=== PATIENT | male | born 1935 | race Asian ===

== ENCOUNTER 2017-10-11 15:54 | Inpatient (IN) | payer MEDICARE, SELFPAY ==
[2017-10-11] VITALS (13 sets, daily range): BP systolic 94–109; BP diastolic 52–71; PULSE 77–85; RESP 18–24; TEMP 36.6–37; O2SAT 94–96; BMI 22.4; BMI 20.8
--- NOTE | 2017-10-11 16:16 | EKG12_ITS ---
Test Reason : HEART HX Blood Pressure : / mmHG Vent. Rate : 079 BPM Atrial Rate : 079 BPM P-R Int : 226 ms QRS Dur : 092 ms QT Int : 402 ms P-R-T Axes : -20 -01 028 degrees QTc Int : 460 ms Sinus rhythm with 1st degree A-V block Otherwise normal ECG Confirmed by CT MANZANARES, ELOY ([id number]), manager editorial BRENDA SENA ([id number] on 10/17/2017 8:59:27 AM Referred By: TERENCE Confirmed By:ELOY FOFANA MD
--- NOTE | 2017-10-11 16:20 | RAD_ITS ---
STUDY: X-RAY CHEST REASON FOR EXAM: Male, 81 years old. Confusion, cough and shortness of breath. TECHNIQUE: Single AP portable view of the chest. COMPARISON: None. FINDINGS: The lung hogan are expanded. Diffuse interstitial changes bilaterally. Atelectatic changes versus infiltrate or chronic change of the right lung base at the costophrenic angle. Pleural thickening versus pleural effusion on the left. Mild cardiomegaly. Status post prior midline sternotomy. Normal visualized pulmonary arteries. Atherosclerotic changes of the thoracic aorta with probable aneurysmal dilatation of the arch portion. There are diffuse degenerative changes of the visualized thoracic spine. Nodular opacity projecting over the anterior right second rib probably healed rib fracture. There is no demonstrated abnormality of the visualized soft tissue structures of the upper abdomen. RAD/Chest 1 View (Portable) IMPRESSION: Atelectatic versus chronic versus early infiltrate at the right lung base/costophrenic angle. Diffuse interstitial changes. Pleural thickening on the left/effusion not excluded. Mild cardiomegaly status post prior midline sternotomy. Marked atherosclerotic changes of the thoracic aorta with a potential aneurysmal dilatation. Electronically Signed: Tatiana Shay MD at 17:13 EDT , Service support ,
[2017-10-11 16:31] LABS: Absolute Lymphocyte Count 2.21 X10^3/ul (0.83-4.51); Absolute Neutrophil Count 12.5 X10^3/uL (2.0-7.7); Basophil# 0.06 X10^3/uL; Basophil% 0.4 % (0-1); Eosinophil# 0.54 X10^3/uL; Eosinophils% 3.2 % (0-5); Hematocrit 27.7 % (40-54); Lymphocyte # 2.21 X10^3/ul (4.0); Mean Corp Hgb Conc 32.5 g/gl (32-36); Mean Corpuscular Volume 89.4 fL (80-94); Mean Platelet Vol. 11.8 fl (6.2-12.0); Monocyte# 1.49 X10^3/uL; Monocyte% 8.7 % (0-10); Neutrophil # 12.54 X10^3/uL (2.7-7.7); Neutrophil % 73.6 % (47-70); Platelet Count 259 K/mm3 (150-450); RBC Distribution Width CV 16.6 % (11.6-14.6); RBC Distribution Width SD 51.8 fl (35.1-43.9)
[2017-10-11 16:37] LABS: POSITIVE COUNT NO; POSITIVE DIFFERENTIAL NO; POSITIVE MORPHOLOGY NO
[2017-10-11 16:52] LABS: ALB/GLOB Ratio 0.4 RATIO (0.9-2.4); AST(SGOT) 32 U/L (15-37); Alanine Aminotransfer ALT/SGPT 36 U/L (16-61); Albumin, Serum 2.3 g/dL (3.2-5.0); Alkaline Phosphatase 161 U/L (45-117); Anion Gap 10 (5-15); BUN 82 mg/dL (7-18); BUN/Creat Ratio 48.8 RATIO (10-20); Calcium,Total 9.5 mg/dL (8.5-10.1); Chloride 108 mmol/L (98-107); Creatinine, Serum 1.68 mg/dL (0.70-1.30); EST Glomerular Filtration Rate 42 mL/min (>60); Est Glom Filt Rate - Afr Amer 51 mL/min (>60); Estimated Creatinine Clearance 36.16 ml/min; Globulin 5.6 g/dL (2.2-4.2); Glucose 103 mg/dL (74-106); Potassium 4.8 mmol/L (3.5-5.1); Protein, Total 7.9 g/dL (6.4-8.2); Sodium Level 140 mmol/L (136-145)
[2017-10-11 16:58] LABS: Mucous, Urine 0 SEEN /hpf (<or=2+); Red Blood Cells-Urine 0 SEEN /hpf (0-5); Squamous Epithelial Cells - UA 0 SEEN /hpf (0-5)
[2017-10-11 17:08] LABS: Lactic Acid 1.6 mmol/L (0.4-2.0)
[2017-10-11 17:50] LABS: Color, Urine Yellow (Yellow); Glucose, Dipstick Normal (Normal); Ketone-Dipstick Negative (Negative); Leukocyte Esterase-Dipstick 500 /ul (Negative); Nitrite-Dipstick Positive (Negative); Occult Blood-Urine 10 /ul (Negative); Protein-Dipstick 100 mg/dl (Negative); Urine Bilirubin Dipstick Negative (Negative); Urine Clarity Sl. Cloudy (Clear); Urine Urobilinogen Normal (Normal); Urine pH 6.5 (5.0 - 8.0)
[2017-10-11 17:52] LABS: International Normalized Ratio 1.1; Prothrombin Time (Protime)PT. 13.7 SECONDS (11.7-14.9)
[2017-10-11 17:53] LABS: Partial Thromboplast Time 37.1 Seconds (24.1-36.2)
[2017-10-11 18:24] LABS: Bacteria RARE /hpf (None Seen); White Blood Cells 5-10 SEEN /hpf (0-5)
--- NOTE | 2017-10-11 18:33 | ED.VISSUMM ---
- ER Visit Summary Date of Service: 10/11/17 Chief Complaint: Altered mental status and increased weakness History of Present Illness: The patient is a 81 M who presents with altered mental status and increased weakness. In June he had an aortic dissection and was treated at [facility] and did have surgical intervention. He was in the hospital for 7 weeks. He is currently in a rehab facility. Daughter reports that over the past 2-3 days he has had increasing generalized weakness and confusion. He has had a fever of 101 and cough. He was diagnosed with UTI and started on antibiotics. He has had some diarrhea since that time as well. Physical Examination: Afebrile heart rate 79 blood pressure 104/63 respiratory rate 24 Heart regular rate and rhythm Patient is tachypneic with bilateral rales Abdomen soft He was diaphoretic at the time of initial examination Alert and oriented to person and place but not month Test Results: EKG shows sinus rhythm at a rate of 79. Laboratory studies notable for white blood cell count 17,000. He does have renal insufficiency with a BUN of 82 and creatinine 1.68 which is slightly elevated from prior labs. Lactic is normal. UA showed 500 leukocyte esterase as well as positive nitrates. His chest x-ray shows some interstitial changes there is no old to compare to. There is a questionable early infiltrate the right lung base. Emergency Department Course and Treatment: She was covered with IV Zosyn and vancomycin. I certainly think he has a UTI and questionable healthcare associated pneumonia as well. He was treated with IV fluids. He was discussed with the hospitalist. He was admitted. Treatment Plan: [] Disposition: Admit Impression: Healthcare associated pneumonia UTI. This note was generated with [employer] dictation software. It may contain incorrect words, spelling, and punctuation that were not noted in review of the chart prior to signing ED Disposition - Plan for ED Patient: Chief Complaint: Confusion Referrals: Thor Jefferson DO [Primary Care Provider] -
--- NOTE | 2017-10-11 18:55 | ED.RN ---
DR. HERRERA IN WITH PT. REMOVED THE THREE STITCHES TO RIGHT UPPER SHOULDER
--- NOTE | 2017-10-11 18:57 | PCM.HP.STD ---
Problem List (1) Pneumonia Status: Acute Qualifiers: Pneumonia type: aspiration pneumonia Laterality: right Lung location: lower lobe of lung Comment: vs HCAP (2) UTI (urinary tract infection) Status: Acute Qualifiers: Urinary tract infection type: acute cystitis (3) SIRS (systemic inflammatory response syndrome) Status: Acute History of Present Illness Date of Admission: 10/11/17 Chief Complaint: confusion, cough The patient is a 81 year old M past medical history of CAD/CABG, encephalopathy, atrial fibrillation, history of pneumonia, history of oropharyngeal dysphagia with PEG tube, hyperlipidemia, obstructive uropathy, hypertension, chronic hepatitis B without delta agent, protein calorie malnutrition, BPH, and history of thoracic aortic dissection status post repair at [facility] 06/2017, [facility] requiring dialysis for a short time, who was discharged and is currently at rehab facility for the past 2 weeks. He was placed on Levaquin 500 mg on 10/10/2017 for urinary tract symptoms. He is referred to emergency department for evaluation of confusion, diarrhea, and cough. To the , he has been undergoing NETWORK CONTROL OPERATORS SUPERVISOR training and has been able to advance his diet somewhat to Jell-O, small sips, applesauce. ED evaluation: Temp 98.6, heart rate 79, blood pressure 104/63, 97/70, respirations 22-24, 95% room air Choice pertinent for white count 17.0, hemoglobin 9.0, left shift, platelet 259, INR 1.1, and chemistries pertinent for BUN 82, creatinine 1.68, GFR 42 mL's per minute, lactate 1.6, albumin 2.3. Chest x-ray revealed right lower lobe atelectasis versus infiltrate, chronic changes, mild cardiomegaly. EKG reveals sinus rhythm with first-degree AV block, 0.22/0 0.09/0.46, no acute ischemic changes. ED course: Vancomycin 1 gm IV, Zosyn 4.5 gm IV, saline total 1 liter bolus On seeing the patient, he appears sweaty, but alert, oriented to place, not date or time. [] Rehab facility provided sheets are reviewed. Medications listed prior to admission PEG tube Nova source 55 mL continuous, free water flush 240 cc every 4 hours Atorvastatin 20 mg daily Iron 300 mg liquid twice a day Guaifenesin 20 mL's 3 times daily Subcu heparin 5000 units twice daily Metoprolol 25 mg twice daily Amiodarone 200 mg daily Aspirin 81 mg daily Famotidine suspension 40 mg per 5 mL daily DuoNeb Aerosols every 4 hour Peridex mouth wash melatonin 3 mg HS KCL 20 meq BID Tylenol prn Past Medical History Past Medical History (Chronic Problems): Chronic Problems (Last Updated 06/20/17 @ 14:47 by Whit Wilson) Type 2 diabetes mellitus without complications (Chronic) Hyperlipidemia (Chronic) Hypertension (Chronic) Allergies No Known Allergies Allergy (Unverified 06/20/17 14:37) Home Medications: Ambulatory Orders Medication Instructions Recorded aspirin 81 mg tablet,delayed 81 mg PO QDAY 06/20/17 release losartan 50 mg-hydrochlorothiazide 1 tab PO QDAY 06/20/17 12.5 mg tablet metformin 500 mg tablet 500 mg PO QDAY 30 Days #30 tab 06/20/17 pravastatin 40 mg tablet 40 mg PO QHS 90 Days #90 tab 06/20/17 Surgical History: - - see HPI, CABG, s/p thoracic Ao dissection treated [facility] Psychiatric History: No pertinent psych hx Lives: Spouse/ Significant Other Smoking Status: Former smoker - *Family History Maternal History Items: No pertinent history Paternal History Items: No pertinent history Review of Systems Constitutional: Reports: Chills, Weakness, Fatigue Respiratory: Reports: Cough Gastrointestinal: Reports: - - PEG tube Skin: Reports: Wounds - multiple, chest wall incision, R groin, buttock VTE Information - Inpt Only VTE Present on Admission: No VTE Mechan Device Prophylaxis: SCD's VTE Pharm Prophylaxis ordered?: Yes Patient Problems: Active and Suspected Problems (Last Updated 06/20/17 @ 14:47 by Whit Wilson) Pneumonia (Acute) vs HCAP UTI (urinary tract infection) (Acute) SIRS (systemic inflammatory response syndrome) (Acute) Subjective: seaty appearing, alert to place and person Objective: non toxic appearing - Physical Exam General: Alert, Confused HEENT: - - fair dentition Oral: Dry Mucosa Neck: Supple, No JVD, Negative Carotid Bruits, No Nodes, Thyroid Normal Size and Texture Lungs: Rhonchi Cardiovascular: Regular rate, Regular Rhythm, Normal S1, Normal S2 Abdomen: Soft, Non Tender, Non-Distended, - - PEG site clean Skin: Ulcer/ Wound - chest wall, R groin, buttock area Neurological: - - deconditioned -- requires assist of 2 to sit up in bed Psych/Mental Status: Normal Affect, Appropriate Vital Signs Temp Pulse Resp BP Pulse Ox 98 F 80 22 H 97/70 96 10/11/17 16:56 10/11/17 18:00 10/11/17 18:00 10/11/17 18:00 10/11/17 18:00 Oxygen Delivery Method Room Air Weight: 160 lb 11.472 oz Body Mass Index (BMI) 22.4 Laboratory Tests Past 24 Hrs 10/11/17 10/11/17 10/11/17 16:10 16:10 16:10 WBC 17.0 H RBC 3.10 L Hgb 9.0 L Hct 27.7 L MCV 89.4 MCH 29.0 MCHC 32.5 RDW 16.6 H RDW Differential 51.8 H Plt Count 259 MPV 11.8 Immature Gran % (Auto) 1.100 H Neut % (Auto) 73.6 H Lymph % (Auto) 13.0 L [place] % (Auto) 8.7 Eos % (Auto) 3.2 Baso % (Auto) 0.4 Absolute Neuts (auto) 12.5 H Absolute Lymphs (auto) 2.21 Total Counted Not Reportable PT INR APTT Sodium 140 Potassium 4.8 Chloride 108 H Carbon Dioxide 22.0 Anion Gap 10 BUN 82 H Creatinine 1.68 H Estim Creat Clear Calc 36.16 Est GFR (MDRD) Af Amer 51 L Est GFR (MDRD) Non-Af 42 L BUN/Creatinine Ratio 48.8 H Glucose 103 Lactic Acid 1.6 Calcium 9.5 Total Bilirubin 0.30 AST 32 ALT 36 Alkaline Phosphatase 161 H Total Protein 7.9 Albumin 2.3 L Globulin 5.6 H Albumin/Globulin Ratio 0.4 L Urine Color Urine Clarity Urine pH Ur Specific [place] Urine Protein Urine Glucose (UA) Urine Ketones Urine Occult Blood Urine Nitrite Urine Bilirubin Urine Urobilinogen Ur Leukocyte Esterase Urine RBC Urine WBC Ur Squamous Epith Cells Urine Bacteria Urine Mucus 10/11/17 10/11/17 16:35 16:52 WBC RBC Hgb Hct MCV MCH MCHC RDW RDW Differential Plt Count MPV Immature Gran % (Auto) Neut % (Auto) Lymph % (Auto) [place] % (Auto) Eos % (Auto) Baso % (Auto) Absolute Neuts (auto) Absolute Lymphs (auto) Total Counted PT 13.7 INR 1.1 APTT 37.1 H Sodium Potassium Chloride Carbon Dioxide Anion Gap BUN Creatinine Estim Creat Clear Calc Est GFR (MDRD) Af Amer Est GFR (MDRD) Non-Af BUN/Creatinine Ratio Glucose Lactic Acid Calcium Total Bilirubin AST ALT Alkaline Phosphatase Total Protein Albumin Globulin Albumin/Globulin Ratio Urine Color Yellow Urine Clarity Sl. Cloudy Urine pH 6.5 Ur Specific [place] 1.010 Urine Protein 100 H Urine Glucose (UA) Normal Urine Ketones Negative Urine Occult Blood 10 H Urine Nitrite Positive H Urine Bilirubin Negative Urine Urobilinogen Normal Ur Leukocyte Esterase 500 H Urine RBC 0 SEEN Urine WBC 5-10 SEEN Ur Squamous Epith Cells 0 SEEN Urine Bacteria RARE Urine Mucus 0 SEEN Assessment/Plan Active and Suspected Problems (Last Updated 06/20/17 @ 14:47 by Whit Wilson) Pneumonia (Acute) vs HCAP UTI (urinary tract infection) (Acute) SIRS (systemic inflammatory response syndrome) (Acute) 81 year old M past medical history of CAD/CABG, encephalopathy, atrial fibrillation, history of pneumonia, history of oropharyngeal dysphagia with PEG tube, hyperlipidemia, obstructive uropathy, hypertension, chronic hepatitis B without delta agent, protein calorie malnutrition, BPH, and history of thoracic aortic dissection status post repair at [facility] 06/2017, [facility] requiring dialysis for a short time, who was discharged and is currently at rehab facility for the past 2 weeks. He was placed on Levaquin 500 mg on 10/10/2017 for urinary tract symptoms. He is referred to emergency department for evaluation of confusion, diarrhea, and cough. Found to have leukocytosis, lower blood pressures, and possible infiltrate in the right lower lobe, H CAP versus aspiration pneumonia (as they had recently started trials of applesauce, Jell-O etc.). He meets SIRS criteria. Baseline creatinine is unknown. He is very deconditioned on exam. Skin examination is pertinent for multiple areas of superficial wounds and scabbing along the chest wall midline, right neck area, right groin area, buttock area pressure erythema. PEG tube is clean dry intact. Patient should remain n.p.o. with all medications given per PEG, until further evaluation by NETWORK CONTROL OPERATORS SUPERVISOR. 1. SIRS 2. Pneumonia right lower lobe, H CAP versus possible aspiration 3. Possible urinary tract infection 4. Dehydration/acute kidney injury, baseline creatinine 1.2 5. anemia, NOS - hemoglobins run 9 - 10 5. Deconditioning 7. Oral pharyngeal dysphasia; presence of PEG tube 8. Protein calorie malnutrition, moderate 9. Hypertension - continue metoprolol 25 mg BID HOLD HR less than 60 SBP less than 100 10. Hyperlipidemia - 11. Skin wounds, pressure erythema buttock area 12. Deconditioning 13. Status post repair of thoracic aortic aneurysm 14. History of CAD/CABG 15. chronic hep B, without delta agent 16. CAD/hx afib -- on ASA, statin, beta santa, Amiodarone 17. BPH prophylaxis -- H2 santa, subQ heparin, SCDs PLAN: admit PCU tele O2 support fluid hydration saline at 75 mL per hour PEG feeds -- Novasource (or equivalent) 55 mL per hour, free water flush 240 mL Q 4 hrs pulmonary toilette aerosol, chest physiotherapy, cough deep breath, IS NPO NETWORK CONTROL OPERATORS SUPERVISOR evaluation Vancomycin 1 gm every 12 hours, Zosyn 3.375 gm Q8 Streptococcal and Legionella urinary Ag result urine and blood cultures mouth care, Peridex rinses wound care consult /skin assessment / integrity PT/OT NETWORK CONTROL OPERATORS SUPERVISOR eval mobilize Code Visit Inpatient E&M: 52055 Init Hosp L2
--- NOTE | 2017-10-11 19:29 | HP.PCM_ITS ---
Problem List (1) Pneumonia Status: Acute Qualifiers: Pneumonia type: aspiration pneumonia Laterality: right Lung location: lower lobe of lung Comment: vs HCAP (2) UTI (urinary tract infection) Status: Acute Qualifiers: Urinary tract infection type: acute cystitis (3) SIRS (systemic inflammatory response syndrome) Status: Acute History of Present Illness Date of Admission: 10/11/17 Chief Complaint: confusion, cough The patient is a 81 year old M past medical history of CAD/CABG, encephalopathy , atrial fibrillation, history of pneumonia, history of oropharyngeal dysphagia with PEG tube, hyperlipidemia, obstructive uropathy, hypertension, chronic hepatitis B without delta agent, protein calorie malnutrition, BPH, and history of thoracic aortic dissection status post repair at [facility] 06/2017, [facility] requiring dialysis for a short time, who was discharged and is currently at rehab facility for the past 2 weeks. He was placed on Levaquin 500 mg on 10/10/2017 for urinary tract symptoms. He is referred to emergency department for evaluation of confusion, diarrhea, and cough. To the , he has been undergoing FOOD SERVICES MANAGER training and has been able to advance his diet somewhat to Jell-O, small sips, applesauce. ED evaluation: Temp 98.6, heart rate 79, blood pressure 104/63, 97/70, respirations 22-24, 95% room air Choice pertinent for white count 17.0, hemoglobin 9.0, left shift, platelet 259 , INR 1.1, and chemistries pertinent for BUN 82, creatinine 1.68, GFR 42 mL's per minute, lactate 1.6, albumin 2.3. Chest x-ray revealed right lower lobe atelectasis versus infiltrate, chronic changes, mild cardiomegaly. EKG reveals sinus rhythm with first-degree AV block, 0.22/0 0.09/0.46, no acute ischemic changes. ED course: Vancomycin 1 gm IV, Zosyn 4.5 gm IV, saline total 1 liter bolus On seeing the patient, he appears sweaty, but alert, oriented to place, not date or time. [] Rehab facility provided sheets are reviewed. Medications listed prior to admission PEG tube Nova source 55 mL continuous, free water flush 240 cc every 4 hours Atorvastatin 20 mg daily Iron 300 mg liquid twice a day Guaifenesin 20 mL's 3 times daily Subcu heparin 5000 units twice daily Metoprolol 25 mg twice daily Amiodarone 200 mg daily Aspirin 81 mg daily Famotidine suspension 40 mg per 5 mL daily DuoNeb Aerosols every 4 hour Peridex mouth wash melatonin 3 mg HS KCL 20 meq BID Tylenol prn Past Medical History Past Medical History (Chronic Problems): Chronic Problems (Last Updated 06/20/17 @ 14:47 by Whit Wilson) Type 2 diabetes mellitus without complications (Chronic) Hyperlipidemia (Chronic) Hypertension (Chronic) Allergies No Known Allergies Allergy (Unverified 06/20/17 14:37) Home Medications: Ambulatory Orders Medication Instructions Recorded aspirin 81 mg tablet,delayed 81 mg PO QDAY 06/20/17 release losartan 50 mg-hydrochlorothiazide 1 tab PO QDAY 06/20/17 12.5 mg tablet metformin 500 mg tablet 500 mg PO QDAY 30 Days #30 tab 06/20/17 pravastatin 40 mg tablet 40 mg PO QHS 90 Days #90 tab 06/20/17 Surgical History: - - see HPI, CABG, s/p thoracic Ao dissection treated [facility] Psychiatric History: No pertinent psych hx Lives: Spouse/ Significant Other Smoking Status: Former smoker - *Family History Maternal History Items: No pertinent history Paternal History Items: No pertinent history Review of Systems Constitutional: Reports: Chills, Weakness, Fatigue Respiratory: Reports: Cough Gastrointestinal: Reports: - - PEG tube Skin: Reports: Wounds - multiple, chest wall incision, R groin, buttock VTE Information - Inpt Only VTE Present on Admission: No VTE Mechan Device Prophylaxis: SCD's VTE Pharm Prophylaxis ordered?: Yes Patient Problems: Active and Suspected Problems (Last Updated 06/20/17 @ 14:47 by Whit Wilson) Pneumonia (Acute) vs HCAP UTI (urinary tract infection) (Acute) SIRS (systemic inflammatory response syndrome) (Acute) Subjective: seaty appearing, alert to place and person Objective: non toxic appearing - Physical Exam General: Alert, Confused HEENT: - - fair dentition Oral: Dry Mucosa Neck: Supple, No JVD, Negative Carotid Bruits, No Nodes, Thyroid Normal Size and Texture Lungs: Rhonchi Cardiovascular: Regular rate, Regular Rhythm, Normal S1, Normal S2 Abdomen: Soft, Non Tender, Non-Distended, - - PEG site clean Skin: Ulcer/ Wound - chest wall, R groin, buttock area Neurological: - - deconditioned -- requires assist of 2 to sit up in bed Psych/Mental Status: Normal Affect, Appropriate Vital Signs Temp Pulse Resp BP Pulse Ox 98 F 80 22 H 97/70 96 10/11/17 16:56 10/11/17 18:00 10/11/17 18:00 10/11/17 18:00 10/11/17 18:00 Oxygen Delivery Method Room Air Weight: 160 lb 11.472 oz Body Mass Index (BMI) 22.4 Laboratory Tests Past 24 Hrs 10/11/17 10/11/17 10/11/17 16:10 16:10 16:10 WBC 17.0 H RBC 3.10 L Hgb 9.0 L Hct 27.7 L MCV 89.4 MCH 29.0 MCHC 32.5 RDW 16.6 H RDW Differential 51.8 H Plt Count 259 MPV 11.8 Immature Gran % (Auto) 1.100 H Neut % (Auto) 73.6 H Lymph % (Auto) 13.0 L [place] % (Auto) 8.7 Eos % (Auto) 3.2 Baso % (Auto) 0.4 Absolute Neuts (auto) 12.5 H Absolute Lymphs (auto) 2.21 Total Counted Not Reportable PT INR APTT Sodium 140 Potassium 4.8 Chloride 108 H Carbon Dioxide 22.0 Anion Gap 10 BUN 82 H Creatinine 1.68 H Estim Creat Clear Calc 36.16 Est GFR (MDRD) Af Amer 51 L Est GFR (MDRD) Non-Af 42 L BUN/Creatinine Ratio 48.8 H Glucose 103 Lactic Acid 1.6 Calcium 9.5 Total Bilirubin 0.30 AST 32 ALT 36 Alkaline Phosphatase 161 H Total Protein 7.9 Albumin 2.3 L Globulin 5.6 H Albumin/Globulin Ratio 0.4 L Urine Color Urine Clarity Urine pH Ur Specific [place] Urine Protein Urine Glucose (UA) Urine Ketones Urine Occult Blood Urine Nitrite Urine Bilirubin Urine Urobilinogen Ur Leukocyte Esterase Urine RBC Urine WBC Ur Squamous Epith Cells Urine Bacteria Urine Mucus 10/11/17 10/11/17 16:35 16:52 WBC RBC Hgb Hct MCV MCH MCHC RDW RDW Differential Plt Count MPV Immature Gran % (Auto) Neut % (Auto) Lymph % (Auto) [place] % (Auto) Eos % (Auto) Baso % (Auto) Absolute Neuts (auto) Absolute Lymphs (auto) Total Counted PT 13.7 INR 1.1 APTT 37.1 H Sodium Potassium Chloride Carbon Dioxide Anion Gap BUN Creatinine Estim Creat Clear Calc Est GFR (MDRD) Af Amer Est GFR (MDRD) Non-Af BUN/Creatinine Ratio Glucose Lactic Acid Calcium Total Bilirubin AST ALT Alkaline Phosphatase Total Protein Albumin Globulin Albumin/Globulin Ratio Urine Color Yellow Urine Clarity Sl. Cloudy Urine pH 6.5 Ur Specific [place] 1.010 Urine Protein 100 H Urine Glucose (UA) Normal Urine Ketones Negative Urine Occult Blood 10 H Urine Nitrite Positive H Urine Bilirubin Negative Urine Urobilinogen Normal Ur Leukocyte Esterase 500 H Urine RBC 0 SEEN Urine WBC 5-10 SEEN Ur Squamous Epith Cells 0 SEEN Urine Bacteria RARE Urine Mucus 0 SEEN Assessment/Plan Active and Suspected Problems (Last Updated 06/20/17 @ 14:47 by Whit Wilson) Pneumonia (Acute) vs HCAP UTI (urinary tract infection) (Acute) SIRS (systemic inflammatory response syndrome) (Acute) 81 year old M past medical history of CAD/CABG, encephalopathy, atrial fibrillation, history of pneumonia, history of oropharyngeal dysphagia with PEG tube, hyperlipidemia, obstructive uropathy, hypertension, chronic hepatitis B without delta agent, protein calorie malnutrition, BPH, and history of thoracic aortic dissection status post repair at [facility] 06/2017, [facility] requiring dialysis for a short time, who was discharged and is currently at rehab facility for the past 2 weeks. He was placed on Levaquin 500 mg on 10/10/2017 for urinary tract symptoms. He is referred to emergency department for evaluation of confusion, diarrhea, and cough. Found to have leukocytosis, lower blood pressures, and possible infiltrate in the right lower lobe, H CAP versus aspiration pneumonia ( as they had recently started trials of applesauce, Jell-O etc.). He meets SIRS criteria. Baseline creatinine is unknown. He is very deconditioned on exam. Skin examination is pertinent for multiple areas of superficial wounds and scabbing along the chest wall midline, right neck area, right groin area, buttock area pressure erythema. PEG tube is clean dry intact. Patient should remain n.p.o. with all medications given per PEG, until further evaluation by FOOD SERVICES MANAGER. 1. SIRS 2. Pneumonia right lower lobe, H CAP versus possible aspiration 3. Possible urinary tract infection 4. Dehydration/acute kidney injury, baseline creatinine 1.2 5. anemia, NOS - hemoglobins run 9 - 10 5. Deconditioning 7. Oral pharyngeal dysphasia; presence of PEG tube 8. Protein calorie malnutrition, moderate 9. Hypertension - continue metoprolol 25 mg BID HOLD HR less than 60 SBP less than 100 10. Hyperlipidemia - 11. Skin wounds, pressure erythema buttock area 12. Deconditioning 13. Status post repair of thoracic aortic aneurysm 14. History of CAD/CABG 15. chronic hep B, without delta agent 16. CAD/hx afib -- on ASA, statin, beta santa, Amiodarone 17. BPH prophylaxis -- H2 santa, subQ heparin, SCDs PLAN: admit PCU tele O2 support fluid hydration saline at 75 mL per hour PEG feeds -- Novasource (or equivalent) 55 mL per hour, free water flush 240 mL Q 4 hrs pulmonary toilette aerosol, chest physiotherapy, cough deep breath, IS NPO FOOD SERVICES MANAGER evaluation Vancomycin 1 gm every 12 hours, Zosyn 3.375 gm Q8 Streptococcal and Legionella urinary Ag result urine and blood cultures mouth care, Peridex rinses wound care consult /skin assessment / integrity PT/OT FOOD SERVICES MANAGER eval mobilize Code Visit Inpatient E&M: 51224 Init Hosp L2
[2017-10-11] MEDS: 0.9% Normal Saline 1,000 ML 75 ML IV (20:00)
--- NOTE | 2017-10-11 22:20 | PCM.RX.CS ---
Consult Pharmacy has been consulted to manage selected antiobiotic: Vancomycin Type of Consult: New start Suspected Infection: Pneumonia Prior Doses of Antibiotics Received/Current Regimen: Medications Discontinued Medications Vancomycin HCl (Vancomycin) 1,000 mg in 200 mls @ 200 mls/hr IV X1 ONE Stop: 10/11/17 19:29 Last Admin: 10/11/17 19:29 Dose: 200 mls/hr Labs: Sodium 140 mmol/L (136-145) 10/11/17 16:10 Potassium 4.8 mmol/L (3.5-5.1) 10/11/17 16:10 Chloride 108 mmol/L (98-107) H 10/11/17 16:10 Carbon Dioxide 22.0 mmol/L (21.0-32.0) 10/11/17 16:10 Anion Gap 10 (5-15) 10/11/17 16:10 BUN 82 mg/dL (7-18) H 10/11/17 16:10 Creatinine 1.68 mg/dL (0.70-1.30) H 10/11/17 16:10 Est GFR (MDRD) Af Amer 51 mL/min (>60) L 10/11/17 16:10 Est GFR (MDRD) Non-Af 42 mL/min (>60) L 10/11/17 16:10 BUN/Creatinine Ratio 48.8 RATIO (10-20) H 10/11/17 16:10 Glucose 103 mg/dL (74-106) 10/11/17 16:10 Weight used for dosin.6 kg Estimated Creatinine Clearance: 34 Goal Trough: 15-20 mcg/mL Pharmacy Plan for Drug Dosing: Pharmacy Service will continue to monitor and adjust dosing as required. Follow-Up Labs: Trough Vancomycin Labs to be done on [date and time ordered]: 10/14/17 @3103
[2017-10-11] MEDS: Metoprolol Tartrate 25 MG Tablet GT (23:22)
[2017-10-11] MEDS: Chlorhexidine 480 ML 15 ML PO (23:23)
[2017-10-11] MEDS: Atorvastatin Calcium 20 MG Tablet GT (23:23)
[2017-10-12] VITALS (17 sets, daily range): BP systolic 103–118; BP diastolic 57–64; PULSE 63–84; RESP 16–26; TEMP 36.5–37.1; O2SAT 95–97
[2017-10-12] MEDS: Piperacil/Tazobactam 3.375 GM/50 ML ML IV ×3 (05:25→22:35)
[2017-10-12 06:34] LABS: Absolute Lymphocyte Count 1.95 X10^3/ul (0.83-4.51); Absolute Neutrophil Count 9.8 X10^3/uL (2.0-7.7); Basophil# 0.08 X10^3/uL; Basophil% 0.6 % (0-1); Eosinophil# 0.66 X10^3/uL; Eosinophils% 4.7 % (0-5); Hematocrit 25.2 % (40-54); Hemoglobin 8.1 g/dl (13.0-16.5); Lymphocyte # 1.95 X10^3/ul (4.0); Mean Corp Hgb Conc 32.1 g/gl (32-36); Mean Corpuscular Hgb 28.8 pg (27.0-32.0); Mean Corpuscular Volume 89.7 fL (80-94); Mean Platelet Vol. 10.7 fl (6.2-12.0); Monocyte# 1.33 X10^3/uL; Monocyte% 9.5 % (0-10); Neutrophil # 9.76 X10^3/uL (2.7-7.7); POSITIVE COUNT NO; POSITIVE DIFFERENTIAL NO; POSITIVE MORPHOLOGY NO; Platelet Count 244 K/mm3 (150-450); RBC Distribution Width CV 16.2 % (11.6-14.6); RBC Distribution Width SD 51.7 fl (35.1-43.9); Red Blood Count 2.81 M/mm3 (4.6-6.2)
[2017-10-12 06:51] LABS: ALB/GLOB Ratio 0.4 RATIO (0.9-2.4); AST(SGOT) 32 U/L (15-37); Alanine Aminotransfer ALT/SGPT 33 U/L (16-61); Albumin, Serum 2.1 g/dL (3.2-5.0); Alkaline Phosphatase 162 U/L (45-117); Anion Gap 10 (5-15); BUN 74 mg/dL (7-18); BUN/Creat Ratio 46.2 RATIO (10-20); Calcium,Total 9.3 mg/dL (8.5-10.1); Chloride 112 mmol/L (98-107); Cholesterol 137 mg/dL (200); EST Glomerular Filtration Rate 44 mL/min (>60); Est Glom Filt Rate - Afr Amer 54 mL/min (>60); Estimated Creatinine Clearance 35.21 ml/min; Globulin 5.2 g/dL (2.2-4.2); Glucose 101 mg/dL (74-106); High Density Lipoprotein 44 mg/dL; Magnesium 2.4 mg/dL (1.6-2.6); Phosphorus 4.1 mg/dL (2.5-4.9); Potassium 4.8 mmol/L (3.5-5.1); Protein, Total 7.3 g/dL (6.4-8.2); Sodium Level 143 mmol/L (136-145); Triglycerides 404 mg/dL
[2017-10-12] MEDS: Ipratropium/Albuterol Sulfate 3 ML AMPUL.NEB INHALATION ×4 (07:19→19:50)
[2017-10-12] MEDS: Aspirin 81 MG TAB.CHEW GT (10:39)
[2017-10-12] MEDS: Amiodarone 200 MG Tablet GT (10:39)
[2017-10-12] MEDS: Metoprolol Tartrate 25 MG Tablet GT ×2 (10:39→21:38)
[2017-10-12] MEDS: Famotidine 20 MG Tablet 40 MG GT (10:39)
[2017-10-12] MEDS: Menthol/Lanolin/Calamine/Znox 113 GM Tube 1 APPLIC TOPICAL ×2 (10:40→21:37)
--- NOTE | 2017-10-12 13:17 | PCM.PROGNOTE ---
Patient Problems: Active and Suspected Problems (Last Updated 06/20/17 @ 14:47 by Whit Wilson) Pneumonia (Acute) vs HCAP UTI (urinary tract infection) (Acute) SIRS (systemic inflammatory response syndrome) (Acute) Subjective: Pt is lethargic. He is able to open his eyes but is not answering questions at this time. His daughter is present and helping with the hx. He has a PEG tube following a prolonged hospitalization at the clinic (7 weeks) for an aortic aneurysm rupture. He was subsequently discharged to [facility] on dialysis, she is not sure who the process control board operator was, but does state that dialysis was able to be discontinued. He has been on levaquin for UTI with dysuria at [facility] which is where he has been since leaving [facility] He was more lethargic and confused with no improvement after starting levaquin so he was sent to [facility]. She states he has also had a cough. He has recently had his diet attempted to be advanced as well. - Physical Exam General: Alert, Cooperative, Lethargic HEENT: Atraumatic, PERRLA, EOMI, Normocephalic Neck: Supple, No JVD, Negative Carotid Bruits Lungs: Normal air movement, Rales - RLL. Cardiovascular: Regular rate, No murmurs Abdomen: Bowel Sounds Present, Soft, Non Tender Extremities: No edema, Capillary Refill Less than 3 Seconds Skin: No rashes, No breakdown Musculoskeletal: No Tenderness to Palpation of Joints or Extremities Neurological: Cranial nerves II-XII grossly intact Psych/Mental Status: Normal Affect, Appropriate Vital Signs Temp Pulse Resp BP Pulse Ox 98.6 F 76 22 H 103/57 L 97 10/12/17 10:38 10/12/17 11:07 10/12/17 11:07 10/12/17 10:38 10/12/17 10:38 Oxygen Delivery Method Room Air Weight: 67.6 kg Body Mass Index (BMI) 20.8 Intake and Output for Last 24 Hours 10/10/17 10/11/17 10/12/17 23:59 23:59 23:59 Intake Total 240 / 240 2689 / 2689 Balance 240 / 240 2689 / 2689 Laboratory Tests Past 24 Hrs 10/12/17 10/12/17 10/12/17 06:15 06:15 10:50 WBC 14.0 H RBC 2.81 L Hgb 8.1 L Hct 25.2 L MCV 89.7 MCH 28.8 MCHC 32.1 RDW 16.2 H RDW Differential 51.7 H Plt Count 244 MPV 10.7 Immature Gran % (Auto) 1.200 H Neut % (Auto) 70.0 Lymph % (Auto) 14.0 L [place] % (Auto) 9.5 Eos % (Auto) 4.7 Baso % (Auto) 0.6 Absolute Neuts (auto) 9.8 H Absolute Lymphs (auto) 1.95 Total Counted Not Reportable Sodium 143 Potassium 4.8 Chloride 112 H Carbon Dioxide 21.0 Anion Gap 10 BUN 74 H Creatinine 1.60 H Estim Creat Clear Calc 35.21 Est GFR (MDRD) Af Amer 54 L Est GFR (MDRD) Non-Af 44 L BUN/Creatinine Ratio 46.2 H Glucose 101 Calcium 9.3 Phosphorus 4.1 Magnesium 2.4 Total Bilirubin 0.40 AST 32 ALT 33 Alkaline Phosphatase 162 H Total Protein 7.3 Albumin 2.1 L Globulin 5.2 H Albumin/Globulin Ratio 0.4 L Triglycerides 404 H Cholesterol 137 LDL Cholesterol TNP VLDL Cholesterol TNP HDL Cholesterol 44 MRSA (PCR) Pending Medical Necessity - Tobacco Use Smoking Status: Former smoker Assessment/Plan Active and Suspected Problems (Last Updated 06/20/17 @ 14:47 by Whit Wilson) Pneumonia (Acute) vs HCAP UTI (urinary tract infection) (Acute) SIRS (systemic inflammatory response syndrome) (Acute) 1. Acute sepsis 2/2 Acute RLL aspiration/HCAP pna - present on admission as evidenced by evidence of pna and UTI, leukocytosis, tachypnea. Negative Lactate. continue vanc/zosyn. Check Urine ag's. CXR c/w RLL pna. Leukocytosis improved. Afebrile. No increased O2 demand. Aerosols, Mucinex. When he is more alert, PEP/IS therapy. MRSA nasal swab is pending. Follow final cultures. 2. Acute Cystitis, failed outpatient levaquin - this potentially worsened his confusion. He had a yu at the SNF, this was removed in the ER. Will place yu as he is confused and incontinent, and I would like to monitor I/O with his renal dysfunction. 3. Acute metabolic encephalopathy 2/2 above infectious processes. I will DC his ativan while he remains lethargic and with poor renal function he is at risk of increased sedation. Ideally, this should be tapered to complete discontinuation with his age. 4. Elevated creatinine - unclear baseline - recently required dialysis. Unknown who his process control board operator was. Consult to Dr. Crawley. Pepcid dose decreased to renal dose. Cannot to GT protonix per pharmacy. 5. Dysphagia - Peg feedings ordered. ST. 6. Normocytic anemia - trend/ 7. Diarrhea - check stool for C diff. 8. Debility - PTOT. 9. CAD with hx of CABG - continue home meds. 10. Hx AF - BB, amio. DVT ppx: heparin DC planning: will need to go back to SNF This patient was seen by Gelacio Lazo PA-C under the supervision of Doctor Bal.
--- NOTE | 2017-10-12 13:27 | PN_ITS ---
Patient Problems: Active and Suspected Problems (Last Updated 06/20/17 @ 14:47 by Whit Wilson) Pneumonia (Acute) vs HCAP UTI (urinary tract infection) (Acute) SIRS (systemic inflammatory response syndrome) (Acute) Subjective: Pt is lethargic. He is able to open his eyes but is not answering questions at this time. His daughter is present and helping with the hx. He has a PEG tube following a prolonged hospitalization at the clinic (7 weeks) for an aortic aneurysm rupture. He was subsequently discharged to [facility] on dialysis, she is not sure who the seaming machine operator was, but does state that dialysis was able to be discontinued. He has been on levaquin for UTI with dysuria at [facility] which is where he has been since leaving [facility]. He was more lethargic and confused with no improvement after starting levaquin so he was sent to [facility]. She states he has also had a cough. He has recently had his diet attempted to be advanced as well. - Physical Exam General: Alert, Cooperative, Lethargic HEENT: Atraumatic, PERRLA, EOMI, Normocephalic Neck: Supple, No JVD, Negative Carotid Bruits Lungs: Normal air movement, Rales - RLL. Cardiovascular: Regular rate, No murmurs Abdomen: Bowel Sounds Present, Soft, Non Tender Extremities: No edema, Capillary Refill Less than 3 Seconds Skin: No rashes, No breakdown Musculoskeletal: No Tenderness to Palpation of Joints or Extremities Neurological: Cranial nerves II-XII grossly intact Psych/Mental Status: Normal Affect, Appropriate Vital Signs Temp Pulse Resp BP Pulse Ox 98.6 F 76 22 H 103/57 L 97 10/12/17 10:38 10/12/17 11:07 10/12/17 11:07 10/12/17 10:38 10/12/17 10:38 Oxygen Delivery Method Room Air Weight: 67.6 kg Body Mass Index (BMI) 20.8 Intake and Output for Last 24 Hours 10/10/17 10/11/17 10/12/17 23:59 23:59 23:59 Intake Total 240 / 240 2689 / 2689 Balance 240 / 240 2689 / 2689 Laboratory Tests Past 24 Hrs 10/12/17 10/12/17 10/12/17 06:15 06:15 10:50 WBC 14.0 H RBC 2.81 L Hgb 8.1 L Hct 25.2 L MCV 89.7 MCH 28.8 MCHC 32.1 RDW 16.2 H RDW Differential 51.7 H Plt Count 244 MPV 10.7 Immature Gran % (Auto) 1.200 H Neut % (Auto) 70.0 Lymph % (Auto) 14.0 L [place] % (Auto) 9.5 Eos % (Auto) 4.7 Baso % (Auto) 0.6 Absolute Neuts (auto) 9.8 H Absolute Lymphs (auto) 1.95 Total Counted Not Reportable Sodium 143 Potassium 4.8 Chloride 112 H Carbon Dioxide 21.0 Anion Gap 10 BUN 74 H Creatinine 1.60 H Estim Creat Clear Calc 35.21 Est GFR (MDRD) Af Amer 54 L Est GFR (MDRD) Non-Af 44 L BUN/Creatinine Ratio 46.2 H Glucose 101 Calcium 9.3 Phosphorus 4.1 Magnesium 2.4 Total Bilirubin 0.40 AST 32 ALT 33 Alkaline Phosphatase 162 H Total Protein 7.3 Albumin 2.1 L Globulin 5.2 H Albumin/Globulin Ratio 0.4 L Triglycerides 404 H Cholesterol 137 LDL Cholesterol TNP VLDL Cholesterol TNP HDL Cholesterol 44 MRSA (PCR) Pending Medical Necessity - Tobacco Use Smoking Status: Former smoker Assessment/Plan Active and Suspected Problems (Last Updated 06/20/17 @ 14:47 by Whit Wilson) Pneumonia (Acute) vs HCAP UTI (urinary tract infection) (Acute) SIRS (systemic inflammatory response syndrome) (Acute) 1. Acute sepsis 2/2 Acute RLL aspiration/HCAP pna - present on admission as evidenced by evidence of pna and UTI, leukocytosis, tachypnea. Negative Lactate. continue vanc/zosyn. Check Urine ag's. CXR c/w RLL pna. Leukocytosis improved. Afebrile. No increased O2 demand. Aerosols, Mucinex. When he is more alert, PEP/IS therapy. MRSA nasal swab is pending. Follow final cultures. 2. Acute Cystitis, failed outpatient levaquin - this potentially worsened his confusion. He had a yu at the SNF, this was removed in the ER. Will place yu as he is confused and incontinent, and I would like to monitor I/O with his renal dysfunction. 3. Acute metabolic encephalopathy 2/2 above infectious processes. I will DC his ativan while he remains lethargic and with poor renal function he is at risk of increased sedation. Ideally, this should be tapered to complete discontinuation with his age. 4. Elevated creatinine - unclear baseline - recently required dialysis. Unknown who his seaming machine operator was. Consult to Dr. Crawley. Pepcid dose decreased to renal dose. Cannot to GT protonix per pharmacy. 5. Dysphagia - Peg feedings ordered. ST. 6. Normocytic anemia - trend/ 7. Diarrhea - check stool for C diff. 8. Debility - PTOT. 9. CAD with hx of CABG - continue home meds. 10. Hx AF - BB, amio. DVT ppx: heparin DC planning: will need to go back to SNF This patient was seen by Gelacio Lazo PA-C under the supervision of Doctor Bal.
--- NOTE | 2017-10-12 14:09 | PCM.CONS.R ---
Consultation - Renal 10/12/17 PCP/ Referring MD: Requesting physician: RONEN Ortiz, Ro Bal DO Primary care physician: Thor Jefferson DO Reason for Consultation:: CKD stage 3 - History of Present Illness History of Present Illness: The patient is a 81 year old Alexander M admitted for aspiration pneumonia, confusion, UTI. He had a prolonged hospitalized at [facility] main ward in June for thoracic aortic dissection repair subsequently transferred to [facility] in [place] after 7wks in [facility]. He required temporary hemodialysis at [facility] then recovered renal function during stay at LT. Creatinine was 1.4 at LTAC according to his daughter at bedside. He was sent to [facility] on 09/27 for rehab. Creatinine was 1.2 on 09/30 and 10/05/17. He was sent to ER with fever, cough, confusion for two days calling out for his parents. He had progressive weakness, fatigue and increased somnolence. He had dysuria at [facility] and was started on levaquin for UTI prior to admit. He had diarrhea at [facility]. CXR in ER showed RLL atelectasis vs infiltrate. Past medical history is significant for thoracic aortic dissection repair, HTN, DM2, hepatitis B, BPH, atrial fibrillation, dysphagia with PEG tube, hyperlipidemia, obstructive uropathy, hypertension, chronic hepatitis B, protein calorie malnutrition. He has known history of CKD stage 3. - Allergies Allergies: Allergies No Known Allergies Allergy (Unverified 06/20/17 14:37) - Current Medications Current Medications: Current Medications Acetaminophen (Tylenol Liquid) 650 mg GT Q4H PRN PRN PRN Reason: FEVER Albuterol/Ipratropium (Duoneb) 3 ml INHALATION Q4HWA [facility] Last Admin: 10/12/17 11:07 Dose: 3 ml Amiodarone HCl (Cordarone) 200 mg GT DAILY [facility] Last Admin: 10/12/17 10:39 Dose: 200 mg Aspirin (Aspirin, Baby) 81 mg GT DAILY@0800 [facility] Last Admin: 10/12/17 10:39 Dose: 81 mg Atorvastatin Calcium (Lipitor) 20 mg GT QHS [facility] Last Admin: 10/11/17 23:23 Dose: 20 mg Bisacodyl (Dulcolax) 10 mg PO DAILY PRN PRN PRN Reason: Constipation Calamine/Phenol (Calmoseptine Ointment) 1 applic TOPICAL BID [facility] PRN Reason: Protocol Last Admin: 10/12/17 10:40 Dose: 1 applicatio Chlorhexidine Gluconate (Peridex) 15 ml PO BID [facility] Last Admin: 10/12/17 10:42 Dose: Not Given Docusate Sodium (Colace) 200 mg PO BID PRN PRN PRN Reason: Constipation Famotidine (Pepcid) 20 mg GT DAILY [facility] Heparin Sodium (Porcine) () 5,000 units SC BID [facility] Sodium Chloride () 1,000 mls @ 75 mls/hr IV .[id number] [facility] Last Admin: 10/11/17 20:00 Dose: 75 mls/hr Piperacillin Sod/Tazobactam Sod (Zosyn) 3.375 gm in 50 mls @ 12.5 mls/hr IV Q8 [facility] Last Admin: 10/12/17 05:25 Dose: 12.5 mls/hr Vancomycin HCl (Vancomycin) 1,000 mg in 200 mls @ 200 mls/hr IV Q24H [facility] Enteral Nutritional Formula (Glucerna 1.5) 1,000 mls @ 55 mls/hr GT .[id number] [facility] Last Admin: 10/12/17 00:11 Dose: 55 mls/hr Magnesium Hydroxide (Milk Of Magnesia) 30 ml PO DAILY PRN PRN Reason: Constipation Metoprolol Tartrate (Lopressor (Beta Silver)) 25 mg GT BID [facility] Last Admin: 10/12/17 10:39 Dose: 25 mg Ondansetron HCl (Zofran) 4 mg IV Q8H PRN PRN PRN Reason: Nausea Potassium Bicarb/Potassium Chloride (Potassium Chl 25 Meq Eff (For Liquid)) 25 meq NG BIDCM [facility] Last Admin: 10/12/17 10:40 Dose: 25 meq Sodium Chloride () 5 - 30 ml IV UD PRN PRN Reason: SALINE FLUSH - Past Medical History Past Medical History (Chronic Problems): Chronic Problems (Last Updated 06/20/17 @ 14:47 by Whit Wilson) Type 2 diabetes mellitus without complications (Chronic) Hyperlipidemia (Chronic) Hypertension (Chronic) - Past Surgical History Surgical History: TURP, - - CABG, s/p thoracic Ao dissection treated [facility] - Social History Marital Status: Smoking Status: Former smoker - Family History Maternal History Items: No pertinent history Paternal History Items: No pertinent history Sibling History Items: Cancer - liver in brother Review of Systems Constitutional: Reports: Anorexia, Chills, Fever, Malaise, Weakness, Fatigue HEENT: Denies: Head Aches Cardiovascular: Denies: Chest Pain, Syncope Respiratory: Reports: Cough Gastrointestinal: Reports: Diarrhea, - - PEG insertion on thickened liquids. Denies: Abdominal Pain, Nausea, Vomiting Genitourinary: Reports: Retention, - - BPH Musculoskeletal: Reports: - - generalized weakness Neurological: Reports: Balance problems, - - requires help with transfer, - - confusion, increased somnolence Psychiatric: Denies: Anxiety, Depression Hematologic/ Lymphatic: Reports: Anemia. Denies: Hx of blood clot Comment: obtained history from daughter at bedside Patient Problems: Active and Suspected Problems (Last Updated 06/20/17 @ 14:47 by Whit Wilson) Pneumonia (Acute) vs HCAP UTI (urinary tract infection) (Acute) SIRS (systemic inflammatory response syndrome) (Acute) - Physical Exam General: Well developed, Well nourished, - - somnolent but arrousable, language barrier HEENT: Atraumatic Oral: Dry Mucosa Neck: Supple, No JVD Lungs: Rales, Rhonchi, Wheezes Cardiovascular: Regular rate Abdomen: Bowel Sounds Present, Soft, Non Tender, Non-Distended, - - PEG insertion Extremities: No edema, Peripheral Pulses Normal Skin: No rashes Musculoskeletal: Muscle Wasting Lymphatic: No Cervical, Supraclavicular, or Inguinal Adenopathy Neurological: - - unable to assess Psych/Mental Status: - - somnolent, unable to assess Vital Signs Temp Pulse Resp BP Pulse Ox 98.6 F 76 22 H 103/57 L 97 10/12/17 10:38 10/12/17 11:07 10/12/17 11:07 10/12/17 10:38 10/12/17 10:38 Oxygen Delivery Method Room Air Weight: 67.6 kg Body Mass Index (BMI) 20.8 Intake and Output for Last 24 Hours 10/10/17 10/11/17 10/12/17 23:59 23:59 23:59 Intake Total 240 / 240 2689 / 2689 Balance 240 / 240 2689 / 2689 Laboratory Tests Past 24 Hrs 10/12/17 10/12/17 10/12/17 06:15 06:15 10:50 WBC 14.0 H RBC 2.81 L Hgb 8.1 L Hct 25.2 L MCV 89.7 MCH 28.8 MCHC 32.1 RDW 16.2 H RDW Differential 51.7 H Plt Count 244 MPV 10.7 Immature Gran % (Auto) 1.200 H Neut % (Auto) 70.0 Lymph % (Auto) 14.0 L [place] % (Auto) 9.5 Eos % (Auto) 4.7 Baso % (Auto) 0.6 Absolute Neuts (auto) 9.8 H Absolute Lymphs (auto) 1.95 Total Counted Not Reportable Sodium 143 Potassium 4.8 Chloride 112 H Carbon Dioxide 21.0 Anion Gap 10 BUN 74 H Creatinine 1.60 H Estim Creat Clear Calc 35.21 Est GFR (MDRD) Af Amer 54 L Est GFR (MDRD) Non-Af 44 L BUN/Creatinine Ratio 46.2 H Glucose 101 Calcium 9.3 Phosphorus 4.1 Magnesium 2.4 Total Bilirubin 0.40 AST 32 ALT 33 Alkaline Phosphatase 162 H Total Protein 7.3 Albumin 2.1 L Globulin 5.2 H Albumin/Globulin Ratio 0.4 L Triglycerides 404 H Cholesterol 137 LDL Cholesterol TNP VLDL Cholesterol TNP HDL Cholesterol 44 MRSA (PCR) Pending Clinical Impression(s) from Imaging Studies Chest X-Ray 10/11/17 16:20 IMPRESSION: Atelectatic versus chronic versus early infiltrate at the right lung base/costophrenic angle. Diffuse interstitial changes. Pleural thickening on the left/effusion not excluded. Mild cardiomegaly status post prior midline sternotomy. Marked atherosclerotic changes of the thoracic aorta with a potential aneurysmal dilatation. Electronically Signed: Tatiana Shay MD at 17:13 EDT , Service support , Microbiology 10/12/17 15:10 Stool C. difficile DNA Amplification - Final Toxigenic C. difficile DNA 10/11/17 16:52 Urine, Random Legionella Antigen - Final 10/11/17 16:52 Urine, Random Streptococcus pneumoniae Antigen (M - Final Assessment/Plan Active and Suspected Problems (Last Updated 06/20/17 @ 14:47 by Whit Wilson) Pneumonia (Acute) vs HCAP UTI (urinary tract infection) (Acute) SIRS (systemic inflammatory response syndrome) (Acute) 1. CLEM on CKD stage 3 with baseline creatinine 1.1-1.2. Creatinine 1.4 to 1.68 on admit likely from sepsis syndrome, cdiff diarrhea, UTI. Underlying CKD likely from diabetes, hypertensive nephrosclerosis. Hx temporary hemodialysis likely from [facility] following aortic aneurysm repair. Currently no need for dialysis. Incontinent of urine. Unable to obtain strict I/O's. 2. Sepsis syndrome with leukocytosis, hypotension. Continue with iv fluids. Monitor vanco levels on iv vanco. Bld cx pending 3. Aspiration pneumonia, s/p PEG 4. Cdiff diarrhea on oral vanco 5. UTI with dysuria. Await cx 6. Chronic hep B 7. Confusion likely infection related 8. HTN BP low hold BP meds 9. DM2 with diabetic nephropathy 10 stop KCL due to renal failure 11. Protein/calorie malnutrition s/p PEG on protein supplements 12. Anemia check iron studies 13. pafib on amiodarone
--- NOTE | 2017-10-12 14:13 | CON.PCM_ITS ---
Consultation - Renal 10/12/17 PCP/ Referring MD: Requesting physician: RONEN Ortiz, Ro Bal DO Primary care physician: Thor Jefferson DO Reason for Consultation:: CKD stage 3 - History of Present Illness History of Present Illness: The patient is a 81 year old Alexander M admitted for aspiration pneumonia, confusion, UTI. He had a prolonged hospitalized at [facility] [place] in June for thoracic aortic dissection repair subsequently transferred to [facility] in [place] after 7wks in [facility]. He required temporary hemodialysis at [facility] then recovered renal function during stay at LT. Creatinine was 1.4 at LT[facility] according to his daughter at bedside. He was sent to [facility] on 09/27 for rehab. Creatinine was 1.2 on 09/30 and 10/05/17. He was sent to ER with fever, cough, confusion for two days calling out for his parents. He had progressive weakness, fatigue and increased somnolence. He had dysuria at [facility] and was started on levaquin for UTI prior to admit. He had diarrhea at [facility]. CXR in ER showed RLL atelectasis vs infiltrate. Past medical history is significant for thoracic aortic dissection repair, HTN, DM2, hepatitis B, BPH, atrial fibrillation, dysphagia with PEG tube, hyperlipidemia, obstructive uropathy, hypertension, chronic hepatitis B, protein calorie malnutrition. He has known history of CKD stage 3. - Allergies Allergies: Allergies No Known Allergies Allergy (Unverified 06/20/17 14:37) - Current Medications Current Medications: Current Medications Acetaminophen (Tylenol Liquid) 650 mg GT Q4H PRN PRN PRN Reason: FEVER Albuterol/Ipratropium (Duoneb) 3 ml INHALATION Q4HWA [facility] Last Admin: 10/12/17 11:07 Dose: 3 ml Amiodarone HCl (Cordarone) 200 mg GT DAILY [facility] Last Admin: 10/12/17 10:39 Dose: 200 mg Aspirin (Aspirin, Baby) 81 mg GT DAILY@0800 [facility] Last Admin: 10/12/17 10:39 Dose: 81 mg Atorvastatin Calcium (Lipitor) 20 mg GT QHS [facility] Last Admin: 10/11/17 23:23 Dose: 20 mg Bisacodyl (Dulcolax) 10 mg PO DAILY PRN PRN PRN Reason: Constipation Calamine/Phenol (Calmoseptine Ointment) 1 applic TOPICAL BID [facility] PRN Reason: Protocol Last Admin: 10/12/17 10:40 Dose: 1 applicatio Chlorhexidine Gluconate (Peridex) 15 ml PO BID [facility] Last Admin: 10/12/17 10:42 Dose: Not Given Docusate Sodium (Colace) 200 mg PO BID PRN PRN PRN Reason: Constipation Famotidine (Pepcid) 20 mg GT DAILY [facility] Heparin Sodium (Porcine) () 5,000 units SC BID [facility] Sodium Chloride () 1,000 mls @ 75 mls/hr IV .[id number] [facility] Last Admin: 10/11/17 20:00 Dose: 75 mls/hr Piperacillin Sod/Tazobactam Sod (Zosyn) 3.375 gm in 50 mls @ 12.5 mls/hr IV Q8 [facility] Last Admin: 10/12/17 05:25 Dose: 12.5 mls/hr Vancomycin HCl (Vancomycin) 1,000 mg in 200 mls @ 200 mls/hr IV Q24H [facility] Enteral Nutritional Formula (Glucerna 1.5) 1,000 mls @ 55 mls/hr GT .[id number] [facility] Last Admin: 10/12/17 00:11 Dose: 55 mls/hr Magnesium Hydroxide (Milk Of Magnesia) 30 ml PO DAILY PRN PRN Reason: Constipation Metoprolol Tartrate (Lopressor (Beta Silver)) 25 mg GT BID [facility] Last Admin: 10/12/17 10:39 Dose: 25 mg Ondansetron HCl (Zofran) 4 mg IV Q8H PRN PRN PRN Reason: Nausea Potassium Bicarb/Potassium Chloride (Potassium Chl 25 Meq Eff (For Liquid)) 25 meq NG BIDCM [facility] Last Admin: 10/12/17 10:40 Dose: 25 meq Sodium Chloride () 5 - 30 ml IV UD PRN PRN Reason: SALINE FLUSH - Past Medical History Past Medical History (Chronic Problems): Chronic Problems (Last Updated 06/20/17 @ 14:47 by Whit Wilson) Type 2 diabetes mellitus without complications (Chronic) Hyperlipidemia (Chronic) Hypertension (Chronic) - Past Surgical History Surgical History: TURP, - - CABG, s/p thoracic Ao dissection treated [facility] - Social History Marital Status: Smoking Status: Former smoker - Family History Maternal History Items: No pertinent history Paternal History Items: No pertinent history Sibling History Items: Cancer - liver in brother Review of Systems Constitutional: Reports: Anorexia, Chills, Fever, Malaise, Weakness, Fatigue HEENT: Denies: Head Aches Cardiovascular: Denies: Chest Pain, Syncope Respiratory: Reports: Cough Gastrointestinal: Reports: Diarrhea, - - PEG insertion on thickened liquids. Denies: Abdominal Pain, Nausea, Vomiting Genitourinary: Reports: Retention, - - BPH Musculoskeletal: Reports: - - generalized weakness Neurological: Reports: Balance problems, - - requires help with transfer, - - confusion, increased somnolence Psychiatric: Denies: Anxiety, Depression Hematologic/ Lymphatic: Reports: Anemia. Denies: Hx of blood clot Comment: obtained history from daughter at bedside Patient Problems: Active and Suspected Problems (Last Updated 06/20/17 @ 14:47 by Whit Wilson) Pneumonia (Acute) vs HCAP UTI (urinary tract infection) (Acute) SIRS (systemic inflammatory response syndrome) (Acute) - Physical Exam General: Well developed, Well nourished, - - somnolent but arrousable, language barrier HEENT: Atraumatic Oral: Dry Mucosa Neck: Supple, No JVD Lungs: Rales, Rhonchi, Wheezes Cardiovascular: Regular rate Abdomen: Bowel Sounds Present, Soft, Non Tender, Non-Distended, - - PEG insertion Extremities: No edema, Peripheral Pulses Normal Skin: No rashes Musculoskeletal: Muscle Wasting Lymphatic: No Cervical, Supraclavicular, or Inguinal Adenopathy Neurological: - - unable to assess Psych/Mental Status: - - somnolent, unable to assess Vital Signs Temp Pulse Resp BP Pulse Ox 98.6 F 76 22 H 103/57 L 97 10/12/17 10:38 10/12/17 11:07 10/12/17 11:07 10/12/17 10:38 10/12/17 10:38 Oxygen Delivery Method Room Air Weight: 67.6 kg Body Mass Index (BMI) 20.8 Intake and Output for Last 24 Hours 10/10/17 10/11/17 10/12/17 23:59 23:59 23:59 Intake Total 240 / 240 2689 / 2689 Balance 240 / 240 2689 / 2689 Laboratory Tests Past 24 Hrs 10/12/17 10/12/17 10/12/17 06:15 06:15 10:50 WBC 14.0 H RBC 2.81 L Hgb 8.1 L Hct 25.2 L MCV 89.7 MCH 28.8 MCHC 32.1 RDW 16.2 H RDW Differential 51.7 H Plt Count 244 MPV 10.7 Immature Gran % (Auto) 1.200 H Neut % (Auto) 70.0 Lymph % (Auto) 14.0 L [place] % (Auto) 9.5 Eos % (Auto) 4.7 Baso % (Auto) 0.6 Absolute Neuts (auto) 9.8 H Absolute Lymphs (auto) 1.95 Total Counted Not Reportable Sodium 143 Potassium 4.8 Chloride 112 H Carbon Dioxide 21.0 Anion Gap 10 BUN 74 H Creatinine 1.60 H Estim Creat Clear Calc 35.21 Est GFR (MDRD) Af Amer 54 L Est GFR (MDRD) Non-Af 44 L BUN/Creatinine Ratio 46.2 H Glucose 101 Calcium 9.3 Phosphorus 4.1 Magnesium 2.4 Total Bilirubin 0.40 AST 32 ALT 33 Alkaline Phosphatase 162 H Total Protein 7.3 Albumin 2.1 L Globulin 5.2 H Albumin/Globulin Ratio 0.4 L Triglycerides 404 H Cholesterol 137 LDL Cholesterol TNP VLDL Cholesterol TNP HDL Cholesterol 44 MRSA (PCR) Pending Clinical Impression(s) from Imaging Studies Chest X-Ray 10/11/17 16:20 IMPRESSION: Atelectatic versus chronic versus early infiltrate at the right lung base/costophrenic angle. Diffuse interstitial changes. Pleural thickening on the left/effusion not excluded. Mild cardiomegaly status post prior midline sternotomy. Marked atherosclerotic changes of the thoracic aorta with a potential aneurysmal dilatation. Electronically Signed: Tatiana Shay MD at 17:13 EDT , Service support , Microbiology 10/12/17 15:10 Stool C. difficile DNA Amplification - Final Toxigenic C. difficile DNA 10/11/17 16:52 Urine, Random Legionella Antigen - Final 10/11/17 16:52 Urine, Random Streptococcus pneumoniae Antigen (M - Final Assessment/Plan Active and Suspected Problems (Last Updated 06/20/17 @ 14:47 by Whit Wilson) Pneumonia (Acute) vs HCAP UTI (urinary tract infection) (Acute) SIRS (systemic inflammatory response syndrome) (Acute) 1. CLEM on CKD stage 3 with baseline creatinine 1.1-1.2. Creatinine 1.4 to 1.68 on admit likely from sepsis syndrome, cdiff diarrhea, UTI. Underlying CKD likely from diabetes, hypertensive nephrosclerosis. Hx temporary hemodialysis likely from ATN following aortic aneurysm repair. Currently no need for dialysis. Incontinent of urine. Unable to obtain strict I/O's. 2. Sepsis syndrome with leukocytosis, hypotension. Continue with iv fluids. Monitor vanco levels on iv vanco. Bld cx pending 3. Aspiration pneumonia, s/p PEG 4. Cdiff diarrhea on oral vanco 5. UTI with dysuria. Await cx 6. Chronic hep B 7. Confusion likely infection related 8. HTN BP low hold BP meds 9. DM2 with diabetic nephropathy 10 stop KCL due to renal failure 11. Protein/calorie malnutrition s/p PEG on protein supplements 12. Anemia check iron studies 13. pafib on amiodarone
--- NOTE | 2017-10-12 14:13 | US_ITS ---
STUDY: RENAL ULTRASOUND - COMPLETE REASON FOR EXAM: Male, 81 years old. Chronic kidney disease TECHNIQUE: Ultrasound evaluation of the kidneys was performed with real-time and static olivo-scale imaging. COMPARISON: CT dated 02/13/2014 FINDINGS: RIGHT KIDNEY: Normal location of the right kidney, which is normal in size. The right kidney measures 9.6 cm. There is a normal cortex of the right kidney. There is no right renal mass or cyst. There are no right renal calculi. There is no right hydronephrosis. DISTAL RIGHT URETER: There is non-visualization of the distal right ureter. There is no demonstrated right ureterovesical junction calculus. There is no demonstrated right ureteral jet. LEFT KIDNEY: Normal location of the left kidney, which is normal in size. The left kidney measures 10.0 cm. There is a normal cortex of the left kidney. There is no left renal mass or cyst. There are no left renal calculi. There is no left hydronephrosis. DISTAL LEFT URETER: There is non-visualization of the distal left ureter. There is no demonstrated left ureterovesical junction calculus. There is no demonstrated left ureteral jet. BLADDER: The urinary bladder is under distended due to the presence of a Rice catheter and is not well evaluated. US/Kidney and Bladder IMPRESSION: Normal ultrasound of the kidneys and urinary bladder. Electronically Signed: Ray Dudley, at 18:17 EDT Tel , Service support ,
[2017-10-12 14:37] LABS: M R Staph aureus DNA By PCR Negative (Negative); Probe Check PASS; Specimen Processing Control PASS
[2017-10-12] MEDS: 0.9% Normal Saline 1,000 ML 75 ML IV (14:41)
--- NOTE | 2017-10-12 15:04 | CASEMGMT ---
MARK spoke with patient's daughter to see if the plan is to return to [facility]. She said that they would like patient to go to TCU here at the hospital just until he gets a little better. She said they have a lot of family and there will always be someone with him. MARK told her SW can put his name on the list, but not sure if there will be a bed. MARK talked with physician and patient will likely be here through the weekend. MARK called [facility] and she said that she could take patient. MARK will continue to follow. MARK will let family know. However, will not notify [facility] yet in the event patient has to go on dialysis again and then he would not be able to go to TCU. Plan: [facility] TCU as long as he does not go on dialysis. He will require insurance authorization. Michelle DANGELO
--- NOTE | 2017-10-12 15:51 | NURSING ---
Pt incontinent of watery brown stool. patient has incontinence associated dermatitis and has been getting calmoseptine. there are some raw areas. talked with BRITTANY Logan and recommended using some stoma powder prior to applying the paste to help keep the paste in place and absorb some of the moisture from his skin. will continue to monitor. could consider a fecal management system if the liquid stool continues for an extended period of time.
[2017-10-12] MEDS: Acetaminophen 650 MG/20 ML UDC GT (18:50)
--- NOTE | 2017-10-12 19:03 | NURSING ---
Reviewed and agreed on all charting with Vishal Vance RN
[2017-10-12] MEDS: Heparin Injection 5,000 UNITS/ML Syringe 5000 UNITS SC (21:37)
[2017-10-12] MEDS: Atorvastatin Calcium 20 MG Tablet GT (21:38)
[2017-10-12] MEDS: MELATONIN 3 MG TABLET GT (21:47)
[2017-10-13] VITALS (16 sets, daily range): BP systolic 104–124; BP diastolic 52–66; PULSE 61–84; RESP 18–22; TEMP 36.6–37.1; O2SAT 92–98
[2017-10-13] MEDS: 0.9% Normal Saline 1,000 ML 75 ML IV ×2 (04:04→21:26)
[2017-10-13] MEDS: Piperacil/Tazobactam 3.375 GM/50 ML ML IV ×3 (06:02→21:25)
[2017-10-13 06:25] LABS: Absolute Lymphocyte Count 1.49 X10^3/ul (0.83-4.51); Absolute Neutrophil Count 7.1 X10^3/uL (2.0-7.7); Basophil# 0.06 X10^3/uL; Basophil% 0.6 % (0-1); Eosinophil# 0.73 X10^3/uL; Eosinophils% 6.9 % (0-5); Hematocrit 24.5 % (40-54); Hemoglobin 7.8 g/dl (13.0-16.5); Lymphocyte # 1.49 X10^3/ul (4.0); Mean Corp Hgb Conc 31.8 g/gl (32-36); Mean Corpuscular Hgb 28.5 pg (27.0-32.0); Mean Corpuscular Volume 89.4 fL (80-94); Mean Platelet Vol. 10.9 fl (6.2-12.0); Monocyte# 1.11 X10^3/uL; Monocyte% 10.4 % (0-10); Neutrophil # 7.11 X10^3/uL (2.7-7.7); Neutrophil % 66.7 % (47-70); Platelet Count 260 K/mm3 (150-450); RBC Distribution Width CV 16.3 % (11.6-14.6); RBC Distribution Width SD 51.2 fl (35.1-43.9); Red Blood Count 2.74 M/mm3 (4.6-6.2); White Blood Count 10.7 K/mm3 (4.4-11.0)
[2017-10-13 06:26] LABS: POSITIVE COUNT NO; POSITIVE DIFFERENTIAL NO; POSITIVE MORPHOLOGY NO
[2017-10-13 06:49] LABS: Anion Gap 10 (5-15); BUN 58 mg/dL (7-18); BUN/Creat Ratio 38.7 RATIO (10-20); Calcium,Total 8.9 mg/dL (8.5-10.1); Chloride 112 mmol/L (98-107); EST Glomerular Filtration Rate 48 mL/min (>60); Est Glom Filt Rate - Afr Amer 58 mL/min (>60); Estimated Creatinine Clearance 37.56 ml/min; Ferritin 707 ng/mL (26-388); Glucose 110 mg/dL (74-106); Iron 41 ug/dL (65-175); Iron Binding Capacity,Total 170 ug/dL (250-450); PERCENT IRON SATURATION 24.1 % (15.0-55.0); Potassium 4.9 mmol/L (3.5-5.1); Sodium Level 142 mmol/L (136-145)
--- NOTE | 2017-10-13 07:18 | CT_ITS ---
STUDY: CT CHEST WITHOUT CONTRAST REASON FOR EXAM: Male, 81 years old. History of cough and pneumonia. RADIATION DOSAGE (If Supplied By Facility): CTDIvol = ( 16.67 ) mGy, DLP = ( 537.49 ) mGycm TECHNIQUE: Transaxial imaging was performed without the administration of intravenous contrast material. Multiplanar coronal and sagittal images were reformatted. Individualized dose optimization techniques were used for this CT. COMPARISON: Comparison is made with prior chest radiograph dated October 11, 2017. FINDINGS: There is evidence of a infiltration in the left upper lobe. Small left pleural effusion. Consolidation in the left lower lobe as well as the posterior aspect of the lingular segment of the left upper lobe. Interstitial infiltrate in the right lower lobe. Tiny right pleural effusion. There are calcifications of the coronary arteries. There is mild cardiac enlargement. Normal mediastinum. Normal hilar regions. Normal unenhanced pulmonary arteries. There is atherosclerotic calcification of the aortic arch with tortuosity and elongation of the aortic arch and descending thoracic aorta. There are multi-level degenerative changes of the thoracic spine. Dextroscoliosis. There is no demonstrated abnormality of the visualized upper abdomen. CT/Chest without Contrast IMPRESSION: Small left pleural effusion with consolidation in the left lower lobe and infiltrates in the left upper lobe and lingular segment of the left upper lobe. Interstitial infiltrate in the right lower lobe with a tiny pleural effusion. Electronically Signed: Edmar العراقي MD at 8:43 EDT Tel [phone], Service support ,
[2017-10-13] MEDS: Ipratropium/Albuterol Sulfate 3 ML AMPUL.NEB INHALATION ×2 (07:23→11:06)
--- NOTE | 2017-10-13 07:52 | NURSING ---
to cookie swallow per bed family present accompanying pt to assist for translation
[2017-10-13] MEDS: Aspirin 81 MG TAB.CHEW GT (08:54)
[2017-10-13] MEDS: Amiodarone 200 MG Tablet GT (08:55)
[2017-10-13] MEDS: Heparin Injection 5,000 UNITS/ML Syringe 5000 UNITS SC ×2 (08:55→21:25)
[2017-10-13] MEDS: Famotidine 20 MG Tablet GT (08:55)
[2017-10-13] MEDS: Metoprolol Tartrate 25 MG Tablet GT ×2 (08:55→21:24)
[2017-10-13] MEDS: Menthol/Lanolin/Calamine/Znox 113 GM Tube 1 APPLIC TOPICAL ×2 (08:57→22:50)
--- NOTE | 2017-10-13 10:51 | CASEMGMT ---
Social Work SW spoke with [facility] in TCU and they are able to accept pt. MARK spoke with RONEN Moon who states pt may be ready for d/c over the weekend. Requested [facility] to start precert from insurance today and she will pursue this. There will be a bed available Monday or Monday if pt should be ready. Met with pt and dgt in room and informed that a bed is available over the weekend and precert has been requested. Dgt is agreeable with d/c plan. SW to continue to follow for SNF placement. Plan: TCU, pending insurance authorization ANIKET Urbano
--- NOTE | 2017-10-13 12:46 | PN.RENAL_ITS ---
Patient Problems: Active and Suspected Problems (Last Updated 06/20/17 @ 14:47 by Whit Wilson) Pneumonia (Acute) vs HCAP UTI (urinary tract infection) (Acute) SIRS (systemic inflammatory response syndrome) (Acute) Subjective: Patient daughter at bedside to translate. He is feeling better. Denied any chest pain, shortness of breath, abdominal pain. He continues to have a nonproductive cough. He continues to have loose stools with C. difficile diarrhea. He was started on oral vancomycin. He remains on IV antibiotic therapy. Blood cultures pending. He had a Rice catheter inserted with field colored urine in his Rice bag. Creatinine was stable at 1.5 today. - Physical Exam General: Alert, Oriented x3, Cooperative, No apparent distress HEENT: PERRLA, EOMI Oral: Moist Mucosa Neck: Supple Lungs: Rales, Rhonchi, Wheezes Cardiovascular: Regular rate Abdomen: Bowel Sounds Present, Soft, Non Tender, Non-Distended, - - PEG insertion Extremities: No edema Skin: No rashes Musculoskeletal: Muscle Wasting, - - Generalized weakness with mild tremor Neurological: Cranial nerves II-XII grossly intact Psych/Mental Status: Normal Affect, Appropriate, Alert and oriented to time, place, person, mood and affect Vital Signs Temp Pulse Resp BP Pulse Ox 98.7 F 80 22 H 124/66 H 98 10/13/17 08:48 10/13/17 11:06 10/13/17 11:06 10/13/17 08:55 10/13/17 08:51 Oxygen Delivery Method Room Air Weight: 67.6 kg Body Mass Index (BMI) 20.8 Intake and Output for Last 24 Hours 10/11/17 10/12/17 10/13/17 23:59 23:59 23:59 Intake Total 240 / 240 5219 / 5219 1072.8 / 1072.8 Output Total 725 / 725 625 / 625 Balance 240 / 240 4494 / 4494 447.8 / 447.8 Microbiology Past 72 Hours 10/12/17 15:10 C. difficile DNA Amplification - Final Stool Toxigenic C. difficile DNA Laboratory Tests Past 24 Hrs 10/12/17 10/13/17 10/13/17 10:50 06:10 06:10 WBC 10.7 RBC 2.74 L Hgb 7.8 L Hct 24.5 L MCV 89.4 MCH 28.5 MCHC 31.8 L RDW 16.3 H RDW Differential 51.2 H Plt Count 260 MPV 10.9 Immature Gran % (Auto) 1.400 H Neut % (Auto) 66.7 Lymph % (Auto) 14.0 L [place] % (Auto) 10.4 H Eos % (Auto) 6.9 H Baso % (Auto) 0.6 Absolute Neuts (auto) 7.1 Absolute Lymphs (auto) 1.49 Total Counted Not Reportable Sodium 142 Potassium 4.9 Chloride 112 H Carbon Dioxide 20.0 L Anion Gap 10 BUN 58 H Creatinine 1.50 H Estim Creat Clear Calc 37.56 Est GFR (MDRD) Af Amer 58 L Est GFR (MDRD) Non-Af 48 L BUN/Creatinine Ratio 38.7 H Glucose 110 H Calcium 8.9 Iron 41 L TIBC 170 L Iron Saturation 24.1 Ferritin 707 H MRSA (PCR) Negative Medical Necessity - Tobacco Use Smoking Status: Former smoker Assessment/Plan Active and Suspected Problems (Last Updated 06/20/17 @ 14:47 by Whit Wilson) Pneumonia (Acute) vs HCAP UTI (urinary tract infection) (Acute) SIRS (systemic inflammatory response syndrome) (Acute) 1. CLEM on CKD stage 3 with baseline creatinine 1.1-1.2. Creatinine stable at 1.5 today. Rice catheter inserted with good urinary output. Has field colored urine likely due to Rice trauma. History of BPH. Currently no need for dialysis. 2. Sepsis syndrome with leukocytosis, hypotension. Continue with iv fluids. Monitor vanco levels on iv vanco. Bld cx pending 3. Aspiration pneumonia, s/p PEG 4. Cdiff diarrhea on oral vanco 5. UTI with dysuria. Await cx 6. Chronic hep B 7. Confusion improved 8. HTN BP low hold BP meds 9. DM2 with diabetic nephropathy 10. Iron deficiency anemia. Suggest daily iron therapy when infection resolves.
--- NOTE | 2017-10-13 13:29 | PN_ITS ---
Patient Problems: Active and Suspected Problems (Last Updated 06/20/17 @ 14:47 by Whit Wilson) Pneumonia (Acute) vs HCAP UTI (urinary tract infection) (Acute) SIRS (systemic inflammatory response syndrome) (Acute) Subjective: Pt is more alert today, up and talking, daughter is helping translate some. He is still lethargic, falling asleep during exam, and yells out in his sleep. He has been coughing this AM. He denies abdominal pain, but per daughter he has some bottom pain. He is + for C diff and has been started on oral vanc. - Physical Exam General: Alert, Oriented x3, Cooperative, Lethargic HEENT: Atraumatic, PERRLA, EOMI, Normocephalic Neck: Supple, No JVD, Negative Carotid Bruits Lungs: Diminished, Rales - rll. Cardiovascular: Regular rate, No murmurs Abdomen: Bowel Sounds Present, Soft, Non Tender Extremities: No edema, Capillary Refill Less than 3 Seconds Skin: No rashes, No breakdown Musculoskeletal: No Tenderness to Palpation of Joints or Extremities Neurological: Cranial nerves II-XII grossly intact Psych/Mental Status: Normal Affect, Appropriate, Alert and oriented to time, place, person, mood and affect Vital Signs Temp Pulse Resp BP Pulse Ox 98.7 F 65 22 H 124/66 H 98 10/13/17 08:48 10/13/17 12:44 10/13/17 11:06 10/13/17 08:55 10/13/17 12:44 Oxygen Delivery Method Room Air Weight: 67.6 kg Body Mass Index (BMI) 20.8 Intake and Output for Last 24 Hours 10/11/17 10/12/17 10/13/17 23:59 23:59 23:59 Intake Total 240 / 240 5219 / 5219 2012.8 / 2011.8 Output Total 725 / 725 1225 / 1225 Balance 240 / 240 4494 / 4494 787.8 / 787.8 Microbiology Past 72 Hours 10/12/17 15:10 C. difficile DNA Amplification - Final Stool Toxigenic C. difficile DNA Laboratory Tests Past 24 Hrs 10/12/17 10/13/17 10/13/17 10:50 06:10 06:10 WBC 10.7 RBC 2.74 L Hgb 7.8 L Hct 24.5 L MCV 89.4 MCH 28.5 MCHC 31.8 L RDW 16.3 H RDW Differential 51.2 H Plt Count 260 MPV 10.9 Immature Gran % (Auto) 1.400 H Neut % (Auto) 66.7 Lymph % (Auto) 14.0 L [place] % (Auto) 10.4 H Eos % (Auto) 6.9 H Baso % (Auto) 0.6 Absolute Neuts (auto) 7.1 Absolute Lymphs (auto) 1.49 Total Counted Not Reportable Sodium 142 Potassium 4.9 Chloride 112 H Carbon Dioxide 20.0 L Anion Gap 10 BUN 58 H Creatinine 1.50 H Estim Creat Clear Calc 37.56 Est GFR (MDRD) Af Amer 58 L Est GFR (MDRD) Non-Af 48 L BUN/Creatinine Ratio 38.7 H Glucose 110 H Calcium 8.9 Iron 41 L TIBC 170 L Iron Saturation 24.1 Ferritin 707 H MRSA (PCR) Negative Medical Necessity - Tobacco Use Smoking Status: Former smoker Assessment/Plan Active and Suspected Problems (Last Updated 06/20/17 @ 14:47 by Whit Wilson) Pneumonia (Acute) vs HCAP UTI (urinary tract infection) (Acute) SIRS (systemic inflammatory response syndrome) (Acute) 1. Acute sepsis 2/2 Acute RLL aspiration/HCAP pna - present on admission as evidenced by evidence of pna and UTI, leukocytosis, tachypnea. Negative Lactate. continue zosyn. Nasal MRSA negative, IV vanc DC'd. Urine Ag's negative.. CXR c/w RLL pna. Leukocytosis continues to improve.. Afebrile. No increased O2 demand. Aerosols, Mucinex. Start PEP/IS therapy. Follow final cultures. Chest CT shows sm left pleural effusion with LLL DESMOND consolidation. Interstitial infiltrate RLL, tiny pleural effusion. 2. Acute Cystitis, failed outpatient levaquin - on zosyn. Follow c/s. 3. Acute metabolic encephalopathy 2/2 above infectious processes. This is improving and he was able to have a conversation this AM. 4. CLEM - improving. Renal following. Recently in dialysis after prolonged hospitalization. 5. Dysphagia - Peg feedings ordered. ST. 6. Normocytic anemia - trending down. T/S. 7. Acute C diff - started on PO vanc yesterday. 8. Debility - PTOT. 9. CAD with hx of CABG - continue home meds. 10. Hx AF - BB, amio. rate stable. 11. Recent thoracic aortic aneurysm repair - incision appears to be healing well. DVT ppx: heparin DC planning: plan is for TCU at [place]. This patient was seen by Gelacio Lazo PA-C under the supervision of Doctor Bal.
[2017-10-13] MEDS: Ondansetron 4 MG/2 ML Vial IV (15:24)
[2017-10-13] MEDS: Acetaminophen 650 MG/20 ML UDC GT (15:25)
[2017-10-13] MEDS: Atorvastatin Calcium 20 MG Tablet GT (21:25)
[2017-10-13] MEDS: MELATONIN 3 MG TABLET GT (21:25)
[2017-10-13] MEDS: LORazepam 2 MG/ML Syringe 1 MG IV (23:49)
[2017-10-14] VITALS (56 sets, daily range): BP systolic 44–153; BP diastolic 25–83; PULSE 48–98; RESP 12–28; TEMP 35.8–37.5; O2SAT 92–100
[2017-10-14] MEDS: Albuterol 2.5 MG/3 ML VIAL.NEB. INHALATION (03:43)
[2017-10-14] MEDS: Piperacil/Tazobactam 3.375 GM/50 ML ML IV ×3 (06:44→21:43)
[2017-10-14 07:11] LABS: Absolute Lymphocyte Count 2.45 X10^3/ul (0.83-4.51); Absolute Neutrophil Count 8.8 X10^3/uL (2.0-7.7); Basophil# 0.07 X10^3/uL; Basophil% 0.5 % (0-1); Eosinophil# 0.38 X10^3/uL; Eosinophils% 2.9 % (0-5); Hematocrit 24.2 % (40-54); Hemoglobin 7.5 g/dl (13.0-16.5); Lymphocyte # 2.45 X10^3/ul (4.0); Lymphocyte % 18.8 % (19-41); Mean Corpuscular Hgb 27.7 pg (27.0-32.0); Mean Corpuscular Volume 89.3 fL (80-94); Mean Platelet Vol. 10.1 fl (6.2-12.0); Monocyte# 1.05 X10^3/uL; Monocyte% 8.1 % (0-10); Neutrophil # 8.81 X10^3/uL (2.7-7.7); Neutrophil % 67.9 % (47-70); POSITIVE COUNT NO; POSITIVE DIFFERENTIAL NO; POSITIVE MORPHOLOGY NO; Platelet Count 277 K/mm3 (150-450); RBC Distribution Width CV 16.9 % (11.6-14.6); RBC Distribution Width SD 54.7 fl (35.1-43.9); Red Blood Count 2.71 M/mm3 (4.6-6.2)
[2017-10-14 07:59] LABS: Anion Gap 11 (5-15); BUN 59 mg/dL (7-18); BUN/Creat Ratio 33.1 RATIO (10-20); Calcium,Total 8.6 mg/dL (8.5-10.1); Chloride 110 mmol/L (98-107); Creatinine, Serum 1.78 mg/dL (0.70-1.30); EST Glomerular Filtration Rate 39 mL/min (>60); Est Glom Filt Rate - Afr Amer 47 mL/min (>60); Estimated Creatinine Clearance 31.65 ml/min; Glucose 117 mg/dL (74-106); Potassium 6.2 mmol/L (3.5-5.1); Sodium Level 141 mmol/L (136-145)
[2017-10-14] MEDS: Sodium Polystyrene Sulfonate 15 GM/60 ML UDC 30 GM PO (09:04)
[2017-10-14] MEDS: Amiodarone 200 MG Tablet GT (09:05)
[2017-10-14] MEDS: Aspirin 81 MG TAB.CHEW GT (09:07)
[2017-10-14] MEDS: Famotidine 20 MG Tablet GT (09:08)
--- NOTE | 2017-10-14 09:45 | RAD_ITS ---
STUDY: X-RAY CHEST REASON FOR EXAM: Male, 81 years old. Fever and cough TECHNIQUE: Single AP portable view of the chest. COMPARISON: 10/14/2017 FINDINGS: EKG leads overlie the chest Lungs are expanded with worsening opacifications in both lung hogan, particularly in the left upper lobe. Findings suggest a combination of diffuse interstitial edema with left upper lobe pneumonia. Follow-up recommended to assure resolution. Findings have worsened since the previous study. Sternal cerclage wires and vascular clips are present from a prior sternotomy and coronary artery bypass graft procedure (CABG). Normal mediastinum and matheus. Normal visualized pulmonary arteries. There is atherosclerotic calcification of the aortic arch with tortuosity. There are diffuse degenerative changes of the visualized thoracic spine. There is degenerative osteoarthritis of the bilateral shoulders. There is no demonstrated abnormality of the visualized soft tissue structures of the upper abdomen. RAD/Chest 1 View (Portable) IMPRESSION: Worsening appearance of the lungs since the previous study, there is now diffuse interstitial edema with likely superimposed left upper lobe pneumonia. Follow-up recommended to assure resolution Remote CABG Degenerative bony changes Electronically Signed: Ino Núñez MD at 11:01 EDT , Service support ,
[2017-10-14] MEDS: 0.9% Normal Saline 1,000 ML 75 ML IV (10:00)
[2017-10-14] MEDS: Chlorhexidine 480 ML 15 ML PO (10:10)
[2017-10-14] MEDS: Heparin Injection 5,000 UNITS/ML Syringe 5000 UNITS SC ×2 (10:13→21:43)
[2017-10-14] MEDS: Menthol/Lanolin/Calamine/Znox 113 GM Tube 1 APPLIC TOPICAL ×2 (10:14→21:42)
--- NOTE | 2017-10-14 11:32 | CPS ---
vest therapy attempted. pt vikram poorly...became more agitated and communicated with daughter it was painful. rx terminated and Dr Bal aware. Vest therapy dc'd per Dr Bal.
[2017-10-14 12:13] LABS: Anion Gap 10 (5-15); BUN 62 mg/dL (7-18); BUN/Creat Ratio 32.1 RATIO (10-20); Calcium,Total 8.4 mg/dL (8.5-10.1); Chloride 111 mmol/L (98-107); Creatinine, Serum 1.93 mg/dL (0.70-1.30); EST Glomerular Filtration Rate 36 mL/min (>60); Est Glom Filt Rate - Afr Amer 43 mL/min (>60); Estimated Creatinine Clearance 29.19 ml/min; Glucose 119 mg/dL (74-106); Potassium 5.7 mmol/L (3.5-5.1); Sodium Level 142 mmol/L (136-145)
--- NOTE | 2017-10-14 12:47 | NURSING ---
patient noted labored breathing o2 sat 84% on 3l venti mask applied now sats 97 nonverbal no responding md notified bp was low hob elevated 35 breathing better now on venti
--- NOTE | 2017-10-14 12:53 | PCM.PROGNOTE ---
Patient Problems: Active and Suspected Problems (Last Updated 06/20/17 @ 14:47 by Whit Wilson) Pneumonia (Acute) vs HCAP UTI (urinary tract infection) (Acute) SIRS (systemic inflammatory response syndrome) (Acute) Subjective: Pt appears worse this AM. He received one dose IV ativan last night. He had some hypoxia and was placed back on O2. He is more lethargic again today is only briefly opening eyes. He is coughing more with mucus production. He sounds more rhonchorous. Blood pressure has also been fluctuant dropping into 70s systolic and staying in the 90's. He did receive one 500 cc bolus. - Physical Exam General: Lethargic HEENT: Atraumatic, PERRLA, EOMI, Normocephalic Neck: Supple, No JVD, Negative Carotid Bruits Lungs: Diminished, Rales, Rhonchi Cardiovascular: Regular rate, No murmurs Abdomen: Bowel Sounds Present, Soft, Non Tender Extremities: No edema, Capillary Refill Less than 3 Seconds Skin: No rashes, No breakdown Musculoskeletal: No Tenderness to Palpation of Joints or Extremities Neurological: Cranial nerves II-XII grossly intact Psych/Mental Status: - - lethargic Vital Signs Temp Pulse Resp BP Pulse Ox 98.1 F 49 L 28 H 92/41 L 96 10/14/17 12:32 10/14/17 12:41 10/14/17 12:41 10/14/17 12:41 10/14/17 12:41 Oxygen Flow Rate (L/min) 2 Oxygen Delivery Method Venturi Mask Weight: 67.6 kg Body Mass Index (BMI) 20.8 Intake and Output for Last 24 Hours 10/12/17 10/13/17 10/14/17 23:59 23:59 23:59 Intake Total 5219 / 5219 2887.8 / 2887.8 3318 / 3318 Output Total 725 / 725 1575 / 1575 675 / 675 Balance 4494 / 4494 1312.8 / 1312.8 2643 / 2643 Microbiology Past 72 Hours 10/12/17 15:10 C. difficile DNA Amplification - Final Stool Toxigenic C. difficile DNA Laboratory Tests Past 24 Hrs 10/13/17 10/14/17 10/14/17 14:10 06:55 06:55 WBC 13.0 H RBC 2.71 L Hgb 7.5 L Hct 24.2 L MCV 89.3 MCH 27.7 MCHC 31.0 L RDW 16.9 H RDW Differential 54.7 H Plt Count 277 MPV 10.1 Immature Gran % (Auto) 1.800 H Neut % (Auto) 67.9 Lymph % (Auto) 18.8 L [place] % (Auto) 8.1 Eos % (Auto) 2.9 Baso % (Auto) 0.5 Absolute Neuts (auto) 8.8 H Absolute Lymphs (auto) 2.45 Total Counted Not Reportable Sodium 141 Potassium 6.2 H* Chloride 110 H Carbon Dioxide 20.0 L Anion Gap 11 BUN 59 H Creatinine 1.78 H Estim Creat Clear Calc 31.65 Est GFR (MDRD) Af Amer 47 L Est GFR (MDRD) Non-Af 39 L BUN/Creatinine Ratio 33.1 H Glucose 117 H Calcium 8.6 Blood Type A POSITIVE Antibody Screen NEGATIVE 10/14/17 11:50 WBC RBC Hgb Hct MCV MCH MCHC RDW RDW Differential Plt Count MPV Immature Gran % (Auto) Neut % (Auto) Lymph % (Auto) [place] % (Auto) Eos % (Auto) Baso % (Auto) Absolute Neuts (auto) Absolute Lymphs (auto) Total Counted Sodium 142 Potassium 5.7 H Chloride 111 H Carbon Dioxide 21.0 Anion Gap 10 BUN 62 H Creatinine 1.93 H Estim Creat Clear Calc 29.19 Est GFR (MDRD) Af Amer 43 L Est GFR (MDRD) Non-Af 36 L BUN/Creatinine Ratio 32.1 H Glucose 119 H Calcium 8.4 L Blood Type Antibody Screen Medical Necessity - Tobacco Use Smoking Status: Former smoker Assessment/Plan Active and Suspected Problems (Last Updated 06/20/17 @ 14:47 by Whit Wilson) Pneumonia (Acute) vs HCAP UTI (urinary tract infection) (Acute) SIRS (systemic inflammatory response syndrome) (Acute) 1. Acute sepsis 2/2 Acute RLL aspiration/HCAP pna - present on admission as evidenced by evidence of pna and UTI, leukocytosis, tachypnea. Negative Lactate. continue zosyn. Nasal MRSA negative, IV vanc DC'd. Urine Ag's negative. Initial CXR c/w RLL pna. Afebrile. No increased O2 demand. Aerosols, Mucinex. Start PEP/IS therapy. Follow final cultures. -He appears clinically worsened today. He is more lethargic and much more rhonchorous on exam. He has had deterioration of his O2 sats and is now on a ventimask. He is more tachypneic. His BP is borderline. His CXR shows worsening of his pna. He may have re-aspirated last night. He has had significant coughing with mucus production. -Change PEG feeds to bolus and maintain patient upright during and post feeds. -Obtain ABG -If continues to worsen may require transfer to ICU. -Start Chest Vest -liquid mucinex via peg. Chest yesterday CT showed sm left pleural effusion with LLL DESMOND consolidation. Interstitial infiltrate RLL, tiny pleural effusion. 2. Acute Cystitis, failed outpatient levaquin - on zosyn. Follow c/s. 3. Acute metabolic encephalopathy 2/2 above infectious processes. This is improving and he was able to have a conversation this AM. 4. CLEM - worsening. Renal following. Recently in dialysis after prolonged hospitalization. 5. Dysphagia - Peg feedings ordered. ST. Feeds changed to nepro for hyperkalemia. 6. Normocytic anemia - trending down. T/S done. 7. Acute C diff - started on PO vanc yesterday. Belly is soft and he does grimace to palpation. 8. Debility - PTOT. 9. CAD with hx of CABG - continue home meds. 10. Hx AF - BB, amio. rate stable. 11. Recent thoracic aortic aneurysm repair - incision appears to be healing well. 12. hyperkalemia - nepro started. Kayex x 1. DVT ppx: heparin DC planning: clinical condition is poor at this point. This patient was seen by Gelacio Lazo PA-C under the supervision of Doctor Bal.
[2017-10-14 13:21] LABS: Allen Test POS; Base Excess -9 mmol/L (-2 to +2); Blood Gas Specimen Type ART; FI02 50; PO2 65 mmHG (75-100); SITE L Brachial; SO2 89 % (95-99); Time Given 1306; Total Carbon Dioxide 19 mmol/L; pCO2 42.4 mmHg (35-45); pH 7.24 (7.35-7.45)
--- NOTE | 2017-10-14 13:24 | ECHOCS_ITS ---
Reason For Study: dyspnea/SOB Procedure This was a 2D Doppler, Color Flow transthoracic echocardiogram. The study was technically difficult. PT scanned supine and on vent. PT was agitated with vent. Exam performed portable in ICU/CCU. Left Ventricle Normal LV size. Mild concentric left ventricular hypertrophy. Left ventricular systolic function is normal. The estimated ejection fraction is 65 %. Transmitral diastolic flow velocities suggest mild (stage 1) diastolic dysfunction (reversed pattern). No regional wall motion abnormalities noted. Tricuspid Valve Normal tricuspid valve. Mild (1+) tricuspid valve insufficiency. Pulmonary artery systolic pressure is 35 mmHg. Aortic Valve Mild focal aortic valve calcification. Pulmonic Valve Normal pulmonic valve. Great Vessels Normal aortic root. The pulmonary artery is normal size. Normal inferior vena cava. Pericardium/Pleural No pericardial effusion. MMode/2D Measurements & Calculations LVIDd: 4.3 cm IVSd: 1.3 cm Ao root diam: 3.1 cm LVIDs: 3.1 cm LVPWd: 1.2 cm LA dimension: 4.7 cm FS: 29.0 % LAV(MOD-bp): 49.2 ml LA A4 area: 11.6 cm2 LAV(MOD-bp) Indexed: 26.8 ml/m2 LAV(MOD-sp2): 57.1 ml LAV(MOD-sp4): 27.5 ml Doppler Measurements & Calculations MV E max raffi: 79.6 cm/sec Lat Peak E' Raffi: 6.0 cm/sec Med Peak E' Raffi: 4.5 cm/sec MV A max raffi: 128.6 cm/sec E/E' lat: 13.2 E/E' med: 17.8 MV E/A: 0.62 Ao V2 max: 132.7 cm/sec LV V1 max: 106.3 cm/sec PA V2 max: 101.0 cm/sec Ao max P.0 mmHg LV V1 max P.5 mmHg TR max raffi: 275.2 cm/sec TR max P.6 mmHg Interpretation Summary Normal LV size. Mild concentric left ventricular hypertrophy. Left ventricular systolic function is normal. The estimated ejection fraction is 65 %. Transmitral diastolic flow velocities suggest mild (stage 1) diastolic dysfunction (reversed pattern). Contrast injection was performed. Ordering Physician: Gelacio Lazo Referring Physician: Thor Jefferson Performed By: Emelina Harris, ROBERTA, RVT
[2017-10-14 14:22] LABS: Lactic Acid 1.5 mmol/L (0.4-2.0)
--- NOTE | 2017-10-14 14:25 | RAD_ITS ---
STUDY: X-RAY CHEST REASON FOR EXAM: Male, 81 years old. Intubation TECHNIQUE: A single frontal view of the chest was obtained. COMPARISON: Chest radiograph from the same day FINDINGS: An endotracheal tube terminates about 4.7 cm above the rigoberto. The lungs are adequately aerated. There are coarse markings throughout both lungs. There are asymmetric opacities in the mid and lower left lung. There is minimal blunting of the costophrenic angles, left greater than right. There is widening of the left pleural margin at the apex. There is mild enlargement of the cardiac silhouette. The mediastinum and hilar regions are unremarkable. The central vessels are prominent. There is atherosclerotic calcification of the thoracic aorta. Sternotomy wires are present. There are diffuse degenerative changes of the visualized spine. There are degenerative changes in both shoulders. There is no demonstrated abnormality of the visualized upper abdomen. RAD/Chest 1 View (Portable) IMPRESSION: The tip of the endotracheal tube is about 4.7 cm above the rigoberto. There is mild enlargement of the cardiac silhouette with mild edema. Vascularity is improved compared to the prior study. There is a small pleural effusion on the right and a moderate pleural effusion on the left. There is diffuse fibrosis. There is probable compressive atelectasis in the mid and lower left lung. Electronically Signed: Aliza Cantrell MD at 20:52 EDT Tel Direct: [phone], Service support ,
--- NOTE | 2017-10-14 15:01 | PCM.PN.REN ---
Patient Problems: Active and Suspected Problems (Last Updated 06/20/17 @ 14:47 by Whit Wilson) Pneumonia (Acute) vs HCAP UTI (urinary tract infection) (Acute) SIRS (systemic inflammatory response syndrome) (Acute) Subjective: Transferred to ICU today for acute respiratory distress, hypotension, worsening renal function with hyperkalemia. Painted and started on pressors. Treated with Kayexalate this morning for K of 6.2. Repeat potassium 5.7 with bowel movements with Kayexalate. Gross hematuria resolved today. - Physical Exam General: Lethargic, - - Intubated Oral: Moist Mucosa Lungs: Tachypneic, Wheezes, - - Status post intubation, blood-tinged secretions. Lasix given Cardiovascular: Tachycardic Abdomen: Soft, Non Tender, Non-Distended, Hypoactive Bowel Sounds, - - G-tube insertion Extremities: No edema Skin: No rashes Musculoskeletal: Muscle Wasting Neurological: - - intubated, unable to assess Psych/Mental Status: - - intubated Vital Signs Temp Pulse Resp BP Pulse Ox 98.1 F 55 L 24 H 100/52 L 92 10/14/17 13:12 10/14/17 13:12 10/14/17 13:12 10/14/17 13:12 10/14/17 13:12 Oxygen Flow Rate (L/min) 2 Oxygen Delivery Method Venturi Mask Weight: 67.6 kg Body Mass Index (BMI) 20.8 Intake and Output for Last 24 Hours 10/12/17 10/13/17 10/14/17 23:59 23:59 23:59 Intake Total 5219 / 5219 2887.8 / 2887.8 3318 / 3318 Output Total 725 / 725 1575 / 1575 675 / 675 Balance 4494 / 4494 1312.8 / 1312.8 2643 / 2643 Microbiology Past 72 Hours 10/12/17 15:10 C. difficile DNA Amplification - Final Stool Toxigenic C. difficile DNA Laboratory Tests Past 24 Hrs 10/13/17 10/13/17 10/14/17 14:10 14:10 06:55 WBC 13.0 H RBC 2.71 L Hgb 7.5 L Hct 24.2 L MCV 89.3 MCH 27.7 MCHC 31.0 L RDW 16.9 H RDW Differential 54.7 H Plt Count 277 MPV 10.1 Immature Gran % (Auto) 1.800 H Neut % (Auto) 67.9 Lymph % (Auto) 18.8 L [place] % (Auto) 8.1 Eos % (Auto) 2.9 Baso % (Auto) 0.5 Absolute Neuts (auto) 8.8 H Absolute Lymphs (auto) 2.45 Total Counted Not Reportable Specimen Type Sample Site pH Bicarbonate Actual POC Total CO2 Base Excess O2 Saturation O2 % ABG pCO2 ABG pO2 Jhon Test O2 Delivery Device Blood Gas Notified Whom Blood Gas Notified Time Sodium Potassium Chloride Carbon Dioxide Anion Gap BUN Creatinine Estim Creat Clear Calc Est GFR (MDRD) Af Amer Est GFR (MDRD) Non-Af BUN/Creatinine Ratio Glucose Lactic Acid Calcium B-Natriuretic Peptide Blood Type A POSITIVE Antibody Screen NEGATIVE Crossmatch See Detail 10/14/17 10/14/17 10/14/17 06:55 11:50 13:15 WBC RBC Hgb Hct MCV MCH MCHC RDW RDW Differential Plt Count MPV Immature Gran % (Auto) Neut % (Auto) Lymph % (Auto) [place] % (Auto) Eos % (Auto) Baso % (Auto) Absolute Neuts (auto) Absolute Lymphs (auto) Total Counted Specimen Type ART Sample Site L Brachial pH 7.24 L Bicarbonate Actual 18.0 L POC Total CO2 19 Base Excess -9 L O2 Saturation 89 L O2 % 50 ABG pCO2 42.4 ABG pO2 65 L Jhon Test POS O2 Delivery Device Vent Mask Blood Gas Notified Whom [facility] Blood Gas Notified Time 1306 Sodium 141 142 Potassium 6.2 H* 5.7 H Chloride 110 H 111 H Carbon Dioxide 20.0 L 21.0 Anion Gap 11 10 BUN 59 H 62 H Creatinine 1.78 H 1.93 H Estim Creat Clear Calc 31.65 29.19 Est GFR (MDRD) Af Amer 47 L 43 L Est GFR (MDRD) Non-Af 39 L 36 L BUN/Creatinine Ratio 33.1 H 32.1 H Glucose 117 H 119 H Lactic Acid Calcium 8.6 8.4 L B-Natriuretic Peptide Blood Type Antibody Screen Crossmatch 10/14/17 10/14/17 13:39 13:39 WBC RBC Hgb Hct MCV MCH MCHC RDW RDW Differential Plt Count MPV Immature Gran % (Auto) Neut % (Auto) Lymph % (Auto) [place] % (Auto) Eos % (Auto) Baso % (Auto) Absolute Neuts (auto) Absolute Lymphs (auto) Total Counted Specimen Type Sample Site pH Bicarbonate Actual POC Total CO2 Base Excess O2 Saturation O2 % ABG pCO2 ABG pO2 Jhon Test O2 Delivery Device Blood Gas Notified Whom Blood Gas Notified Time Sodium Potassium Chloride Carbon Dioxide Anion Gap BUN Creatinine Estim Creat Clear Calc Est GFR (MDRD) Af Amer Est GFR (MDRD) Non-Af BUN/Creatinine Ratio Glucose Lactic Acid 1.5 Calcium B-Natriuretic Peptide 2433.2 H Blood Type Antibody Screen Crossmatch Clinical Impression(s) from Imaging Studies Chest X-Ray 10/14/17 09:45 IMPRESSION: Worsening appearance of the lungs since the previous study, there is now diffuse interstitial edema with likely superimposed left upper lobe pneumonia. Follow-up recommended to assure resolution Remote CABG Degenerative bony changes Electronically Signed: Ino Núñez MD at 11:01 EDT , Service support , Medical Necessity - Tobacco Use Smoking Status: Former smoker Assessment/Plan Active and Suspected Problems (Last Updated 06/20/17 @ 14:47 by Whit Wilson) Pneumonia (Acute) vs HCAP UTI (urinary tract infection) (Acute) SIRS (systemic inflammatory response syndrome) (Acute) 1. CLEM on CKD stage 3 with baseline creatinine 1.1-1.2. Creatinine increased to 1.9 today, drop in urinary volume with hypotension. Hematuria resolved. Maintain SBP >100 for renal perfusion. May have progressed to ATN from hypotension. 2. Sepsis syndrome with leukocytosis, hypotension. Transferred to ICU. CXR with pulmonary edema, ARDS. BNP 2433. Bld cx no growth so far. 3. Aspiration pneumonia, s/p PEG intubation this afternoon. 4. Cdiff diarrhea on oral vanco 5. UTI with dysuria. 6. Chronic hep B 7. Confusion 8. HTN BP low hold metoprolol. Started on pressors. 9. DM2 with diabetic nephropathy 10. Iron deficiency anemia. 11. Hyperkalemia kayexalate as needed. Recheck later today. [facility] primary service, nursing staff.
--- NOTE | 2017-10-14 15:09 | EKG12_ITS ---
Test Reason : ARRHYTHMIA Blood Pressure : / mmHG Vent. Rate : 066 BPM Atrial Rate : 043 BPM P-R Int : 000 ms QRS Dur : 096 ms QT Int : 436 ms P-R-T Axes : 000 052 053 degrees QTc Int : 457 ms Accelerated Junctional rhythm Low voltage QRS Abnormal ECG When compared with ECG of 11-OCT-2017 16:32, MANUAL COMPARISON REQUIRED, DATA IS UNCONFIRMED Confirmed by CT MANZANARES, ELOY ([id number]), digital editor BRENDA SENA ([id number]) on 10/19/2017 2:21:44 PM Referred By: MICHELLE Confirmed By:ELOY FOFANA MD
[2017-10-14] MEDS: DOPamine IV 800 MG/250 ML IV.SOLN. 6.338 MG IV (15:13)
[2017-10-14] MEDS: 0.9% NaCl Peripheral Flush Adult/Peds IV (15:24)
[2017-10-14] MEDS: Furosemide 40 MG/4 ML Vial IV (15:24)
[2017-10-14 15:52] LABS: T4 Free Direct 1.37 ng/dL (0.76-1.46); Thyroid Stim Hormone (TSH) 1.29 uIU/mL (0.358-3.74)
[2017-10-14 16:01] LABS: Allen Test POS; Base Excess -9 mmol/L (-2 to +2); Bicarbonate 18.6 mmol/L (22-26); Blood Gas Specimen Type ART; FI02 40; Mode A-C; O2 Delivery Device Vent; PEEP 5; PO2 53 mmHG (75-100); RR 16; SITE R Radial; SO2 80 % (95-99); Time Given 1554; Total Carbon Dioxide 20 mmol/L; Vt 450; pCO2 46.6 mmHg (35-45); pH 7.21 (7.35-7.45)
--- NOTE | 2017-10-14 16:14 | NURSING ---
Medical records requested from [facility]
[2017-10-14 16:22] LABS: CPK Total, Creatine Kinase 66 U/L (39-308); Triglycerides 377 mg/dL
[2017-10-14 16:44] LABS: M R Staph aureus DNA By PCR Negative (Negative); Probe Check PASS; Specimen Processing Control PASS
[2017-10-14] MEDS: Sodium Bicarbonate 8.4% 50 ML Syringe 50 MEQ IV (16:56)
[2017-10-14 17:25] LABS: ALB/GLOB Ratio 0.4 RATIO (0.9-2.4); Albumin, Serum 2.2 g/dL (3.2-5.0); BUN 63 mg/dL (7-18); BUN/Creat Ratio 30.7 RATIO (10-20); Calcium,Total 8.4 mg/dL (8.5-10.1); Creatinine, Serum 2.05 mg/dL (0.70-1.30); EST Glomerular Filtration Rate 33 mL/min (>60); Est Glom Filt Rate - Afr Amer 40 mL/min (>60); Estimated Creatinine Clearance 27.48 ml/min; Globulin 5.5 g/dL (2.2-4.2); Glucose 118 mg/dL (74-106); Protein, Total 7.7 g/dL (6.4-8.2)
[2017-10-14 17:26] LABS: AST(SGOT) 50 U/L (15-37); Alanine Aminotransfer ALT/SGPT 47 U/L (16-61); Alkaline Phosphatase 215 U/L (45-117); Anion Gap 10 (5-15); Chloride 112 mmol/L (98-107); Potassium 5.5 mmol/L (3.5-5.1); Sodium Level 143 mmol/L (136-145)
[2017-10-14 17:46] LABS: Bedside Glucose 111 mg/dL (70-110)
--- NOTE | 2017-10-14 19:10 | CT_ITS ---
STUDY: CT BRAIN WITHOUT CONTRAST REASON FOR EXAM: Male, 81 years old. Altered mental status RADIATION DOSAGE (If Supplied By Facility): CTDIvol = ( 44.99 ) mGy, DLP = ( 863.60 ) mGycm TECHNIQUE: Transaxial CT imaging of the brain was performed without administration of intravenous contrast material. Individualized dose optimization techniques were used for this CT. COMPARISON: None. FINDINGS: There is no acute bleed or infarct. There are chronic ischemic and atrophic changes. The ventricles are normal in configuration. There is no hydrocephalus. The visualized paranasal sinuses are clear. The mastoid air cells are well aerated. There is no skull fracture. CT/Brain/Head without Contrast IMPRESSION: No acute intracranial abnormality. Chronic ischemic and atrophic changes. Electronically Signed: Ray Dudley, at 20:10 EDT Tel , Service support ,
--- NOTE | 2017-10-14 19:20 | NURSING ---
Off floor with this RN, unit [employer]INE [employer], and Respiratory therapy for CT scan.
[2017-10-14 19:21] LABS: Base Excess -5 mmol/L (-2 to +2); Bicarbonate 20.3 mmol/L (22-26); Blood Gas Specimen Type ART; FI02 50; Mode A-C; O2 Delivery Device Vent; PEEP 5; PO2 123 mmHG (75-100); RR 18; SITE L Radial; SO2 99 % (95-99); Time Given 1914; Total Carbon Dioxide 21 mmol/L; Vt 450; pCO2 34.2 mmHg (35-45); pH 7.38 (7.35-7.45)
--- NOTE | 2017-10-14 19:58 | PCM.PN.BLA ---
Progress Note Pt was transferred to the ICU for acute respiratory failure with hypoxemia and intubated. Code status was discussed with the family prior to intubation and they wanted everything done including intubation, mechanical ventilation, CPR, pressors and anything necessary to keep him alive. He was given 15 mg of Etomidate and intubated with a 7.5 ETT. CXR was obtained post procedure and the ETT was in good position. BP was low and the heart rate was in the 40's. He was started on Dopamine and it was titrated to maintain an MAP of 65. 2 units of PRBC's have been ordered for HGB of 7.5 with hypotension. Zosyn intravenously and oral vancomycin have been continued. Recheck lab in the a.m. Dr. Payne has been consulted. Code Visit Inpatient E&M: 32008 Subs Hosp L3 Procedures: 14520 Critial Care 1st Hr
--- NOTE | 2017-10-14 20:02 | PN_ITS ---
Progress Note Pt was transferred to the ICU for acute respiratory failure with hypoxemia and intubated. Code status was discussed with the family prior to intubation and they wanted everything done including intubation, mechanical ventilation, CPR, pressors and anything necessary to keep him alive. He was given 15 mg of Etomidate and intubated with a 7.5 ETT. CXR was obtained post procedure and the ETT was in good position. BP was low and the heart rate was in the 40's. He was started on Dopamine and it was titrated to maintain an MAP of 65. 2 units of PRBC's have been ordered for HGB of 7.5 with hypotension. Zosyn intravenously and oral vancomycin have been continued. Recheck lab in the a.m. Dr. Payne has been consulted. Code Visit Inpatient E&M: 36864 Subs Hosp L3 Procedures: [id number] Critial Care 1st Hr
[2017-10-14] MEDS: Atorvastatin Calcium 20 MG Tablet GT (21:42)
[2017-10-14] MEDS: Chlorhexidine 15 ML PO (21:43)
[2017-10-14] MEDS: Propofol 10MG/Ml 1,000 MG/100 ML Bottle 2.028 MG CONT INF (23:00)
--- NOTE | 2017-10-14 23:32 | PCM.HOSP.N ---
Hospitalist Note CENTRAL LINE NOTE: Patient with ongoing hypotension despite aggressive IVF administration attempts with initiation of pressor therapies. Given usage of pressor therapy needs, will place central line. Consent obtained for placement of central line. Patient w/ history of dialysis catheter placement R and given history to attempt to preserve L side, R sided IJ region prepped and draped in standard fashion. Patient prior to intervention secondary to mild agitation given propofol bolus. US guidance used to obtain access, guidewire was not able to be extended maximally, but the central line catheter was successfully placed over guidewire and no resistant noted. Lines again drawn and flushed without difficulty. Central line sutured in place. CXR ordered. Code Visit Procedures: [id number] Insert Non-tunnel CV Cath
--- NOTE | 2017-10-14 23:35 | RAD_ITS ---
STUDY: X-RAY CHEST REASON FOR EXAM: Male, 81 years old. LINE PLACEMENT TECHNIQUE: Single AP portable view of the chest. COMPARISON: None. FINDINGS: Endotracheal tube is seen tip is 4 cm superior to the rigoberto. Central venous line is seen on the right side its tip is coiled in the upper part of the chest. There is ill-defined airspace disease in the right and left lung lower lobe suggesting partial atelectasis. Airspace opacities are seen in the left lung upper lobe and lingula suggesting pneumonia. There is a small left pleural effusion. There is mild cardiac enlargement. Normal mediastinum and matheus. Normal visualized pulmonary arteries. There is atherosclerotic calcification of the aortic arch with tortuosity. There is a mild dextroscoliosis of the thoracic spine. There is degenerative osteoarthritis of the bilateral shoulders. There is no demonstrated abnormality of the visualized soft tissue structures of the upper abdomen. RAD/CXR for Line Placement IMPRESSION: Abnormal position of the central venous line is seen on the right side its tip is coiled in the upper part of the chest. Electronically Signed: Bernardino Johnston MD at 0:34 EDT Tel , Service support ,
--- NOTE | 2017-10-14 23:36 | CCHN_ITS ---
Hospitalist Note CENTRAL LINE NOTE: Patient with ongoing hypotension despite aggressive IVF administration attempts with initiation of pressor therapies. Given usage of pressor therapy needs, will place central line. Consent obtained for placement of central line. Patient w/ history of dialysis catheter placement R and given history to attempt to preserve L side, R sided IJ region prepped and draped in standard fashion. Patient prior to intervention secondary to mild agitation given propofol bolus. US guidance used to obtain access, guidewire was not able to be extended maximally, but the central line catheter was successfully placed over guidewire and no resistant noted. Lines again drawn and flushed without difficulty. Central line sutured in place. CXR ordered. Code Visit Procedures: [id number] Insert Non-tunnel CV Cath
--- NOTE | 2017-10-14 23:36 | NURSING ---
Central line placed by Liam. Radiology notified for line placement.
[2017-10-15] VITALS (40 sets, daily range): BP systolic 94–128; BP diastolic 56–77; PULSE 69–89; RESP 0–21; TEMP 35.8–36.8; O2SAT 95–100
--- NOTE | 2017-10-15 00:56 | NURSING ---
Dr. Ivory updated on Radiology call about central line. After reviewing xray herself, Dianelys said line is ok to use if needed.
[2017-10-15 01:26] LABS: Bedside Glucose 103 mg/dL (70-110)
[2017-10-15] MEDS: CHLORHEXIDINE GLUC 2% CLOTH 1 EACH TOWELETTE TOPICAL (04:10)
--- NOTE | 2017-10-15 04:20 | RAD_ITS ---
STUDY: X-RAY CHEST REASON FOR EXAM: Male, 81 years old. Cough TECHNIQUE: Frontal and lateral views of the chest. COMPARISON: None. FINDINGS: Endotracheal tube is seen tip is 4 cm superior to the rigoberto. Central venous line is seen on the right side its tip is coiled in the upper part of the chest. There is ill-defined airspace disease in the right and left lung lower lobe suggesting partial atelectasis. Airspace opacities are seen in the left lung upper lobe and lingula suggesting pneumonia. There is a small left pleural effusion. There is mild cardiac enlargement. Normal mediastinum and matheus. Normal visualized pulmonary arteries. There is atherosclerotic calcification of the aortic arch with tortuosity. There is a mild dextroscoliosis of the thoracic spine. There is degenerative osteoarthritis of the bilateral shoulders. There is no demonstrated abnormality of the visualized soft tissue structures of the upper abdomen. RAD/Chest 1 View (Portable) IMPRESSION: Abnormal position of the central venous line is seen on the right side its tip is coiled in the upper part of the chest. N.B. : The above information has been verbally conveyed by Bernardino Johnston MD to Dr Dai, Referring Physician, on 10/15/2017 09:27:43 (ET). Electronically Signed: Bernardino Johnston MD at 9:17 EDT Tel , Service support , N.B. : The above information has been verbally conveyed by Bernardino Johnston MD to Dr Dai, Referring Physician, on 10/15/2017 09:27:43 (ET).
[2017-10-15 04:23] LABS: Hematocrit 31.8 % (40-54); Hemoglobin 10.5 g/dl (13.0-16.5); Mean Corpuscular Hgb 28.5 pg (27.0-32.0); Mean Corpuscular Volume 86.2 fL (80-94); Mean Platelet Vol. 10.3 fl (6.2-12.0); Platelet Count 257 K/mm3 (150-450); RBC Distribution Width CV 16.2 % (11.6-14.6); RBC Distribution Width SD 49.3 fl (35.1-43.9); Red Blood Count 3.69 M/mm3 (4.6-6.2); White Blood Count 10.6 K/mm3 (4.4-11.0)
[2017-10-15 04:24] LABS: Differential Indicated MANUAL DIFF; POSITIVE COUNT YES; POSITIVE DIFFERENTIAL NO; POSITIVE MORPHOLOGY YES
[2017-10-15 04:30] LABS: Anion Gap 12 (5-15); BUN 55 mg/dL (7-18); BUN/Creat Ratio 30.2 RATIO (10-20); Calcium,Total 8.6 mg/dL (8.5-10.1); Chloride 112 mmol/L (98-107); Creatinine, Serum 1.82 mg/dL (0.70-1.30); EST Glomerular Filtration Rate 38 mL/min (>60); Est Glom Filt Rate - Afr Amer 46 mL/min (>60); Estimated Creatinine Clearance 30.95 ml/min; Glucose 93 mg/dL (74-106); Potassium 3.9 mmol/L (3.5-5.1); Sodium Level 145 mmol/L (136-145)
[2017-10-15 04:39] LABS: Magnesium 2.1 mg/dL (1.6-2.6); Phosphorus 4.4 mg/dL (2.5-4.9)
[2017-10-15] MEDS: Piperacil/Tazobactam 3.375 GM/50 ML ML IV ×3 (05:32→22:19)
[2017-10-15 05:51] LABS: Bedside Glucose 91 mg/dL (70-110)
--- NOTE | 2017-10-15 06:43 | PCM.PROGNOTE ---
Patient Problems: Active and Suspected Problems (Last Updated 06/20/17 @ 14:47 by Whit Wilson) Pneumonia (Acute) vs HCAP UTI (urinary tract infection) (Acute) SIRS (systemic inflammatory response syndrome) (Acute) Acute respiratory failure with hypoxia and hypercarbia (Acute) Subjective: Has been off dopamine for a few hours now. Blood pressures are stable. Antibiotic Day #4 Zosyn, day #4 oral vancomycin Ventilator Day #2 TMAX: 97.5 Vital signs: Heart rate has improved with discontinuation of Lopressor. Current heart rate is 79 bpm. Blood pressure is 111/70 off dopamine. He is 98% saturated on a 30% FiO2. Fluid balance: +9658 Urine output: 875 cc on 10/14/2017 and 1825 overnight. Weight: All radiologic testing was reviewed: Chest x-ray today shows blunting of both costophrenic angles and right IJ likely in and azygous vein. No pneumothorax. There are bilateral infiltrates, left greater than right. All labs were personally reviewed: White blood cell count today is 10.6, down from 17 at admission. White blood cell differential is unremarkable today. Hemoglobin is 10.5, up from 7.5 following transfusion of 2 units of packed red blood cells. BUN is 55 with a creatinine of 1.82 which is down from 2.05 on 10/14/2017. Calcium, phosphorus and magnesium are all within normal limits. Potassium is 3.9 today. Accu-Cheks are within normal limits and there has been no hypoglycemia. Microbiology: Sputum Gram stain has 1+ white blood cells and 2+ gram-positive cocci. Telemetry: ECHO: Has been ordered EKG: Objective: - Physical Exam General: - - Sedated and mechanically ventilated. He is resisting me when I try to open his eyes or his dtr tries to bend his arm He is grimacing HEENT: - - the pupils are unequal...the Left pupil is smaller. His dtr states that he has had this in the past Neck: Supple, Trachea Midline Lungs: Clear to auscultation - anteriorly, No wheeze Cardiovascular: Regular rate, Regular Rhythm, Normal S1, Normal S2, No rub noted, No Gallop Abdomen: Bowel Sounds Present, Soft, Non-Distended, - - No guarding with palpation Extremities: No cyanosis, No edema Skin: No rashes Neurological: Cranial nerves II-XII grossly intact - Facial asymmetry, Neuro grossly intact - Moving all extremities Vital Signs Temp Pulse Resp BP Pulse Ox 98.2 F 83 18 121/76 H 98 10/15/17 05:00 10/15/17 06:00 10/15/17 06:00 10/15/17 06:00 10/15/17 06:00 Oxygen Flow Rate (L/min) 2 Oxygen Delivery Method Mechanical Ventilator Weight: 160 lb 7.944 oz Body Mass Index (BMI) 20.8 Intake and Output for Last 24 Hours 10/13/17 10/14/17 10/15/17 23:59 23:59 23:59 Intake Total 2887.8 / 2887.8 4487 / 4487 849.9 / 849.9 Output Total 1575 / 1575 875 / 875 1825 / 1825 Balance 1312.8 / 1312.8 3612 / 3612 -975.1 / -975.1 Microbiology Past 72 Hours 10/14/17 16:45 Stool Occult Blood (PRIMITIVO) - Final Stool 10/14/17 14:50 Gram Stain - Final Sputum, Induced/[place] 10/12/17 15:10 C. difficile DNA Amplification - Final Stool Toxigenic C. difficile DNA Laboratory Tests Past 24 Hrs 10/13/17 10/14/17 10/14/17 14:10 06:55 06:55 WBC 13.0 H RBC 2.71 L Hgb 7.5 L Hct 24.2 L MCV 89.3 MCH 27.7 MCHC 31.0 L RDW 16.9 H RDW Differential 54.7 H Plt Count 277 MPV 10.1 Immature Gran % (Auto) 1.800 H Neut % (Auto) 67.9 Lymph % (Auto) 18.8 L [place] % (Auto) 8.1 Eos % (Auto) 2.9 Baso % (Auto) 0.5 Absolute Neuts (auto) 8.8 H Absolute Lymphs (auto) 2.45 Total Counted Not Reportable Specimen Type Sample Site pH Bicarbonate Actual POC Total CO2 Base Excess O2 Saturation O2 % ABG pCO2 ABG pO2 Jhon Test Respiration Rate O2 Delivery Device Minute Volume Vent Mode Tidal Volume POC PEEP Blood Gas Notified Whom Blood Gas Notified Time Sodium 141 Potassium 6.2 H* Chloride 110 H Carbon Dioxide 20.0 L Anion Gap 11 BUN 59 H Creatinine 1.78 H Estim Creat Clear Calc 31.65 Est GFR (MDRD) Af Amer 47 L Est GFR (MDRD) Non-Af 39 L BUN/Creatinine Ratio 33.1 H Glucose 117 H Lactic Acid Calcium 8.6 Phosphorus Magnesium Total Bilirubin AST ALT Alkaline Phosphatase Total Creatine Kinase B-Natriuretic Peptide Total Protein Albumin Globulin Albumin/Globulin Ratio Triglycerides TSH Free T4 MRSA (PCR) Crossmatch See Detail 10/14/17 10/14/17 10/14/17 11:50 11:50 13:15 WBC RBC Hgb Hct MCV MCH MCHC RDW RDW Differential Plt Count MPV Immature Gran % (Auto) Neut % (Auto) Lymph % (Auto) [place] % (Auto) Eos % (Auto) Baso % (Auto) Absolute Neuts (auto) Absolute Lymphs (auto) Total Counted Specimen Type ART Sample Site L Brachial pH 7.24 L Bicarbonate Actual 18.0 L POC Total CO2 19 Base Excess -9 L O2 Saturation 89 L O2 % 50 ABG pCO2 42.4 ABG pO2 65 L Jhon Test POS Respiration Rate O2 Delivery Device Vent Mask Minute Volume Vent Mode Tidal Volume POC PEEP Blood Gas Notified Whom [facility] MD Blood Gas Notified Time 1306 Sodium 142 Potassium 5.7 H Chloride 111 H Carbon Dioxide 21.0 Anion Gap 10 BUN 62 H Creatinine 1.93 H Estim Creat Clear Calc 29.19 Est GFR (MDRD) Af Amer 43 L Est GFR (MDRD) Non-Af 36 L BUN/Creatinine Ratio 32.1 H Glucose 119 H Lactic Acid Calcium 8.4 L Phosphorus Magnesium Total Bilirubin AST ALT Alkaline Phosphatase Total Creatine Kinase B-Natriuretic Peptide Total Protein Albumin Globulin Albumin/Globulin Ratio Triglycerides TSH 1.29 Free T4 1.37 MRSA (PCR) Crossmatch 10/14/17 10/14/17 10/14/17 13:39 13:39 14:00 WBC RBC Hgb Hct MCV MCH MCHC RDW RDW Differential Plt Count MPV Immature Gran % (Auto) Neut % (Auto) Lymph % (Auto) [place] % (Auto) Eos % (Auto) Baso % (Auto) Absolute Neuts (auto) Absolute Lymphs (auto) Total Counted Specimen Type Sample Site pH Bicarbonate Actual POC Total CO2 Base Excess O2 Saturation O2 % ABG pCO2 ABG pO2 Jhon Test Respiration Rate O2 Delivery Device Minute Volume Vent Mode Tidal Volume POC PEEP Blood Gas Notified Whom Blood Gas Notified Time Sodium Potassium Chloride Carbon Dioxide Anion Gap BUN Creatinine Estim Creat Clear Calc Est GFR (MDRD) Af Amer Est GFR (MDRD) Non-Af BUN/Creatinine Ratio Glucose Lactic Acid 1.5 Calcium Phosphorus Magnesium Total Bilirubin AST ALT Alkaline Phosphatase Total Creatine Kinase B-Natriuretic Peptide 2433.2 H Total Protein Albumin Globulin Albumin/Globulin Ratio Triglycerides TSH Free T4 MRSA (PCR) Negative Crossmatch 10/14/17 10/14/17 10/14/17 15:40 15:40 15:56 WBC RBC Hgb Hct MCV MCH MCHC RDW RDW Differential Plt Count MPV Immature Gran % (Auto) Neut % (Auto) Lymph % (Auto) [place] % (Auto) Eos % (Auto) Baso % (Auto) Absolute Neuts (auto) Absolute Lymphs (auto) Total Counted Specimen Type ART Sample Site R Radial pH 7.21 L Bicarbonate Actual 18.6 L POC Total CO2 20 Base Excess -9 L O2 Saturation 80 L O2 % 40 ABG pCO2 46.6 H ABG pO2 53 L Jhon Test POS Respiration Rate 16 O2 Delivery Device Vent Minute Volume 7.00 Vent Mode A-C Tidal Volume 450 POC PEEP 5 Blood Gas Notified Whom [facility] Blood Gas Notified Time 1554 Sodium 143 Cancelled Potassium 5.5 H Cancelled Chloride 112 H Cancelled Carbon Dioxide 21.0 Cancelled Anion Gap 10 Cancelled BUN 63 H Cancelled Creatinine 2.05 H Cancelled Estim Creat Clear Calc 27.48 27.48 Est GFR (MDRD) Af Amer 40 L Cancelled Est GFR (MDRD) Non-Af 33 L Cancelled BUN/Creatinine Ratio 30.7 H Cancelled Glucose 118 H Cancelled Lactic Acid Calcium 8.4 L Cancelled Phosphorus Magnesium Total Bilirubin 0.30 AST 50 H ALT 47 Alkaline Phosphatase 215 H Total Creatine Kinase 66 B-Natriuretic Peptide Total Protein 7.7 Albumin 2.2 L Globulin 5.5 H Albumin/Globulin Ratio 0.4 L Triglycerides 377 H TSH Free T4 MRSA (PCR) Crossmatch 10/14/17 10/15/17 10/15/17 19:15 04:00 04:00 WBC 10.6 RBC 3.69 L Hgb 10.5 L Hct 31.8 L MCV 86.2 MCH 28.5 MCHC 33.0 RDW 16.2 H RDW Differential 49.3 H Plt Count 257 MPV 10.3 Immature Gran % (Auto) Neut % (Auto) Not Reportable Lymph % (Auto) [place] % (Auto) Eos % (Auto) Baso % (Auto) Absolute Neuts (auto) Not Reportable Absolute Lymphs (auto) Total Counted Pending Specimen Type ART Sample Site L Radial pH 7.38 Bicarbonate Actual 20.3 L POC Total CO2 21 Base Excess -5 L O2 Saturation 99 O2 % 50 ABG pCO2 34.2 L ABG pO2 123 H Jhon Test Respiration Rate 18 O2 Delivery Device Vent Minute Volume 8.00 Vent Mode A-C Tidal Volume 450 POC PEEP 5 Blood Gas Notified Whom [facility] Blood Gas Notified Time 191 Sodium Potassium Chloride Carbon Dioxide Anion Gap BUN Creatinine Estim Creat Clear Calc Est GFR (MDRD) Af Amer Est GFR (MDRD) Non-Af BUN/Creatinine Ratio Glucose Lactic Acid Calcium Phosphorus 4.4 Magnesium 2.1 Total Bilirubin AST ALT Alkaline Phosphatase Total Creatine Kinase B-Natriuretic Peptide Total Protein Albumin Globulin Albumin/Globulin Ratio Triglycerides TSH Free T4 MRSA (PCR) Crossmatch 10/15/17 04:00 WBC RBC Hgb Hct MCV MCH MCHC RDW RDW Differential Plt Count MPV Immature Gran % (Auto) Neut % (Auto) Lymph % (Auto) [place] % (Auto) Eos % (Auto) Baso % (Auto) Absolute Neuts (auto) Absolute Lymphs (auto) Total Counted Specimen Type Sample Site pH Bicarbonate Actual POC Total CO2 Base Excess O2 Saturation O2 % ABG pCO2 ABG pO2 Jhon Test Respiration Rate O2 Delivery Device Minute Volume Vent Mode Tidal Volume POC PEEP Blood Gas Notified Whom Blood Gas Notified Time Sodium 145 Potassium 3.9 Chloride 112 H Carbon Dioxide 21.0 Anion Gap 12 BUN 55 H Creatinine 1.82 H Estim Creat Clear Calc 30.95 Est GFR (MDRD) Af Amer 46 L Est GFR (MDRD) Non-Af 38 L BUN/Creatinine Ratio 30.2 H Glucose 93 Lactic Acid Calcium 8.6 Phosphorus Magnesium Total Bilirubin AST ALT Alkaline Phosphatase Total Creatine Kinase B-Natriuretic Peptide Total Protein Albumin Globulin Albumin/Globulin Ratio Triglycerides TSH Free T4 MRSA (PCR) Crossmatch POC Glucose 10/15/17 10/14/17 10/14/17 05:30 23:50 17:38 POC Glucose 91 103 111 H Medical Necessity - Tobacco Use Smoking Status: Former smoker Assessment/Plan Active and Suspected Problems (Last Updated 06/20/17 @ 14:47 by Whit Wilson) Pneumonia (Acute) vs HCAP UTI (urinary tract infection) (Acute) SIRS (systemic inflammatory response syndrome) (Acute) Acute respiratory failure with hypoxia and hypercarbia (Acute) Impressions 1. Acute respiratory failure with hypoxemia requiring intubation 2. Pneumonia-suspect aspiration 3. Clostridium difficile enterocolitis 4. Acute on chronic renal failure stage III. 5. Anisocoria 6. Severe anemia-status post transfusion of 2 units packed red blood cells 7. Hypotension-likely secondary to bradycardia and severe anemia. He did require dopamine but only for a short period of time until he could be transfused and bradycardia improved. 8. R IJ central line likely coiled in Azygous vein...it is flushing and drawing back blood....will use only as a peripheral line 9. Hyperkalemia-resolved 10. Severe sepsis with encephalopathy 11. Coronary artery disease with history of CABG 12. Paroxysmal atrial fibrillation 13. Recent thoracic aortic aneurysm repair at [facility] 14. Chronic ischemic and atrophic changes on CT scan of the brain with no acute changes continue oral vancomycin and Zosyn He will remain on the ventilator today and will try spontaneous breathing trial again in the a.m. Start Nepro at 10 cc/h if no diarrhea will increase as tolerated to goal Lasix 40 mg ?1 today Recheck chest x-ray in the a.m. Check lab in the a.m. Continue amiodarone. Continue famotidine for GI prophylaxis-Hemoccult stool was negative. Continue fentanyl for sedation/pain Continue heparin and SCDs for DVT prophylaxis Continue to hold beta blockers in light of severe bradycardia on 10/14/2017 Code Visit Inpatient E&M: 36632 [facility] L3
[2017-10-15 06:46] LABS: Basophil 1 % (0-1); Eosinophil 5 % (0-5); Lymphocyte 14 % (19-41); Metamyelocyte 1 % (0-1); Monocyte 11 % (0-10); Neutrophil-Band 5 % (0-5); Neutrophil-Segmented 63 % (47-70); Platelet Estimate ADEQUATE (ADEQ); Red Cell Morphology NORM C+C NORMAL (NORM C&C); Total Cells Counted 100 (MANUAL DIFF)
[2017-10-15 06:48] LABS: Absolute Lymphocyte Count 1.48 X10^3/ul (0.83-4.51); Absolute Neutrophil Count 7.2 X10^3/uL (2.0-7.7)
[2017-10-15 07:10] LABS: Allen Test POS; Base Excess -6 mmol/L (-2 to +2); Bicarbonate 19.4 mmol/L (22-26); Blood Gas Specimen Type ART; FI02 30; Mode A-C; O2 Delivery Device Vent; PEEP 5; PO2 78 mmHG (75-100); RR 18; SITE R Radial; SO2 95 % (95-99); Time Given 703; Total Carbon Dioxide 20 mmol/L; Vt 450; pCO2 33.2 mmHg (35-45); pH 7.37 (7.35-7.45)
[2017-10-15] MEDS: Aspirin 81 MG TAB.CHEW GT (08:06)
--- NOTE | 2017-10-15 08:16 | PCM.CON.CC ---
Problem List (1) Acute respiratory failure with hypoxia and hypercarbia Status: Acute (2) Pneumonia Status: Acute Qualifiers: Pneumonia type: aspiration pneumonia Laterality: right Lung location: lower lobe of lung Comment: vs HCAP (3) UTI (urinary tract infection) Status: Acute Qualifiers: Urinary tract infection type: acute cystitis (4) SIRS (systemic inflammatory response syndrome) Status: Acute (5) Dyspnea on exertion Status: Acute (6) Paroxysmal atrial fibrillation Status: Acute (7) Type 2 diabetes mellitus without complications Status: Chronic (8) Hyperlipidemia Status: Chronic (9) Hypertension Status: Chronic Reason for Consult Date of Consultation: 10/15/17 Reason for Consultation: Acute respiratory failure History of Present Illness: The patient is a 81 year old M, with past medical history listed below, who presented to [facility] on 10/11/2017 secondary to confusion and cough from the care home. Patient has had a complex medical history since June 2017 when he was transported to [facility] with a thoracic aortic dissection and required emergent surgery. Postoperative course was complicated by the need for coronary artery bypass surgery, acute kidney injury requiring temporary dialysis and ECMO therapy. Patient was discharged to an LTAC and subsequently has been in a rehab facility for the past 2 weeks. Patient was reportedly placed on Levaquin therapy on 10/10/2017 secondary to urinary tract symptoms and presented to [facility] for confusion. In the emergency room, patient was noted to have a blood pressure 104/63 and 95% on room air. Patient was given healthcare associated antibiotics and then admitted to the medical floor with concerns for sepsis. Patient was continued on his PEG feeds and mcclendon cultures were obtained. On 10/14/2017, hospitalist was called to the room secondary to hypoxemia. Patient was also noted to be more lethargic and opening his eyes only briefly. Patient had noted increased mucus production with cough at that time and blood pressures were fluctuating with systolics down into the 70s intermittently. Patient did receive a 500 cc bolus with good response initially. After review with the family, the hospitalist intubated the patient and they were transferred to the intensive care unit for further monitoring. Initial ABG showed a mixed ventilatory Remy with a pH of 7.21, carbon dioxide 47, PO2 of 53 with an 80% saturation. While in the intensive care unit, the patient did have some bradycardia and hypotension. A right IJ central lumen catheter was placed by the overnight hospitalist and patient was transiently on dopamine therapy. By my arrival this morning dopamine had been discontinued. Patient did not receive a spontaneous breathing trial secondary to recent intubation. Blood pressure had improved to 102/59 heart rates in the 80s. Patient had been weaned to 30% FiO2. Past Medical History Past Medical History (Chronic Problems): Chronic Problems (Last Updated 06/20/17 @ 14:47 by Whit Wilson) Type 2 diabetes mellitus without complications (Chronic) Hyperlipidemia (Chronic) Hypertension (Chronic) Allergies No Known Allergies Allergy (Unverified 06/20/17 14:37) Home Medications: Ambulatory Orders Medication Instructions Recorded aspirin 81 mg tablet,delayed 81 mg GT DAILY 06/20/17 release Amiodarone HCl 200 mg GT DAILY 10/11/17 Atorvastatin Calcium [Lipitor] 20 mg GT QHS 10/11/17 Bacitracin 500 units TOPICAL BID 10/11/17 Chlorhexidine [(None)] 15 ml PO BID 10/11/17 Famotidine [Pepcid] 40 mg GT DAILY 10/11/17 Ferrous Sulfate Syrup 300 mg GT DAILY 10/11/17 Guaifenesin [Adult Tussin Chest 400 mg GT TID 10/11/17 Congestion] Heparin Sodium,Porcine/Pf [Heparin 5,000 unit SQ BID 10/11/17 Sod 5,000 Unit/0.5 ml] Ipratropium/Albuterol Sulfate 3 ml INHALATION 4X/DAY 10/11/17 [Duoneb] Levofloxacin [Levaquin] 500 mg GT DAILY 10/11/17 Lorazepam [Ativan] 1 mg GT Q6H PRN PRN 10/11/17 Melatonin 3 mg GT QHS 10/11/17 Metoprolol Tartrate 25 mg GT BID 10/11/17 Nut.tx.impaired Renal Fxn,Soy 55 GT 10/11/17 [Novasource Renal 2 Fred] Phenazopyridine [Pyridium] 200 mg GT BID 10/11/17 Potassium Chloride 20 meq GT BID 10/11/17 Surgical History: TURP, - - CABG, s/p thoracic Ao dissection treated [facility] Lives: Spouse/ Significant Other Smoking Status: Former smoker - *Family History Maternal History Items: No pertinent history Paternal History Items: No pertinent history Sibling History Items: Cancer - liver in brother Review of Systems Unable to obtain accurate/complete ROS d/t: Intubated and sedated Patient Problems: Active and Suspected Problems (Last Updated 06/20/17 @ 14:47 by Whit Wilson) Pneumonia (Acute) vs HCAP UTI (urinary tract infection) (Acute) SIRS (systemic inflammatory response syndrome) (Acute) Acute respiratory failure with hypoxia and hypercarbia (Acute) Objective: All imaging was personally reviewed. Chest x-ray does show bilateral infiltrates with no OG in place. Right triple-lumen catheter appears to be coiled in the thoracic outlet. - Physical Exam General: - - Intubated and sedated. RASS -2. Good vent synchrony noted. HEENT: Atraumatic, PERRLA, Normocephalic, - - No scleral icterus or injection noted. Oral: Moist Mucosa, No Gingival or Mucosal Lesions/ Ulcerations Neck: Supple, No Nodes, Trachea Midline, JVD, Right Lungs: No rales, Diminished, Rhonchi, Wheezes, - - Symmetric expansion. No dullness to percussion. Cardiovascular: Regular rate, Regular Rhythm, Normal S1, Normal S2, Murmur - Grade 2 out of 6 systolic ejection murmur at the right sternal border, No rub noted, No Gallop, - - Partially healed mid sternotomy wound with some granulation tissue Abdomen: Bowel Sounds Present, Soft, Non Tender, Non-Distended, - - PEG is clean, dry and intact. Multiple healing small incisions of the abdomen noted Extremities: No clubbing, No cyanosis, No edema, Diminished Peripheral Pulses Skin: No rashes, No breakdown, - - Multiple tattoos noted. Musculoskeletal: No Tenderness to Palpation of Joints or Extremities Lymphatic: No Cervical, Supraclavicular, or Inguinal Adenopathy Neurological: Cranial nerves II-XII grossly intact, Neuro grossly intact, Motor Exam 5/5 strength throughout Psych/Mental Status: Appropriate, Flat Affect Vital Signs Temp Pulse Resp BP Pulse Ox 35.8 C L 81 14 123/76 H 97 10/15/17 08:00 10/15/17 08:00 10/15/17 08:00 10/15/17 08:00 10/15/17 08:00 Oxygen Flow Rate (L/min) 2 Oxygen Delivery Method Mechanical Ventilator Weight: 72.8 kg Body Mass Index (BMI) 20.8 Intake and Output for Last 24 Hours 10/13/17 10/14/17 10/15/17 23:59 23:59 23:59 Intake Total 2887.8 / 2887.8 4487 / 4487 849.9 / 849.9 Output Total 1575 / 1575 875 / 875 1825 / 1825 Balance 1312.8 / 1312.8 3612 / 3612 -975.1 / -975.1 Microbiology Past 72 Hours 10/14/17 16:45 Stool Occult Blood (PRIMITIVO) - Final Stool 10/14/17 14:50 Gram Stain - Final Sputum, Induced/Lukens 10/12/17 15:10 C. difficile DNA Amplification - Final Stool Toxigenic C. difficile DNA Laboratory Tests Past 24 Hrs 10/13/17 10/14/17 10/14/17 14:10 11:50 11:50 WBC RBC Hgb Hct MCV MCH MCHC RDW RDW Differential Plt Count MPV Neut % (Auto) Absolute Neuts (auto) Absolute Lymphs (auto) Total Counted Neutrophils % (Manual) Band Neutrophils % Lymphocytes % (Manual) Monocytes % (Manual) Eosinophils % (Manual) Basophils % (Manual) Metamyelocytes % Diff Path Review Platelet Estimate RBC Morphology Specimen Type Sample Site pH Bicarbonate Actual POC Total CO2 Base Excess O2 Saturation O2 % ABG pCO2 ABG pO2 Jhon Test Respiration Rate O2 Delivery Device Minute Volume Vent Mode Tidal Volume POC PEEP Blood Gas Notified Whom Blood Gas Notified Time Sodium 142 Potassium 5.7 H Chloride 111 H Carbon Dioxide 21.0 Anion Gap 10 BUN 62 H Creatinine 1.93 H Estim Creat Clear Calc 29.19 Est GFR (MDRD) Af Amer 43 L Est GFR (MDRD) Non-Af 36 L BUN/Creatinine Ratio 32.1 H Glucose 119 H Lactic Acid Calcium 8.4 L Phosphorus Magnesium Total Bilirubin AST ALT Alkaline Phosphatase Total Creatine Kinase B-Natriuretic Peptide Total Protein Albumin Globulin Albumin/Globulin Ratio Triglycerides TSH 1.29 Free T4 1.37 MRSA (PCR) Crossmatch See Detail 10/14/17 10/14/17 10/14/17 13:15 13:39 13:39 WBC RBC Hgb Hct MCV MCH MCHC RDW RDW Differential Plt Count MPV Neut % (Auto) Absolute Neuts (auto) Absolute Lymphs (auto) Total Counted Neutrophils % (Manual) Band Neutrophils % Lymphocytes % (Manual) Monocytes % (Manual) Eosinophils % (Manual) Basophils % (Manual) Metamyelocytes % Diff Path Review Platelet Estimate RBC Morphology Specimen Type ART Sample Site L Brachial pH 7.24 L Bicarbonate Actual 18.0 L POC Total CO2 19 Base Excess -9 L O2 Saturation 89 L O2 % 50 ABG pCO2 42.4 ABG pO2 65 L Jhon Test POS Respiration Rate O2 Delivery Device Vent Mask Minute Volume Vent Mode Tidal Volume POC PEEP Blood Gas Notified Whom [facility] Blood Gas Notified Time 1306 Sodium Potassium Chloride Carbon Dioxide Anion Gap BUN Creatinine Estim Creat Clear Calc Est GFR (MDRD) Af Amer Est GFR (MDRD) Non-Af BUN/Creatinine Ratio Glucose Lactic Acid 1.5 Calcium Phosphorus Magnesium Total Bilirubin AST ALT Alkaline Phosphatase Total Creatine Kinase B-Natriuretic Peptide 2433.2 H Total Protein Albumin Globulin Albumin/Globulin Ratio Triglycerides TSH Free T4 MRSA (PCR) Crossmatch 10/14/17 10/14/17 10/14/17 14:00 15:40 15:40 WBC RBC Hgb Hct MCV MCH MCHC RDW RDW Differential Plt Count MPV Neut % (Auto) Absolute Neuts (auto) Absolute Lymphs (auto) Total Counted Neutrophils % (Manual) Band Neutrophils % Lymphocytes % (Manual) Monocytes % (Manual) Eosinophils % (Manual) Basophils % (Manual) Metamyelocytes % Diff Path Review Platelet Estimate RBC Morphology Specimen Type Sample Site pH Bicarbonate Actual POC Total CO2 Base Excess O2 Saturation O2 % ABG pCO2 ABG pO2 Jhon Test Respiration Rate O2 Delivery Device Minute Volume Vent Mode Tidal Volume POC PEEP Blood Gas Notified Whom Blood Gas Notified Time Sodium 143 Cancelled Potassium 5.5 H Cancelled Chloride 112 H Cancelled Carbon Dioxide 21.0 Cancelled Anion Gap 10 Cancelled BUN 63 H Cancelled Creatinine 2.05 H Cancelled Estim Creat Clear Calc 27.48 27.48 Est GFR (MDRD) Af Amer 40 L Cancelled Est GFR (MDRD) Non-Af 33 L Cancelled BUN/Creatinine Ratio 30.7 H Cancelled Glucose 118 H Cancelled Lactic Acid Calcium 8.4 L Cancelled Phosphorus Magnesium Total Bilirubin 0.30 AST 50 H ALT 47 Alkaline Phosphatase 215 H Total Creatine Kinase 66 B-Natriuretic Peptide Total Protein 7.7 Albumin 2.2 L Globulin 5.5 H Albumin/Globulin Ratio 0.4 L Triglycerides 377 H TSH Free T4 MRSA (PCR) Negative Crossmatch 10/14/17 10/14/17 10/15/17 15:56 19:15 04:00 WBC 10.6 RBC 3.69 L Hgb 10.5 L Hct 31.8 L MCV 86.2 MCH 28.5 MCHC 33.0 RDW 16.2 H RDW Differential 49.3 H Plt Count 257 MPV 10.3 Neut % (Auto) Not Reportable Absolute Neuts (auto) 7.2 Absolute Lymphs (auto) 1.48 Total Counted 100 Neutrophils % (Manual) 63 Band Neutrophils % 5 Lymphocytes % (Manual) 14 L Monocytes % (Manual) 11 H Eosinophils % (Manual) 5 Basophils % (Manual) 1 Metamyelocytes % 1 Diff Path Review May foll Platelet Estimate ADEQUATE RBC Morphology NORM C+C Specimen Type ART ART Sample Site R Radial L Radial pH 7.21 L 7.38 Bicarbonate Actual 18.6 L 20.3 L POC Total CO2 20 21 Base Excess -9 L -5 L O2 Saturation 80 L 99 O2 % 40 50 ABG pCO2 46.6 H 34.2 L ABG pO2 53 L 123 H Jhon Test POS Respiration Rate 16 18 O2 Delivery Device Vent Vent Minute Volume 7.00 8.00 Vent Mode A-C A-C Tidal Volume 450 450 POC PEEP 5 5 Blood Gas Notified Whom HOSP MD HOSP MD Blood Gas Notified Time 1443 8604 Sodium Potassium Chloride Carbon Dioxide Anion Gap BUN Creatinine Estim Creat Clear Calc Est GFR (MDRD) Af Amer Est GFR (MDRD) Non-Af BUN/Creatinine Ratio Glucose Lactic Acid Calcium Phosphorus Magnesium Total Bilirubin AST ALT Alkaline Phosphatase Total Creatine Kinase B-Natriuretic Peptide Total Protein Albumin Globulin Albumin/Globulin Ratio Triglycerides TSH Free T4 MRSA (PCR) Crossmatch 10/15/17 10/15/17 10/15/17 04:00 04:00 07:03 WBC RBC Hgb Hct MCV MCH MCHC RDW RDW Differential Plt Count MPV Neut % (Auto) Absolute Neuts (auto) Absolute Lymphs (auto) Total Counted Neutrophils % (Manual) Band Neutrophils % Lymphocytes % (Manual) Monocytes % (Manual) Eosinophils % (Manual) Basophils % (Manual) Metamyelocytes % Diff Path Review Platelet Estimate RBC Morphology Specimen Type ART Sample Site R Radial pH 7.37 Bicarbonate Actual 19.4 L POC Total CO2 20 Base Excess -6 L O2 Saturation 95 O2 % 30 ABG pCO2 33.2 L ABG pO2 78 Jhon Test POS Respiration Rate 18 O2 Delivery Device Vent Minute Volume 8.00 Vent Mode A-C Tidal Volume 450 POC PEEP 5 Blood Gas Notified Whom ICU Blood Gas Notified Time 703 Sodium 145 Potassium 3.9 Chloride 112 H Carbon Dioxide 21.0 Anion Gap 12 BUN 55 H Creatinine 1.82 H Estim Creat Clear Calc 30.95 Est GFR (MDRD) Af Amer 46 L Est GFR (MDRD) Non-Af 38 L BUN/Creatinine Ratio 30.2 H Glucose 93 Lactic Acid Calcium 8.6 Phosphorus 4.4 Magnesium 2.1 Total Bilirubin AST ALT Alkaline Phosphatase Total Creatine Kinase B-Natriuretic Peptide Total Protein Albumin Globulin Albumin/Globulin Ratio Triglycerides TSH Free T4 MRSA (PCR) Crossmatch POC Glucose 10/15/17 10/14/17 10/14/17 05:30 23:50 17:38 POC Glucose 91 103 111 H Clinical Impression(s) from Imaging Studies Chest X-Ray 10/14/17 09:45 IMPRESSION: Worsening appearance of the lungs since the previous study, there is now diffuse interstitial edema with likely superimposed left upper lobe pneumonia. Follow-up recommended to assure resolution Remote CABG Degenerative bony changes Electronically Signed: Ino Núñez MD at 11:01 EDT , Service support , Chest X-Ray 10/14/17 14:25 IMPRESSION: The tip of the endotracheal tube is about 4.7 cm above the rigoberto. There is mild enlargement of the cardiac silhouette with mild edema. Vascularity is improved compared to the prior study. There is a small pleural effusion on the right and a moderate pleural effusion on the left. There is diffuse fibrosis. There is probable compressive atelectasis in the mid and lower left lung. Electronically Signed: Aliza Cantrell MD at 20:52 EDT Tel Direct: [phone], Service support , Brain CT 10/14/17 19:10 IMPRESSION: No acute intracranial abnormality. Chronic ischemic and atrophic changes. Electronically Signed: Ray Dudley, at 20:10 EDT Tel , Service support , Chest X-Ray 10/14/17 23:35 IMPRESSION: Abnormal position of the central venous line is seen on the right side its tip is coiled in the upper part of the chest. Electronically Signed: Bernardino Johnston MD at 0:34 EDT Tel , Service support , Assessment/Plan Active and Suspected Problems (Last Updated 06/20/17 @ 14:47 by Whit Wilson) Pneumonia (Acute) vs HCAP UTI (urinary tract infection) (Acute) SIRS (systemic inflammatory response syndrome) (Acute) Acute respiratory failure with hypoxia and hypercarbia (Acute) RECOMMENDATIONS: 1. Obtain echocardiogram 2. Cycle troponins 3. Continue empiric antibiotics 4. Possible diuretic therapy if blood pressure maintains 5. Consider cardiology consult 6. Likely okay to continue with tube feeds IMPRESSIONS: 1. Acute combined respiratory failure Unclear etiology at this time. Differential diagnosis would include: Aspiration versus HCAP, congestive heart failure. Patient is on appropriate broad-spectrum antibiotics. ABG shows correction of oxygenation and ventilation after mechanical ventilation. Mcclendon cultures have been sent. Aggressive pulmonary toileting with in-line suctioning. Unclear if patient would be able to tolerate chest vest. Patient has not had accurate I's and O's, but does have a 5 kg weight gain over the course of the hospitalization. BNP was elevated. Patient is having issues with a junctional rhythm. Unclear if this is complications from his previous surgery. Echocardiogram has been ordered. Consider consulting cardiology. Would not use central line for pressor usage as it is not in an appropriate position at this time. Can likely be used as a peripheral line for blood draws. 2. Severe sepsis secondary to C. difficile colitis/cystitis Patient reportedly has had decreased stooling after being started on p.o. vancomycin. Patient does appear to have tenderness on palpation intermittently. PEG appears to be clean, dry and intact. Patient was noted to have a leukocytosis, but this is improved. 3. Acute metabolic encephalopathy (delirium) secondary to C. difficile Patient currently intubated and sedated. Continue with delirium protocol. Mobility as tolerates. 4. History of A. fib/recent thoracic aortic aneurysm repair/reported CABG Unclear heart history at this time. Will review records from [facility]. Repeat echocardiogram has been ordered. She would likely benefit from diuresis. Patient is on amiodarone, but thyroid function appeared to be appropriate. 5. Acute on chronic kidney injury/hyperkalemia Patient with elevating creatinine. May be a prerenal etiology secondary to hypotension associated with bradycardia. Patient is currently being followed by renal. Patient responded to Kayexalate well yesterday. No indication for renal replacement therapy at this time. 6. Dysphasia/normocytic anemia/advanced age/prolonged hospitalization Complicates care, management, recovery and prognosis. Patient did receive 2 units of PRBCs yesterday with appropriate response. TIME: 40 minutes critical care time spent addressing patient's acute combined respiratory failure, acute kidney injury, severe sepsis, review of all data and collaboration with care team (7 AM to 8:30 AM) Code Visit [id number]: [id number] Critical care first hour
--- NOTE | 2017-10-15 08:26 | CON.PCM_ITS ---
Problem List (1) Acute respiratory failure with hypoxia and hypercarbia Status: Acute (2) Pneumonia Status: Acute Qualifiers: Pneumonia type: aspiration pneumonia Laterality: right Lung location: lower lobe of lung Comment: vs HCAP (3) UTI (urinary tract infection) Status: Acute Qualifiers: Urinary tract infection type: acute cystitis (4) SIRS (systemic inflammatory response syndrome) Status: Acute (5) Dyspnea on exertion Status: Acute (6) Paroxysmal atrial fibrillation Status: Acute (7) Type 2 diabetes mellitus without complications Status: Chronic (8) Hyperlipidemia Status: Chronic (9) Hypertension Status: Chronic Reason for Consult Date of Consultation: 10/15/17 Reason for Consultation: Acute respiratory failure History of Present Illness: The patient is a 81 year old M, with past medical history listed below, who presented to [facility] on 10/11/2017 secondary to confusion and cough from the retirement. Patient has had a complex medical history since June 2017 when he was transported to [facility] with a thoracic aortic dissection and required emergent surgery. Postoperative course was complicated by the need for coronary artery bypass surgery, acute kidney injury requiring temporary dialysis and ECMO therapy. Patient was discharged to an LTAC and subsequently has been in a rehab facility for the past 2 weeks. Patient was reportedly placed on Levaquin therapy on 10/10/2017 secondary to urinary tract symptoms and presented to [facility] for confusion. In the emergency room, patient was noted to have a blood pressure 104/63 and 95 % on room air. Patient was given healthcare associated antibiotics and then admitted to the medical floor with concerns for sepsis. Patient was continued on his PEG feeds and mcclendon cultures were obtained. On 10/14/2017, hospitalist was called to the room secondary to hypoxemia. Patient was also noted to be more lethargic and opening his eyes only briefly. Patient had noted increased mucus production with cough at that time and blood pressures were fluctuating with systolics down into the 70s intermittently. Patient did receive a 500 cc bolus with good response initially. After review with the family, the hospitalist intubated the patient and they were transferred to the intensive care unit for further monitoring. Initial ABG showed a mixed ventilatory Remy with a pH of 7.21, carbon dioxide 47, PO2 of 53 with an 80% saturation. While in the intensive care unit, the patient did have some bradycardia and hypotension. A right IJ central lumen catheter was placed by the overnight hospitalist and patient was transiently on dopamine therapy. By my arrival this morning dopamine had been discontinued. Patient did not receive a spontaneous breathing trial secondary to recent intubation. Blood pressure had improved to 102/59 heart rates in the 80s. Patient had been weaned to 30% FiO2. Past Medical History Past Medical History (Chronic Problems): Chronic Problems (Last Updated 06/20/17 @ 14:47 by Whit Wilson) Type 2 diabetes mellitus without complications (Chronic) Hyperlipidemia (Chronic) Hypertension (Chronic) Allergies No Known Allergies Allergy (Unverified 06/20/17 14:37) Home Medications: Ambulatory Orders Medication Instructions Recorded aspirin 81 mg tablet,delayed 81 mg GT DAILY 06/20/17 release Amiodarone HCl 200 mg GT DAILY 10/11/17 Atorvastatin Calcium [Lipitor] 20 mg GT QHS 10/11/17 Bacitracin 500 units TOPICAL BID 10/11/17 Chlorhexidine [(None)] 15 ml PO BID 10/11/17 Famotidine [Pepcid] 40 mg GT DAILY 10/11/17 Ferrous Sulfate Syrup 300 mg GT DAILY 10/11/17 Guaifenesin [Adult Tussin Chest 400 mg GT TID 10/11/17 Congestion] Heparin Sodium,Porcine/Pf [Heparin 5,000 unit SQ BID 10/11/17 Sod 5,000 Unit/0.5 ml] Ipratropium/Albuterol Sulfate 3 ml INHALATION 4X/DAY 10/11/17 [Duoneb] Levofloxacin [Levaquin] 500 mg GT DAILY 10/11/17 Lorazepam [Ativan] 1 mg GT Q6H PRN PRN 10/11/17 Melatonin 3 mg GT QHS 10/11/17 Metoprolol Tartrate 25 mg GT BID 10/11/17 Nut.tx.impaired Renal Fxn,Soy 55 GT 10/11/17 [Novasource Renal 2 Fred] Phenazopyridine [Pyridium] 200 mg GT BID 10/11/17 Potassium Chloride 20 meq GT BID 10/11/17 Surgical History: TURP, - - CABG, s/p thoracic Ao dissection treated [facility] Lives: Spouse/ Significant Other Smoking Status: Former smoker - *Family History Maternal History Items: No pertinent history Paternal History Items: No pertinent history Sibling History Items: Cancer - liver in brother Review of Systems Unable to obtain accurate/complete ROS d/t: Intubated and sedated Patient Problems: Active and Suspected Problems (Last Updated 06/20/17 @ 14:47 by Whit Wilson) Pneumonia (Acute) vs HCAP UTI (urinary tract infection) (Acute) SIRS (systemic inflammatory response syndrome) (Acute) Acute respiratory failure with hypoxia and hypercarbia (Acute) Objective: All imaging was personally reviewed. Chest x-ray does show bilateral infiltrates with no OG in place. Right triple-lumen catheter appears to be coiled in the thoracic outlet. - Physical Exam General: - - Intubated and sedated. RASS -2. Good vent synchrony noted. HEENT: Atraumatic, PERRLA, Normocephalic, - - No scleral icterus or injection noted. Oral: Moist Mucosa, No Gingival or Mucosal Lesions/ Ulcerations Neck: Supple, No Nodes, Trachea Midline, JVD, Right Lungs: No rales, Diminished, Rhonchi, Wheezes, - - Symmetric expansion. No dullness to percussion. Cardiovascular: Regular rate, Regular Rhythm, Normal S1, Normal S2, Murmur - Grade 2 out of 6 systolic ejection murmur at the right sternal border, No rub noted, No Gallop, - - Partially healed mid sternotomy wound with some granulation tissue Abdomen: Bowel Sounds Present, Soft, Non Tender, Non-Distended, - - PEG is clean , dry and intact. Multiple healing small incisions of the abdomen noted Extremities: No clubbing, No cyanosis, No edema, Diminished Peripheral Pulses Skin: No rashes, No breakdown, - - Multiple tattoos noted. Musculoskeletal: No Tenderness to Palpation of Joints or Extremities Lymphatic: No Cervical, Supraclavicular, or Inguinal Adenopathy Neurological: Cranial nerves II-XII grossly intact, Neuro grossly intact, Motor Exam 5/5 strength throughout Psych/Mental Status: Appropriate, Flat Affect Vital Signs Temp Pulse Resp BP Pulse Ox 35.8 C L 81 14 123/76 H 97 10/15/17 08:00 10/15/17 08:00 10/15/17 08:00 10/15/17 08:00 10/15/17 08:00 Oxygen Flow Rate (L/min) 2 Oxygen Delivery Method Mechanical Ventilator Weight: 72.8 kg Body Mass Index (BMI) 20.8 Intake and Output for Last 24 Hours 10/13/17 10/14/17 10/15/17 23:59 23:59 23:59 Intake Total 2887.8 / 2887.8 4487 / 4487 849.9 / 849.9 Output Total 1575 / 1575 875 / 875 1825 / 1825 Balance 1312.8 / 1312.8 3612 / 3612 -975.1 / -975.1 Microbiology Past 72 Hours 10/14/17 16:45 Stool Occult Blood (PRIMITIVO) - Final Stool 10/14/17 14:50 Gram Stain - Final Sputum, Induced/Lukens 10/12/17 15:10 C. difficile DNA Amplification - Final Stool Toxigenic C. difficile DNA Laboratory Tests Past 24 Hrs 10/13/17 10/14/17 10/14/17 14:10 11:50 11:50 WBC RBC Hgb Hct MCV MCH MCHC RDW RDW Differential Plt Count MPV Neut % (Auto) Absolute Neuts (auto) Absolute Lymphs (auto) Total Counted Neutrophils % (Manual) Band Neutrophils % Lymphocytes % (Manual) Monocytes % (Manual) Eosinophils % (Manual) Basophils % (Manual) Metamyelocytes % Diff Path Review Platelet Estimate RBC Morphology Specimen Type Sample Site pH Bicarbonate Actual POC Total CO2 Base Excess O2 Saturation O2 % ABG pCO2 ABG pO2 Jhon Test Respiration Rate O2 Delivery Device Minute Volume Vent Mode Tidal Volume POC PEEP Blood Gas Notified Whom Blood Gas Notified Time Sodium 142 Potassium 5.7 H Chloride 111 H Carbon Dioxide 21.0 Anion Gap 10 BUN 62 H Creatinine 1.93 H Estim Creat Clear Calc 29.19 Est GFR (MDRD) Af Amer 43 L Est GFR (MDRD) Non-Af 36 L BUN/Creatinine Ratio 32.1 H Glucose 119 H Lactic Acid Calcium 8.4 L Phosphorus Magnesium Total Bilirubin AST ALT Alkaline Phosphatase Total Creatine Kinase B-Natriuretic Peptide Total Protein Albumin Globulin Albumin/Globulin Ratio Triglycerides TSH 1.29 Free T4 1.37 MRSA (PCR) Crossmatch See Detail 10/14/17 10/14/17 10/14/17 13:15 13:39 13:39 WBC RBC Hgb Hct MCV MCH MCHC RDW RDW Differential Plt Count MPV Neut % (Auto) Absolute Neuts (auto) Absolute Lymphs (auto) Total Counted Neutrophils % (Manual) Band Neutrophils % Lymphocytes % (Manual) Monocytes % (Manual) Eosinophils % (Manual) Basophils % (Manual) Metamyelocytes % Diff Path Review Platelet Estimate RBC Morphology Specimen Type ART Sample Site L Brachial pH 7.24 L Bicarbonate Actual 18.0 L POC Total CO2 19 Base Excess -9 L O2 Saturation 89 L O2 % 50 ABG pCO2 42.4 ABG pO2 65 L Jhon Test POS Respiration Rate O2 Delivery Device Vent Mask Minute Volume Vent Mode Tidal Volume POC PEEP Blood Gas Notified Whom [facility] Blood Gas Notified Time 1306 Sodium Potassium Chloride Carbon Dioxide Anion Gap BUN Creatinine Estim Creat Clear Calc Est GFR (MDRD) Af Amer Est GFR (MDRD) Non-Af BUN/Creatinine Ratio Glucose Lactic Acid 1.5 Calcium Phosphorus Magnesium Total Bilirubin AST ALT Alkaline Phosphatase Total Creatine Kinase B-Natriuretic Peptide 2433.2 H Total Protein Albumin Globulin Albumin/Globulin Ratio Triglycerides TSH Free T4 MRSA (PCR) Crossmatch 10/14/17 10/14/17 10/14/17 14:00 15:40 15:40 WBC RBC Hgb Hct MCV MCH MCHC RDW RDW Differential Plt Count MPV Neut % (Auto) Absolute Neuts (auto) Absolute Lymphs (auto) Total Counted Neutrophils % (Manual) Band Neutrophils % Lymphocytes % (Manual) Monocytes % (Manual) Eosinophils % (Manual) Basophils % (Manual) Metamyelocytes % Diff Path Review Platelet Estimate RBC Morphology Specimen Type Sample Site pH Bicarbonate Actual POC Total CO2 Base Excess O2 Saturation O2 % ABG pCO2 ABG pO2 Jhon Test Respiration Rate O2 Delivery Device Minute Volume Vent Mode Tidal Volume POC PEEP Blood Gas Notified Whom Blood Gas Notified Time Sodium 143 Cancelled Potassium 5.5 H Cancelled Chloride 112 H Cancelled Carbon Dioxide 21.0 Cancelled Anion Gap 10 Cancelled BUN 63 H Cancelled Creatinine 2.05 H Cancelled Estim Creat Clear Calc 27.48 27.48 Est GFR (MDRD) Af Amer 40 L Cancelled Est GFR (MDRD) Non-Af 33 L Cancelled BUN/Creatinine Ratio 30.7 H Cancelled Glucose 118 H Cancelled Lactic Acid Calcium 8.4 L Cancelled Phosphorus Magnesium Total Bilirubin 0.30 AST 50 H ALT 47 Alkaline Phosphatase 215 H Total Creatine Kinase 66 B-Natriuretic Peptide Total Protein 7.7 Albumin 2.2 L Globulin 5.5 H Albumin/Globulin Ratio 0.4 L Triglycerides 377 H TSH Free T4 MRSA (PCR) Negative Crossmatch 10/14/17 10/14/17 10/15/17 15:56 19:15 04:00 WBC 10.6 RBC 3.69 L Hgb 10.5 L Hct 31.8 L MCV 86.2 MCH 28.5 MCHC 33.0 RDW 16.2 H RDW Differential 49.3 H Plt Count 257 MPV 10.3 Neut % (Auto) Not Reportable Absolute Neuts (auto) 7.2 Absolute Lymphs (auto) 1.48 Total Counted 100 Neutrophils % (Manual) 63 Band Neutrophils % 5 Lymphocytes % (Manual) 14 L Monocytes % (Manual) 11 H Eosinophils % (Manual) 5 Basophils % (Manual) 1 Metamyelocytes % 1 Diff Path Review May foll Platelet Estimate ADEQUATE RBC Morphology NORM C+C Specimen Type ART ART Sample Site R Radial L Radial pH 7.21 L 7.38 Bicarbonate Actual 18.6 L 20.3 L POC Total CO2 20 21 Base Excess -9 L -5 L O2 Saturation 80 L 99 O2 % 40 50 ABG pCO2 46.6 H 34.2 L ABG pO2 53 L 123 H Jhon Test POS Respiration Rate 16 18 O2 Delivery Device Vent Vent Minute Volume 7.00 8.00 Vent Mode A-C A-C Tidal Volume 450 450 POC PEEP 5 5 Blood Gas Notified Whom HOSP MD HOSP MD Blood Gas Notified Time 4582 0245 Sodium Potassium Chloride Carbon Dioxide Anion Gap BUN Creatinine Estim Creat Clear Calc Est GFR (MDRD) Af Amer Est GFR (MDRD) Non-Af BUN/Creatinine Ratio Glucose Lactic Acid Calcium Phosphorus Magnesium Total Bilirubin AST ALT Alkaline Phosphatase Total Creatine Kinase B-Natriuretic Peptide Total Protein Albumin Globulin Albumin/Globulin Ratio Triglycerides TSH Free T4 MRSA (PCR) Crossmatch 10/15/17 10/15/17 10/15/17 04:00 04:00 07:03 WBC RBC Hgb Hct MCV MCH MCHC RDW RDW Differential Plt Count MPV Neut % (Auto) Absolute Neuts (auto) Absolute Lymphs (auto) Total Counted Neutrophils % (Manual) Band Neutrophils % Lymphocytes % (Manual) Monocytes % (Manual) Eosinophils % (Manual) Basophils % (Manual) Metamyelocytes % Diff Path Review Platelet Estimate RBC Morphology Specimen Type ART Sample Site R Radial pH 7.37 Bicarbonate Actual 19.4 L POC Total CO2 20 Base Excess -6 L O2 Saturation 95 O2 % 30 ABG pCO2 33.2 L ABG pO2 78 Jhon Test POS Respiration Rate 18 O2 Delivery Device Vent Minute Volume 8.00 Vent Mode A-C Tidal Volume 450 POC PEEP 5 Blood Gas Notified Whom ICU Blood Gas Notified Time 703 Sodium 145 Potassium 3.9 Chloride 112 H Carbon Dioxide 21.0 Anion Gap 12 BUN 55 H Creatinine 1.82 H Estim Creat Clear Calc 30.95 Est GFR (MDRD) Af Amer 46 L Est GFR (MDRD) Non-Af 38 L BUN/Creatinine Ratio 30.2 H Glucose 93 Lactic Acid Calcium 8.6 Phosphorus 4.4 Magnesium 2.1 Total Bilirubin AST ALT Alkaline Phosphatase Total Creatine Kinase B-Natriuretic Peptide Total Protein Albumin Globulin Albumin/Globulin Ratio Triglycerides TSH Free T4 MRSA (PCR) Crossmatch POC Glucose 10/15/17 10/14/17 10/14/17 05:30 23:50 17:38 POC Glucose 91 103 111 H Clinical Impression(s) from Imaging Studies Chest X-Ray 10/14/17 09:45 IMPRESSION: Worsening appearance of the lungs since the previous study, there is now diffuse interstitial edema with likely superimposed left upper lobe pneumonia. Follow-up recommended to assure resolution Remote CABG Degenerative bony changes Electronically Signed: Ino Núñez MD at 11:01 EDT , Service support , Chest X-Ray 10/14/17 14:25 IMPRESSION: The tip of the endotracheal tube is about 4.7 cm above the rigoberto. There is mild enlargement of the cardiac silhouette with mild edema. Vascularity is improved compared to the prior study. There is a small pleural effusion on the right and a moderate pleural effusion on the left. There is diffuse fibrosis. There is probable compressive atelectasis in the mid and lower left lung. Electronically Signed: Aliza Cantrell MD at 20:52 EDT Tel Direct: [phone], Service support , Brain CT 10/14/17 19:10 IMPRESSION: No acute intracranial abnormality. Chronic ischemic and atrophic changes. Electronically Signed: Ray Dudley, at 20:10 EDT Tel , Service support , Chest X-Ray 10/14/17 23:35 IMPRESSION: Abnormal position of the central venous line is seen on the right side its tip is coiled in the upper part of the chest. Electronically Signed: Bernardino Johnston MD at 0:34 EDT Tel , Service support , Assessment/Plan Active and Suspected Problems (Last Updated 06/20/17 @ 14:47 by Whit Wilson) Pneumonia (Acute) vs HCAP UTI (urinary tract infection) (Acute) SIRS (systemic inflammatory response syndrome) (Acute) Acute respiratory failure with hypoxia and hypercarbia (Acute) RECOMMENDATIONS: 1. Obtain echocardiogram 2. Cycle troponins 3. Continue empiric antibiotics 4. Possible diuretic therapy if blood pressure maintains 5. Consider cardiology consult 6. Likely okay to continue with tube feeds IMPRESSIONS: 1. Acute combined respiratory failure Unclear etiology at this time. Differential diagnosis would include: Aspiration versus HCAP, congestive heart failure. Patient is on appropriate broad-spectrum antibiotics. ABG shows correction of oxygenation and ventilation after mechanical ventilation. Mcclendon cultures have been sent. Aggressive pulmonary toileting with in-line suctioning. Unclear if patient would be able to tolerate chest vest. Patient has not had accurate I's and O's , but does have a 5 kg weight gain over the course of the hospitalization. BNP was elevated. Patient is having issues with a junctional rhythm. Unclear if this is complications from his previous surgery. Echocardiogram has been ordered. Consider consulting cardiology. Would not use central line for pressor usage as it is not in an appropriate position at this time. Can likely be used as a peripheral line for blood draws. 2. Severe sepsis secondary to C. difficile colitis/cystitis Patient reportedly has had decreased stooling after being started on p.o. vancomycin. Patient does appear to have tenderness on palpation intermittently. PEG appears to be clean, dry and intact. Patient was noted to have a leukocytosis, but this is improved. 3. Acute metabolic encephalopathy (delirium) secondary to C. difficile Patient currently intubated and sedated. Continue with delirium protocol. Mobility as tolerates. 4. History of A. fib/recent thoracic aortic aneurysm repair/reported CABG Unclear heart history at this time. Will review records from [facility]. Repeat echocardiogram has been ordered. She would likely benefit from diuresis. Patient is on amiodarone, but thyroid function appeared to be appropriate. 5. Acute on chronic kidney injury/hyperkalemia Patient with elevating creatinine. May be a prerenal etiology secondary to hypotension associated with bradycardia. Patient is currently being followed by renal. Patient responded to Kayexalate well yesterday. No indication for renal replacement therapy at this time. 6. Dysphasia/normocytic anemia/advanced age/prolonged hospitalization Complicates care, management, recovery and prognosis. Patient did receive 2 units of PRBCs yesterday with appropriate response. TIME: 40 minutes critical care time spent addressing patient's acute combined respiratory failure, acute kidney injury, severe sepsis, review of all data and collaboration with care team (7 AM to 8:30 AM) Code Visit [id number]: [id number] Critical care first hour
[2017-10-15] MEDS: 0.9% NaCl Peripheral Flush Adult/Peds IV (10:28)
[2017-10-15] MEDS: Famotidine 20 MG Tablet GT (10:28)
[2017-10-15] MEDS: Furosemide 40 MG/4 ML Vial IV (10:28)
[2017-10-15] MEDS: Amiodarone 200 MG Tablet GT (10:28)
[2017-10-15] MEDS: Heparin Injection 5,000 UNITS/ML Syringe 5000 UNITS SC ×2 (10:28→22:19)
[2017-10-15] MEDS: Menthol/Lanolin/Calamine/Znox 113 GM Tube 1 APPLIC TOPICAL ×2 (10:29→22:10)
[2017-10-15] MEDS: Chlorhexidine 15 ML PO ×2 (10:29→22:09)
[2017-10-15 11:16] LABS: Bedside Glucose 72 mg/dL (70-110)
[2017-10-15] MEDS: NEPRO TUBE FEED 1,000 ML 10 ML GT (11:22)
[2017-10-15 12:25] LABS: Bedside Glucose 83 mg/dL (70-110)
[2017-10-15 17:35] LABS: Bedside Glucose 87 mg/dL (70-110)
[2017-10-15] MEDS: Atorvastatin Calcium 20 MG Tablet GT (22:19)
[2017-10-16] VITALS (36 sets, daily range): BP systolic 105–174; BP diastolic 61–97; PULSE 79–101; RESP 11–26; TEMP 36.3–37.1; O2SAT 93–100
[2017-10-16 00:56] LABS: Bedside Glucose 90 mg/dL (70-110)
[2017-10-16 04:35] LABS: Hematocrit 33.7 % (40-54); Mean Corp Hgb Conc 32.6 g/gl (32-36); Mean Corpuscular Hgb 28.6 pg (27.0-32.0); Mean Corpuscular Volume 87.5 fL (80-94); Mean Platelet Vol. 10.1 fl (6.2-12.0); Platelet Count 285 K/mm3 (150-450); RBC Distribution Width CV 16.7 % (11.6-14.6); RBC Distribution Width SD 52.5 fl (35.1-43.9); Red Blood Count 3.85 M/mm3 (4.6-6.2); White Blood Count 11.9 K/mm3 (4.4-11.0)
[2017-10-16 04:40] LABS: Scan Indicated on CBC? Y/N NO
[2017-10-16 04:50] LABS: BUN 52 mg/dL (7-18); BUN/Creat Ratio 28.4 RATIO (10-20); Calcium,Total 8.8 mg/dL (8.5-10.1); Chloride 110 mmol/L (98-107); Creatinine, Serum 1.83 mg/dL (0.70-1.30); EST Glomerular Filtration Rate 38 mL/min (>60); Est Glom Filt Rate - Afr Amer 46 mL/min (>60); Estimated Creatinine Clearance 32.88 ml/min; Glucose 79 mg/dL (74-106); Phosphorus 4.9 mg/dL (2.5-4.9); Potassium 3.6 mmol/L (3.5-5.1); Sodium Level 143 mmol/L (136-145)
[2017-10-16] MEDS: 0.9% NaCl Peripheral Flush Adult/Peds IV ×2 (05:44→09:17)
[2017-10-16] MEDS: CHLORHEXIDINE GLUC 2% CLOTH 1 EACH TOWELETTE TOPICAL (05:44)
[2017-10-16] MEDS: Piperacil/Tazobactam 3.375 GM/50 ML ML IV ×3 (05:44→21:51)
--- NOTE | 2017-10-16 05:55 | RAD_ITS ---
STUDY: X-RAY CHEST REASON FOR EXAM: Male, 81 years old. Intubation. TECHNIQUE: Single AP portable view of the chest. COMPARISON: Comparison is made with prior study dated October 15, 2017. FINDINGS: An endotracheal tube is in situ. The tip is at 3.8 sinus proximal to the rigoberto. A right-sided internal jugular venous catheter is seen with the tip coiled in the right internal jugular vein. EKG electrodes are seen. Stable pleural parenchymal changes at the left lung base. Increased markings are also seen in the right lung base and this is unchanged. Sternal cerclage wires and vascular clips are present from a prior sternotomy and coronary artery bypass graft procedure (CABG). Normal mediastinum and matheus. Normal visualized pulmonary arteries. There is atherosclerotic calcification of the aortic arch with tortuosity. There are diffuse degenerative changes of the visualized thoracic spine. Normal visualized ribs, clavicles, and shoulders. There is no demonstrated abnormality of the visualized soft tissue structures of the upper abdomen. RAD/Chest 1 View (Portable) IMPRESSION: Stable pleural parenchymal changes at the left lung base with increased markings at the right lung base. The endotracheal tube is in good position. Electronically Signed: Edmar العراقي MD at 8:24 EDT Tel [phone], Service support ,
[2017-10-16 06:01] LABS: Bedside Glucose 89 mg/dL (70-110)
--- NOTE | 2017-10-16 06:46 | PCM.PN.INT ---
Subjective: The patient was seen and examined at the bedside this morning. Events from the last 24 hours have been reviewed. The patient is currently afebrile, hemodynamically stable and maintaining appropriate oxygen saturations with an FiO2 requirement of 30%. The patient is currently doing well on his spontaneous breathing trial. Language is a barrier to effective communication with the patient. The patient is currently overall net +8.8 L for the admission. Objective: The patient's most recent lab work, culture data and imaging studies have all been personally reviewed. Blood cultures have shown no growth to date. Urine culture has shown no growth to date. Strep and urine Legionella antigens were both negative. The patient was positive for C. difficile. Sputum Gram stain revealed the presence of a gram-negative rosalind. CT chest revealed multifocal airspace disease and small bilateral pleural effusions. Pulmonary function testing completed in June 2017 revealed evidence of a mild restrictive ventilatory defect with preserved diffusing capacity. General: - - Remains intubated and mechanically ventilated. Currently tolerating CPAP mode mechanical ventilation. HEENT: Atraumatic, PERRLA, Normocephalic Oral: No Gingival or Mucosal Lesions/ Ulcerations, - - Endotracheal and OG tubes remain in place Neck: Supple, No Nodes, Trachea Midline Lungs: No wheeze, No rales, Diminished, Rhonchi Cardiovascular: Regular rate, Regular Rhythm, Normal S1, Normal S2, Murmur, No rub noted, No Gallop Abdomen: Bowel Sounds Present, Soft, Non Tender, - - PEG site is C/D/I Extremities: No clubbing, No cyanosis, No edema Skin: - - Tattoos present Musculoskeletal: No Tenderness to Palpation of Joints or Extremities Lymphatic: No Cervical, Supraclavicular, or Inguinal Adenopathy Neurological: - - No focal deficits. Moves extremities spontaneously. Vital Signs Temp Pulse Resp BP Pulse Ox 97.9 F 82 11 L 125/78 H 99 10/16/17 04:00 10/16/17 06:00 10/16/17 06:00 10/16/17 06:00 10/16/17 06:00 Oxygen Flow Rate (L/min) 2 Oxygen Delivery Method CPAP Weight: 159 lb 2.78 oz Body Mass Index (BMI) 20.8 Intake and Output for Last 24 Hours 10/14/17 10/15/17 10/16/17 23:59 23:59 23:59 Intake Total 4487 / 4487 1534.9 / 1534.9 726.6 / 726.6 Output Total 875 / 875 2600 / 2600 450 / 450 Balance 3612 / 3612 -1065.1 / -1065.1 276.6 / 276.6 Labs (Last 48 Hours) 10/13/17 10/14/17 10/14/17 14:10 06:55 06:55 WBC 13.0 H RBC 2.71 L Hgb 7.5 L Hct 24.2 L MCV 89.3 MCH 27.7 MCHC 31.0 L RDW 16.9 H RDW Differential 54.7 H Plt Count 277 MPV 10.1 Immature Gran % (Auto) 1.800 H Neut % (Auto) 67.9 Lymph % (Auto) 18.8 L Webb % (Auto) 8.1 Eos % (Auto) 2.9 Baso % (Auto) 0.5 Absolute Neuts (auto) 8.8 H Absolute Lymphs (auto) 2.45 Total Counted Not Reportable Neutrophils % (Manual) Band Neutrophils % Lymphocytes % (Manual) Monocytes % (Manual) Eosinophils % (Manual) Basophils % (Manual) Metamyelocytes % Diff Path Review Platelet Estimate RBC Morphology Specimen Type Sample Site pH Bicarbonate Actual POC Total CO2 Base Excess O2 Saturation O2 % ABG pCO2 ABG pO2 Jhon Test Respiration Rate O2 Delivery Device Minute Volume Vent Mode Tidal Volume POC PEEP Blood Gas Notified Whom Blood Gas Notified Time Sodium 141 Potassium 6.2 H* Chloride 110 H Carbon Dioxide 20.0 L Anion Gap 11 BUN 59 H Creatinine 1.78 H Estim Creat Clear Calc 31.65 Est GFR (MDRD) Af Amer 47 L Est GFR (MDRD) Non-Af 39 L BUN/Creatinine Ratio 33.1 H Glucose 117 H Lactic Acid Calcium 8.6 Phosphorus Magnesium Total Bilirubin AST ALT Alkaline Phosphatase Total Creatine Kinase B-Natriuretic Peptide Total Protein Albumin Globulin Albumin/Globulin Ratio Triglycerides TSH Free T4 MRSA (PCR) POC Glucose Crossmatch See Detail 10/14/17 10/14/17 10/14/17 11:50 11:50 13:15 WBC RBC Hgb Hct MCV MCH MCHC RDW RDW Differential Plt Count MPV Immature Gran % (Auto) Neut % (Auto) Lymph % (Auto) Webb % (Auto) Eos % (Auto) Baso % (Auto) Absolute Neuts (auto) Absolute Lymphs (auto) Total Counted Neutrophils % (Manual) Band Neutrophils % Lymphocytes % (Manual) Monocytes % (Manual) Eosinophils % (Manual) Basophils % (Manual) Metamyelocytes % Diff Path Review Platelet Estimate RBC Morphology Specimen Type ART Sample Site L Brachial pH 7.24 L Bicarbonate Actual 18.0 L POC Total CO2 19 Base Excess -9 L O2 Saturation 89 L O2 % 50 ABG pCO2 42.4 ABG pO2 65 L Jhon Test POS Respiration Rate O2 Delivery Device Vent Mask Minute Volume Vent Mode Tidal Volume POC PEEP Blood Gas Notified Whom [facility] MD Blood Gas Notified Time 1306 Sodium 142 Potassium 5.7 H Chloride 111 H Carbon Dioxide 21.0 Anion Gap 10 BUN 62 H Creatinine 1.93 H Estim Creat Clear Calc 29.19 Est GFR (MDRD) Af Amer 43 L Est GFR (MDRD) Non-Af 36 L BUN/Creatinine Ratio 32.1 H Glucose 119 H Lactic Acid Calcium 8.4 L Phosphorus Magnesium Total Bilirubin AST ALT Alkaline Phosphatase Total Creatine Kinase B-Natriuretic Peptide Total Protein Albumin Globulin Albumin/Globulin Ratio Triglycerides TSH 1.29 Free T4 1.37 MRSA (PCR) POC Glucose Crossmatch 10/14/17 10/14/17 10/14/17 13:39 13:39 14:00 WBC RBC Hgb Hct MCV MCH MCHC RDW RDW Differential Plt Count MPV Immature Gran % (Auto) Neut % (Auto) Lymph % (Auto) Webb % (Auto) Eos % (Auto) Baso % (Auto) Absolute Neuts (auto) Absolute Lymphs (auto) Total Counted Neutrophils % (Manual) Band Neutrophils % Lymphocytes % (Manual) Monocytes % (Manual) Eosinophils % (Manual) Basophils % (Manual) Metamyelocytes % Diff Path Review Platelet Estimate RBC Morphology Specimen Type Sample Site pH Bicarbonate Actual POC Total CO2 Base Excess O2 Saturation O2 % ABG pCO2 ABG pO2 Jhon Test Respiration Rate O2 Delivery Device Minute Volume Vent Mode Tidal Volume POC PEEP Blood Gas Notified Whom Blood Gas Notified Time Sodium Potassium Chloride Carbon Dioxide Anion Gap BUN Creatinine Estim Creat Clear Calc Est GFR (MDRD) Af Amer Est GFR (MDRD) Non-Af BUN/Creatinine Ratio Glucose Lactic Acid 1.5 Calcium Phosphorus Magnesium Total Bilirubin AST ALT Alkaline Phosphatase Total Creatine Kinase B-Natriuretic Peptide 2433.2 H Total Protein Albumin Globulin Albumin/Globulin Ratio Triglycerides TSH Free T4 MRSA (PCR) Negative POC Glucose Crossmatch 10/14/17 10/14/17 10/14/17 15:40 15:40 15:56 WBC RBC Hgb Hct MCV MCH MCHC RDW RDW Differential Plt Count MPV Immature Gran % (Auto) Neut % (Auto) Lymph % (Auto) Webb % (Auto) Eos % (Auto) Baso % (Auto) Absolute Neuts (auto) Absolute Lymphs (auto) Total Counted Neutrophils % (Manual) Band Neutrophils % Lymphocytes % (Manual) Monocytes % (Manual) Eosinophils % (Manual) Basophils % (Manual) Metamyelocytes % Diff Path Review Platelet Estimate RBC Morphology Specimen Type ART Sample Site R Radial pH 7.21 L Bicarbonate Actual 18.6 L POC Total CO2 20 Base Excess -9 L O2 Saturation 80 L O2 % 40 ABG pCO2 46.6 H ABG pO2 53 L Jhon Test POS Respiration Rate 16 O2 Delivery Device Vent Minute Volume 7.00 Vent Mode A-C Tidal Volume 450 POC PEEP 5 Blood Gas Notified Whom [facility] Blood Gas Notified Time 1554 Sodium 143 Cancelled Potassium 5.5 H Cancelled Chloride 112 H Cancelled Carbon Dioxide 21.0 Cancelled Anion Gap 10 Cancelled BUN 63 H Cancelled Creatinine 2.05 H Cancelled Estim Creat Clear Calc 27.48 27.48 Est GFR (MDRD) Af Amer 40 L Cancelled Est GFR (MDRD) Non-Af 33 L Cancelled BUN/Creatinine Ratio 30.7 H Cancelled Glucose 118 H Cancelled Lactic Acid Calcium 8.4 L Cancelled Phosphorus Magnesium Total Bilirubin 0.30 AST 50 H ALT 47 Alkaline Phosphatase 215 H Total Creatine Kinase 66 B-Natriuretic Peptide Total Protein 7.7 Albumin 2.2 L Globulin 5.5 H Albumin/Globulin Ratio 0.4 L Triglycerides 377 H TSH Free T4 MRSA (PCR) POC Glucose Crossmatch 10/14/17 10/14/17 10/14/17 17:38 19:15 23:50 WBC RBC Hgb Hct MCV MCH MCHC RDW RDW Differential Plt Count MPV Immature Gran % (Auto) Neut % (Auto) Lymph % (Auto) Webb % (Auto) Eos % (Auto) Baso % (Auto) Absolute Neuts (auto) Absolute Lymphs (auto) Total Counted Neutrophils % (Manual) Band Neutrophils % Lymphocytes % (Manual) Monocytes % (Manual) Eosinophils % (Manual) Basophils % (Manual) Metamyelocytes % Diff Path Review Platelet Estimate RBC Morphology Specimen Type ART Sample Site L Radial pH 7.38 Bicarbonate Actual 20.3 L POC Total CO2 21 Base Excess -5 L O2 Saturation 99 O2 % 50 ABG pCO2 34.2 L ABG pO2 123 H Jhon Test Respiration Rate 18 O2 Delivery Device Vent Minute Volume 8.00 Vent Mode A-C Tidal Volume 450 POC PEEP 5 Blood Gas Notified Whom [facility] Blood Gas Notified Time 191 Sodium Potassium Chloride Carbon Dioxide Anion Gap BUN Creatinine Estim Creat Clear Calc Est GFR (MDRD) Af Amer Est GFR (MDRD) Non-Af BUN/Creatinine Ratio Glucose Lactic Acid Calcium Phosphorus Magnesium Total Bilirubin AST ALT Alkaline Phosphatase Total Creatine Kinase B-Natriuretic Peptide Total Protein Albumin Globulin Albumin/Globulin Ratio Triglycerides TSH Free T4 MRSA (PCR) POC Glucose 111 H 103 Crossmatch 10/15/17 10/15/17 10/15/17 04:00 04:00 04:00 WBC 10.6 RBC 3.69 L Hgb 10.5 L Hct 31.8 L MCV 86.2 MCH 28.5 MCHC 33.0 RDW 16.2 H RDW Differential 49.3 H Plt Count 257 MPV 10.3 Immature Gran % (Auto) Neut % (Auto) Not Reportable Lymph % (Auto) Webb % (Auto) Eos % (Auto) Baso % (Auto) Absolute Neuts (auto) 7.2 Absolute Lymphs (auto) 1.48 Total Counted 100 Neutrophils % (Manual) 63 Band Neutrophils % 5 Lymphocytes % (Manual) 14 L Monocytes % (Manual) 11 H Eosinophils % (Manual) 5 Basophils % (Manual) 1 Metamyelocytes % 1 Diff Path Review May foll Platelet Estimate ADEQUATE RBC Morphology NORM C+C Specimen Type Sample Site pH Bicarbonate Actual POC Total CO2 Base Excess O2 Saturation O2 % ABG pCO2 ABG pO2 Jhon Test Respiration Rate O2 Delivery Device Minute Volume Vent Mode Tidal Volume POC PEEP Blood Gas Notified Whom Blood Gas Notified Time Sodium 145 Potassium 3.9 Chloride 112 H Carbon Dioxide 21.0 Anion Gap 12 BUN 55 H Creatinine 1.82 H Estim Creat Clear Calc 30.95 Est GFR (MDRD) Af Amer 46 L Est GFR (MDRD) Non-Af 38 L BUN/Creatinine Ratio 30.2 H Glucose 93 Lactic Acid Calcium 8.6 Phosphorus 4.4 Magnesium 2.1 Total Bilirubin AST ALT Alkaline Phosphatase Total Creatine Kinase B-Natriuretic Peptide Total Protein Albumin Globulin Albumin/Globulin Ratio Triglycerides TSH Free T4 MRSA (PCR) POC Glucose Crossmatch 10/15/17 10/15/17 10/15/17 05:30 07:03 11:11 WBC RBC Hgb Hct MCV MCH MCHC RDW RDW Differential Plt Count MPV Immature Gran % (Auto) Neut % (Auto) Lymph % (Auto) Webb % (Auto) Eos % (Auto) Baso % (Auto) Absolute Neuts (auto) Absolute Lymphs (auto) Total Counted Neutrophils % (Manual) Band Neutrophils % Lymphocytes % (Manual) Monocytes % (Manual) Eosinophils % (Manual) Basophils % (Manual) Metamyelocytes % Diff Path Review Platelet Estimate RBC Morphology Specimen Type ART Sample Site R Radial pH 7.37 Bicarbonate Actual 19.4 L POC Total CO2 20 Base Excess -6 L O2 Saturation 95 O2 % 30 ABG pCO2 33.2 L ABG pO2 78 Jhon Test POS Respiration Rate 18 O2 Delivery Device Vent Minute Volume 8.00 Vent Mode A-C Tidal Volume 450 POC PEEP 5 Blood Gas Notified Whom ICU MD Blood Gas Notified Time 703 Sodium Potassium Chloride Carbon Dioxide Anion Gap BUN Creatinine Estim Creat Clear Calc Est GFR (MDRD) Af Amer Est GFR (MDRD) Non-Af BUN/Creatinine Ratio Glucose Lactic Acid Calcium Phosphorus Magnesium Total Bilirubin AST ALT Alkaline Phosphatase Total Creatine Kinase B-Natriuretic Peptide Total Protein Albumin Globulin Albumin/Globulin Ratio Triglycerides TSH Free T4 MRSA (PCR) POC Glucose 91 72 Crossmatch 10/15/17 10/15/17 10/16/17 12:21 17:26 00:38 WBC RBC Hgb Hct MCV MCH MCHC RDW RDW Differential Plt Count MPV Immature Gran % (Auto) Neut % (Auto) Lymph % (Auto) Webb % (Auto) Eos % (Auto) Baso % (Auto) Absolute Neuts (auto) Absolute Lymphs (auto) Total Counted Neutrophils % (Manual) Band Neutrophils % Lymphocytes % (Manual) Monocytes % (Manual) Eosinophils % (Manual) Basophils % (Manual) Metamyelocytes % Diff Path Review Platelet Estimate RBC Morphology Specimen Type Sample Site pH Bicarbonate Actual POC Total CO2 Base Excess O2 Saturation O2 % ABG pCO2 ABG pO2 Jhon Test Respiration Rate O2 Delivery Device Minute Volume Vent Mode Tidal Volume POC PEEP Blood Gas Notified Whom Blood Gas Notified Time Sodium Potassium Chloride Carbon Dioxide Anion Gap BUN Creatinine Estim Creat Clear Calc Est GFR (MDRD) Af Amer Est GFR (MDRD) Non-Af BUN/Creatinine Ratio Glucose Lactic Acid Calcium Phosphorus Magnesium Total Bilirubin AST ALT Alkaline Phosphatase Total Creatine Kinase B-Natriuretic Peptide Total Protein Albumin Globulin Albumin/Globulin Ratio Triglycerides TSH Free T4 MRSA (PCR) POC Glucose 83 87 90 Crossmatch 10/16/17 10/16/17 10/16/17 04:15 04:15 05:42 WBC 11.9 H RBC 3.85 L Hgb 11.0 L Hct 33.7 L MCV 87.5 MCH 28.6 MCHC 32.6 RDW 16.7 H RDW Differential 52.5 H Plt Count 285 MPV 10.1 Immature Gran % (Auto) Neut % (Auto) Lymph % (Auto) Webb % (Auto) Eos % (Auto) Baso % (Auto) Absolute Neuts (auto) Absolute Lymphs (auto) Total Counted Neutrophils % (Manual) Band Neutrophils % Lymphocytes % (Manual) Monocytes % (Manual) Eosinophils % (Manual) Basophils % (Manual) Metamyelocytes % Diff Path Review Platelet Estimate RBC Morphology Specimen Type Sample Site pH Bicarbonate Actual POC Total CO2 Base Excess O2 Saturation O2 % ABG pCO2 ABG pO2 Jhon Test Respiration Rate O2 Delivery Device Minute Volume Vent Mode Tidal Volume POC PEEP Blood Gas Notified Whom Blood Gas Notified Time Sodium 143 Potassium 3.6 Chloride 110 H Carbon Dioxide 23.0 Anion Gap Cancelled BUN 52 H Creatinine 1.83 H Estim Creat Clear Calc 32.88 Est GFR (MDRD) Af Amer 46 L Est GFR (MDRD) Non-Af 38 L BUN/Creatinine Ratio 28.4 H Glucose 79 Lactic Acid Calcium 8.8 Phosphorus 4.9 Magnesium Total Bilirubin AST ALT Alkaline Phosphatase Total Creatine Kinase B-Natriuretic Peptide Total Protein Albumin 2.0 L Globulin Albumin/Globulin Ratio Triglycerides TSH Free T4 MRSA (PCR) POC Glucose 89 Crossmatch Microbiology 10/14/17 14:50 Sputum, Induced/Lukens Gram Stain - Final 10/14/17 14:50 Sputum, Induced/Lukens Respiratory Culture - Preliminary Gram negative rosalind 10/14/17 16:45 Stool Stool Occult Blood (PRIMITIVO) - Final Clinical Impression(s) from Imaging Studies Chest X-Ray 10/11/17 16:20 IMPRESSION: Atelectatic versus chronic versus early infiltrate at the right lung base/costophrenic angle. Diffuse interstitial changes. Pleural thickening on the left/effusion not excluded. Mild cardiomegaly status post prior midline sternotomy. Marked atherosclerotic changes of the thoracic aorta with a potential aneurysmal dilatation. Electronically Signed: Tatiana Shay MD at 17:13 EDT , Service support , Renal Ultrasound 10/12/17 14:13 IMPRESSION: Normal ultrasound of the kidneys and urinary bladder. Electronically Signed: Ray Dudley, at 18:17 EDT Tel , Service support , Chest CT 10/13/17 07:18 IMPRESSION: Small left pleural effusion with consolidation in the left lower lobe and infiltrates in the left upper lobe and lingular segment of the left upper lobe. Interstitial infiltrate in the right lower lobe with a tiny pleural effusion. Electronically Signed: Edmar العراقي MD at 8:43 EDT Tel [phone], Service support , Chest X-Ray 10/14/17 09:45 IMPRESSION: Worsening appearance of the lungs since the previous study, there is now diffuse interstitial edema with likely superimposed left upper lobe pneumonia. Follow-up recommended to assure resolution Remote CABG Degenerative bony changes Electronically Signed: Ino Núñez MD at 11:01 EDT , Service support , Chest X-Ray 10/14/17 14:25 IMPRESSION: The tip of the endotracheal tube is about 4.7 cm above the rigoberto. There is mild enlargement of the cardiac silhouette with mild edema. Vascularity is improved compared to the prior study. There is a small pleural effusion on the right and a moderate pleural effusion on the left. There is diffuse fibrosis. There is probable compressive atelectasis in the mid and lower left lung. Electronically Signed: Aliza Cantrell MD at 20:52 EDT Tel Direct: [phone], Service support , Brain CT 10/14/17 19:10 IMPRESSION: No acute intracranial abnormality. Chronic ischemic and atrophic changes. Electronically Signed: Ray Dudley, at 20:10 EDT Tel , Service support , Chest X-Ray 10/14/17 23:35 IMPRESSION: Abnormal position of the central venous line is seen on the right side its tip is coiled in the upper part of the chest. Electronically Signed: Bernardino Johnston MD at 0:34 EDT Tel , Service support , Chest X-Ray 10/15/17 04:20 IMPRESSION: Abnormal position of the central venous line is seen on the right side its tip is coiled in the upper part of the chest. N.B. : The above information has been verbally conveyed by Bernardino Johnston MD to Dr Dai, Referring Physician, on 10/15/2017 09:27:43 (ET). Electronically Signed: Bernardino Johnston MD at 9:17 EDT Tel , Service support , N.B. : The above information has been verbally conveyed by Bernardino Johnston MD to Dr Dai, Referring Physician, on 10/15/2017 09:27:43 (ET). Medical Necessity - Tobacco Use Smoking Status: Former smoker Assessment/Plan Active and Suspected Problems (Last Updated 06/20/17 @ 14:47 by Whit Wilson) Pneumonia (Acute) vs HCAP UTI (urinary tract infection) (Acute) SIRS (systemic inflammatory response syndrome) (Acute) Acute respiratory failure with hypoxia and hypercarbia (Acute) RECOMMENDATIONS: 1. Proceed with a trial of extubation this morning. 2. Once extubated, wean supplemental oxygen to maintain saturations at or above 90% 3. Obtain infectious diseases consultation 4. Transition to bolus tube feeds 5. Await echocardiogram 6. Administer IV Lasix ?1. 7. Encourage incentive spirometer use and mobilize patient as tolerated IMPRESSIONS: 1. Acute hypoxemic and hypercarbic respiratory failure secondary to gram-negative pneumonia The patient has improved clinically and is stable for a trial of extubation. Once extubated, wean supplemental oxygen as tolerated. Encourage aggressive incentive spirometer use. Transition to bolus tube feeds via PEG tube. Physical therapy to work with patient. Given that the patient remains significantly on the positive side for his admission, will administer IV Lasix x 1. 2. Severe sepsis secondary to C. difficile colitis/gram-negative pneumonia Continue p.o. vancomycin as ordered. Continue Zosyn for now for treatment of gram-negative pneumonia, per infectious diseases recommendations. 3. Acute metabolic encephalopathy Improved at this time. Likely secondary to #1 and 2. 4. History of atrial fibrillation/recent thoracic aortic aneurysm repair/coronary artery disease Awaiting repeat echocardiogram. IV diuresis ?1 today. Continue amiodarone as ordered. 5. Acute on chronic kidney disease Nephrology is following. Urine output has been appropriate. We will continue to monitor. No indication for renal replacement therapy at this time. 6. Dysphasia/anemia/advanced age/prolonged hospitalization Complicates care, management, recovery and prognosis. Blood counts remained stable following transfusion. We will continue to monitor. TIME: 42 minutes of critical care time, independent of procedures, was spent addressing the patient's acute respiratory failure, gram-negative pneumonia, C. difficile colitis, metabolic encephalopathy, acute on chronic kidney disease, review of all data and collaboration with the care team. ([id number]) Code Visit [id number]: [id number] Critical care first hour
--- NOTE | 2017-10-16 06:52 | PN_ITS ---
Subjective: The patient was seen and examined at the bedside this morning. Events from the last 24 hours have been reviewed. The patient is currently afebrile, hemodynamically stable and maintaining appropriate oxygen saturations with an FiO2 requirement of 30%. The patient is currently doing well on his spontaneous breathing trial. Language is a barrier to effective communication with the patient. The patient is currently overall net +8.8 L for the admission. Objective: The patient's most recent lab work, culture data and imaging studies have all been personally reviewed. Blood cultures have shown no growth to date. Urine culture has shown no growth to date. Strep and urine Legionella antigens were both negative. The patient was positive for C. difficile. Sputum Gram stain revealed the presence of a gram-negative rosalind. CT chest revealed multifocal airspace disease and small bilateral pleural effusions. Pulmonary function testing completed in June 2017 revealed evidence of a mild restrictive ventilatory defect with preserved diffusing capacity. General: - - Remains intubated and mechanically ventilated. Currently tolerating CPAP mode mechanical ventilation. HEENT: Atraumatic, PERRLA, Normocephalic Oral: No Gingival or Mucosal Lesions/ Ulcerations, - - Endotracheal and OG tubes remain in place Neck: Supple, No Nodes, Trachea Midline Lungs: No wheeze, No rales, Diminished, Rhonchi Cardiovascular: Regular rate, Regular Rhythm, Normal S1, Normal S2, Murmur, No rub noted, No Gallop Abdomen: Bowel Sounds Present, Soft, Non Tender, - - PEG site is C/D/I Extremities: No clubbing, No cyanosis, No edema Skin: - - Tattoos present Musculoskeletal: No Tenderness to Palpation of Joints or Extremities Lymphatic: No Cervical, Supraclavicular, or Inguinal Adenopathy Neurological: - - No focal deficits. Moves extremities spontaneously. Vital Signs Temp Pulse Resp BP Pulse Ox 97.9 F 82 11 L 125/78 H 99 10/16/17 04:00 10/16/17 06:00 10/16/17 06:00 10/16/17 06:00 10/16/17 06:00 Oxygen Flow Rate (L/min) 2 Oxygen Delivery Method CPAP Weight: 159 lb 2.78 oz Body Mass Index (BMI) 20.8 Intake and Output for Last 24 Hours 10/14/17 10/15/17 10/16/17 23:59 23:59 23:59 Intake Total 4487 / 4487 1534.9 / 1534.9 726.6 / 726.6 Output Total 875 / 875 2600 / 2600 450 / 450 Balance 3612 / 3612 -1065.1 / -1065.1 276.6 / 276.6 Labs (Last 48 Hours) 10/13/17 10/14/17 10/14/17 14:10 06:55 06:55 WBC 13.0 H RBC 2.71 L Hgb 7.5 L Hct 24.2 L MCV 89.3 MCH 27.7 MCHC 31.0 L RDW 16.9 H RDW Differential 54.7 H Plt Count 277 MPV 10.1 Immature Gran % (Auto) 1.800 H Neut % (Auto) 67.9 Lymph % (Auto) 18.8 L [place] % (Auto) 8.1 Eos % (Auto) 2.9 Baso % (Auto) 0.5 Absolute Neuts (auto) 8.8 H Absolute Lymphs (auto) 2.45 Total Counted Not Reportable Neutrophils % (Manual) Band Neutrophils % Lymphocytes % (Manual) Monocytes % (Manual) Eosinophils % (Manual) Basophils % (Manual) Metamyelocytes % Diff Path Review Platelet Estimate RBC Morphology Specimen Type Sample Site pH Bicarbonate Actual POC Total CO2 Base Excess O2 Saturation O2 % ABG pCO2 ABG pO2 Jhon Test Respiration Rate O2 Delivery Device Minute Volume Vent Mode Tidal Volume POC PEEP Blood Gas Notified Whom Blood Gas Notified Time Sodium 141 Potassium 6.2 H* Chloride 110 H Carbon Dioxide 20.0 L Anion Gap 11 BUN 59 H Creatinine 1.78 H Estim Creat Clear Calc 31.65 Est GFR (MDRD) Af Amer 47 L Est GFR (MDRD) Non-Af 39 L BUN/Creatinine Ratio 33.1 H Glucose 117 H Lactic Acid Calcium 8.6 Phosphorus Magnesium Total Bilirubin AST ALT Alkaline Phosphatase Total Creatine Kinase B-Natriuretic Peptide Total Protein Albumin Globulin Albumin/Globulin Ratio Triglycerides TSH Free T4 MRSA (PCR) POC Glucose Crossmatch See Detail 10/14/17 10/14/17 10/14/17 11:50 11:50 13:15 WBC RBC Hgb Hct MCV MCH MCHC RDW RDW Differential Plt Count MPV Immature Gran % (Auto) Neut % (Auto) Lymph % (Auto) [place] % (Auto) Eos % (Auto) Baso % (Auto) Absolute Neuts (auto) Absolute Lymphs (auto) Total Counted Neutrophils % (Manual) Band Neutrophils % Lymphocytes % (Manual) Monocytes % (Manual) Eosinophils % (Manual) Basophils % (Manual) Metamyelocytes % Diff Path Review Platelet Estimate RBC Morphology Specimen Type ART Sample Site L Brachial pH 7.24 L Bicarbonate Actual 18.0 L POC Total CO2 19 Base Excess -9 L O2 Saturation 89 L O2 % 50 ABG pCO2 42.4 ABG pO2 65 L Jhon Test POS Respiration Rate O2 Delivery Device Vent Mask Minute Volume Vent Mode Tidal Volume POC PEEP Blood Gas Notified Whom [facility] MD Blood Gas Notified Time 1306 Sodium 142 Potassium 5.7 H Chloride 111 H Carbon Dioxide 21.0 Anion Gap 10 BUN 62 H Creatinine 1.93 H Estim Creat Clear Calc 29.19 Est GFR (MDRD) Af Amer 43 L Est GFR (MDRD) Non-Af 36 L BUN/Creatinine Ratio 32.1 H Glucose 119 H Lactic Acid Calcium 8.4 L Phosphorus Magnesium Total Bilirubin AST ALT Alkaline Phosphatase Total Creatine Kinase B-Natriuretic Peptide Total Protein Albumin Globulin Albumin/Globulin Ratio Triglycerides TSH 1.29 Free T4 1.37 MRSA (PCR) POC Glucose Crossmatch 10/14/17 10/14/17 10/14/17 13:39 13:39 14:00 WBC RBC Hgb Hct MCV MCH MCHC RDW RDW Differential Plt Count MPV Immature Gran % (Auto) Neut % (Auto) Lymph % (Auto) [place] % (Auto) Eos % (Auto) Baso % (Auto) Absolute Neuts (auto) Absolute Lymphs (auto) Total Counted Neutrophils % (Manual) Band Neutrophils % Lymphocytes % (Manual) Monocytes % (Manual) Eosinophils % (Manual) Basophils % (Manual) Metamyelocytes % Diff Path Review Platelet Estimate RBC Morphology Specimen Type Sample Site pH Bicarbonate Actual POC Total CO2 Base Excess O2 Saturation O2 % ABG pCO2 ABG pO2 Jhon Test Respiration Rate O2 Delivery Device Minute Volume Vent Mode Tidal Volume POC PEEP Blood Gas Notified Whom Blood Gas Notified Time Sodium Potassium Chloride Carbon Dioxide Anion Gap BUN Creatinine Estim Creat Clear Calc Est GFR (MDRD) Af Amer Est GFR (MDRD) Non-Af BUN/Creatinine Ratio Glucose Lactic Acid 1.5 Calcium Phosphorus Magnesium Total Bilirubin AST ALT Alkaline Phosphatase Total Creatine Kinase B-Natriuretic Peptide 2433.2 H Total Protein Albumin Globulin Albumin/Globulin Ratio Triglycerides TSH Free T4 MRSA (PCR) Negative POC Glucose Crossmatch 10/14/17 10/14/17 10/14/17 15:40 15:40 15:56 WBC RBC Hgb Hct MCV MCH MCHC RDW RDW Differential Plt Count MPV Immature Gran % (Auto) Neut % (Auto) Lymph % (Auto) [place] % (Auto) Eos % (Auto) Baso % (Auto) Absolute Neuts (auto) Absolute Lymphs (auto) Total Counted Neutrophils % (Manual) Band Neutrophils % Lymphocytes % (Manual) Monocytes % (Manual) Eosinophils % (Manual) Basophils % (Manual) Metamyelocytes % Diff Path Review Platelet Estimate RBC Morphology Specimen Type ART Sample Site R Radial pH 7.21 L Bicarbonate Actual 18.6 L POC Total CO2 20 Base Excess -9 L O2 Saturation 80 L O2 % 40 ABG pCO2 46.6 H ABG pO2 53 L Jhon Test POS Respiration Rate 16 O2 Delivery Device Vent Minute Volume 7.00 Vent Mode A-C Tidal Volume 450 POC PEEP 5 Blood Gas Notified Whom [facility] Blood Gas Notified Time 1554 Sodium 143 Cancelled Potassium 5.5 H Cancelled Chloride 112 H Cancelled Carbon Dioxide 21.0 Cancelled Anion Gap 10 Cancelled BUN 63 H Cancelled Creatinine 2.05 H Cancelled Estim Creat Clear Calc 27.48 27.48 Est GFR (MDRD) Af Amer 40 L Cancelled Est GFR (MDRD) Non-Af 33 L Cancelled BUN/Creatinine Ratio 30.7 H Cancelled Glucose 118 H Cancelled Lactic Acid Calcium 8.4 L Cancelled Phosphorus Magnesium Total Bilirubin 0.30 AST 50 H ALT 47 Alkaline Phosphatase 215 H Total Creatine Kinase 66 B-Natriuretic Peptide Total Protein 7.7 Albumin 2.2 L Globulin 5.5 H Albumin/Globulin Ratio 0.4 L Triglycerides 377 H TSH Free T4 MRSA (PCR) POC Glucose Crossmatch 10/14/17 10/14/17 10/14/17 17:38 19:15 23:50 WBC RBC Hgb Hct MCV MCH MCHC RDW RDW Differential Plt Count MPV Immature Gran % (Auto) Neut % (Auto) Lymph % (Auto) [place] % (Auto) Eos % (Auto) Baso % (Auto) Absolute Neuts (auto) Absolute Lymphs (auto) Total Counted Neutrophils % (Manual) Band Neutrophils % Lymphocytes % (Manual) Monocytes % (Manual) Eosinophils % (Manual) Basophils % (Manual) Metamyelocytes % Diff Path Review Platelet Estimate RBC Morphology Specimen Type ART Sample Site L Radial pH 7.38 Bicarbonate Actual 20.3 L POC Total CO2 21 Base Excess -5 L O2 Saturation 99 O2 % 50 ABG pCO2 34.2 L ABG pO2 123 H Jhon Test Respiration Rate 18 O2 Delivery Device Vent Minute Volume 8.00 Vent Mode A-C Tidal Volume 450 POC PEEP 5 Blood Gas Notified Whom [facility] Blood Gas Notified Time 191 Sodium Potassium Chloride Carbon Dioxide Anion Gap BUN Creatinine Estim Creat Clear Calc Est GFR (MDRD) Af Amer Est GFR (MDRD) Non-Af BUN/Creatinine Ratio Glucose Lactic Acid Calcium Phosphorus Magnesium Total Bilirubin AST ALT Alkaline Phosphatase Total Creatine Kinase B-Natriuretic Peptide Total Protein Albumin Globulin Albumin/Globulin Ratio Triglycerides TSH Free T4 MRSA (PCR) POC Glucose 111 H 103 Crossmatch 10/15/17 10/15/17 10/15/17 04:00 04:00 04:00 WBC 10.6 RBC 3.69 L Hgb 10.5 L Hct 31.8 L MCV 86.2 MCH 28.5 MCHC 33.0 RDW 16.2 H RDW Differential 49.3 H Plt Count 257 MPV 10.3 Immature Gran % (Auto) Neut % (Auto) Not Reportable Lymph % (Auto) [place] % (Auto) Eos % (Auto) Baso % (Auto) Absolute Neuts (auto) 7.2 Absolute Lymphs (auto) 1.48 Total Counted 100 Neutrophils % (Manual) 63 Band Neutrophils % 5 Lymphocytes % (Manual) 14 L Monocytes % (Manual) 11 H Eosinophils % (Manual) 5 Basophils % (Manual) 1 Metamyelocytes % 1 Diff Path Review May foll Platelet Estimate ADEQUATE RBC Morphology NORM C+C Specimen Type Sample Site pH Bicarbonate Actual POC Total CO2 Base Excess O2 Saturation O2 % ABG pCO2 ABG pO2 Jhon Test Respiration Rate O2 Delivery Device Minute Volume Vent Mode Tidal Volume POC PEEP Blood Gas Notified Whom Blood Gas Notified Time Sodium 145 Potassium 3.9 Chloride 112 H Carbon Dioxide 21.0 Anion Gap 12 BUN 55 H Creatinine 1.82 H Estim Creat Clear Calc 30.95 Est GFR (MDRD) Af Amer 46 L Est GFR (MDRD) Non-Af 38 L BUN/Creatinine Ratio 30.2 H Glucose 93 Lactic Acid Calcium 8.6 Phosphorus 4.4 Magnesium 2.1 Total Bilirubin AST ALT Alkaline Phosphatase Total Creatine Kinase B-Natriuretic Peptide Total Protein Albumin Globulin Albumin/Globulin Ratio Triglycerides TSH Free T4 MRSA (PCR) POC Glucose Crossmatch 10/15/17 10/15/17 10/15/17 05:30 07:03 11:11 WBC RBC Hgb Hct MCV MCH MCHC RDW RDW Differential Plt Count MPV Immature Gran % (Auto) Neut % (Auto) Lymph % (Auto) [place] % (Auto) Eos % (Auto) Baso % (Auto) Absolute Neuts (auto) Absolute Lymphs (auto) Total Counted Neutrophils % (Manual) Band Neutrophils % Lymphocytes % (Manual) Monocytes % (Manual) Eosinophils % (Manual) Basophils % (Manual) Metamyelocytes % Diff Path Review Platelet Estimate RBC Morphology Specimen Type ART Sample Site R Radial pH 7.37 Bicarbonate Actual 19.4 L POC Total CO2 20 Base Excess -6 L O2 Saturation 95 O2 % 30 ABG pCO2 33.2 L ABG pO2 78 Jhon Test POS Respiration Rate 18 O2 Delivery Device Vent Minute Volume 8.00 Vent Mode A-C Tidal Volume 450 POC PEEP 5 Blood Gas Notified Whom ICU MD Blood Gas Notified Time 703 Sodium Potassium Chloride Carbon Dioxide Anion Gap BUN Creatinine Estim Creat Clear Calc Est GFR (MDRD) Af Amer Est GFR (MDRD) Non-Af BUN/Creatinine Ratio Glucose Lactic Acid Calcium Phosphorus Magnesium Total Bilirubin AST ALT Alkaline Phosphatase Total Creatine Kinase B-Natriuretic Peptide Total Protein Albumin Globulin Albumin/Globulin Ratio Triglycerides TSH Free T4 MRSA (PCR) POC Glucose 91 72 Crossmatch 10/15/17 10/15/17 10/16/17 12:21 17:26 00:38 WBC RBC Hgb Hct MCV MCH MCHC RDW RDW Differential Plt Count MPV Immature Gran % (Auto) Neut % (Auto) Lymph % (Auto) [place] % (Auto) Eos % (Auto) Baso % (Auto) Absolute Neuts (auto) Absolute Lymphs (auto) Total Counted Neutrophils % (Manual) Band Neutrophils % Lymphocytes % (Manual) Monocytes % (Manual) Eosinophils % (Manual) Basophils % (Manual) Metamyelocytes % Diff Path Review Platelet Estimate RBC Morphology Specimen Type Sample Site pH Bicarbonate Actual POC Total CO2 Base Excess O2 Saturation O2 % ABG pCO2 ABG pO2 Jhon Test Respiration Rate O2 Delivery Device Minute Volume Vent Mode Tidal Volume POC PEEP Blood Gas Notified Whom Blood Gas Notified Time Sodium Potassium Chloride Carbon Dioxide Anion Gap BUN Creatinine Estim Creat Clear Calc Est GFR (MDRD) Af Amer Est GFR (MDRD) Non-Af BUN/Creatinine Ratio Glucose Lactic Acid Calcium Phosphorus Magnesium Total Bilirubin AST ALT Alkaline Phosphatase Total Creatine Kinase B-Natriuretic Peptide Total Protein Albumin Globulin Albumin/Globulin Ratio Triglycerides TSH Free T4 MRSA (PCR) POC Glucose 83 87 90 Crossmatch 10/16/17 10/16/17 10/16/17 04:15 04:15 05:42 WBC 11.9 H RBC 3.85 L Hgb 11.0 L Hct 33.7 L MCV 87.5 MCH 28.6 MCHC 32.6 RDW 16.7 H RDW Differential 52.5 H Plt Count 285 MPV 10.1 Immature Gran % (Auto) Neut % (Auto) Lymph % (Auto) [place] % (Auto) Eos % (Auto) Baso % (Auto) Absolute Neuts (auto) Absolute Lymphs (auto) Total Counted Neutrophils % (Manual) Band Neutrophils % Lymphocytes % (Manual) Monocytes % (Manual) Eosinophils % (Manual) Basophils % (Manual) Metamyelocytes % Diff Path Review Platelet Estimate RBC Morphology Specimen Type Sample Site pH Bicarbonate Actual POC Total CO2 Base Excess O2 Saturation O2 % ABG pCO2 ABG pO2 Jhon Test Respiration Rate O2 Delivery Device Minute Volume Vent Mode Tidal Volume POC PEEP Blood Gas Notified Whom Blood Gas Notified Time Sodium 143 Potassium 3.6 Chloride 110 H Carbon Dioxide 23.0 Anion Gap Cancelled BUN 52 H Creatinine 1.83 H Estim Creat Clear Calc 32.88 Est GFR (MDRD) Af Amer 46 L Est GFR (MDRD) Non-Af 38 L BUN/Creatinine Ratio 28.4 H Glucose 79 Lactic Acid Calcium 8.8 Phosphorus 4.9 Magnesium Total Bilirubin AST ALT Alkaline Phosphatase Total Creatine Kinase B-Natriuretic Peptide Total Protein Albumin 2.0 L Globulin Albumin/Globulin Ratio Triglycerides TSH Free T4 MRSA (PCR) POC Glucose 89 Crossmatch Microbiology 10/14/17 14:50 Sputum, Induced/Lukens Gram Stain - Final 10/14/17 14:50 Sputum, Induced/Lukens Respiratory Culture - Preliminary Gram negative rosalind 10/14/17 16:45 Stool Stool Occult Blood (PRIMITIVO) - Final Clinical Impression(s) from Imaging Studies Chest X-Ray 10/11/17 16:20 IMPRESSION: Atelectatic versus chronic versus early infiltrate at the right lung base/costophrenic angle. Diffuse interstitial changes. Pleural thickening on the left/effusion not excluded. Mild cardiomegaly status post prior midline sternotomy. Marked atherosclerotic changes of the thoracic aorta with a potential aneurysmal dilatation. Electronically Signed: Tatiana Shay MD at 17:13 EDT , Service support , Renal Ultrasound 10/12/17 14:13 IMPRESSION: Normal ultrasound of the kidneys and urinary bladder. Electronically Signed: Ray Dudley, at 18:17 EDT Tel , Service support , Chest CT 10/13/17 07:18 IMPRESSION: Small left pleural effusion with consolidation in the left lower lobe and infiltrates in the left upper lobe and lingular segment of the left upper lobe. Interstitial infiltrate in the right lower lobe with a tiny pleural effusion. Electronically Signed: Edmar العراقي MD at 8:43 EDT Tel [phone], Service support , Chest X-Ray 10/14/17 09:45 IMPRESSION: Worsening appearance of the lungs since the previous study, there is now diffuse interstitial edema with likely superimposed left upper lobe pneumonia. Follow-up recommended to assure resolution Remote CABG Degenerative bony changes Electronically Signed: Ino Núñez MD at 11:01 EDT , Service support , Chest X-Ray 10/14/17 14:25 IMPRESSION: The tip of the endotracheal tube is about 4.7 cm above the rigoberto. There is mild enlargement of the cardiac silhouette with mild edema. Vascularity is improved compared to the prior study. There is a small pleural effusion on the right and a moderate pleural effusion on the left. There is diffuse fibrosis. There is probable compressive atelectasis in the mid and lower left lung. Electronically Signed: Aliza Cantrell MD at 20:52 EDT Tel Direct: [phone], Service support , Brain CT 10/14/17 19:10 IMPRESSION: No acute intracranial abnormality. Chronic ischemic and atrophic changes. Electronically Signed: Ray Dudley, at 20:10 EDT Tel , Service support , Chest X-Ray 10/14/17 23:35 IMPRESSION: Abnormal position of the central venous line is seen on the right side its tip is coiled in the upper part of the chest. Electronically Signed: Bernardino Johnston MD at 0:34 EDT Tel , Service support , Chest X-Ray 10/15/17 04:20 IMPRESSION: Abnormal position of the central venous line is seen on the right side its tip is coiled in the upper part of the chest. N.B. : The above information has been verbally conveyed by Bernardino Johnston MD to Dr Dia, Referring Physician, on 10/15/2017 09:27:43 (ET). Electronically Signed: Bernardino Johnston MD at 9:17 EDT Tel , Service support , N.B. : The above information has been verbally conveyed by Bernardino Johnston MD to Dr Dai, Referring Physician, on 10/15/2017 09:27:43 (ET). Medical Necessity - Tobacco Use Smoking Status: Former smoker Assessment/Plan Active and Suspected Problems (Last Updated 06/20/17 @ 14:47 by Whit Wilson) Pneumonia (Acute) vs HCAP UTI (urinary tract infection) (Acute) SIRS (systemic inflammatory response syndrome) (Acute) Acute respiratory failure with hypoxia and hypercarbia (Acute) RECOMMENDATIONS: 1. Proceed with a trial of extubation this morning. 2. Once extubated, wean supplemental oxygen to maintain saturations at or above 90% 3. Obtain infectious diseases consultation 4. Transition to bolus tube feeds 5. Await echocardiogram 6. Administer IV Lasix ?1. 7. Encourage incentive spirometer use and mobilize patient as tolerated IMPRESSIONS: 1. Acute hypoxemic and hypercarbic respiratory failure secondary to gram- negative pneumonia The patient has improved clinically and is stable for a trial of extubation. Once extubated, wean supplemental oxygen as tolerated. Encourage aggressive incentive spirometer use. Transition to bolus tube feeds via PEG tube. Physical therapy to work with patient. Given that the patient remains significantly on the positive side for his admission, will administer IV Lasix x 1. 2. Severe sepsis secondary to C. difficile colitis/gram-negative pneumonia Continue p.o. vancomycin as ordered. Continue Zosyn for now for treatment of gram-negative pneumonia, per infectious diseases recommendations. 3. Acute metabolic encephalopathy Improved at this time. Likely secondary to #1 and 2. 4. History of atrial fibrillation/recent thoracic aortic aneurysm repair/ coronary artery disease Awaiting repeat echocardiogram. IV diuresis ?1 today. Continue amiodarone as ordered. 5. Acute on chronic kidney disease Nephrology is following. Urine output has been appropriate. We will continue to monitor. No indication for renal replacement therapy at this time. 6. Dysphasia/anemia/advanced age/prolonged hospitalization Complicates care, management, recovery and prognosis. Blood counts remained stable following transfusion. We will continue to monitor. TIME: 42 minutes of critical care time, independent of procedures, was spent addressing the patient's acute respiratory failure, gram-negative pneumonia, C. difficile colitis, metabolic encephalopathy, acute on chronic kidney disease, review of all data and collaboration with the care team. ([id number]) Code Visit [id number]: [id number] Critical care first hour
--- NOTE | 2017-10-16 07:26 | PCM.PROGNOTE ---
Patient Problems: Active and Suspected Problems (Last Updated 06/20/17 @ 14:47 by Whit Wilson) Pneumonia (Acute) vs HCAP UTI (urinary tract infection) (Acute) SIRS (systemic inflammatory response syndrome) (Acute) Acute respiratory failure with hypoxia and hypercarbia (Acute) Subjective: Antibiotic Day #5 Zosyn and oral Vanco Ventilator Day #3 TMAX: Afebrile Vital signs: Has been off dopamine since early in the morning of 10/15/2017. Current blood pressure is 125/78. Current pulse ox is 99% on CPAP with a 30 percent FiO2. Fluid balance: Fluid balance on 10/15/2017 was -1065 and he had 2600 cc of urine output. He had 450 cc of urine output overnight. Urine output: 2600 on 10/15/2017 Weight: 159 pounds and 2.7 ounces today All radiologic testing was reviewed: CXR appears essentially unchanged. There is some improvement in the PVC All labs were personally reviewed: Creatinine is stable at 1.83. Potassium is 3.6 and the other electrolytes are within normal limits. Her Bolick acidosis has resolved. Microbiology: Sputum culture is growing a rare gram-negative rods, final ID is pending. Telemetry: SR/SB with occasional PAC's and PVC's ECHO: Ordered for today He is awake for SBT and is currently on CPAP. somewhat agitated. Growing a MDR GM negative rosalind in the sputum......sensitive to aminoglycosides Objective: - Physical Exam General: - - Sedated and mechanically ventilated. He is resisting me when I try to open his eyes or his dtr tries to bend his arm He is grimacing HEENT: - - the pupils are unequal...the Left pupil is smaller. His dtr states that he has had this in the past Neck: Supple, Trachea Midline Lungs: Clear to auscultation - anteriorly, No wheeze Cardiovascular: Regular rate, Regular Rhythm, Normal S1, Normal S2, No rub noted, No Gallop Abdomen: Bowel Sounds Present, Soft, Non-Distended, - - No guarding with palpation Extremities: No cyanosis, No edema Skin: No rashes Neurological: Cranial nerves II-XII grossly intact - Facial asymmetry, Neuro grossly intact - Moving all extremities - Physical Exam Vital Signs Temp Pulse Resp BP Pulse Ox 97.9 F 82 11 L 125/78 H 99 04/09/18 04:00 10/16/17 06:00 10/16/17 06:00 10/16/17 06:00 10/16/17 06:00 Oxygen Flow Rate (L/min) 2 Oxygen Delivery Method CPAP Weight: 159 lb 2.78 oz Body Mass Index (BMI) 20.8 Intake and Output for Last 24 Hours 10/14/17 10/15/17 10/16/17 23:59 23:59 23:59 Intake Total 4487 / 4487 1534.9 / 1534.9 726.6 / 726.6 Output Total 875 / 875 2600 / 2600 450 / 450 Balance 3612 / 3612 -1065.1 / -1065.1 276.6 / 276.6 Microbiology Past 72 Hours 10/14/17 14:50 Gram Stain - Final Sputum, Induced/Lukens Respiratory Culture - Preliminary Gram negative rosalind 10/14/17 16:45 Stool Occult Blood (PRIMITIVO) - Final Stool Laboratory Tests Past 24 Hrs 10/16/17 10/16/17 04:15 04:15 WBC 11.9 H RBC 3.85 L Hgb 11.0 L Hct 33.7 L MCV 87.5 MCH 28.6 MCHC 32.6 RDW 16.7 H RDW Differential 52.5 H Plt Count 285 MPV 10.1 Sodium 143 Potassium 3.6 Chloride 110 H Carbon Dioxide 23.0 Anion Gap Cancelled BUN 52 H Creatinine 1.83 H Estim Creat Clear Calc 32.88 Est GFR (MDRD) Af Amer 46 L Est GFR (MDRD) Non-Af 38 L BUN/Creatinine Ratio 28.4 H Glucose 79 Calcium 8.8 Phosphorus 4.9 Albumin 2.0 L POC Glucose 10/16/17 10/16/17 10/15/17 05:42 00:38 17:26 POC Glucose 89 90 87 10/15/17 10/15/17 12:21 11:11 POC Glucose 83 72 Medical Necessity - Tobacco Use Smoking Status: Former smoker Assessment/Plan Active and Suspected Problems (Last Updated 06/20/17 @ 14:47 by Whit Wilson) Pneumonia (Acute) vs HCAP UTI (urinary tract infection) (Acute) SIRS (systemic inflammatory response syndrome) (Acute) Acute respiratory failure with hypoxia and hypercarbia (Acute) Impressions 1. Acute respiratory failure with hypoxemia requiring intubation 2. 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 Clostridium difficile enterocolitis 4. Acute on chronic renal failure stage III. 5. Anisocoria 6. Severe anemia-status post transfusion of 2 units packed red blood cells 7. Hypotension-likely secondary to bradycardia and severe anemia. He did require dopamine but only for a short period of time until he could be transfused and bradycardia improved. 8. R IJ central line likely coiled in Azygous vein...it is flushing and drawing back blood....will use only as a peripheral line 9. Hyperkalemia-resolved 10. Severe sepsis with encephalopathy 11. Coronary artery disease with history of CABG 12. Paroxysmal atrial fibrillation 13. Recent thoracic aortic aneurysm repair at [facility] 14. Chronic ischemic and atrophic changes on CT scan of the brain with no acute changes Tobramycin today consult Dr. Quiles Continue the oral Vanco - no significant diarrhea with the start of TF on 10/15. Will restart the bolus feedings 5 X's a day Lasix 40 mg again today Will be extubated today Continue PT/OT potassium 20 MEQ today HGB is stable at [address] Jefferson on rounds Code Visit Inpatient E&M: [id number] [facility] L3
[2017-10-16] MEDS: Furosemide 40 MG/4 ML Vial IV (09:17)
[2017-10-16] MEDS: Amiodarone 200 MG Tablet GT (09:33)
[2017-10-16] MEDS: Famotidine 20 MG Tablet GT (09:33)
[2017-10-16] MEDS: Aspirin 81 MG TAB.CHEW GT (09:33)
[2017-10-16] MEDS: Heparin Injection 5,000 UNITS/ML Syringe 5000 UNITS SC ×2 (09:33→21:52)
[2017-10-16] MEDS: Menthol/Lanolin/Calamine/Znox 113 GM Tube 1 APPLIC TOPICAL ×2 (09:35→21:52)
[2017-10-16] MEDS: Chlorhexidine 15 ML PO (09:36)
--- NOTE | 2017-10-16 09:56 | CASEMGMT ---
Pt in ICU, it is anticipated pt will stay in ICU today, has been extubated. SW spoke w/Radha in TCU, let her know to hold off on starting precert, will let her know when pt is close to being ready for discharge. RAUDEL Nunez, MANAGER ENVIRONMENTAL HEALTH AND SAFETY
[2017-10-16] MEDS: NEPRO TUBE FEED 1,000 ML LIQUID 240 ML GT ×4 (10:25→21:52)
--- NOTE | 2017-10-16 11:34 | CON.PCM_ITS ---
Problem List (1) Pneumonia Status: Acute Qualifiers: Pneumonia type: aspiration pneumonia Laterality: right Lung location: lower lobe of lung Comment: vs HCAP Reason for Consult: pneumonia Consulted by: Dr. Bal History of Present Illness: The patient is a 81 year old M with h/o hep B, afib who presented from [facility] in [place] with several days of fever, SOB, diarrhea, not feeling well. He was at [facility] for thoracic aortic dissection repair 06/2017. Course complicated by CLEM requiring dialysis. He was discharged to [facility] and had been doing well. Chest healed with no issue. Came off of HD and dialysis line was removed. Did have to be treated for what his daughter reports as an MDRO pneumonia while he was there. Was recently dx with uti, given course of levaquin. No prior episodes of cdiff that she knows of. Due to worsening condition, transferred here and admitted 10/11/17. Given iv vanc/zosyn. Cdiff was (+). IV vanc stopped and po vanc started 10/12. Did require intubation for resp failure, now extubated this AM. Sputum cx from 10/14 grew rare amount of Burkholderia cepacia , R or I to all beta lactams including imipenem. Tobra x1 given this AM. He report some cough, SOB. Denies abd pain. Full ROS unobtainable due to mental status. - Medical History Past Medical History (Chronic Problems): Chronic Problems (Last Updated 06/20/17 @ 14:47 by Whit Wilson) Type 2 diabetes mellitus without complications (Chronic) Hyperlipidemia (Chronic) Hypertension (Chronic) Allergies/Adverse Reactions: Allergies No Known Allergies Allergy (Unverified 06/20/17 14:37) Home Medications: Ambulatory Orders Medication Instructions Recorded aspirin 81 mg tablet,delayed 81 mg GT DAILY 06/20/17 release Amiodarone HCl 200 mg GT DAILY 10/11/17 Atorvastatin Calcium [Lipitor] 20 mg GT QHS 10/11/17 Bacitracin 500 units TOPICAL BID 10/11/17 Chlorhexidine [(None)] 15 ml PO BID 10/11/17 Famotidine [Pepcid] 40 mg GT DAILY 10/11/17 Ferrous Sulfate Syrup 300 mg GT DAILY 10/11/17 Guaifenesin [Adult Tussin Chest 400 mg GT TID 10/11/17 Congestion] Heparin Sodium,Porcine/Pf [Heparin 5,000 unit SQ BID 10/11/17 Sod 5,000 Unit/0.5 ml] Ipratropium/Albuterol Sulfate 3 ml INHALATION 4X/DAY 10/11/17 [Duoneb] Levofloxacin [Levaquin] 500 mg GT DAILY 10/11/17 Lorazepam [Ativan] 1 mg GT Q6H PRN PRN 10/11/17 Melatonin 3 mg GT QHS 10/11/17 Metoprolol Tartrate 25 mg GT BID 10/11/17 Nut.tx.impaired Renal Fxn,Soy 55 GT 10/11/17 [Novasource Renal 2 Fred] Phenazopyridine [Pyridium] 200 mg GT BID 10/11/17 Potassium Chloride 20 meq GT BID 10/11/17 - Social History SMOKING STATUS:: Former smoker Vital Signs Temp Pulse Resp BP Pulse Ox 98.7 F 93 19 H 126/62 H 100 10/16/17 10:00 10/16/17 11:00 10/16/17 11:00 10/16/17 11:00 10/16/17 11:00 Oxygen Flow Rate (L/min) 2 Oxygen Delivery Method Nasal Cannula Weight: 72.2 kg Body Mass Index (BMI) 20.8 Microbiology Past 72 Hours 10/14/17 14:50 Gram Stain - Final Sputum, Induced/Lukens Respiratory Culture - Preliminary Gram negative rosalind 10/14/17 16:45 Stool Occult Blood (PRIMITIVO) - Final Stool Laboratory Tests Past 24 Hrs 10/16/17 10/16/17 04:15 04:15 WBC 11.9 H RBC 3.85 L Hgb 11.0 L Hct 33.7 L MCV 87.5 MCH 28.6 MCHC 32.6 RDW 16.7 H RDW Differential 52.5 H Plt Count 285 MPV 10.1 Sodium 143 Potassium 3.6 Chloride 110 H Carbon Dioxide 23.0 Anion Gap Cancelled BUN 52 H Creatinine 1.83 H Estim Creat Clear Calc 32.88 Est GFR (MDRD) Af Amer 46 L Est GFR (MDRD) Non-Af 38 L BUN/Creatinine Ratio 28.4 H Glucose 79 Calcium 8.8 Phosphorus 4.9 Albumin 2.0 L - Other Studies Radiology: [] reviewed Other Studies: [] Route of nutrition/ use of supplements: [] Nutritional Intake: [] IV Site: [] Rice Catheter: [] - Physical Exam General: Cooperative, No apparent distress, Lethargic HEENT: Atraumatic, PERRLA, EOMI Neck: Supple, No Nodes Lungs: Diminished, Rhonchi - coarse bilat Cardiovascular: Regular rate, No murmurs Abdomen: Bowel Sounds Present, Non-Distended Extremities: Edema Skin: No rashes, Incision - sternal incision healing well IV Site: Peripheral, without redness Musculoskeletal: No Tenderness to Palpation of Joints or Extremities Neurological: - - able to follow commands - Assessment/Plan Antibiotics: [] Assessment/Plan: [] Active and Suspected Problems (Last Updated 06/20/17 @ 14:47 by Whit Wilson) Pneumonia (Acute) vs HCAP UTI (urinary tract infection) (Acute) SIRS (systemic inflammatory response syndrome) (Acute) Acute respiratory failure with hypoxia and hypercarbia (Acute) Acute resp failure with MDRO GNR pneumonia - improving, now off vent. 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 Family reports he had MDRO infection in lungs while at [facility] in [place]. Called [facility] and requested micro and ID notes to be faxed. Further testing on this organism pending here. Not clear if this Burkholderia is a true pathogen at this point given his overall improvement while on zosyn and rare growth. Cx was collected after being on broad coverage for several days, so it would make sense for him to only grow this organism (assuming this is what he had before at [facility]). For now continue zosyn and will re-eval need for tobra tomorrow in order to try and limit potential nephrotoxicity of aminoglycosides. cdiff - continue po vanc Thank you, will follow, d/w pharmacy.
--- NOTE | 2017-10-16 11:56 | PCM.PN.REN ---
Patient Problems: Active and Suspected Problems (Last Updated 06/20/17 @ 14:47 by Whit Wilson) Pneumonia (Acute) vs HCAP UTI (urinary tract infection) (Acute) SIRS (systemic inflammatory response syndrome) (Acute) Acute respiratory failure with hypoxia and hypercarbia (Acute) Subjective: Patient extubated this morning. Awake and responsive oxygenation stable on nasal cannula. Remains nonoliguric with creatinine 1.8. Baseline creatinine 1.2-1.4. Started on IV tobramycin today. Received Lasix intermittent only over the weekend and this morning. - Physical Exam General: Alert, No apparent distress, - - Awake to verbal stimuli HEENT: PERRLA, EOMI Oral: Moist Mucosa Neck: Supple Lungs: Rhonchi Cardiovascular: Regular rate Abdomen: Bowel Sounds Present, Soft, Non Tender, Non-Distended, - - G-tube Extremities: No edema Skin: No rashes Musculoskeletal: Muscle Wasting Psych/Mental Status: Appropriate Vital Signs Temp Pulse Resp BP Pulse Ox 98.7 F 84 19 H 126/62 H 100 10/16/17 10:00 10/16/17 11:48 10/16/17 11:00 10/16/17 11:00 10/16/17 11:00 Oxygen Flow Rate (L/min) 1 Oxygen Delivery Method Nasal Cannula Weight: 72.2 kg Body Mass Index (BMI) 20.8 Intake and Output for Last 24 Hours 10/14/17 10/15/17 10/16/17 23:59 23:59 23:59 Intake Total 4487 / 4487 1534.9 / 1534.9 1379.6 / 1379.6 Output Total 875 / 875 2600 / 2600 1100 / 1100 Balance 3612 / 3612 -1065.1 / -1065.1 279.6 / 279.6 Microbiology Past 72 Hours 10/14/17 14:50 Gram Stain - Final Sputum, Induced/Lukens Respiratory Culture - Preliminary Gram negative rosalind 10/14/17 16:45 Stool Occult Blood (PRIMITIVO) - Final Stool Laboratory Tests Past 24 Hrs 10/16/17 10/16/17 04:15 04:15 WBC 11.9 H RBC 3.85 L Hgb 11.0 L Hct 33.7 L MCV 87.5 MCH 28.6 MCHC 32.6 RDW 16.7 H RDW Differential 52.5 H Plt Count 285 MPV 10.1 Sodium 143 Potassium 3.6 Chloride 110 H Carbon Dioxide 23.0 Anion Gap Cancelled BUN 52 H Creatinine 1.83 H Estim Creat Clear Calc 32.88 Est GFR (MDRD) Af Amer 46 L Est GFR (MDRD) Non-Af 38 L BUN/Creatinine Ratio 28.4 H Glucose 79 Calcium 8.8 Phosphorus 4.9 Albumin 2.0 L POC Glucose 10/16/17 10/16/17 10/15/17 05:42 00:38 17:26 POC Glucose 89 90 87 10/15/17 12:21 POC Glucose 83 Clinical Impression(s) from Imaging Studies Chest X-Ray 10/16/17 05:55 IMPRESSION: Stable pleural parenchymal changes at the left lung base with increased markings at the right lung base. The endotracheal tube is in good position. Electronically Signed: Edmar العراقي MD at 8:24 EDT Tel [phone], Service support , Microbiology 10/14/17 14:50 Gram Stain - Final Sputum, Induced/Lukens Respiratory Culture - Preliminary Gram negative rosalind Medical Necessity - Tobacco Use Smoking Status: Former smoker Assessment/Plan Active and Suspected Problems (Last Updated 06/20/17 @ 14:47 by Whit Wilson) Pneumonia (Acute) vs HCAP UTI (urinary tract infection) (Acute) SIRS (systemic inflammatory response syndrome) (Acute) Acute respiratory failure with hypoxia and hypercarbia (Acute) 1. CLEM on CKD stage 3 with baseline creatinine 1.1-1.2. Creatinine remains elevated at 1.8 today. Received Lasix intermittently over the weekend and last dose today. Avoid nephrotoxins such as aminoglycosides, IV contrast, NSAIDs. 2. Sepsis syndrome with leukocytosis, hypotension stable off pressors. Bld cx no growth so far. 3. Aspiration pneumonia, s/p PEG intubation this afternoon. 4. Cdiff diarrhea on oral vanco 5. UTI with dysuria. 6. Chronic hep B 7. DM2 with diabetic nephropathy 8. Iron deficiency anemia. 9. Hyperkalemia resolved 10. Check 24 urine creatinine clearance.
[2017-10-16 14:43] LABS: Pathologist Review Reviewed
[2017-10-16] MEDS: Atorvastatin Calcium 20 MG Tablet GT (21:52)
[2017-10-16 22:06] LABS: Bedside Glucose 107 mg/dL (70-110)
[2017-10-17] VITALS (21 sets, daily range): BP systolic 126–172; BP diastolic 76–102; PULSE 68–98; RESP 18–97; TEMP 36.2–36.8; O2SAT 28–100
[2017-10-17 04:28] LABS: BUN 43 mg/dL (7-18); BUN/Creat Ratio 28.9 RATIO (10-20); Calcium,Total 8.8 mg/dL (8.5-10.1); Chloride 108 mmol/L (98-107); Creatinine, Serum 1.49 mg/dL (0.70-1.30); EST Glomerular Filtration Rate 48 mL/min (>60); Est Glom Filt Rate - Afr Amer 58 mL/min (>60); Estimated Creatinine Clearance 40.38 ml/min; Glucose 92 mg/dL (74-106); Potassium 2.9 mmol/L (3.5-5.1); Sodium Level 144 mmol/L (136-145)
[2017-10-17] MEDS: NEPRO TUBE FEED 1,000 ML LIQUID 240 ML GT ×5 (06:03→22:55)
[2017-10-17] MEDS: Piperacil/Tazobactam 3.375 GM/50 ML ML IV ×3 (06:03→22:41)
[2017-10-17 06:21] LABS: Bedside Glucose 91 mg/dL (70-110)
--- NOTE | 2017-10-17 06:48 | PCM.PN.INT ---
Subjective: The patient was seen and examined at the bedside this morning. Events from the last 24 hours have been reviewed. The patient is currently afebrile, hemodynamically stable and maintaining appropriate oxygen saturations on room air. The patient has done well from a respiratory standpoint following extubation yesterday. He continues to have a cough of creamy white sputum, which he is able to expectorate without issue. He continues to have frequent loose stool. Nursing staff reports intermittent overnight confusion. The patient is overall net +10.5 L for the admission. Creatinine is improved this morning to 1.49. Urine output is appropriate. Objective: The patient's most recent lab work, culture data and imaging studies have all been personally reviewed. Blood cultures have shown no growth to date. Urine culture has shown no growth to date. Strep and urine Legionella antigens were both negative. The patient was positive for C. difficile. Sputum culture revealed Burkholderia cepacia. CT chest revealed multifocal airspace disease and small bilateral pleural effusions. Pulmonary function testing completed in June 2017 revealed evidence of a mild restrictive ventilatory defect with preserved diffusing capacity. Surface echocardiogram completed October 16 revealed mild concentric LVH with an ejection fraction of 65% in stage I diastolic dysfunction. Pulmonary artery systolic pressure was estimated to be 35 mmHg. General: Alert, Cooperative, No apparent distress HEENT: Atraumatic, PERRLA, Normocephalic Oral: No Gingival or Mucosal Lesions/ Ulcerations Neck: Supple, No Nodes, Trachea Midline Lungs: Normal air movement, No rhonchi, No wheeze, No rales Cardiovascular: Regular rate, Regular Rhythm, Normal S1, Normal S2, No rub noted, No Gallop Abdomen: Bowel Sounds Present, Soft, Non Tender, - - PEG site is C/D/I Extremities: No clubbing, No cyanosis, No edema Skin: - - No significant change from previous Musculoskeletal: No Tenderness to Palpation of Joints or Extremities Lymphatic: No Cervical, Supraclavicular, or Inguinal Adenopathy Neurological: Neuro grossly intact Psych/Mental Status: Normal Affect, Appropriate Vital Signs Temp Pulse Resp BP Pulse Ox 98.2 F 91 32 H 156/94 H 96 10/17/17 04:00 10/17/17 06:00 10/17/17 06:00 10/17/17 06:00 10/17/17 06:00 Oxygen Flow Rate (L/min) 2 Oxygen Delivery Method Room Air Weight: 158 lb 4.67 oz Body Mass Index (BMI) 20.8 Intake and Output for Last 24 Hours 10/15/17 10/16/17 10/17/17 23:59 23:59 23:59 Intake Total 1534.9 / 1534.9 4094.1 / 4094.1 1052.5 / 1052.5 Output Total 2600 / 2600 2550 / 2550 600 / 600 Balance -1065.1 / -1065.1 1544.1 / 1544.1 452.5 / 452.5 Labs (Last 48 Hours) 10/15/17 10/15/17 10/15/17 04:00 07:03 11:11 WBC RBC Hgb Hct MCV MCH MCHC RDW RDW Differential Plt Count MPV Absolute Neuts (auto) 7.2 Absolute Lymphs (auto) 1.48 Total Counted 100 Neutrophils % (Manual) 63 Band Neutrophils % 5 Lymphocytes % (Manual) 14 L Monocytes % (Manual) 11 H Eosinophils % (Manual) 5 Basophils % (Manual) 1 Metamyelocytes % 1 Diff Path Review Reviewed Platelet Estimate ADEQUATE RBC Morphology NORM C+C Specimen Type ART Sample Site R Radial pH 7.37 Bicarbonate Actual 19.4 L POC Total CO2 20 Base Excess -6 L O2 Saturation 95 O2 % 30 ABG pCO2 33.2 L ABG pO2 78 Jhon Test POS Respiration Rate 18 O2 Delivery Device Vent Minute Volume 8.00 Vent Mode A-C Tidal Volume 450 POC PEEP 5 Blood Gas Notified Whom ICU Blood Gas Notified Time 703 Sodium Potassium Chloride Carbon Dioxide Anion Gap BUN Creatinine Estim Creat Clear Calc Est GFR (MDRD) Af Amer Est GFR (MDRD) Non-Af BUN/Creatinine Ratio Glucose Calcium Phosphorus Albumin Random Tobramycin POC Glucose 72 10/15/17 10/15/17 10/16/17 12:21 17:26 00:38 WBC RBC Hgb Hct MCV MCH MCHC RDW RDW Differential Plt Count MPV Absolute Neuts (auto) Absolute Lymphs (auto) Total Counted Neutrophils % (Manual) Band Neutrophils % Lymphocytes % (Manual) Monocytes % (Manual) Eosinophils % (Manual) Basophils % (Manual) Metamyelocytes % Diff Path Review Platelet Estimate RBC Morphology Specimen Type Sample Site pH Bicarbonate Actual POC Total CO2 Base Excess O2 Saturation O2 % ABG pCO2 ABG pO2 Jhon Test Respiration Rate O2 Delivery Device Minute Volume Vent Mode Tidal Volume POC PEEP Blood Gas Notified Whom Blood Gas Notified Time Sodium Potassium Chloride Carbon Dioxide Anion Gap BUN Creatinine Estim Creat Clear Calc Est GFR (MDRD) Af Amer Est GFR (MDRD) Non-Af BUN/Creatinine Ratio Glucose Calcium Phosphorus Albumin Random Tobramycin POC Glucose 83 87 90 10/16/17 10/16/17 10/16/17 04:15 04:15 05:42 WBC 11.9 H RBC 3.85 L Hgb 11.0 L Hct 33.7 L MCV 87.5 MCH 28.6 MCHC 32.6 RDW 16.7 H RDW Differential 52.5 H Plt Count 285 MPV 10.1 Absolute Neuts (auto) Absolute Lymphs (auto) Total Counted Neutrophils % (Manual) Band Neutrophils % Lymphocytes % (Manual) Monocytes % (Manual) Eosinophils % (Manual) Basophils % (Manual) Metamyelocytes % Diff Path Review Platelet Estimate RBC Morphology Specimen Type Sample Site pH Bicarbonate Actual POC Total CO2 Base Excess O2 Saturation O2 % ABG pCO2 ABG pO2 Jhon Test Respiration Rate O2 Delivery Device Minute Volume Vent Mode Tidal Volume POC PEEP Blood Gas Notified Whom Blood Gas Notified Time Sodium 143 Potassium 3.6 Chloride 110 H Carbon Dioxide 23.0 Anion Gap Cancelled BUN 52 H Creatinine 1.83 H Estim Creat Clear Calc 32.88 Est GFR (MDRD) Af Amer 46 L Est GFR (MDRD) Non-Af 38 L BUN/Creatinine Ratio 28.4 H Glucose 79 Calcium 8.8 Phosphorus 4.9 Albumin 2.0 L Random Tobramycin POC Glucose 89 10/16/17 10/17/17 10/17/17 21:35 01:10 04:07 WBC RBC Hgb Hct MCV MCH MCHC RDW RDW Differential Plt Count MPV Absolute Neuts (auto) Absolute Lymphs (auto) Total Counted Neutrophils % (Manual) Band Neutrophils % Lymphocytes % (Manual) Monocytes % (Manual) Eosinophils % (Manual) Basophils % (Manual) Metamyelocytes % Diff Path Review Platelet Estimate RBC Morphology Specimen Type Sample Site pH Bicarbonate Actual POC Total CO2 Base Excess O2 Saturation O2 % ABG pCO2 ABG pO2 Jhon Test Respiration Rate O2 Delivery Device Minute Volume Vent Mode Tidal Volume POC PEEP Blood Gas Notified Whom Blood Gas Notified Time Sodium 144 Potassium 2.9 L Chloride 108 H Carbon Dioxide 24.0 Anion Gap BUN 43 H Creatinine 1.49 H Estim Creat Clear Calc 40.38 Est GFR (MDRD) Af Amer 58 L Est GFR (MDRD) Non-Af 48 L BUN/Creatinine Ratio 28.9 H Glucose 92 Calcium 8.8 Phosphorus 3.0 Albumin 2.0 L Random Tobramycin 4.40 POC Glucose 107 10/17/17 05:08 WBC RBC Hgb Hct MCV MCH MCHC RDW RDW Differential Plt Count MPV Absolute Neuts (auto) Absolute Lymphs (auto) Total Counted Neutrophils % (Manual) Band Neutrophils % Lymphocytes % (Manual) Monocytes % (Manual) Eosinophils % (Manual) Basophils % (Manual) Metamyelocytes % Diff Path Review Platelet Estimate RBC Morphology Specimen Type Sample Site pH Bicarbonate Actual POC Total CO2 Base Excess O2 Saturation O2 % ABG pCO2 ABG pO2 Jhon Test Respiration Rate O2 Delivery Device Minute Volume Vent Mode Tidal Volume POC PEEP Blood Gas Notified Whom Blood Gas Notified Time Sodium Potassium Chloride Carbon Dioxide Anion Gap BUN Creatinine Estim Creat Clear Calc Est GFR (MDRD) Af Amer Est GFR (MDRD) Non-Af BUN/Creatinine Ratio Glucose Calcium Phosphorus Albumin Random Tobramycin POC Glucose 91 Microbiology 10/14/17 14:50 Sputum, Induced/Lukens Gram Stain - Final 10/14/17 14:50 Sputum, Induced/Lukens Respiratory Culture - Preliminary Gram negative rosalind Clinical Impression(s) from Imaging Studies Chest X-Ray 10/11/17 16:20 IMPRESSION: Atelectatic versus chronic versus early infiltrate at the right lung base/costophrenic angle. Diffuse interstitial changes. Pleural thickening on the left/effusion not excluded. Mild cardiomegaly status post prior midline sternotomy. Marked atherosclerotic changes of the thoracic aorta with a potential aneurysmal dilatation. Electronically Signed: Tatiana Shay MD at 17:13 EDT , Service support , Renal Ultrasound 10/12/17 14:13 IMPRESSION: Normal ultrasound of the kidneys and urinary bladder. Electronically Signed: Ray Dudley, at 18:17 EDT Tel , Service support , Chest CT 04/06/18 07:18 IMPRESSION: Small left pleural effusion with consolidation in the left lower lobe and infiltrates in the left upper lobe and lingular segment of the left upper lobe. Interstitial infiltrate in the right lower lobe with a tiny pleural effusion. Electronically Signed: Edmar العراقي MD at 8:43 EDT Tel [phone], Service support , Chest X-Ray 10/14/17 09:45 IMPRESSION: Worsening appearance of the lungs since the previous study, there is now diffuse interstitial edema with likely superimposed left upper lobe pneumonia. Follow-up recommended to assure resolution Remote CABG Degenerative bony changes Electronically Signed: Ino Núñez MD at 11:01 EDT , Service support , Chest X-Ray 10/14/17 14:25 IMPRESSION: The tip of the endotracheal tube is about 4.7 cm above the rigoberto. There is mild enlargement of the cardiac silhouette with mild edema. Vascularity is improved compared to the prior study. There is a small pleural effusion on the right and a moderate pleural effusion on the left. There is diffuse fibrosis. There is probable compressive atelectasis in the mid and lower left lung. Electronically Signed: Aliza Cantrell MD at 20:52 EDT Tel Direct: [phone], Service support , Brain CT 10/14/17 19:10 IMPRESSION: No acute intracranial abnormality. Chronic ischemic and atrophic changes. Electronically Signed: Ray Dudley, at 20:10 EDT Tel , Service support , Chest X-Ray 10/14/17 23:35 IMPRESSION: Abnormal position of the central venous line is seen on the right side its tip is coiled in the upper part of the chest. Electronically Signed: Bernardino Johnston MD at 0:34 EDT Tel , Service support , Chest X-Ray 10/15/17 04:20 IMPRESSION: Abnormal position of the central venous line is seen on the right side its tip is coiled in the upper part of the chest. N.B. : The above information has been verbally conveyed by Bernardino Johnston MD to Dr Dai, Referring Physician, on 10/15/2017 09:27:43 (ET). Electronically Signed: Bernardino Johnston MD at 9:17 EDT Tel , Service support , N.B. : The above information has been verbally conveyed by Bernardino Johnston MD to Dr Dai, Referring Physician, on 10/15/2017 09:27:43 (ET). Chest X-Ray 10/16/17 05:55 IMPRESSION: Stable pleural parenchymal changes at the left lung base with increased markings at the right lung base. The endotracheal tube is in good position. Electronically Signed: Edmar العراقي MD at 8:24 EDT Tel [phone], Service support , Medical Necessity - Tobacco Use Smoking Status: Former smoker Assessment/Plan Active and Suspected Problems (Last Updated 06/20/17 @ 14:47 by Whit Wilson) Pneumonia (Acute) vs HCAP UTI (urinary tract infection) (Acute) SIRS (systemic inflammatory response syndrome) (Acute) Acute respiratory failure with hypoxia and hypercarbia (Acute) RECOMMENDATIONS: 1. Continue antibiotics per infectious diseases recommendations. 2. Continue bolus tube feeds. 3. Encourage incentive spirometer use and mobilize patient as tolerated 4. Start scheduled Lasix 5. Potassium repletion 6. Remove central venous catheter IMPRESSIONS: 1. Acute hypoxemic and hypercarbic respiratory failure secondary to gram-negative pneumonia The patient has improved clinically and has done well from a respiratory perspective following extubation. He is currently maintaining appropriate oxygen saturations on room air. Continue to encourage incentive spirometer use. Continue bolus tube feeds via PEG tube. Physical therapy to work with patient. Continue antibiotics per ID recommendations. Start scheduled Lasix today. 2. Severe sepsis secondary to C. difficile colitis/gram-negative pneumonia Continue p.o. vancomycin as ordered. Continue Zosyn for now for treatment of gram-negative pneumonia, per infectious diseases recommendations. 3. Acute metabolic encephalopathy Improved at this time. Likely secondary to #1 and 2. 4. History of atrial fibrillation/recent thoracic aortic aneurysm repair/coronary artery disease/baseline diastolic dysfunction Continue amiodarone as ordered. 5. Acute on chronic kidney disease Nephrology is following. Urine output has been appropriate. We will continue to monitor. No indication for renal replacement therapy at this time. 6. Hypokalemia Electrolyte repletion as indicated. Recheck level in the morning. 7. Dysphasia/anemia/advanced age/prolonged hospitalization Complicates care, management, recovery and prognosis. Blood counts remained stable following transfusion. We will continue to monitor. This note was generated with [employer] dictation software. It may contain incorrect words, spelling, and punctuation that were not noted in checking the note before signing. DISPOSITION: The patient is medically stable for transfer out of the intensive care unit. Code Visit Inpatient E&M: [id number] [facility] L3
--- NOTE | 2017-10-17 06:55 | PN_ITS ---
Subjective: The patient was seen and examined at the bedside this morning. Events from the last 24 hours have been reviewed. The patient is currently afebrile, hemodynamically stable and maintaining appropriate oxygen saturations on room air. The patient has done well from a respiratory standpoint following extubation yesterday. He continues to have a cough of creamy white sputum, which he is able to expectorate without issue. He continues to have frequent loose stool. Nursing staff reports intermittent overnight confusion. The patient is overall net +10.5 L for the admission. Creatinine is improved this morning to 1.49. Urine output is appropriate. Objective: The patient's most recent lab work, culture data and imaging studies have all been personally reviewed. Blood cultures have shown no growth to date. Urine culture has shown no growth to date. Strep and urine Legionella antigens were both negative. The patient was positive for C. difficile. Sputum culture revealed Burkholderia cepacia. CT chest revealed multifocal airspace disease and small bilateral pleural effusions. Pulmonary function testing completed in June 2017 revealed evidence of a mild restrictive ventilatory defect with preserved diffusing capacity. Surface echocardiogram completed October 16 revealed mild concentric LVH with an ejection fraction of 65% in stage I diastolic dysfunction. Pulmonary artery systolic pressure was estimated to be 35 mmHg. General: Alert, Cooperative, No apparent distress HEENT: Atraumatic, PERRLA, Normocephalic Oral: No Gingival or Mucosal Lesions/ Ulcerations Neck: Supple, No Nodes, Trachea Midline Lungs: Normal air movement, No rhonchi, No wheeze, No rales Cardiovascular: Regular rate, Regular Rhythm, Normal S1, Normal S2, No rub noted , No Gallop Abdomen: Bowel Sounds Present, Soft, Non Tender, - - PEG site is C/D/I Extremities: No clubbing, No cyanosis, No edema Skin: - - No significant change from previous Musculoskeletal: No Tenderness to Palpation of Joints or Extremities Lymphatic: No Cervical, Supraclavicular, or Inguinal Adenopathy Neurological: Neuro grossly intact Psych/Mental Status: Normal Affect, Appropriate Vital Signs Temp Pulse Resp BP Pulse Ox 98.2 F 91 32 H 156/94 H 96 10/17/17 04:00 10/17/17 06:00 10/17/17 06:00 10/17/17 06:00 10/17/17 06:00 Oxygen Flow Rate (L/min) 2 Oxygen Delivery Method Room Air Weight: 158 lb 4.67 oz Body Mass Index (BMI) 20.8 Intake and Output for Last 24 Hours 10/15/17 10/16/17 10/17/17 23:59 23:59 23:59 Intake Total 1534.9 / 1534.9 4094.1 / 4094.1 1052.5 / 1052.5 Output Total 2600 / 2600 2550 / 2550 600 / 600 Balance -1065.1 / -1065.1 1544.1 / 1544.1 452.5 / 452.5 Labs (Last 48 Hours) 10/15/17 10/15/17 10/15/17 04:00 07:03 11:11 WBC RBC Hgb Hct MCV MCH MCHC RDW RDW Differential Plt Count MPV Absolute Neuts (auto) 7.2 Absolute Lymphs (auto) 1.48 Total Counted 100 Neutrophils % (Manual) 63 Band Neutrophils % 5 Lymphocytes % (Manual) 14 L Monocytes % (Manual) 11 H Eosinophils % (Manual) 5 Basophils % (Manual) 1 Metamyelocytes % 1 Diff Path Review Reviewed Platelet Estimate ADEQUATE RBC Morphology NORM C+C Specimen Type ART Sample Site R Radial pH 7.37 Bicarbonate Actual 19.4 L POC Total CO2 20 Base Excess -6 L O2 Saturation 95 O2 % 30 ABG pCO2 33.2 L ABG pO2 78 Jhon Test POS Respiration Rate 18 O2 Delivery Device Vent Minute Volume 8.00 Vent Mode A-C Tidal Volume 450 POC PEEP 5 Blood Gas Notified Whom ICU Blood Gas Notified Time 703 Sodium Potassium Chloride Carbon Dioxide Anion Gap BUN Creatinine Estim Creat Clear Calc Est GFR (MDRD) Af Amer Est GFR (MDRD) Non-Af BUN/Creatinine Ratio Glucose Calcium Phosphorus Albumin Random Tobramycin POC Glucose 72 10/15/17 10/15/17 10/16/17 12:21 17:26 00:38 WBC RBC Hgb Hct MCV MCH MCHC RDW RDW Differential Plt Count MPV Absolute Neuts (auto) Absolute Lymphs (auto) Total Counted Neutrophils % (Manual) Band Neutrophils % Lymphocytes % (Manual) Monocytes % (Manual) Eosinophils % (Manual) Basophils % (Manual) Metamyelocytes % Diff Path Review Platelet Estimate RBC Morphology Specimen Type Sample Site pH Bicarbonate Actual POC Total CO2 Base Excess O2 Saturation O2 % ABG pCO2 ABG pO2 Jhon Test Respiration Rate O2 Delivery Device Minute Volume Vent Mode Tidal Volume POC PEEP Blood Gas Notified Whom Blood Gas Notified Time Sodium Potassium Chloride Carbon Dioxide Anion Gap BUN Creatinine Estim Creat Clear Calc Est GFR (MDRD) Af Amer Est GFR (MDRD) Non-Af BUN/Creatinine Ratio Glucose Calcium Phosphorus Albumin Random Tobramycin POC Glucose 83 87 90 10/16/17 10/16/17 10/16/17 04:15 04:15 05:42 WBC 11.9 H RBC 3.85 L Hgb 11.0 L Hct 33.7 L MCV 87.5 MCH 28.6 MCHC 32.6 RDW 16.7 H RDW Differential 52.5 H Plt Count 285 MPV 10.1 Absolute Neuts (auto) Absolute Lymphs (auto) Total Counted Neutrophils % (Manual) Band Neutrophils % Lymphocytes % (Manual) Monocytes % (Manual) Eosinophils % (Manual) Basophils % (Manual) Metamyelocytes % Diff Path Review Platelet Estimate RBC Morphology Specimen Type Sample Site pH Bicarbonate Actual POC Total CO2 Base Excess O2 Saturation O2 % ABG pCO2 ABG pO2 Jhon Test Respiration Rate O2 Delivery Device Minute Volume Vent Mode Tidal Volume POC PEEP Blood Gas Notified Whom Blood Gas Notified Time Sodium 143 Potassium 3.6 Chloride 110 H Carbon Dioxide 23.0 Anion Gap Cancelled BUN 52 H Creatinine 1.83 H Estim Creat Clear Calc 32.88 Est GFR (MDRD) Af Amer 46 L Est GFR (MDRD) Non-Af 38 L BUN/Creatinine Ratio 28.4 H Glucose 79 Calcium 8.8 Phosphorus 4.9 Albumin 2.0 L Random Tobramycin POC Glucose 89 10/16/17 10/17/17 10/17/17 21:35 01:10 04:07 WBC RBC Hgb Hct MCV MCH MCHC RDW RDW Differential Plt Count MPV Absolute Neuts (auto) Absolute Lymphs (auto) Total Counted Neutrophils % (Manual) Band Neutrophils % Lymphocytes % (Manual) Monocytes % (Manual) Eosinophils % (Manual) Basophils % (Manual) Metamyelocytes % Diff Path Review Platelet Estimate RBC Morphology Specimen Type Sample Site pH Bicarbonate Actual POC Total CO2 Base Excess O2 Saturation O2 % ABG pCO2 ABG pO2 Jhon Test Respiration Rate O2 Delivery Device Minute Volume Vent Mode Tidal Volume POC PEEP Blood Gas Notified Whom Blood Gas Notified Time Sodium 144 Potassium 2.9 L Chloride 108 H Carbon Dioxide 24.0 Anion Gap BUN 43 H Creatinine 1.49 H Estim Creat Clear Calc 40.38 Est GFR (MDRD) Af Amer 58 L Est GFR (MDRD) Non-Af 48 L BUN/Creatinine Ratio 28.9 H Glucose 92 Calcium 8.8 Phosphorus 3.0 Albumin 2.0 L Random Tobramycin 4.40 POC Glucose 107 10/17/17 05:08 WBC RBC Hgb Hct MCV MCH MCHC RDW RDW Differential Plt Count MPV Absolute Neuts (auto) Absolute Lymphs (auto) Total Counted Neutrophils % (Manual) Band Neutrophils % Lymphocytes % (Manual) Monocytes % (Manual) Eosinophils % (Manual) Basophils % (Manual) Metamyelocytes % Diff Path Review Platelet Estimate RBC Morphology Specimen Type Sample Site pH Bicarbonate Actual POC Total CO2 Base Excess O2 Saturation O2 % ABG pCO2 ABG pO2 Jhon Test Respiration Rate O2 Delivery Device Minute Volume Vent Mode Tidal Volume POC PEEP Blood Gas Notified Whom Blood Gas Notified Time Sodium Potassium Chloride Carbon Dioxide Anion Gap BUN Creatinine Estim Creat Clear Calc Est GFR (MDRD) Af Amer Est GFR (MDRD) Non-Af BUN/Creatinine Ratio Glucose Calcium Phosphorus Albumin Random Tobramycin POC Glucose 91 Microbiology 10/14/17 14:50 Sputum, Induced/Lukens Gram Stain - Final 10/14/17 14:50 Sputum, Induced/Lukens Respiratory Culture - Preliminary Gram negative rosalind Clinical Impression(s) from Imaging Studies Chest X-Ray 10/11/17 16:20 IMPRESSION: Atelectatic versus chronic versus early infiltrate at the right lung base/costophrenic angle. Diffuse interstitial changes. Pleural thickening on the left/effusion not excluded. Mild cardiomegaly status post prior midline sternotomy. Marked atherosclerotic changes of the thoracic aorta with a potential aneurysmal dilatation. Electronically Signed: Tatiana Shay MD at 17:13 EDT , Service support , Renal Ultrasound 10/12/17 14:13 IMPRESSION: Normal ultrasound of the kidneys and urinary bladder. Electronically Signed: Ray Dudley, at 18:17 EDT Tel , Service support , Chest CT 04/06/18 07:18 IMPRESSION: Small left pleural effusion with consolidation in the left lower lobe and infiltrates in the left upper lobe and lingular segment of the left upper lobe. Interstitial infiltrate in the right lower lobe with a tiny pleural effusion. Electronically Signed: Edmar العراقي MD at 8:43 EDT Tel [phone], Service support , Chest X-Ray 10/14/17 09:45 IMPRESSION: Worsening appearance of the lungs since the previous study, there is now diffuse interstitial edema with likely superimposed left upper lobe pneumonia. Follow-up recommended to assure resolution Remote CABG Degenerative bony changes Electronically Signed: Ino Núñez MD at 11:01 EDT , Service support , Chest X-Ray 10/14/17 14:25 IMPRESSION: The tip of the endotracheal tube is about 4.7 cm above the rigoberto. There is mild enlargement of the cardiac silhouette with mild edema. Vascularity is improved compared to the prior study. There is a small pleural effusion on the right and a moderate pleural effusion on the left. There is diffuse fibrosis. There is probable compressive atelectasis in the mid and lower left lung. Electronically Signed: Aliza Cantrell MD at 20:52 EDT Tel Direct: [phone], Service support , Brain CT 10/14/17 19:10 IMPRESSION: No acute intracranial abnormality. Chronic ischemic and atrophic changes. Electronically Signed: Ray Dudley, at 20:10 EDT Tel , Service support , Chest X-Ray 10/14/17 23:35 IMPRESSION: Abnormal position of the central venous line is seen on the right side its tip is coiled in the upper part of the chest. Electronically Signed: Bernardino Johnston MD at 0:34 EDT Tel , Service support , Chest X-Ray 10/15/17 04:20 IMPRESSION: Abnormal position of the central venous line is seen on the right side its tip is coiled in the upper part of the chest. N.B. : The above information has been verbally conveyed by Bernardino Johnston MD to Dr Dai, Referring Physician, on 10/15/2017 09:27:43 (ET). Electronically Signed: Bernardino Johnston MD at 9:17 EDT Tel , Service support , N.B. : The above information has been verbally conveyed by Bernardino Johnston MD to Dr Dai, Referring Physician, on 10/15/2017 09:27:43 (ET). Chest X-Ray 10/16/17 05:55 IMPRESSION: Stable pleural parenchymal changes at the left lung base with increased markings at the right lung base. The endotracheal tube is in good position. Electronically Signed: Edmar العراقي MD at 8:24 EDT Tel [phone], Service support , Medical Necessity - Tobacco Use Smoking Status: Former smoker Assessment/Plan Active and Suspected Problems (Last Updated 06/20/17 @ 14:47 by Whit Wilson) Pneumonia (Acute) vs HCAP UTI (urinary tract infection) (Acute) SIRS (systemic inflammatory response syndrome) (Acute) Acute respiratory failure with hypoxia and hypercarbia (Acute) RECOMMENDATIONS: 1. Continue antibiotics per infectious diseases recommendations. 2. Continue bolus tube feeds. 3. Encourage incentive spirometer use and mobilize patient as tolerated 4. Start scheduled Lasix 5. Potassium repletion 6. Remove central venous catheter IMPRESSIONS: 1. Acute hypoxemic and hypercarbic respiratory failure secondary to gram- negative pneumonia The patient has improved clinically and has done well from a respiratory perspective following extubation. He is currently maintaining appropriate oxygen saturations on room air. Continue to encourage incentive spirometer use. Continue bolus tube feeds via PEG tube. Physical therapy to work with patient. Continue antibiotics per ID recommendations. Start scheduled Lasix today. 2. Severe sepsis secondary to C. difficile colitis/gram-negative pneumonia Continue p.o. vancomycin as ordered. Continue Zosyn for now for treatment of gram-negative pneumonia, per infectious diseases recommendations. 3. Acute metabolic encephalopathy Improved at this time. Likely secondary to #1 and 2. 4. History of atrial fibrillation/recent thoracic aortic aneurysm repair/ coronary artery disease/baseline diastolic dysfunction Continue amiodarone as ordered. 5. Acute on chronic kidney disease Nephrology is following. Urine output has been appropriate. We will continue to monitor. No indication for renal replacement therapy at this time. 6. Hypokalemia Electrolyte repletion as indicated. Recheck level in the morning. 7. Dysphasia/anemia/advanced age/prolonged hospitalization Complicates care, management, recovery and prognosis. Blood counts remained stable following transfusion. We will continue to monitor. This note was generated with [employer] dictation software. It may contain incorrect words, spelling, and punctuation that were not noted in checking the note before signing. DISPOSITION: The patient is medically stable for transfer out of the intensive care unit. Code Visit Inpatient E&M: [id number] [facility] L3
--- NOTE | 2017-10-17 07:46 | PCM.PROGNOTE ---
Patient Problems: Active and Suspected Problems (Last Updated 06/20/17 @ 14:47 by Whit Wilson) Pneumonia (Acute) vs HCAP UTI (urinary tract infection) (Acute) SIRS (systemic inflammatory response syndrome) (Acute) Acute respiratory failure with hypoxia and hypercarbia (Acute) Subjective: Having more stooling since restarted on the TF at goal yesterday, about every 2 hours. He denies pain and also denies SOB. He is not coughing while I am in the room. He is very alert and able to participate in conversation and follow commands. He tells me he is doing better but, not where he would like to be yet. Antibiotic Day # 6 for penicillin and oral vancomycin. Day #2 tobramycin Ventilator Day # extubated 10/16/17 TMAX: Has been afebrile for the duration of his hospital stay Vital signs: Blood pressure has been mildly increased since extubation and has ranged from 126/73-170 4/94 in the past 16 hours. Fluid balance: Fluid balance since admission is +10,590. Urine output: Urine output 4 10/16/2017 was 2550. Weight: Weight today is 158 and 4 ounces, up from 149 pounds on 10/14/2017. I am not sure the weight on 10/14/2017 was accurate. All radiologic testing was reviewed: No x-ray today All labs were personally reviewed: Creatinine today is 1.49 but this may be dilutional. His potassium is 2.9 today and the other electrolytes are within normal limits. Phosphorus is 3.0. Microbiology: Urine with Burkholderia cepacia Telemetry: Normal sinus rhythm with occasional PVC ECHO: Normal left ventricular size with mild concentric left ventricular hypertrophy and normal systolic function. Estimated ejection fraction of 65%. Mild diastolic dysfunction. Patient was seen in consultation by Dr. Quiles on 10/16/2017. It is not clear whether the Burkholderia is an actual pathogen. He recommended continuing Zosyn and oral vancomycin and reevaluate need for tobramycin for 1018. Would like to limit nephrotoxic drugs in light of renal failure and previous need for HD after aortic repair. Objective: - Physical Exam General: - he is extubated and very alert. Answering questions appropriately and able to participate in conversation. He is able to follow commands today. Other than being mildly tachypneic he appears to be in no acute distress. HEENT: - - the pupils are unequal...the Left pupil is smaller. His dtr states that he has had this in the past. Neck: Supple, Trachea Midline, no JVD, no cervical adenopathy Lungs: Clear to auscultation - anteriorly, No wheeze, symmetric chest expansion, mildly tachypneic but no conversational dyspnea Cardiovascular: Regular rate, Regular Rhythm, Normal S1, Normal S2, No rub noted, No Gallop Abdomen: Bowel Sounds Present and are hyperactive today. Soft, Non-Distended, - - No guarding with palpation Extremities: No cyanosis, No edema, no heel ulcers, normal pulses peripherally Skin: No rashes Neurological: Cranial nerves II-XII grossly intact - no Facial asymmetry, Neuro grossly intact - Moving all extremities - Physical Exam Vital Signs Temp Pulse Resp BP Pulse Ox 98.2 F 88 32 H 156/94 H 98 10/17/17 04:00 10/17/17 07:44 10/17/17 06:00 10/17/17 06:00 10/17/17 07:41 Oxygen Flow Rate (L/min) 2 Oxygen Delivery Method Room Air Weight: 158 lb 4.67 oz Body Mass Index (BMI) 20.8 Intake and Output for Last 24 Hours 10/15/17 10/16/17 10/17/17 23:59 23:59 23:59 Intake Total 1534.9 / 1534.9 4094.1 / 4094.1 1052.5 / 1052.5 Output Total 2600 / 2600 2550 / 2550 600 / 600 Balance -1065.1 / -1065.1 1544.1 / 1544.1 452.5 / 452.5 Microbiology Past 72 Hours 10/14/17 14:50 Gram Stain - Final Sputum, Induced/Lukens Respiratory Culture - Preliminary Gram negative rosalind 10/14/17 16:45 Stool Occult Blood (PRIMITIVO) - Final Stool Laboratory Tests Past 24 Hrs 10/15/17 10/17/17 10/17/17 04:00 01:10 04:07 Diff Path Review Reviewed Sodium 144 Potassium 2.9 L Chloride 108 H Carbon Dioxide 24.0 BUN 43 H Creatinine 1.49 H Estim Creat Clear Calc 40.38 Est GFR (MDRD) Af Amer 58 L Est GFR (MDRD) Non-Af 48 L BUN/Creatinine Ratio 28.9 H Glucose 92 Calcium 8.8 Phosphorus 3.0 Albumin 2.0 L Random Tobramycin 4.40 POC Glucose 10/17/17 10/16/17 05:08 21:35 POC Glucose 91 107 Medical Necessity - Tobacco Use Smoking Status: Former smoker Assessment/Plan Active and Suspected Problems (Last Updated 06/20/17 @ 14:47 by Whit Wilson) Pneumonia (Acute) vs HCAP UTI (urinary tract infection) (Acute) SIRS (systemic inflammatory response syndrome) (Acute) Acute respiratory failure with hypoxia and hypercarbia (Acute) Impressions 1. Acute respiratory failure with hypoxemia requiring intubation 2. 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 Clostridium difficile enterocolitis 4. Acute on chronic renal failure stage III. 5. Anisocoria 6. Severe anemia-status post transfusion of 2 units packed red blood cells 7. Hypotension-likely secondary to bradycardia and severe anemia. He did require dopamine but only for a short period of time until he could be transfused and bradycardia improved. 8. R IJ central line likely coiled in Azygous vein...it is flushing and drawing back blood....will use only as a peripheral line 9. Hyperkalemia-resolved 10. Severe sepsis with encephalopathy 11. Coronary artery disease with history of CABG 12. Paroxysmal atrial fibrillation 13. Recent thoracic aortic aneurysm repair at [facility] main campus 14. Chronic ischemic and atrophic changes on CT scan of the brain with no acute changes Dr. Quiles to reassess need for Tobramycin today Continue the Zosyn and oral Vancomycin Lasix 40 mg IV BID and Potassium 25 MEQ twice dialy recheck the lab in the AM Continue PT/OT and ST Transfer to PCU today. Discuss discharge planning today with DC systems planner. Recheck a PA and Lateral CXR in the AM Remove the IJ line if we have enough peripherals Code Visit Inpatient E&M: [id number] [facility] L3
[2017-10-17] MEDS: CHLORHEXIDINE GLUC 2% CLOTH 1 EACH TOWELETTE TOPICAL (08:09)
[2017-10-17] MEDS: Aspirin 81 MG TAB.CHEW GT (08:09)
[2017-10-17] MEDS: Metoprolol Tartrate 25 MG Tablet GT ×2 (08:13→22:45)
--- NOTE | 2017-10-17 08:15 | PN_ITS ---
Patient Problems: Active and Suspected Problems (Last Updated 06/20/17 @ 14:47 by Whit Wilson) Pneumonia (Acute) vs HCAP UTI (urinary tract infection) (Acute) SIRS (systemic inflammatory response syndrome) (Acute) Acute respiratory failure with hypoxia and hypercarbia (Acute) Subjective: Having more stooling since restarted on the TF at goal yesterday, about every 2 hours. He denies pain and also denies SOB. He is not coughing while I am in the room. He is very alert and able to participate in conversation and follow commands. He tells me he is doing better but, not where he would like to be yet. Antibiotic Day # 6 for penicillin and oral vancomycin. Day #2 tobramycin Ventilator Day # extubated 10/16/17 TMAX: Has been afebrile for the duration of his hospital stay Vital signs: Blood pressure has been mildly increased since extubation and has ranged from 126/73-170 4/94 in the past 16 hours. Fluid balance: Fluid balance since admission is +10,590. Urine output: Urine output 4 10/16/2017 was 2550. Weight: Weight today is 158 and 4 ounces, up from 149 pounds on 10/14/2017. I am not sure the weight on 10/14/2017 was accurate. All radiologic testing was reviewed: No x-ray today All labs were personally reviewed: Creatinine today is 1.49 but this may be dilutional. His potassium is 2.9 today and the other electrolytes are within normal limits. Phosphorus is 3.0. Microbiology: Urine with Burkholderia cepacia Telemetry: Normal sinus rhythm with occasional PVC ECHO: Normal left ventricular size with mild concentric left ventricular hypertrophy and normal systolic function. Estimated ejection fraction of 65%. Mild diastolic dysfunction. Patient was seen in consultation by Dr. Quiles on 10/16/2017. It is not clear whether the Burkholderia is an actual pathogen. He recommended continuing Zosyn and oral vancomycin and reevaluate need for tobramycin for 1018. Would like to limit nephrotoxic drugs in light of renal failure and previous need for HD after aortic repair. Objective: - Physical Exam General: - he is extubated and very alert. Answering questions appropriately and able to participate in conversation. He is able to follow commands today. Other than being mildly tachypneic he appears to be in no acute distress. HEENT: - - the pupils are unequal...the Left pupil is smaller. His dtr states that he has had this in the past. Neck: Supple, Trachea Midline, no JVD, no cervical adenopathy Lungs: Clear to auscultation - anteriorly, No wheeze, symmetric chest expansion , mildly tachypneic but no conversational dyspnea Cardiovascular: Regular rate, Regular Rhythm, Normal S1, Normal S2, No rub noted , No Gallop Abdomen: Bowel Sounds Present and are hyperactive today. Soft, Non-Distended, - - No guarding with palpation Extremities: No cyanosis, No edema, no heel ulcers, normal pulses peripherally Skin: No rashes Neurological: Cranial nerves II-XII grossly intact - no Facial asymmetry, Neuro grossly intact - Moving all extremities - Physical Exam Vital Signs Temp Pulse Resp BP Pulse Ox 98.2 F 88 32 H 156/94 H 98 10/17/17 04:00 10/17/17 07:44 10/17/17 06:00 10/17/17 06:00 10/17/17 07:41 Oxygen Flow Rate (L/min) 2 Oxygen Delivery Method Room Air Weight: 158 lb 4.67 oz Body Mass Index (BMI) 20.8 Intake and Output for Last 24 Hours 10/15/17 10/16/17 10/17/17 23:59 23:59 23:59 Intake Total 1534.9 / 1534.9 4094.1 / 4094.1 1052.5 / 1052.5 Output Total 2600 / 2600 2550 / 2550 600 / 600 Balance -1065.1 / -1065.1 1544.1 / 1544.1 452.5 / 452.5 Microbiology Past 72 Hours 10/14/17 14:50 Gram Stain - Final Sputum, Induced/Lukens Respiratory Culture - Preliminary Gram negative rosalind 10/14/17 16:45 Stool Occult Blood (PRIMITIVO) - Final Stool Laboratory Tests Past 24 Hrs 10/15/17 10/17/17 10/17/17 04:00 01:10 04:07 Diff Path Review Reviewed Sodium 144 Potassium 2.9 L Chloride 108 H Carbon Dioxide 24.0 BUN 43 H Creatinine 1.49 H Estim Creat Clear Calc 40.38 Est GFR (MDRD) Af Amer 58 L Est GFR (MDRD) Non-Af 48 L BUN/Creatinine Ratio 28.9 H Glucose 92 Calcium 8.8 Phosphorus 3.0 Albumin 2.0 L Random Tobramycin 4.40 POC Glucose 10/17/17 10/16/17 05:08 21:35 POC Glucose 91 107 Medical Necessity - Tobacco Use Smoking Status: Former smoker Assessment/Plan Active and Suspected Problems (Last Updated 06/20/17 @ 14:47 by Whit Wilson) Pneumonia (Acute) vs HCAP UTI (urinary tract infection) (Acute) SIRS (systemic inflammatory response syndrome) (Acute) Acute respiratory failure with hypoxia and hypercarbia (Acute) Impressions 1. Acute respiratory failure with hypoxemia requiring intubation 2. 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 Clostridium difficile enterocolitis 4. Acute on chronic renal failure stage III. 5. Anisocoria 6. Severe anemia-status post transfusion of 2 units packed red blood cells 7. Hypotension-likely secondary to bradycardia and severe anemia. He did require dopamine but only for a short period of time until he could be transfused and bradycardia improved. 8. R IJ central line likely coiled in Azygous vein...it is flushing and drawing back blood....will use only as a peripheral line 9. Hyperkalemia-resolved 10. Severe sepsis with encephalopathy 11. Coronary artery disease with history of CABG 12. Paroxysmal atrial fibrillation 13. Recent thoracic aortic aneurysm repair at [facility] main campus 14. Chronic ischemic and atrophic changes on CT scan of the brain with no acute changes Dr. Quiles to reassess need for Tobramycin today Continue the Zosyn and oral Vancomycin Lasix 40 mg IV BID and Potassium 25 MEQ twice dialy recheck the lab in the AM Continue PT/OT and ST Transfer to PCU today. Discuss discharge planning today with DC category planner. Recheck a PA and Lateral CXR in the AM Remove the IJ line if we have enough peripherals Code Visit Inpatient E&M: [id number] [facility] Hosp L3
[2017-10-17 08:24] LABS: Magnesium 1.9 mg/dL (1.6-2.6)
--- NOTE | 2017-10-17 09:30 | PCM.PN.REN ---
Patient Problems: Active and Suspected Problems (Last Updated 06/20/17 @ 14:47 by Whit Wilson) Pneumonia (Acute) vs HCAP UTI (urinary tract infection) (Acute) SIRS (systemic inflammatory response syndrome) (Acute) Acute respiratory failure with hypoxia and hypercarbia (Acute) Subjective: doing well, oxygenation stable. BP elevated. Pt dtr at bedside. Transfer to PCU later today. - Physical Exam General: Alert, Cooperative, No apparent distress HEENT: PERRLA, EOMI Lungs: Diminished, Rales - bases Cardiovascular: Regular rate Abdomen: Bowel Sounds Present, Soft, Non Tender, Non-Distended, - - Gtube Extremities: No edema Psych/Mental Status: Normal Affect, Appropriate Vital Signs Temp Pulse Resp BP Pulse Ox 97.6 F L 88 22 H 172/97 H 94 10/17/17 08:00 10/17/17 08:13 10/17/17 08:00 10/17/17 08:00 10/17/17 08:00 Oxygen Flow Rate (L/min) 2 Oxygen Delivery Method Room Air Weight: 71.8 kg Body Mass Index (BMI) 20.8 Intake and Output for Last 24 Hours 10/15/17 10/16/17 10/17/17 23:59 23:59 23:59 Intake Total 1534.9 / 1534.9 4094.1 / 4094.1 1052.5 / 1052.5 Output Total 2600 / 2600 2550 / 2550 600 / 600 Balance -1065.1 / -1065.1 1544.1 / 1544.1 452.5 / 452.5 Microbiology Past 72 Hours 10/14/17 14:50 Gram Stain - Final Sputum, Induced/Lukens Respiratory Culture - Final Burkholderia cepacia 10/14/17 16:45 Stool Occult Blood (PRIMITIVO) - Final Stool Laboratory Tests Past 24 Hrs 10/15/17 10/17/17 10/17/17 04:00 01:10 04:07 Diff Path Review Reviewed Sodium 144 Potassium 2.9 L Chloride 108 H Carbon Dioxide 24.0 BUN 43 H Creatinine 1.49 H Estim Creat Clear Calc 40.38 Est GFR (MDRD) Af Amer 58 L Est GFR (MDRD) Non-Af 48 L BUN/Creatinine Ratio 28.9 H Glucose 92 Calcium 8.8 Phosphorus 3.0 Magnesium Albumin 2.0 L Random Tobramycin 4.40 10/17/17 04:07 Diff Path Review Sodium Potassium Chloride Carbon Dioxide BUN Creatinine Estim Creat Clear Calc Est GFR (MDRD) Af Amer Est GFR (MDRD) Non-Af BUN/Creatinine Ratio Glucose Calcium Phosphorus Magnesium 1.9 Albumin Random Tobramycin POC Glucose 10/17/17 10/16/17 05:08 21:35 POC Glucose 91 107 Medical Necessity - Tobacco Use Smoking Status: Former smoker Assessment/Plan Active and Suspected Problems (Last Updated 06/20/17 @ 14:47 by Whit Wilson) Pneumonia (Acute) vs HCAP UTI (urinary tract infection) (Acute) SIRS (systemic inflammatory response syndrome) (Acute) Acute respiratory failure with hypoxia and hypercarbia (Acute) 1. CLEM on CKD stage 3 with baseline creatinine 1.1-1.2. Creatinine improved to 1.49 today. Lasix iv for positive fluid gains. 2. Sepsis syndrome with leukocytosis, hypotension stable off pressors. Bld cx no growth so far. 3. Acute resp failure s/p extubation. 4. Aspiration pneumonia, s/p PEG. 5. Cdiff diarrhea on oral vanco 6. UTI 7. Hypertension. Resume metoprolol. Continue lasix for +fluid gain. 8. Chronic hep B 9. DM2 with diabetic nephropathy 10. Iron deficiency anemia. 11. Hyperkalemia resolved 12. Check 24 urine creatinine clearance. DW primary service, [facility]
--- NOTE | 2017-10-17 09:44 | CASEMGMT ---
BRITTANY HOLDER Review Note: Continued care for CLEM, Stage 3, Sepsis syndrome, resp failure, s/p extubation on 10/16, now 96% on RA, continued productive cough. Continues on Zosyn 3.375 gm IV Q 8 hours and Vancomycin po. BUN/Creat 43/1.49, improved from 52/1.83 yesterday. Fluid Balance + 10L- Lasix 40 mg IV BID. ID on consult. for dc planning: TCU on discharge, will need precert. -Report to BRITTANY Cote CM as pt is to transfer to PCU today. Froylan BOYLEN RN ACM
[2017-10-17] MEDS: Amiodarone 200 MG Tablet GT (09:46)
[2017-10-17] MEDS: Cholestyramine/Sucrose 4 GM/PACKET PO ×2 (09:46→16:57)
[2017-10-17] MEDS: Famotidine 20 MG Tablet GT (09:46)
[2017-10-17] MEDS: Furosemide 40 MG/4 ML Vial IV ×2 (09:47→17:00)
[2017-10-17] MEDS: Menthol/Lanolin/Calamine/Znox 113 GM Tube 1 APPLIC TOPICAL ×2 (09:47→22:54)
[2017-10-17] MEDS: Heparin Injection 5,000 UNITS/ML Syringe 5000 UNITS SC ×2 (09:47→22:43)
[2017-10-17] MEDS: 0.9% NaCl Peripheral Flush Adult/Peds IV ×2 (09:47→17:00)
--- NOTE | 2017-10-17 10:17 | PCM.PN.ID ---
Patient Problems: Active and Suspected Problems (Last Updated 06/20/17 @ 14:47 by Whit Wilson) Pneumonia (Acute) vs HCAP UTI (urinary tract infection) (Acute) SIRS (systemic inflammatory response syndrome) (Acute) Acute respiratory failure with hypoxia and hypercarbia (Acute) Subjective: Feeling better, off O2, no fever, denies abd pain. - Physical Exam General: Alert, Cooperative, No apparent distress Lungs: Diminished Cardiovascular: Regular rate, Regular Rhythm Abdomen: Soft, Non Tender, Non-Distended Skin: No rashes Vital Signs Temp Pulse Resp BP Pulse Ox 97.6 F L 68 22 H 129/84 H 96 10/17/17 09:30 10/17/17 09:30 10/17/17 09:30 10/17/17 09:30 10/17/17 09:30 Oxygen Flow Rate (L/min) 2 Oxygen Delivery Method Room Air Weight: 71.8 kg Body Mass Index (BMI) 20.8 Intake and Output for Last 24 Hours 10/15/17 10/16/17 10/17/17 23:59 23:59 23:59 Intake Total 1534.9 / 1534.9 4094.1 / 4094.1 1052.5 / 1052.5 Output Total 2600 / 2600 2550 / 2550 600 / 600 Balance -1065.1 / -1065.1 1544.1 / 1544.1 452.5 / 452.5 Microbiology Past 72 Hours 10/14/17 14:50 Gram Stain - Final Sputum, Induced/Lukens Respiratory Culture - Final Burkholderia cepacia 10/14/17 16:45 Stool Occult Blood (PRIMITIVO) - Final Stool Laboratory Tests Past 24 Hrs 10/15/17 10/17/17 10/17/17 04:00 01:10 04:07 Diff Path Review Reviewed Sodium 144 Potassium 2.9 L Chloride 108 H Carbon Dioxide 24.0 BUN 43 H Creatinine 1.49 H Estim Creat Clear Calc 40.38 Est GFR (MDRD) Af Amer 58 L Est GFR (MDRD) Non-Af 48 L BUN/Creatinine Ratio 28.9 H Glucose 92 Calcium 8.8 Phosphorus 3.0 Magnesium Albumin 2.0 L Random Tobramycin 4.40 10/17/17 04:07 Diff Path Review Sodium Potassium Chloride Carbon Dioxide BUN Creatinine Estim Creat Clear Calc Est GFR (MDRD) Af Amer Est GFR (MDRD) Non-Af BUN/Creatinine Ratio Glucose Calcium Phosphorus Magnesium 1.9 Albumin Random Tobramycin POC Glucose 10/17/17 10/16/17 05:08 21:35 POC Glucose 91 107 Medical Necessity - Tobacco Use Smoking Status: Former smoker Route of nutrition/ use of supplements: [] Nutritional Intake: [] IV Site: [] Rice Catheter: [] - Assessment/Plan Antibiotics: [] Assessment/Plan: [] Active and Suspected Problems (Last Updated 06/20/17 @ 14:47 by Whit Wilson) Pneumonia (Acute) vs HCAP UTI (urinary tract infection) (Acute) SIRS (systemic inflammatory response syndrome) (Acute) Acute respiratory failure with hypoxia and hypercarbia (Acute) Acute resp failure with MDRO GNR pneumonia - improving, remains off vent. 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 Family reports he had MDRO infection in lungs while at [facility] in [place] and he did complete course of Zerbaxa and flagyl for pneumonia 09/21/17. Overall much improved, will avoid further doses of tobra at this point. 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 Initially on iv vanc, completed course with bactrim while at [facility]. will follow, d/w pharmacy.
--- NOTE | 2017-10-17 10:20 | PN.ID_ITS ---
Patient Problems: Active and Suspected Problems (Last Updated 06/20/17 @ 14:47 by Whit Wilson) Pneumonia (Acute) vs HCAP UTI (urinary tract infection) (Acute) SIRS (systemic inflammatory response syndrome) (Acute) Acute respiratory failure with hypoxia and hypercarbia (Acute) Subjective: Feeling better, off O2, no fever, denies abd pain. - Physical Exam General: Alert, Cooperative, No apparent distress Lungs: Diminished Cardiovascular: Regular rate, Regular Rhythm Abdomen: Soft, Non Tender, Non-Distended Skin: No rashes Vital Signs Temp Pulse Resp BP Pulse Ox 97.6 F L 68 22 H 129/84 H 96 10/17/17 09:30 10/17/17 09:30 10/17/17 09:30 10/17/17 09:30 10/17/17 09:30 Oxygen Flow Rate (L/min) 2 Oxygen Delivery Method Room Air Weight: 71.8 kg Body Mass Index (BMI) 20.8 Intake and Output for Last 24 Hours 10/15/17 10/16/17 10/17/17 23:59 23:59 23:59 Intake Total 1534.9 / 1534.9 4094.1 / 4094.1 1052.5 / 1052.5 Output Total 2600 / 2600 2550 / 2550 600 / 600 Balance -1065.1 / -1065.1 1544.1 / 1544.1 452.5 / 452.5 Microbiology Past 72 Hours 10/14/17 14:50 Gram Stain - Final Sputum, Induced/Lukens Respiratory Culture - Final Burkholderia cepacia 10/14/17 16:45 Stool Occult Blood (PRIMITIVO) - Final Stool Laboratory Tests Past 24 Hrs 10/15/17 10/17/17 10/17/17 04:00 01:10 04:07 Diff Path Review Reviewed Sodium 144 Potassium 2.9 L Chloride 108 H Carbon Dioxide 24.0 BUN 43 H Creatinine 1.49 H Estim Creat Clear Calc 40.38 Est GFR (MDRD) Af Amer 58 L Est GFR (MDRD) Non-Af 48 L BUN/Creatinine Ratio 28.9 H Glucose 92 Calcium 8.8 Phosphorus 3.0 Magnesium Albumin 2.0 L Random Tobramycin 4.40 10/17/17 04:07 Diff Path Review Sodium Potassium Chloride Carbon Dioxide BUN Creatinine Estim Creat Clear Calc Est GFR (MDRD) Af Amer Est GFR (MDRD) Non-Af BUN/Creatinine Ratio Glucose Calcium Phosphorus Magnesium 1.9 Albumin Random Tobramycin POC Glucose 10/17/17 10/16/17 05:08 21:35 POC Glucose 91 107 Medical Necessity - Tobacco Use Smoking Status: Former smoker Route of nutrition/ use of supplements: [] Nutritional Intake: [] IV Site: [] Rice Catheter: [] - Assessment/Plan Antibiotics: [] Assessment/Plan: [] Active and Suspected Problems (Last Updated 06/20/17 @ 14:47 by Whit Wilson) Pneumonia (Acute) vs HCAP UTI (urinary tract infection) (Acute) SIRS (systemic inflammatory response syndrome) (Acute) Acute respiratory failure with hypoxia and hypercarbia (Acute) Acute resp failure with MDRO GNR pneumonia - improving, remains off vent. 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 Family reports he had MDRO infection in lungs while at [facility] in [place] and he did complete course of Zerbaxa and flagyl for pneumonia 09/21/17. Overall much improved, will avoid further doses of tobra at this point. 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 Initially on iv vanc, completed course with bactrim while at [facility]. will follow, d/w pharmacy.
[2017-10-17 15:10] LABS: 24HR. UA Prot. Total Volume 2975 mL; Urine Protein (24 Hour) 80.8 mg/dL (<11.9)
[2017-10-17 15:11] LABS: Creat.Clear Total Volume 2975 mL; Creatinine Clearance 22 ml/min (100-200); Creatinine Serum Creat 1.5 mg/dL (0.8-1.3); Creatinine Urine 15.9 mg/dL (NO RANGE EST.); EST Glomerular Filtration Rate 48 mL/min (>60); Est Glom Filt Rate - Afr Amer 58 mL/min (>60)
[2017-10-17 15:13] LABS: Anion Gap 11 (5-15); BUN 38 mg/dL (7-18); BUN/Creat Ratio 25.5 RATIO (10-20); Calcium,Total 8.8 mg/dL (8.5-10.1); Chloride 109 mmol/L (98-107); Creatinine, Serum 1.49 mg/dL (0.70-1.30); EST Glomerular Filtration Rate 48 mL/min (>60); Est Glom Filt Rate - Afr Amer 58 mL/min (>60); Estimated Creatinine Clearance 40.16 ml/min; Glucose 132 mg/dL (74-106); Magnesium 1.8 mg/dL (1.6-2.6); Potassium 3.3 mmol/L (3.5-5.1); Sodium Level 146 mmol/L (136-145)
[2017-10-17] MEDS: Atorvastatin Calcium 20 MG Tablet GT (22:45)
[2017-10-17] MEDS: QUEtiapine 25 MG Tablet GT (22:45)
[2017-10-18] VITALS (14 sets, daily range): BP systolic 132–151; BP diastolic 77–97; PULSE 64–91; RESP 16–24; TEMP 36.3–37.1; O2SAT 93–98
[2017-10-18 05:53] LABS: Absolute Lymphocyte Count 2.01 X10^3/ul (0.83-4.51); Absolute Neutrophil Count 5.5 X10^3/uL (2.0-7.7); Basophil# 0.07 X10^3/uL; Basophil% 0.8 % (0-1); Eosinophil# 0.57 X10^3/uL; Eosinophils% 6.1 % (0-5); Hematocrit 34.6 % (40-54); Hemoglobin 11.4 g/dl (13.0-16.5); Lymphocyte # 2.01 X10^3/ul (4.0); Lymphocyte % 21.6 % (19-41); Mean Corp Hgb Conc 32.9 g/gl (32-36); Mean Corpuscular Hgb 28.1 pg (27.0-32.0); Mean Corpuscular Volume 85.4 fL (80-94); Mean Platelet Vol. 9.6 fl (6.2-12.0); Monocyte# 1.06 X10^3/uL; Monocyte% 11.4 % (0-10); Neutrophil # 5.47 X10^3/uL (2.7-7.7); Neutrophil % 58.8 % (47-70); Platelet Count 356 K/mm3 (150-450); RBC Distribution Width CV 16.4 % (11.6-14.6); RBC Distribution Width SD 49.3 fl (35.1-43.9); Red Blood Count 4.05 M/mm3 (4.6-6.2); White Blood Count 9.3 K/mm3 (4.4-11.0)
[2017-10-18 06:04] LABS: POSITIVE COUNT NO; POSITIVE DIFFERENTIAL NO; POSITIVE MORPHOLOGY NO
[2017-10-18 06:14] LABS: Albumin, Serum 2.2 g/dL (3.2-5.0); BUN 37 mg/dL (7-18); BUN/Creat Ratio 26.6 RATIO (10-20); Calcium,Total 8.9 mg/dL (8.5-10.1); Chloride 112 mmol/L (98-107); Creatinine, Serum 1.39 mg/dL (0.70-1.30); EST Glomerular Filtration Rate 52 mL/min (>60); Est Glom Filt Rate - Afr Amer 63 mL/min (>60); Estimated Creatinine Clearance 43.05 ml/min; Glucose 81 mg/dL (74-106); Magnesium 1.9 mg/dL (1.6-2.6); Phosphorus 2.2 mg/dL (2.5-4.9); Potassium 3.7 mmol/L (3.5-5.1); Sodium Level 148 mmol/L (136-145)
[2017-10-18] MEDS: Piperacil/Tazobactam 3.375 GM/50 ML ML IV ×3 (06:37→21:19)
[2017-10-18] MEDS: Cholestyramine/Sucrose 4 GM/PACKET GT ×2 (06:37→16:54)
[2017-10-18] MEDS: NEPRO TUBE FEED 1,000 ML LIQUID 240 ML GT ×5 (06:37→21:39)
--- NOTE | 2017-10-18 08:22 | RAD_ITS ---
STUDY: X-RAY CHEST REASON FOR EXAM: Male, 81 years old. History of pneumonia. TECHNIQUE: AP and lateral views of the chest. COMPARISON: Comparison is made with prior study dated October 16, 2017. FINDINGS: EKG electrodes are seen. The endotracheal tube has been removed. The right-sided internal jugular venous catheter has been removed as well. Stable pleural parenchymal changes at the left lung base. Stable increased markings at the right lung base. Further follow-up is recommended. There is no demonstrated pleural abnormality. Sternal cerclage wires and vascular clips are present from a prior sternotomy and coronary artery bypass graft procedure (CABG). Mild cardiomegaly. Normal mediastinum and matheus. Normal visualized pulmonary arteries. There is atherosclerotic calcification of the aortic arch with tortuosity. Normal visualized thoracic spine. Normal visualized ribs, clavicles, and shoulders. There is no demonstrated abnormality of the visualized soft tissue structures of the upper abdomen. RAD/Chest PA and Lateral IMPRESSION: Stable examination demonstrating small left pleural effusion with underlying infiltration and early infiltrate and/or atelectasis at the right lung base. Electronically Signed: Edmar العراقي MD at 9:30 EDT Tel [phone], Service support ,
--- NOTE | 2017-10-18 08:56 | PCM.PN.REN ---
Patient Problems: Active and Suspected Problems (Last Updated 06/20/17 @ 14:47 by Whit Wilson) Pneumonia (Acute) vs HCAP UTI (urinary tract infection) (Acute) SIRS (systemic inflammatory response syndrome) (Acute) Acute respiratory failure with hypoxia and hypercarbia (Acute) Subjective: transferred to PCU, dtr at bedside. Pt confused this morning. Denies SOB, cough. Diarrhea improving. Renal fxn improving. - Physical Exam General: Confused Neck: Supple Lungs: Clear to auscultation Cardiovascular: Regular rate Abdomen: Bowel Sounds Present, Soft, Non Tender, Non-Distended, - - gtube Extremities: No edema Skin: No rashes Psych/Mental Status: Anxious, Restless Vital Signs Temp Pulse Resp BP Pulse Ox 98.8 F 86 24 H 147/82 H 96 10/18/17 03:20 10/18/17 07:09 10/18/17 03:20 10/18/17 03:20 10/18/17 08:00 Oxygen Flow Rate (L/min) 2 Oxygen Delivery Method Room Air Weight: 71.8 kg Body Mass Index (BMI) 20.8 Intake and Output for Last 24 Hours 10/16/17 10/17/17 10/18/17 23:59 23:59 23:59 Intake Total 4094.1 / 4094.1 2283.8 / 2283.8 857 / 857 Output Total 2550 / 2550 3550 / 3550 250 / 250 Balance 1544.1 / 1544.1 -1266.2 / -1266.2 607 / 607 Microbiology Past 72 Hours 10/14/17 14:50 Gram Stain - Final Sputum, Induced/Lukens Respiratory Culture - Final Burkholderia cepacia Laboratory Tests Past 24 Hrs 10/17/17 10/17/17 10/17/17 13:36 13:36 14:43 WBC RBC Hgb Hct MCV MCH MCHC RDW RDW Differential Plt Count MPV Immature Gran % (Auto) Neut % (Auto) Lymph % (Auto) Menard % (Auto) Eos % (Auto) Baso % (Auto) Absolute Neuts (auto) Absolute Lymphs (auto) Total Counted Sodium 146 H Potassium 3.3 L Chloride 109 H Carbon Dioxide 26.0 Anion Gap 11 BUN 38 H Creatinine 1.5 H 1.49 H Estim Creat Clear Calc 40.16 Est GFR (MDRD) Af Amer 58 L 58 L Est GFR (MDRD) Non-Af 48 L 48 L BUN/Creatinine Ratio 25.5 H Glucose 132 H Calcium 8.8 Phosphorus Magnesium 1.8 Albumin Urine Collection Time 24.0 24.0 Timed Urine Volume 2975 2975 Urine Creatinine 15.9 Creatinine Clearance 22 L Ur Total Protein 24 Hr 2403.8 H Urine Total Protein 80.8 H 10/18/17 10/18/17 05:05 05:05 WBC 9.3 RBC 4.05 L Hgb 11.4 L Hct 34.6 L MCV 85.4 MCH 28.1 MCHC 32.9 RDW 16.4 H RDW Differential 49.3 H Plt Count 356 MPV 9.6 Immature Gran % (Auto) 1.300 H Neut % (Auto) 58.8 Lymph % (Auto) 21.6 Menard % (Auto) 11.4 H Eos % (Auto) 6.1 H Baso % (Auto) 0.8 Absolute Neuts (auto) 5.5 Absolute Lymphs (auto) 2.01 Total Counted Not Reportable Sodium 148 H Potassium 3.7 Chloride 112 H Carbon Dioxide 24.0 Anion Gap BUN 37 H Creatinine 1.39 H Estim Creat Clear Calc 43.05 Est GFR (MDRD) Af Amer 63 Est GFR (MDRD) Non-Af 52 L BUN/Creatinine Ratio 26.6 H Glucose 81 Calcium 8.9 Phosphorus 2.2 L Magnesium 1.9 Albumin 2.2 L Urine Collection Time Timed Urine Volume Urine Creatinine Creatinine Clearance Ur Total Protein 24 Hr Urine Total Protein Medical Necessity - Tobacco Use Smoking Status: Former smoker Assessment/Plan Active and Suspected Problems (Last Updated 06/20/17 @ 14:47 by Whit Wilson) Pneumonia (Acute) vs HCAP UTI (urinary tract infection) (Acute) SIRS (systemic inflammatory response syndrome) (Acute) Acute respiratory failure with hypoxia and hypercarbia (Acute) 1. CLEM on CKD stage 4 with baseline creatinine 1.1-1.2. Creatinine improved to 1.39 today. In negative balance with iv lasix. 24h urine CRCL 22cc/min TP 2.4g with underlying diabetic nephropathy. 2. Sepsis syndrome with leukocytosis improving 3. Acute resp failure s/p extubation. 4. Aspiration pneumonia, s/p PEG. 5. Cdiff diarrhea on oral vanco 6. UTI 7. Hypertension. Resume metoprolol. 8. Chronic hep B 9. DM2 with diabetic nephropathy 10. Iron deficiency anemia. 11. Hypernatremia consider switching to oral lasix. [facility] primary service
--- NOTE | 2017-10-18 10:23 | PN_ITS ---
Patient Problems: Active and Suspected Problems (Last Updated 06/20/17 @ 14:47 by Whit Wilson) Pneumonia (Acute) vs HCAP UTI (urinary tract infection) (Acute) SIRS (systemic inflammatory response syndrome) (Acute) Acute respiratory failure with hypoxia and hypercarbia (Acute) Subjective: The patient was seen and examined at the bedside this morning. Events from the last 24 hours have been reviewed. The patient is currently afebrile, hemodynamically stable and maintaining appropriate oxygen saturations on room air. The patient is now overall net +9.4 L for the admission. Creatinine continues to improve. Objective: The patient's most recent lab work, culture data and imaging studies have all been personally reviewed. Blood cultures have shown no growth to date. Urine culture has shown no growth to date. Strep and urine Legionella antigens were both negative. The patient was positive for C. difficile. Sputum culture revealed Burkholderia cepacia. CT chest revealed multifocal airspace disease and small bilateral pleural effusions. Pulmonary function testing completed in June 2017 revealed evidence of a mild restrictive ventilatory defect with preserved diffusing capacity. Surface echocardiogram completed October 16 revealed mild concentric LVH with an ejection fraction of 65% in stage I diastolic dysfunction. Pulmonary artery systolic pressure was estimated to be 35 mmHg. - Physical Exam General: Alert, Cooperative, No apparent distress HEENT: Atraumatic, PERRLA, Normocephalic Oral: No Gingival or Mucosal Lesions/ Ulcerations Neck: Supple, No Nodes, Trachea Midline Lungs: No rhonchi, No wheeze, No rales Cardiovascular: Regular rate, Regular Rhythm, Normal S1, Normal S2, No rub noted , No Gallop Abdomen: Bowel Sounds Present, Soft, Non Tender Extremities: No clubbing, No cyanosis, No edema Skin: - - No significant change from previous Musculoskeletal: No Tenderness to Palpation of Joints or Extremities Lymphatic: No Cervical, Supraclavicular, or Inguinal Adenopathy Neurological: Neuro grossly intact Psych/Mental Status: Normal Affect, Appropriate Vital Signs Temp Pulse Resp BP Pulse Ox 98.8 F 86 24 H 147/82 H 96 10/18/17 03:20 10/18/17 07:09 10/18/17 03:20 10/18/17 03:20 10/18/17 08:00 Oxygen Flow Rate (L/min) 2 Oxygen Delivery Method Room Air Weight: 158 lb 4.67 oz Body Mass Index (BMI) 20.8 Intake and Output for Last 24 Hours 10/16/17 10/17/17 10/18/17 23:59 23:59 23:59 Intake Total 4094.1 / 4094.1 2283.8 / 2283.8 857 / 857 Output Total 2550 / 2550 3550 / 3550 250 / 250 Balance 1544.1 / 1544.1 -1266.2 / -1266.2 607 / 607 Microbiology Past 72 Hours 10/14/17 14:50 Gram Stain - Final Sputum, Induced/Lukens Respiratory Culture - Final Burkholderia cepacia Laboratory Tests Past 24 Hrs 10/17/17 10/17/17 10/17/17 13:36 13:36 14:43 WBC RBC Hgb Hct MCV MCH MCHC RDW RDW Differential Plt Count MPV Immature Gran % (Auto) Neut % (Auto) Lymph % (Auto) [place] % (Auto) Eos % (Auto) Baso % (Auto) Absolute Neuts (auto) Absolute Lymphs (auto) Total Counted Sodium 146 H Potassium 3.3 L Chloride 109 H Carbon Dioxide 26.0 Anion Gap 11 BUN 38 H Creatinine 1.5 H 1.49 H Estim Creat Clear Calc 40.16 Est GFR (MDRD) Af Amer 58 L 58 L Est GFR (MDRD) Non-Af 48 L 48 L BUN/Creatinine Ratio 25.5 H Glucose 132 H Calcium 8.8 Phosphorus Magnesium 1.8 Albumin Urine Collection Time 24.0 24.0 Timed Urine Volume 2975 2975 Urine Creatinine 15.9 Creatinine Clearance 22 L Ur Total Protein 24 Hr 2403.8 H Urine Total Protein 80.8 H 10/18/17 10/18/17 05:05 05:05 WBC 9.3 RBC 4.05 L Hgb 11.4 L Hct 34.6 L MCV 85.4 MCH 28.1 MCHC 32.9 RDW 16.4 H RDW Differential 49.3 H Plt Count 356 MPV 9.6 Immature Gran % (Auto) 1.300 H Neut % (Auto) 58.8 Lymph % (Auto) 21.6 [place] % (Auto) 11.4 H Eos % (Auto) 6.1 H Baso % (Auto) 0.8 Absolute Neuts (auto) 5.5 Absolute Lymphs (auto) 2.01 Total Counted Not Reportable Sodium 148 H Potassium 3.7 Chloride 112 H Carbon Dioxide 24.0 Anion Gap BUN 37 H Creatinine 1.39 H Estim Creat Clear Calc 43.05 Est GFR (MDRD) Af Amer 63 Est GFR (MDRD) Non-Af 52 L BUN/Creatinine Ratio 26.6 H Glucose 81 Calcium 8.9 Phosphorus 2.2 L Magnesium 1.9 Albumin 2.2 L Urine Collection Time Timed Urine Volume Urine Creatinine Creatinine Clearance Ur Total Protein 24 Hr Urine Total Protein Clinical Impression(s) from Imaging Studies Chest X-Ray 10/11/17 16:20 IMPRESSION: Atelectatic versus chronic versus early infiltrate at the right lung base/costophrenic angle. Diffuse interstitial changes. Pleural thickening on the left/effusion not excluded. Mild cardiomegaly status post prior midline sternotomy. Marked atherosclerotic changes of the thoracic aorta with a potential aneurysmal dilatation. Electronically Signed: Tatiana Shay MD at 17:13 EDT , Service support , Renal Ultrasound 10/12/17 14:13 IMPRESSION: Normal ultrasound of the kidneys and urinary bladder. Electronically Signed: Ray Dudley at 18:17 EDT Tel , Service support , Chest CT 10/13/17 07:18 IMPRESSION: Small left pleural effusion with consolidation in the left lower lobe and infiltrates in the left upper lobe and lingular segment of the left upper lobe. Interstitial infiltrate in the right lower lobe with a tiny pleural effusion. Electronically Signed: Edmar العراقي MD at 8:43 EDT Tel [phone], Service support , Chest X-Ray 10/14/17 09:45 IMPRESSION: Worsening appearance of the lungs since the previous study, there is now diffuse interstitial edema with likely superimposed left upper lobe pneumonia. Follow-up recommended to assure resolution Remote CABG Degenerative bony changes Electronically Signed: Ino Núñez MD at 11:01 EDT , Service support , Chest X-Ray 10/14/17 14:25 IMPRESSION: The tip of the endotracheal tube is about 4.7 cm above the rigoberto. There is mild enlargement of the cardiac silhouette with mild edema. Vascularity is improved compared to the prior study. There is a small pleural effusion on the right and a moderate pleural effusion on the left. There is diffuse fibrosis. There is probable compressive atelectasis in the mid and lower left lung. Electronically Signed: Aliza Cantrell MD at 20:52 EDT Tel Direct: [phone], Service support , Brain CT 10/14/17 19:10 IMPRESSION: No acute intracranial abnormality. Chronic ischemic and atrophic changes. Electronically Signed: Ray Dudley at 20:10 EDT Tel , Service support , Chest X-Ray 10/14/17 23:35 IMPRESSION: Abnormal position of the central venous line is seen on the right side its tip is coiled in the upper part of the chest. Electronically Signed: Bernardino Johnston MD at 0:34 EDT Tel , Service support , Chest X-Ray 10/15/17 04:20 IMPRESSION: Abnormal position of the central venous line is seen on the right side its tip is coiled in the upper part of the chest. N.B. : The above information has been verbally conveyed by Bernardino Johnston MD to Dr Dai, Referring Physician, on 10/15/2017 09:27:43 (ET). Electronically Signed: Bernardino Johnston MD at 9:17 EDT Tel , Service support , N.B. : The above information has been verbally conveyed by Bernardino Johnston MD to Dr Dai, Referring Physician, on 10/15/2017 09:27:43 (ET). Chest X-Ray 10/16/17 05:55 IMPRESSION: Stable pleural parenchymal changes at the left lung base with increased markings at the right lung base. The endotracheal tube is in good position. Electronically Signed: Edmar العراقي MD at 8:24 EDT Tel [phone], Service support , Chest X-Ray 10/18/17 08:22 IMPRESSION: Stable examination demonstrating small left pleural effusion with underlying infiltration and early infiltrate and/or atelectasis at the right lung base. Electronically Signed: Edmar العراقي MD at 9:30 EDT Tel [phone], Service support , Medical Necessity - Tobacco Use Smoking Status: Former smoker Assessment/Plan Active and Suspected Problems (Last Updated 06/20/17 @ 14:47 by Whit Wilson) Pneumonia (Acute) vs HCAP UTI (urinary tract infection) (Acute) SIRS (systemic inflammatory response syndrome) (Acute) Acute respiratory failure with hypoxia and hypercarbia (Acute) RECOMMENDATIONS: 1. Continue antibiotics per infectious diseases recommendations. 2. Continue bolus tube feeds. 3. Encourage incentive spirometer use and mobilize patient as tolerated 4. Continue scheduled Lasix 5. Potassium repletion IMPRESSIONS: 1. Acute hypoxemic and hypercarbic respiratory failure secondary to gram- negative pneumonia The patient has improved clinically and has done well from a respiratory perspective following extubation. He is currently maintaining appropriate oxygen saturations on room air. Continue to encourage incentive spirometer use. Continue bolus tube feeds via PEG tube. Physical therapy to work with patient. Continue antibiotics per ID recommendations. Continue Lasix 2. Severe sepsis secondary to C. difficile colitis/gram-negative pneumonia Continue p.o. vancomycin as ordered. Continue Zosyn for now for treatment of gram-negative pneumonia, per infectious diseases recommendations. 3. Acute metabolic encephalopathy Improved at this time. Likely secondary to #1 and 2. 4. History of atrial fibrillation/recent thoracic aortic aneurysm repair/ coronary artery disease/baseline diastolic dysfunction Continue amiodarone as ordered. 5. Acute on chronic kidney disease Nephrology is following. Urine output has been appropriate. We will continue to monitor. No indication for renal replacement therapy at this time. 6. Dysphasia/anemia/advanced age/prolonged hospitalization Complicates care, management, recovery and prognosis. Blood counts remained stable following transfusion. We will continue to monitor. This note was generated with [employer] dictation software. It may contain incorrect words, spelling, and punctuation that were not noted in checking the note before signing. Given the lack of ongoing ICU/pulmonary needs, will sign off. Please call with any additional questions. Code Visit Inpatient E&M: 28386 Subs Hosp L2
[2017-10-18] MEDS: Metoprolol Tartrate 25 MG Tablet GT ×2 (10:30→21:39)
[2017-10-18] MEDS: Famotidine 20 MG Tablet GT (10:31)
[2017-10-18] MEDS: Heparin Injection 5,000 UNITS/ML Syringe 5000 UNITS SC ×2 (10:31→21:38)
[2017-10-18] MEDS: Aspirin 81 MG TAB.CHEW GT (10:31)
[2017-10-18] MEDS: Furosemide 40 MG/4 ML Vial IV ×2 (10:31→17:53)
[2017-10-18] MEDS: Menthol/Lanolin/Calamine/Znox 113 GM Tube 1 APPLIC TOPICAL ×2 (10:31→21:38)
[2017-10-18] MEDS: Amiodarone 200 MG Tablet GT (10:31)
--- NOTE | 2017-10-18 10:41 | PN.ID_ITS ---
Patient Problems: Active and Suspected Problems (Last Updated 06/20/17 @ 14:47 by Whit Wilson) Pneumonia (Acute) vs HCAP UTI (urinary tract infection) (Acute) SIRS (systemic inflammatory response syndrome) (Acute) Acute respiratory failure with hypoxia and hypercarbia (Acute) Subjective: Out of icu, still some SOB, cough, and diarrhea, but overall improved. No fever. - Physical Exam General: Cooperative, No apparent distress Lungs: Diminished, Rhonchi Cardiovascular: Regular rate, Regular Rhythm Abdomen: Soft, Non Tender, Non-Distended Skin: No rashes Vital Signs Temp Pulse Resp BP Pulse Ox 98.8 F 86 24 H 147/82 H 96 10/18/17 03:20 10/18/17 07:09 10/18/17 03:20 10/18/17 03:20 10/18/17 08:00 Oxygen Flow Rate (L/min) 2 Oxygen Delivery Method Room Air Weight: 71.8 kg Body Mass Index (BMI) 20.8 Intake and Output for Last 24 Hours 10/16/17 10/17/17 10/18/17 23:59 23:59 23:59 Intake Total 4094.1 / 4094.1 2283.8 / 2283.8 857 / 857 Output Total 2550 / 2550 3550 / 3550 250 / 250 Balance 1544.1 / 1544.1 -1266.2 / -1266.2 607 / 607 Microbiology Past 72 Hours 10/14/17 14:50 Gram Stain - Final Sputum, Induced/Lukens Respiratory Culture - Final Burkholderia cepacia Laboratory Tests Past 24 Hrs 10/17/17 10/17/17 10/17/17 13:36 13:36 14:43 WBC RBC Hgb Hct MCV MCH MCHC RDW RDW Differential Plt Count MPV Immature Gran % (Auto) Neut % (Auto) Lymph % (Auto) [place] % (Auto) Eos % (Auto) Baso % (Auto) Absolute Neuts (auto) Absolute Lymphs (auto) Total Counted Sodium 146 H Potassium 3.3 L Chloride 109 H Carbon Dioxide 26.0 Anion Gap 11 BUN 38 H Creatinine 1.5 H 1.49 H Estim Creat Clear Calc 40.16 Est GFR (MDRD) Af Amer 58 L 58 L Est GFR (MDRD) Non-Af 48 L 48 L BUN/Creatinine Ratio 25.5 H Glucose 132 H Calcium 8.8 Phosphorus Magnesium 1.8 Albumin Urine Collection Time 24.0 24.0 Timed Urine Volume 2975 2975 Urine Creatinine 15.9 Creatinine Clearance 22 L Ur Total Protein 24 Hr 2403.8 H Urine Total Protein 80.8 H 10/18/17 10/18/17 05:05 05:05 WBC 9.3 RBC 4.05 L Hgb 11.4 L Hct 34.6 L MCV 85.4 MCH 28.1 MCHC 32.9 RDW 16.4 H RDW Differential 49.3 H Plt Count 356 MPV 9.6 Immature Gran % (Auto) 1.300 H Neut % (Auto) 58.8 Lymph % (Auto) 21.6 [place] % (Auto) 11.4 H Eos % (Auto) 6.1 H Baso % (Auto) 0.8 Absolute Neuts (auto) 5.5 Absolute Lymphs (auto) 2.01 Total Counted Not Reportable Sodium 148 H Potassium 3.7 Chloride 112 H Carbon Dioxide 24.0 Anion Gap BUN 37 H Creatinine 1.39 H Estim Creat Clear Calc 43.05 Est GFR (MDRD) Af Amer 63 Est GFR (MDRD) Non-Af 52 L BUN/Creatinine Ratio 26.6 H Glucose 81 Calcium 8.9 Phosphorus 2.2 L Magnesium 1.9 Albumin 2.2 L Urine Collection Time Timed Urine Volume Urine Creatinine Creatinine Clearance Ur Total Protein 24 Hr Urine Total Protein Medical Necessity - Tobacco Use Smoking Status: Former smoker Route of nutrition/ use of supplements: [] Nutritional Intake: [] IV Site: [] Rice Catheter: [] - Assessment/Plan Antibiotics: [] Assessment/Plan: [] Active and Suspected Problems (Last Updated 06/20/17 @ 14:47 by Whit Wilson) Pneumonia (Acute) vs HCAP UTI (urinary tract infection) (Acute) SIRS (systemic inflammatory response syndrome) (Acute) Acute respiratory failure with hypoxia and hypercarbia (Acute) Acute resp failure with MDRO GNR pneumonia - improving, remains off vent. 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 Family reports he had MDRO infection in lungs while at [facility] in [place] and he did complete course of Zerbaxa and flagyl for pneumonia 09/21/17. Overall much improved, will avoid further doses of tobra at this point. Continue zosyn. Day 8. Plan on stopping soon given his progress. 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 Initially on iv vanc, completed course with bactrim while at [facility]. will follow
--- NOTE | 2017-10-18 14:54 | CASEMGMT ---
MARK spoke with Carolin at [facility] letting her know that patient is now going to go to [facility] at d/c. She thanked MARK for the information. Plan: [facility] pending insurance approval Michelle DANGELO
--- NOTE | 2017-10-18 18:44 | PCM.PROGNOTE ---
Patient Problems: Active and Suspected Problems (Last Updated 06/20/17 @ 14:47 by Whit Wilson) Pneumonia (Acute) vs HCAP UTI (urinary tract infection) (Acute) SIRS (systemic inflammatory response syndrome) (Acute) Acute respiratory failure with hypoxia and hypercarbia (Acute) Subjective: Day #8 Ne Remains Afebrile. Vital signs are stable. He is 98% saturated on room air with a respiratory rate of 18. Fluid balance on 1418 was -1266 on 40 of Lasix twice daily. 2 maintains good urine output. White blood cell count is normal at 9.3 with 59% neutrophils but eosinophils are now up to 6.1. Hemoglobin is 11.4 and platelets are within normal limits. Sodium is up to 148 and the chloride is 112. Potassium is 3.7 today following supplementation. His creatinine continues to improve and today is 1.39 with a BUN of 77. Serum bicarb is 24. Phosphorus is actually low at 2.2. Her urine protein is 2404. Test x-ray today was reviewed. There is persistent left lower lobe infiltration but the upper lobe infiltrates on the left side are improving. The right basilar infiltrate is much improved since his last chest x-ray on 10/16/2017. He denies chest pain, shortness of breath, nausea. He is pulling on his Yu catheter and there is pink tinged urine. Objective: - Physical Exam General: - Very alert. Able to follow my commands. He appears in no distress and is not even tachypneic today HEENT: - - the pupils are unequal...the Left pupil is smaller. This is chronic Neck: Supple, Trachea Midline, no JVD, no cervical adenopathy Lungs: Clear to auscultation anteriorly and minimal crackles in the L base posteriorly. No wheeze, symmetric chest expansion Cardiovascular: Regular rate, Regular Rhythm, Normal S1, Normal S2, No rub noted, No Gallop Abdomen: Bowel Sounds Present. still having loose stool. Soft, Non-Distended, - - No guarding with palpation. He is pulling at his yu Extremities: No cyanosis, No edema, no heel ulcers, normal pulses peripherally Skin: No rashes Neurological: Cranial nerves II-XII grossly intact - no Facial asymmetry, Neuro grossly intact - Moving all extremities - Physical Exam Vital Signs Temp Pulse Resp BP Pulse Ox 97.4 F L 77 18 140/81 H 98 04/11/18 15:20 10/18/17 15:20 10/18/17 15:20 10/18/17 15:20 10/18/17 15:20 Oxygen Flow Rate (L/min) 2 Oxygen Delivery Method Room Air Weight: 158 lb 4.67 oz Body Mass Index (BMI) 20.8 Intake and Output for Last 24 Hours 10/16/17 10/17/17 10/18/17 23:59 23:59 23:59 Intake Total 4094.1 / 4094.1 2283.8 / 2283.8 1996.3 / 1996.3 Output Total 2550 / 2550 3550 / 3550 1200 / 1200 Balance 1544.1 / 1544.1 -1266.2 / -1266.2 797.3 / 797.3 Microbiology Past 72 Hours 10/14/17 14:50 Gram Stain - Final Sputum, Induced/Lukens Respiratory Culture - Final Burkholderia cepacia Laboratory Tests Past 24 Hrs 10/18/17 10/18/17 05:05 05:05 WBC 9.3 RBC 4.05 L Hgb 11.4 L Hct 34.6 L MCV 85.4 MCH 28.1 MCHC 32.9 RDW 16.4 H RDW Differential 49.3 H Plt Count 356 MPV 9.6 Immature Gran % (Auto) 1.300 H Neut % (Auto) 58.8 Lymph % (Auto) 21.6 [place] % (Auto) 11.4 H Eos % (Auto) 6.1 H Baso % (Auto) 0.8 Absolute Neuts (auto) 5.5 Absolute Lymphs (auto) 2.01 Total Counted Not Reportable Sodium 148 H Potassium 3.7 Chloride 112 H Carbon Dioxide 24.0 BUN 37 H Creatinine 1.39 H Estim Creat Clear Calc 43.05 Est GFR (MDRD) Af Amer 63 Est GFR (MDRD) Non-Af 52 L BUN/Creatinine Ratio 26.6 H Glucose 81 Calcium 8.9 Phosphorus 2.2 L Magnesium 1.9 Albumin 2.2 L Medical Necessity - Tobacco Use Smoking Status: Former smoker Assessment/Plan Active and Suspected Problems (Last Updated 06/20/17 @ 14:47 by Whit Wilson) Pneumonia (Acute) vs HCAP UTI (urinary tract infection) (Acute) SIRS (systemic inflammatory response syndrome) (Acute) Acute respiratory failure with hypoxia and hypercarbia (Acute) Impressions 1. Acute respiratory failure with hypoxemia requiring intubation 2. 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 Clostridium difficile enterocolitis 4. Acute on chronic renal failure stage III. 5. Anisocoria 6. Severe anemia-status post transfusion of 2 units packed red blood cells 7. Hypotension-likely secondary to bradycardia and severe anemia. He did require dopamine but only for a short period of time until he could be transfused and bradycardia improved. 8. R IJ central line likely coiled in Azygous vein...it is flushing and drawing back blood....will use only as a peripheral line 9. Hyperkalemia-resolved 10. Severe sepsis with encephalopathy 11. Coronary artery disease with history of CABG 12. Paroxysmal atrial fibrillation 13. Recent thoracic aortic aneurysm repair at [facility] 14. Chronic ischemic and atrophic changes on CT scan of the brain with no acute changes start Seroquel at HS to help with sleep. continue with Zosyn. DC at DC - possibly tomorrow Lactobacillus twice daily to help with diarrhea Discontinue Lasix Recheck BMP in the a.m. K-Phos supplement Finish 2 weeks of oral vancomycin Decrease the potassium supplement Code Visit Inpatient E&M: 73551 Subs Hosp L2
--- NOTE | 2017-10-18 21:26 | NURSING ---
2200 dose of IV Zosyn BAMBI'ed at this time d/t JUAN PABLO, RN forgetting to do so
[2017-10-18] MEDS: Atorvastatin Calcium 20 MG Tablet GT (21:39)
[2017-10-18] MEDS: QUEtiapine 25 MG Tablet GT (21:40)
[2017-10-19] VITALS (9 sets, daily range): BP systolic 118–155; BP diastolic 70–87; PULSE 70–87; RESP 16–18; TEMP 35.8–36.6; O2SAT 95–97
[2017-10-19] MEDS: NEPRO TUBE FEED 1,000 ML LIQUID 240 ML GT ×3 (05:15→13:31)
[2017-10-19] MEDS: Piperacil/Tazobactam 3.375 GM/50 ML ML IV (05:16)
[2017-10-19 06:31] LABS: Anion Gap 12 (5-15); BUN 42 mg/dL (7-18); Calcium,Total 9.2 mg/dL (8.5-10.1); Chloride 107 mmol/L (98-107); Creatinine, Serum 1.45 mg/dL (0.70-1.30); EST Glomerular Filtration Rate 50 mL/min (>60); Est Glom Filt Rate - Afr Amer 60 mL/min (>60); Estimated Creatinine Clearance 41.26 ml/min; Glucose 137 mg/dL (74-106); Magnesium 1.9 mg/dL (1.6-2.6); Potassium 3.8 mmol/L (3.5-5.1); Sodium Level 141 mmol/L (136-145)
[2017-10-19] MEDS: Cholestyramine/Sucrose 4 GM/PACKET GT (06:31)
--- NOTE | 2017-10-19 08:50 | PCM.PN.REN ---
Patient Problems: Active and Suspected Problems (Last Updated 06/20/17 @ 14:47 by Whit Wilson) Pneumonia (Acute) vs HCAP UTI (urinary tract infection) (Acute) SIRS (systemic inflammatory response syndrome) (Acute) Acute respiratory failure with hypoxia and hypercarbia (Acute) Subjective: pt son at bedside. Breathing stable. Lasix on hold. Creatinine slightly up at 1.45. Sodium level improved. - Physical Exam General: - - awake responsive with son Lungs: Rales - bases Cardiovascular: Regular rate Abdomen: Bowel Sounds Present, Soft, Non Tender, Non-Distended Extremities: No edema Skin: No rashes Musculoskeletal: Muscle Wasting Neurological: - - no tremor Psych/Mental Status: - - confused at times Vital Signs Temp Pulse Resp BP Pulse Ox 96.5 F L 85 18 118/74 97 10/19/17 08:40 10/19/17 08:40 10/19/17 08:40 10/19/17 08:40 10/19/17 08:40 Oxygen Flow Rate (L/min) 2 Oxygen Delivery Method Room Air Weight: 71.8 kg Body Mass Index (BMI) 20.8 Intake and Output for Last 24 Hours 10/17/17 10/18/17 10/19/17 23:59 23:59 23:59 Intake Total 2283.8 / 2283.8 3359.6 / 3359.6 1041.8 / 1041.8 Output Total 3550 / 3550 1200 / 1200 Balance -1266.2 / -1266.2 2159.6 / 2159.6 1041.8 / 1041.8 Microbiology Past 72 Hours 10/14/17 14:50 Gram Stain - Final Sputum, Induced/Lukens Respiratory Culture - Final Burkholderia cepacia Laboratory Tests Past 24 Hrs 10/19/17 05:35 Sodium 141 Potassium 3.8 Chloride 107 Carbon Dioxide 22.0 Anion Gap 12 BUN 42 H Creatinine 1.45 H Estim Creat Clear Calc 41.26 Est GFR (MDRD) Af Amer 60 Est GFR (MDRD) Non-Af 50 L BUN/Creatinine Ratio 29.0 H Glucose 137 H Calcium 9.2 Phosphorus 4.0 Magnesium 1.9 Medical Necessity - Tobacco Use Smoking Status: Former smoker Assessment/Plan Active and Suspected Problems (Last Updated 06/20/17 @ 14:47 by Whit Kilner) Pneumonia (Acute) vs HCAP UTI (urinary tract infection) (Acute) SIRS (systemic inflammatory response syndrome) (Acute) Acute respiratory failure with hypoxia and hypercarbia (Acute) 1. CLEM on CKD stage 4 with baseline creatinine 1.1-1.2. Creatinine 1.45 today. 24h urine CRCL 22cc/min TP 2.4g with underlying diabetic nephropathy. 2. Sepsis syndrome with leukocytosis improving 3. Acute resp failure s/p extubation. 4. Aspiration pneumonia, s/p PEG. 5. Cdiff diarrhea on oral vanco 6. UTI continue antibx 7. Hypertension. Resume metoprolol. 8. Chronic hep B 9. DM2 with diabetic nephropathy 10. Iron deficiency anemia. [facility] primary service, SW
[2017-10-19] MEDS: Acetaminophen 650 MG/20 ML UDC GT (09:49)
[2017-10-19] MEDS: Amiodarone 200 MG Tablet GT (09:49)
[2017-10-19] MEDS: Aspirin 81 MG TAB.CHEW GT (09:50)
[2017-10-19] MEDS: Metoprolol Tartrate 25 MG Tablet GT (09:50)
[2017-10-19] MEDS: Famotidine 20 MG Tablet GT (09:50)
[2017-10-19] MEDS: Menthol/Lanolin/Calamine/Znox 113 GM Tube 1 APPLIC TOPICAL (09:51)
[2017-10-19] MEDS: Heparin Injection 5,000 UNITS/ML Syringe 5000 UNITS SC (10:11)
--- NOTE | 2017-10-19 11:19 | PN.ID_ITS ---
Patient Problems: Active and Suspected Problems (Last Updated 06/20/17 @ 14:47 by Whit Wilson) Pneumonia (Acute) vs HCAP UTI (urinary tract infection) (Acute) SIRS (systemic inflammatory response syndrome) (Acute) Acute respiratory failure with hypoxia and hypercarbia (Acute) Subjective: Cough but difficulty bringing up sputum. No fever, no abd pain. - Physical Exam General: Cooperative Lungs: Rhonchi Cardiovascular: Regular rate, Regular Rhythm Abdomen: Soft, Non Tender, Non-Distended Skin: No rashes Vital Signs Temp Pulse Resp BP Pulse Ox 96.5 F L 85 18 118/74 97 10/19/17 08:40 10/19/17 09:50 10/19/17 08:40 10/19/17 08:40 10/19/17 08:40 Oxygen Flow Rate (L/min) 2 Oxygen Delivery Method Room Air Weight: 71.8 kg Body Mass Index (BMI) 20.8 Intake and Output for Last 24 Hours 10/17/17 10/18/17 10/19/17 23:59 23:59 23:59 Intake Total 2283.8 / 2283.8 3359.6 / 3359.6 1041.8 / 1041.8 Output Total 3550 / 3550 1200 / 1200 Balance -1266.2 / -1266.2 2159.6 / 2159.6 1041.8 / 1041.8 Microbiology Past 72 Hours 10/14/17 14:50 Gram Stain - Final Sputum, Induced/Lukens Respiratory Culture - Final Burkholderia cepacia Laboratory Tests Past 24 Hrs 10/19/17 05:35 Sodium 141 Potassium 3.8 Chloride 107 Carbon Dioxide 22.0 Anion Gap 12 BUN 42 H Creatinine 1.45 H Estim Creat Clear Calc 41.26 Est GFR (MDRD) Af Amer 60 Est GFR (MDRD) Non-Af 50 L BUN/Creatinine Ratio 29.0 H Glucose 137 H Calcium 9.2 Phosphorus 4.0 Magnesium 1.9 Medical Necessity - Tobacco Use Smoking Status: Former smoker Route of nutrition/ use of supplements: [] Nutritional Intake: [] IV Site: [] Rice Catheter: [] - Assessment/Plan Antibiotics: [] Assessment/Plan: [] Active and Suspected Problems (Last Updated 06/20/17 @ 14:47 by Whit Wilson) Pneumonia (Acute) vs HCAP UTI (urinary tract infection) (Acute) SIRS (systemic inflammatory response syndrome) (Acute) Acute respiratory failure with hypoxia and hypercarbia (Acute) Acute resp failure with MDRO GNR pneumonia - Overall much improved. 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 Family reports he had MDRO infection in lungs while at [facility] in [place] and he did complete course of Zerbaxa and flagyl for pneumonia 09/21/17. Continue zosyn. Day 9. Plan on stopping soon given his progress, but still with difficulty clearing secretions and area on cxr without improvement. 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 Initially on iv vanc, completed course with bactrim while at [facility] will follow
--- NOTE | 2017-10-19 11:31 | CASEMGMT ---
Patient was approved for [facility]. Plan: [facility] under skilled level of care. Michelle DANGELO
--- NOTE | 2017-10-19 14:37 | PCM.TXEXTCAR ---
- Diet 10/11/17 19:16 Diet: Nothing Per Oral He gets 240 cc of Nepro 5 X's a day via the PEG. He can have 30 cc water with each TF. - Routine Orders/Code Status Enema Type: Fleetz Enema Frequency: Daily PRN Suppository Type: Dulcolax 10mg Suppository Frequency: Daily PRN O2 Liters per Minute: 1-2 O2 Frequency: PRN Keep PO Greater than or Equal to (%): 89 Routine Lab Work: - - CBC with diff, CMP, MAg, Phos 10/23 Code Status: Full Code - Wound(s) beneath right neck Wound Type: Surgical Incision posterior head Wound Type: Pressure Injury Dressing Change: Mepilex Rt groin Wound Type: Puncture Dressing Change: Dry Sterile Dressing Chest Wound Type: Surgical Incision RIJ Wound Type: Puncture - Therapies Weight Bearing: Full weight bearing Physical Therapy: Eval and Treat Occupational Therapy: Eval and Treat Speech Therapy: Eval and Treat - Problem/Diagnosis (1) Acute respiratory failure with hypoxemia Status: Acute Current Visit: Yes (2) Aspiration pneumonia Status: Acute Current Visit: Yes (3) Acute renal failure superimposed on stage 3 chronic kidney disease Status: Acute Current Visit: Yes (4) Anisocoria Status: Chronic Current Visit: Yes (5) Severe anemia Status: Acute Current Visit: Yes (6) Hypovolemic shock Status: Acute Current Visit: Yes (7) Hyperkalemia Status: Resolved Current Visit: Yes (8) Severe sepsis Status: Acute Comment: secondary to C. 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 Comment: CABG x 1 vessel at [facility] with AV repair and repair of aortic dissection Current Visit: Yes (11) H/O aortic valve repair Status: Chronic Comment: as a result of a thoracic aortic dissection Current Visit: Yes (12) Aortic dissection, thoracic Status: Chronic Comment: repaired at [facility] main campus in june of 2017 Current Visit: Yes (13) Cerebrovascular disease Status: Chronic Current Visit: Yes (14) Hypophosphatemia Status: Acute Current Visit: Yes (15) Pneumonia Status: Acute Comment: vs HCAP Current Visit: Yes (16) SIRS (systemic inflammatory response syndrome) Status: Acute Current Visit: Yes (17) UTI (urinary tract infection) Status: Ruled-out Current Visit: Yes (18) Paroxysmal atrial fibrillation Status: Chronic Current Visit: No (19) Hyperlipidemia Status: Chronic Current Visit: No (20) Hypertension Status: Chronic Current Visit: No (21) Type 2 diabetes mellitus without complications Status: Chronic Current Visit: No (22) Clostridium difficile enterocolitis Status: Acute Current Visit: Yes (23) Ventricular hypertrophy Status: Chronic Comment: EF of 65% Current Visit: Yes (24) Diastolic dysfunction Status: Chronic Comment: stage 1 Current Visit: Yes (25) Dysphagia Status: Chronic Current Visit: Yes - Allergies/Procedures Done in Hospital Allergies/Adverse Reactions: Allergies No Known Allergies Allergy (Unverified 06/20/17 14:37) Procedures: 2-D Echocardiogram - Mild left ventricular hypertrophy, EF of 65%, stage I diastolic dysfunction, Blood transfusion - 2 units, Central line placement - R IJ - into an azygous vein in the right chest, Intubation - 10/14 intubated and extubated 10/16 - Type of Care/Length of Stay Estimated LOS: Convalescent Care Less Than 30 days Type of Care Needed: Skilled Rehab Potential: Fair Prognosis: Fair - Additional Orders/Day of Discharge Additional Orders: Please obtain a CXR in 2 weeks. Blood sugars are normal on the current tube feed so no need for Accuchecks or insulin. OK to do PRN accuchecks. The cholestyramine helps with his frequent stooling and should be continued as this is a chronic problem. He has had insomnia for the past few months and was started on Seroquel in the hospital with good results. H&P will serve as current which was dated: 10/11/17 Day of Discharge: 10/19/17 - Dietary and Speech Recommendations Dietitian Recommendations/Changes: If bolus feedings desired, rec Nepro CHO Steady 240 cc 5x/day during waking hours (ie 8am, 11am, 2pm, 5 pm, 8pm) with 240 cc free water after each feeing to provide 2160 arturo/97 gm pro/ 2072 cc free water/day. Rec Nepro CHO Steady at 50 cc/hour with 200 cc H2O flush every 4 hours to provide 2160 calories/ 97 g protein/ 2072 cc free fluid per day. If PO diet appropraite, rec regular diet- consistency per [employer]. - Follow Up Care Primary Care Physician: Thor Jefferson DO [Primary Care Provider] - Please follow up with your Primary Care Physician in: following DC from [facility]
--- NOTE | 2017-10-19 14:49 | TREXTCAR_ITS ---
- Diet 10/11/17 19:16 Diet: Nothing Per Oral He gets 240 cc of Nepro 5 X's a day via the PEG. He can have 30 cc water with each TF. - Routine Orders/Code Status Enema Type: Fleetz Enema Frequency: Daily PRN Suppository Type: Dulcolax 10mg Suppository Frequency: Daily PRN O2 Liters per Minute: 1-2 O2 Frequency: PRN Keep PO Greater than or Equal to (%): 89 Routine Lab Work: - - CBC with diff, CMP, MAg, Phos 10/23 Code Status: Full Code - Wound(s) beneath right neck Wound Type: Surgical Incision posterior head Wound Type: Pressure Injury Dressing Change: Mepilex Rt groin Wound Type: Puncture Dressing Change: Dry Sterile Dressing Chest Wound Type: Surgical Incision RIJ Wound Type: Puncture - Therapies Weight Bearing: Full weight bearing Physical Therapy: Eval and Treat Occupational Therapy: Eval and Treat Speech Therapy: Eval and Treat - Problem/Diagnosis (1) Acute respiratory failure with hypoxemia Status: Acute Current Visit: Yes (2) Aspiration pneumonia Status: Acute Current Visit: Yes (3) Acute renal failure superimposed on stage 3 chronic kidney disease Status: Acute Current Visit: Yes (4) Anisocoria Status: Chronic Current Visit: Yes (5) Severe anemia Status: Acute Current Visit: Yes (6) Hypovolemic shock Status: Acute Current Visit: Yes (7) Hyperkalemia Status: Resolved Current Visit: Yes (8) Severe sepsis Status: Acute Comment: secondary to C. 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 with AV repair and repair of aortic dissection Current Visit: Yes (11) H/O aortic valve repair Status: Chronic Comment: as a result of a thoracic aortic dissection Current Visit: Yes (12) Aortic dissection, thoracic Status: Chronic Comment: repaired at [facility] main campus in june of 2017 Current Visit: Yes (13) Cerebrovascular disease Status: Chronic Current Visit: Yes (14) Hypophosphatemia Status: Acute Current Visit: Yes (15) Pneumonia Status: Acute Comment: vs HCAP Current Visit: Yes (16) SIRS (systemic inflammatory response syndrome) Status: Acute Current Visit: Yes (17) UTI (urinary tract infection) Status: Ruled-out Current Visit: Yes (18) Paroxysmal atrial fibrillation Status: Chronic Current Visit: No (19) Hyperlipidemia Status: Chronic Current Visit: No (20) Hypertension Status: Chronic Current Visit: No (21) Type 2 diabetes mellitus without complications Status: Chronic Current Visit: No (22) Clostridium difficile enterocolitis Status: Acute Current Visit: Yes (23) Ventricular hypertrophy Status: Chronic Comment: EF of 65% Current Visit: Yes (24) Diastolic dysfunction Status: Chronic Comment: stage 1 Current Visit: Yes (25) Dysphagia Status: Chronic Current Visit: Yes - Allergies/Procedures Done in Hospital Allergies/Adverse Reactions: Allergies No Known Allergies Allergy (Unverified 06/20/17 14:37) Procedures: 2-D Echocardiogram - Mild left ventricular hypertrophy, EF of 65%, stage I diastolic dysfunction, Blood transfusion - 2 units, Central line placement - R IJ - into an azygous vein in the right chest, Intubation - 10/14 intubated and extubated 10/16 - Type of Care/Length of Stay Estimated LOS: Convalescent Care Less Than 30 days Type of Care Needed: Skilled Rehab Potential: Fair Prognosis: Fair - Additional Orders/Day of Discharge Additional Orders: Please obtain a CXR in 2 weeks. Blood sugars are normal on the current tube feed so no need for Accuchecks or insulin. OK to do PRN accuchecks. The cholestyramine helps with his frequent stooling and should be continued as this is a chronic problem. He has had insomnia for the past few months and was started on Seroquel in the hospital with good results. H&P will serve as current which was dated: 10/11/17 Day of Discharge: 10/19/17 - Dietary and Speech Recommendations Dietitian Recommendations/Changes: If bolus feedings desired, rec Nepro CHO Steady 240 cc 5x/day during waking hours (ie 8am, 11am, 2pm, 5 pm, 8pm) with 240 cc free water after each feeing to provide 2160 arturo/97 gm pro/ 2072 cc free water/day. Rec Nepro CHO Steady at 50 cc/hour with 200 cc H2O flush every 4 hours to provide 2160 calories/ 97 g protein/ 2072 cc free fluid per day. If PO diet appropraite, rec regular diet- consistency per [employer]. - Follow Up Care Primary Care Physician: Thor Jefferson DO [Primary Care Provider] - Please follow up with your Primary Care Physician in: following DC from U
--- NOTE | 2017-10-19 15:13 | PCM.DC.SUM ---
Discharge Date and Diagnosis - Problem List Patient Problems: Active and Suspected Problems (Last Updated 06/20/17 @ 14:47 by Whit Wilson) Pneumonia (Acute) vs HCAP SIRS (systemic inflammatory response syndrome) (Acute) Acute respiratory failure with hypoxemia (Acute) Aspiration pneumonia (Acute) Acute renal failure superimposed on stage 3 chronic kidney disease (Acute) Severe anemia (Acute) Hypovolemic shock (Acute) Severe sepsis (Acute) secondary to C. DIFF Hypophosphatemia (Acute) Clostridium difficile enterocolitis (Acute) Date of Admission: 10/11/17 Date of Discharge: 10/19/17 - Primary Discharge Diagnosis Active and Suspected Problems (Last Updated 06/20/17 @ 14:47 by Whit Wilson) Acute respiratory failure with hypoxemia (Acute) - requiring intubation Pneumonia (Acute) - suspect aspiration Clostridium difficile enterocolitis (Acute) Severe sepsis (Acute) secondary to C. 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) CABG x 1 vessel at [facility] with AV repair and repair of aortic dissection in June 2017 Cerebrovascular disease (Chronic) Concentric ventricular hypertrophy (Chronic)-mild, with an EF of 65% Diastolic dysfunction (Chronic) -stage I Dysphagia (Chronic) Paroxysmal atrial fibrillation (Chronic) Type 2 diabetes mellitus without complications (Chronic) - not requiring any medication Hyperlipidemia (Chronic) Hypertension (Chronic) Hospital Course and Treatment Imaging Results: Clinical Impression(s) from Imaging Studies Chest X-Ray 10/11/17 16:20 IMPRESSION: Atelectatic versus chronic versus early infiltrate at the right lung base/costophrenic angle. Diffuse interstitial changes. Pleural thickening on the left/effusion not excluded. Mild cardiomegaly status post prior midline sternotomy. Marked atherosclerotic changes of the thoracic aorta with a potential aneurysmal dilatation. Electronically Signed: Tatiana Shay MD at 17:13 EDT , Service support , Renal Ultrasound 10/12/17 14:13 IMPRESSION: Normal ultrasound of the kidneys and urinary bladder. Electronically Signed: Ray Dudley, at 18:17 EDT Tel , Service support , Chest CT 10/13/17 07:18 IMPRESSION: Small left pleural effusion with consolidation in the left lower lobe and infiltrates in the left upper lobe and lingular segment of the left upper lobe. Interstitial infiltrate in the right lower lobe with a tiny pleural effusion. Electronically Signed: Edmar العراقي MD at 8:43 EDT Tel [phone], Service support , Chest X-Ray 10/14/17 09:45 IMPRESSION: Worsening appearance of the lungs since the previous study, there is now diffuse interstitial edema with likely superimposed left upper lobe pneumonia. Follow-up recommended to assure resolution Remote CABG Degenerative bony changes Electronically Signed: Ino Núñez MD at 11:01 EDT , Service support , Chest X-Ray 10/14/17 14:25 IMPRESSION: The tip of the endotracheal tube is about 4.7 cm above the rigoberto. There is mild enlargement of the cardiac silhouette with mild edema. Vascularity is improved compared to the prior study. There is a small pleural effusion on the right and a moderate pleural effusion on the left. There is diffuse fibrosis. There is probable compressive atelectasis in the mid and lower left lung. Electronically Signed: Aliza Cantrell MD at 20:52 EDT Tel Direct: [phone], Service support , Brain CT 10/14/17 19:10 IMPRESSION: No acute intracranial abnormality. Chronic ischemic and atrophic changes. Electronically Signed: Ray Gonzalesmeggan, at 20:10 EDT Tel , Service support , Chest X-Ray 10/14/17 23:35 IMPRESSION: Abnormal position of the central venous line is seen on the right side its tip is coiled in the upper part of the chest. Electronically Signed: Bernardino Johnston MD at 0:34 EDT Tel , Service support , Chest X-Ray 10/15/17 04:20 IMPRESSION: Abnormal position of the central venous line is seen on the right side its tip is coiled in the upper part of the chest. N.B. : The above information has been verbally conveyed by Bernardino Johnston MD to Dr Dai, Referring Physician, on 10/15/2017 09:27:43 (ET). Electronically Signed: Bernardino Johnston MD at 9:17 EDT Tel , Service support , N.B. : The above information has been verbally conveyed by Bernardino Johnston MD to Dr Dai, Referring Physician, on 10/15/2017 09:27:43 (ET). Chest X-Ray 10/16/17 05:55 IMPRESSION: Stable pleural parenchymal changes at the left lung base with increased markings at the right lung base. The endotracheal tube is in good position. Electronically Signed: Edmar العراقي MD at 8:24 EDT Tel [phone], Service support , Chest X-Ray 10/18/17 08:22 IMPRESSION: Stable examination demonstrating small left pleural effusion with underlying infiltration and early infiltrate and/or atelectasis at the right lung base. Electronically Signed: Edmar العراقي MD at 9:30 EDT Tel [phone], Service support , Laboratory Results - last 24 hr 10/19/17 05:35 Sodium 141 Potassium 3.8 Chloride 107 Carbon Dioxide 22.0 Anion Gap 12 BUN 42 H Creatinine 1.45 H Estim Creat Clear Calc 41.26 Est GFR (MDRD) Af Amer 60 Est GFR (MDRD) Non-Af 50 L BUN/Creatinine Ratio 29.0 H Glucose 137 H Calcium 9.2 Phosphorus 4.0 Magnesium 1.9 Consultations 10/11/17 20:16 Consult: Onc/Wound/adult daycare coordinator Routine Comment: wound care Reason for Consult:: wound care sternal wound, various wounds skin, groin, pressure sa Dr. Immanuel Payne and Dr. Wenceslao Jefferson-doctor of naturopathic medicine/pulmonary medicine Dr. Hali Crawley-nephrology Dr. Tyrel Quiles-infectious disease Operations: None Procedures: 2-D Echocardiogram - Mild concentric left ventricular hypertrophy, EF 65%, stage I diastolic dysfunction, Central line placement - R IJ, Intubation - 10/14 intubation and extubated 10/16 Summary of Care Provided: The patient is an 81-year-old male with a past medical history of thoracic aortic dissection who was seen at the [facility] in June 2017 and underwent repair of the aortic dissection, CABG ?1 vessel and repair of the aortic valve. 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 He required HD for a short time at [facility] and at [facility] but kidney function improved and HD was discontinued. After a 7 week stay at [facility] he to an LT[facility]. He subsequently was transferred to a halfway. On 10/11/2017 he was brought to the emergency room at [facility] from the [place] with confusion, diarrhea and cough. He had been started on Levaquin 500 mg daily on 10/10/2017 for suspected urinary tract infection. In the emergency room he was afebrile with stable vital signs. Lab was significant for an elevated white blood cell count at 17,000 with a left shift. Hemoglobin was 9.0 and the platelet count was 259,000. BUN was 82 and the creatinine was 1.68. Albumin was low at 2.3 and the Lactic acid was WNL. UA showed 5-10 white blood cells and was positive for nitrite. Chest x-ray showed a possible developing pneumonia in the right base. He was treated with vancomycin and Zosyn in the emergency room and transferred to PCU with diagnosis of HCAP/possible aspiration pneumonia. Legionella and streptococcal antigens in the urine were negative. The urine had no growth. Blood cultures had no growth. A stool was sent for C. difficile on 10/12/2017 and it was positive. IV Vanco was discontinued and he was kept on Zosyn and oral Vancomycin 4 X's a day. On 10/14 respiratory status declined significantly and he had acute respiratory arrest with hypoxemia. CXR was obtained and showed worsening of the disease since the previous study with increased PVC and BL pleural effusions. A BNP was 2404. An ABG on a 50% Ventimask showed a pH of 7.24, PCO2 of 42 and a PO2 of 65. He was delirious and not able to cooperate with BIPAP. His HR was in the 40's and the BP was low. He was transferred to the ICU and intubated with a 7.5 ETT. HGB was low at 7.5 and he was transfused with 2 units of PRBC's. He was started on Dopamine for hypotension and bradycardia. Creat had increased to 2.05 and I suspect this was related to hypotension and bradycardia with poor renal perfusion. Lopressor was discontinued and he was kept on amiodarone. A sputum was obtained and sent for Gram stain C&S. 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 He was given 1 dose of tobramycin and Dr. Quiles was consulted. The patient was doing better on 10 15 and 10 16 and he received no further tobramycin. Dr. Quiles recommended continue Zosyn and oral vancomycin. He was extubated on 10/16 and has done well since extubation. He was seen by Dr. Crawley for CLEM and diuresed. Serial BMPs have been followed and the creat at [facility] is stable at 1.45. He has had excellent urine output. He was transitioned to oral Lasxi 40 mg per GT daily. HGB is stable at 11.4 at [facility]. He has been having insomnia for the past few months and was started on Seroquel which has helped with sleep. On 10/18 he continued to have diarrhea which he has actually had for a few months. He was started on Questran and a probiotics and at the time of [facility] he is having less stools. He received 9 days of Zosyn and it was discontinued at [facility]. He will continue on Oral vanco with a stop date of 10/30. Vital signs at the time of discharge are temperature 97.3, pulse rate 71, blood pressure 128/70, respiratory rate 18 and he is 96-97% saturated on room air. General: - Very alert. Able to follow my commands. He appears in no distress and is not even tachypneic today HEENT: - - the pupils are unequal...the Left pupil is smaller. This is chronic Neck: Supple, Trachea Midline, no JVD, no cervical adenopathy Lungs: Clear to auscultation anteriorly and minimal crackles in the L base posteriorly. No wheeze, symmetric chest expansion Cardiovascular: Regular rate, Regular Rhythm, Normal S1, Normal S2, No rub noted, No Gallop Abdomen: Bowel Sounds Present. still having loose stool. Soft, Non-Distended, - - No guarding with palpation. He is pulling at his yu Extremities: No cyanosis, No edema, no heel ulcers, normal pulses peripherally Skin: No rashes Neurological: Cranial nerves II-XII grossly intact - no Facial asymmetry, Neuro grossly intact - Moving all extremities On 10/19/2017 he was transferred to the transitional care unit for PT/OT/ST prior to returning home. He will follow-up with Dr. Thor Jefferson for primary care post discharge from TCU. He will also follow-up with Dr. Hali Crawley in 2 weeks. Continue Seroquel for insomnia and also Questran 1 packet twice daily for diarrhea. He will also continue lactobacillus twice daily. This note was generated with [employer] dictation software. It may contain incorrect words, spelling, and punctuation that were not noted in checking the note before signing. Home Medications: Medications to take at Discharge Metoprolol Tartrate 25 mg GT BID 10/11/17 Acetaminophen Liquid [Tylenol Liquid] 650 mg GT Q4H PRN PRN udc 10/19/17 Albuterol Aerosols [Ventolin Aerosols] 2.5 mg INHALATION Q2H PRN PRN vial.neb. 10/19/17 Amiodarone HCl [Cordarone] 200 mg GT DAILY tablet 10/19/17 Aspirin [Aspirin, Baby] 81 mg GT DAILY@0800 tab.chew 10/19/17 Atorvastatin Calcium [Lipitor] 20 mg GT QHS tablet 10/19/17 Bisacodyl [Dulcolax] 10 mg PO DAILY PRN PRN tablet 10/19/17 Cholestyramine (with Sugar) [Cholestyramine Packet] 4 gm PO BID #1 powd.pack 10/19/17 Famotidine [Pepcid] 20 mg GT DAILY tablet 10/19/17 Furosemide 40 mg GT DAILY #1 tablet 10/19/17 Heparin Injection 5,000 units SC BID syringe 10/19/17 Lactobacillus Acidophilus [Acidophilus] 1 tablet PO BID tablet 10/19/17 Magnesium Hydroxide [Milk Of Magnesia] 30 ml GT DAILY PRN udc 10/19/17 Nepro Tube Feed [Nepro Carb Steady] 240 ml GT 5X/DAY liquid 10/19/17 Potassium Chloride 20 meq GT DAILY #0 10/19/17 Quetiapine Fumarate [Seroquel] 25 mg GT QHS tablet 10/19/17 Vancomcyin 125 MG/ 5 ML Susp [Vancomycin 125mg/5mL Susp] 125 mg GT Q6 #42 po.syringe 10/19/17 Following Prescrptions Were Given to Patient: Furosemide 40 mg GT DAILY #1 tablet Cholestyramine (with Sugar) [Cholestyramine Packet] 4 gm PO BID #1 powd.pack Primary Care Physician: Thor Jefferson DO [Primary Care Provider] - Please follow up with your Primary Care Physician in: following DC from TCU Please Follow Up With: Hali Crawley DO When: 2 weeks Disposition: Alf facility Minutes spent on discharge:: 45 Patient Condition:: Stable Medical Necessity - Tobacco Use Smoking Status: Former smoker Meaningful Use Info Meaningful Use Diagnoses (Choose all that apply): None applicable Code Visit Inpatient E&M: 79499 Disch Hosp
--- NOTE | 2017-10-19 15:24 | DS.PCM_ITS ---
Discharge Date and Diagnosis - Problem List Patient Problems: Active and Suspected Problems (Last Updated 06/20/17 @ 14:47 by Whit Wilson) Pneumonia (Acute) vs HCAP SIRS (systemic inflammatory response syndrome) (Acute) Acute respiratory failure with hypoxemia (Acute) Aspiration pneumonia (Acute) Acute renal failure superimposed on stage 3 chronic kidney disease (Acute) Severe anemia (Acute) Hypovolemic shock (Acute) Severe sepsis (Acute) secondary to C. DIFF Hypophosphatemia (Acute) Clostridium difficile enterocolitis (Acute) Date of Admission: 10/11/17 Date of Discharge: 10/19/17 - Primary Discharge Diagnosis Active and Suspected Problems (Last Updated 06/20/17 @ 14:47 by Whit Wilson) Acute respiratory failure with hypoxemia (Acute) - requiring intubation Pneumonia (Acute) - suspect aspiration Clostridium difficile enterocolitis (Acute) Severe sepsis (Acute) secondary to C. 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) CABG x 1 vessel at [facility] with AV repair and repair of aortic dissection in June 2017 Cerebrovascular disease (Chronic) Concentric ventricular hypertrophy (Chronic)-mild, with an EF of 65% Diastolic dysfunction (Chronic) -stage I Dysphagia (Chronic) Paroxysmal atrial fibrillation (Chronic) Type 2 diabetes mellitus without complications (Chronic) - not requiring any medication Hyperlipidemia (Chronic) Hypertension (Chronic) Hospital Course and Treatment Imaging Results: Clinical Impression(s) from Imaging Studies Chest X-Ray 10/11/17 16:20 IMPRESSION: Atelectatic versus chronic versus early infiltrate at the right lung base/costophrenic angle. Diffuse interstitial changes. Pleural thickening on the left/effusion not excluded. Mild cardiomegaly status post prior midline sternotomy. Marked atherosclerotic changes of the thoracic aorta with a potential aneurysmal dilatation. Electronically Signed: Tatiana Shay MD at 17:13 EDT , Service support , Renal Ultrasound 10/12/17 14:13 IMPRESSION: Normal ultrasound of the kidneys and urinary bladder. Electronically Signed: Ray Dudley, at 18:17 EDT Tel , Service support , Chest CT 10/13/17 07:18 IMPRESSION: Small left pleural effusion with consolidation in the left lower lobe and infiltrates in the left upper lobe and lingular segment of the left upper lobe. Interstitial infiltrate in the right lower lobe with a tiny pleural effusion. Electronically Signed: Edmar العراقي MD at 8:43 EDT Tel [phone], Service support , Chest X-Ray 10/14/17 09:45 IMPRESSION: Worsening appearance of the lungs since the previous study, there is now diffuse interstitial edema with likely superimposed left upper lobe pneumonia. Follow-up recommended to assure resolution Remote CABG Degenerative bony changes Electronically Signed: Ino Núñez MD at 11:01 EDT , Service support , Chest X-Ray 10/14/17 14:25 IMPRESSION: The tip of the endotracheal tube is about 4.7 cm above the rigoberto. There is mild enlargement of the cardiac silhouette with mild edema. Vascularity is improved compared to the prior study. There is a small pleural effusion on the right and a moderate pleural effusion on the left. There is diffuse fibrosis. There is probable compressive atelectasis in the mid and lower left lung. Electronically Signed: Aliza Cantrell MD at 20:52 EDT Tel Direct: [phone], Service support , Brain CT 10/14/17 19:10 IMPRESSION: No acute intracranial abnormality. Chronic ischemic and atrophic changes. Electronically Signed: Ray Gonzalesmeggan, at 20:10 EDT Tel , Service support , Chest X-Ray 10/14/17 23:35 IMPRESSION: Abnormal position of the central venous line is seen on the right side its tip is coiled in the upper part of the chest. Electronically Signed: Bernardino Johnston MD at 0:34 EDT Tel , Service support , Chest X-Ray 10/15/17 04:20 IMPRESSION: Abnormal position of the central venous line is seen on the right side its tip is coiled in the upper part of the chest. N.B. : The above information has been verbally conveyed by Bernardino Johnston MD to Dr Dai, Referring Physician, on 10/15/2017 09:27:43 (ET). Electronically Signed: Bernardino Johnston MD at 9:17 EDT Tel , Service support , N.B. : The above information has been verbally conveyed by Bernardino Johnston MD to Dr Dai, Referring Physician, on 10/15/2017 09:27:43 (ET). Chest X-Ray 10/16/17 05:55 IMPRESSION: Stable pleural parenchymal changes at the left lung base with increased markings at the right lung base. The endotracheal tube is in good position. Electronically Signed: Edmar العراقي MD at 8:24 EDT Tel [phone], Service support , Chest X-Ray 10/18/17 08:22 IMPRESSION: Stable examination demonstrating small left pleural effusion with underlying infiltration and early infiltrate and/or atelectasis at the right lung base. Electronically Signed: Edmar العراقي MD at 9:30 EDT Tel [phone], Service support , Laboratory Results - last 24 hr 10/19/17 05:35 Sodium 141 Potassium 3.8 Chloride 107 Carbon Dioxide 22.0 Anion Gap 12 BUN 42 H Creatinine 1.45 H Estim Creat Clear Calc 41.26 Est GFR (MDRD) Af Amer 60 Est GFR (MDRD) Non-Af 50 L BUN/Creatinine Ratio 29.0 H Glucose 137 H Calcium 9.2 Phosphorus 4.0 Magnesium 1.9 Consultations 10/11/17 20:16 Consult: Onc/Wound/fountain pen turner Routine Comment: wound care Reason for Consult:: wound care sternal wound, various wounds skin, groin, pressure sa Dr. Immanuel Payne and Dr. Wenceslao Jefferson-deicer repairer pneumatic/pulmonary medicine Dr. Hali Crawley-nephrology Dr. Tyrel Quiles-infectious disease Operations: None Procedures: 2-D Echocardiogram - Mild concentric left ventricular hypertrophy, EF 65%, stage I diastolic dysfunction, Central line placement - R IJ, Intubation - 10/14 intubation and extubated 10/16 Summary of Care Provided: The patient is an 81-year-old male with a past medical history of thoracic aortic dissection who was seen at the [facility] in June 2017 and underwent repair of the aortic dissection, CABG ?1 vessel and repair of the aortic valve. 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 He required HD for a short time at [facility] and at [facility] but kidney function improved and HD was discontinued. After a 7 week stay at [facility] he to an LTAC. He subsequently was transferred to a group home. On 10/11/2017 he was brought to the emergency room at [facility] from the [place] with confusion, diarrhea and cough. He had been started on Levaquin 500 mg daily on 10/10/2017 for suspected urinary tract infection. In the emergency room he was afebrile with stable vital signs. Lab was significant for an elevated white blood cell count at 17,000 with a left shift. Hemoglobin was 9.0 and the platelet count was 259,000. BUN was 82 and the creatinine was 1.68. Albumin was low at 2.3 and the Lactic acid was WNL. UA showed 5-10 white blood cells and was positive for nitrite. Chest x-ray showed a possible developing pneumonia in the right base. He was treated with vancomycin and Zosyn in the emergency room and transferred to PCU with diagnosis of HCAP/possible aspiration pneumonia. Legionella and streptococcal antigens in the urine were negative. The urine had no growth. Blood cultures had no growth. A stool was sent for C. difficile on 10/12/2017 and it was positive. IV Vanco was discontinued and he was kept on Zosyn and oral Vancomycin 4 X's a day. On 10/14 respiratory status declined significantly and he had acute respiratory arrest with hypoxemia. CXR was obtained and showed worsening of the disease since the previous study with increased PVC and BL pleural effusions. A BNP was 2404. An ABG on a 50% Ventimask showed a pH of 7.24, PCO2 of 42 and a PO2 of 65. He was delirious and not able to cooperate with BIPAP. His HR was in the 40's and the BP was low. He was transferred to the ICU and intubated with a 7.5 ETT. HGB was low at 7.5 and he was transfused with 2 units of PRBC's. He was started on Dopamine for hypotension and bradycardia. Creat had increased to 2.05 and I suspect this was related to hypotension and bradycardia with poor renal perfusion. Lopressor was discontinued and he was kept on amiodarone. A sputum was obtained and sent for Gram stain C&S. 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 He was given 1 dose of tobramycin and Dr. Quiles was consulted. The patient was doing better on 10 15 and 10 16 and he received no further tobramycin. Dr. Quiles recommended continue Zosyn and oral vancomycin. He was extubated on 10/16 and has done well since extubation. He was seen by Dr. Crawley for CLEM and diuresed. Serial BMPs have been followed and the creat at IL is stable at 1.45. He has had excellent urine output. He was transitioned to oral Lasxi 40 mg per GT daily. HGB is stable at 11.4 at IL. He has been having insomnia for the past few months and was started on Seroquel which has helped with sleep. On 10/18 he continued to have diarrhea which he has actually had for a few months. He was started on Questran and a probiotics and at the time of IL he is having less stools. He received 9 days of Zosyn and it was discontinued at IL. He will continue on Oral vanco with a stop date of 10/30. Vital signs at the time of discharge are temperature 97.3, pulse rate 71, blood pressure 128/70, respiratory rate 18 and he is 96-97% saturated on room air. General: - Very alert. Able to follow my commands. He appears in no distress and is not even tachypneic today HEENT: - - the pupils are unequal...the Left pupil is smaller. This is chronic Neck: Supple, Trachea Midline, no JVD, no cervical adenopathy Lungs: Clear to auscultation anteriorly and minimal crackles in the L base posteriorly. No wheeze, symmetric chest expansion Cardiovascular: Regular rate, Regular Rhythm, Normal S1, Normal S2, No rub noted , No Gallop Abdomen: Bowel Sounds Present. still having loose stool. Soft, Non-Distended, - - No guarding with palpation. He is pulling at his yu Extremities: No cyanosis, No edema, no heel ulcers, normal pulses peripherally Skin: No rashes Neurological: Cranial nerves II-XII grossly intact - no Facial asymmetry, Neuro grossly intact - Moving all extremities On 10/19/2017 he was transferred to the transitional care unit for PT/OT/ST prior to returning home. He will follow-up with Dr. Thor Jefferson for primary care post discharge from TCU. He will also follow-up with Dr. Hali Crawley in 2 weeks. Continue Seroquel for insomnia and also Questran 1 packet twice daily for diarrhea. He will also continue lactobacillus twice daily. This note was generated with [employer] dictation software. It may contain incorrect words, spelling, and punctuation that were not noted in checking the note before signing. Home Medications: Medications to take at Discharge Metoprolol Tartrate 25 mg GT BID 10/11/17 Acetaminophen Liquid [Tylenol Liquid] 650 mg GT Q4H PRN PRN udc 10/19/17 Albuterol Aerosols [Ventolin Aerosols] 2.5 mg INHALATION Q2H PRN PRN vial.neb. 10/19/17 Amiodarone HCl [Cordarone] 200 mg GT DAILY tablet 10/19/17 Aspirin [Aspirin, Baby] 81 mg GT DAILY@0800 tab.chew 10/19/17 Atorvastatin Calcium [Lipitor] 20 mg GT QHS tablet 10/19/17 Bisacodyl [Dulcolax] 10 mg PO DAILY PRN PRN tablet 10/19/17 Cholestyramine (with Sugar) [Cholestyramine Packet] 4 gm PO BID #1 powd.pack 06/26 Famotidine [Pepcid] 20 mg GT DAILY tablet 10/19/17 Furosemide 40 mg GT DAILY #1 tablet 10/19/17 Heparin Injection 5,000 units SC BID syringe 10/19/17 Lactobacillus Acidophilus [Acidophilus] 1 tablet PO BID tablet 10/19/17 Magnesium Hydroxide [Milk Of Magnesia] 30 ml GT DAILY PRN udc 10/19/17 Nepro Tube Feed [Nepro Carb Steady] 240 ml GT 5X/DAY liquid 10/19/17 Potassium Chloride 20 meq GT DAILY #0 10/19/17 Quetiapine Fumarate [Seroquel] 25 mg GT QHS tablet 10/19/17 Vancomcyin 125 MG/ 5 ML Susp [Vancomycin 125mg/5mL Susp] 125 mg GT Q6 #42 po.syringe 10/19/17 Following Prescrptions Were Given to Patient: Furosemide 40 mg GT DAILY #1 tablet Cholestyramine (with Sugar) [Cholestyramine Packet] 4 gm PO BID #1 powd.pack Primary Care Physician: Thor Jefferson DO [Primary Care Provider] - Please follow up with your Primary Care Physician in: following DC from TCU Please Follow Up With: Hali Crawley DO When: 2 weeks Disposition: Detention facility Minutes spent on discharge:: 45 Patient Condition:: Stable Medical Necessity - Tobacco Use Smoking Status: Former smoker Meaningful Use Info Meaningful Use Diagnoses (Choose all that apply): None applicable Code Visit Inpatient E&M: 21077 Disch Hosp
--- NOTE | 2017-10-19 15:29 | CASEMGMT ---
Patient is being d/c to TCU. Family is present and they are aware. Plan: [facility] TCU under skilled level of care. Michelle MORENO MSW
== END 2017-10-19 17:38 | disposition skilled nursing facility (03) | DRG 871 ==
LOC: ED 16:49 → PCU 19:30 → ICU 10-17 07:17 → PCU 10-17 07:17 → ICU 10-17 08:58 → PCU 10-17 10:21
PROVIDERS: Internal Medicine Critical Care Medicine; Internal Medicine Infectious Disease; Internal Medicine Nephrology; Physician Assistant; Admitting Provider Internal Medicine; Emergency Provider Emergency Medicine; Family Provider Family Medicine; PCP Family Medicine; Visit Provider Internal Medicine
DX: A41.89 Other specified sepsis (principal); J96.01 Acute respiratory failure with hypoxia; R57.1 Hypovolemic shock; J69.0 Pneumonitis due to inhalation of food and vomit; G93.41 Metabolic encephalopathy; B18.1 Chronic viral hepatitis B without delta-agent; A04.72 Enterocolitis due to Clostridium difficile, not specified as recurrent; N17.9 Acute kidney failure, unspecified; E44.0 Moderate protein-calorie malnutrition; N39.0 Urinary tract infection, site not specified; N40.0 Benign prostatic hyperplasia without lower urinary tract symptoms; R65.20 Severe sepsis without septic shock; I25.10 Atherosclerotic heart disease of native coronary artery without angina pectoris; Z95.1 Presence of aortocoronary bypass graft; E78.5 Hyperlipidemia, unspecified; R13.12 Dysphagia, oropharyngeal phase; Z93.1 Gastrostomy status; Z87.891 Personal history of nicotine dependence; E87.5 Hyperkalemia; E87.6 Hypokalemia; E83.39 Other disorders of phosphorus metabolism; H57.02 Anisocoria; I48.0 Paroxysmal atrial fibrillation; I12.9 Hypertensive chronic kidney disease with stage 1 through stage 4 chronic kidney disease, or unspecified chronic kidney disease; E11.22 Type 2 diabetes mellitus with diabetic chronic kidney disease; N18.3 Chronic kidney disease, stage 3 (moderate); Z68.20 Body mass index [BMI] 20.0-20.9, adult; D64.9 Anemia, unspecified
CPT/HCPCS: 31500; 31720; 36415; 36600; 70450; 71045; 71046; 71250; 76770; 80048; 80053; 80061; 80069; 80200; 81001; 82274; 82550; 82575; 82728; 82803; 82962; 83540; 83550; 83605; 83735; 83880; 84100; 84156; 84439; 84443; 84478; 85025; 85027; 85610; 85730; 86850; 86900; 86920; 87040; 87070; 87077; 87086; 87186; 87205; 87449; 87493; 87641; 92507; 92526; 93005; 93306; 94002; 94003; 94640; 94660; 94667; 94668; 95831; 97110; 97140; 97163; 97167; 97530; 97802; 97803; 99251; 99285; J7030; J7040; J7050; P9016; Q9957; A4216; C1751; C8929; G0463; J1940; J2405

== ENCOUNTER 2017-10-19 17:45 | Inpatient (IN) | payer MEDICARE, SELFPAY ==
--- NOTE | 2017-10-19 17:45 | NURSING ---
pt arrived from PCU via bed, place in contact/droplet precautions on arrival.
[2017-10-19 18:01] VITALS: BP 119/75; PULSE 63; RESP 20; TEMP 36.8; O2SAT 95
[2017-10-19 18:07] VITALS: BMI 21.7
[2017-10-19 18:15] VITALS: BMI 21.7
[2017-10-19] MEDS: Menthol/Lanolin/Calamine/Znox 113 GM Tube 1 APPLIC TOPICAL (22:09)
[2017-10-19] MEDS: QUEtiapine 25 MG Tablet GT (22:10)
[2017-10-19] MEDS: Atorvastatin Calcium 20 MG Tablet GT (22:10)
--- NOTE | 2017-10-19 22:31 | PCM.HP.STD ---
Problem List (1) Encephalopathy Status: Acute (2) Weakness Status: Acute (3) HCAP (healthcare-associated pneumonia) Status: Acute (4) Acute on chronic diastolic heart failure Status: Acute (5) Atrial fibrillation Status: Chronic (6) Clostridium difficile diarrhea Status: Acute (7) Urinary retention Status: Chronic (8) Chronic hepatitis B Status: Chronic (9) BPH (benign prostatic hyperplasia) Status: Chronic (10) Acute on chronic kidney failure Status: Acute (11) GERD (gastroesophageal reflux disease) Status: Chronic (12) Insomnia Status: Chronic (13) Diabetes mellitus Status: Chronic (14) Burkholderia cepacia infection Status: Acute (15) UTI (urinary tract infection) Status: Acute (16) Coronary artery disease Status: Chronic (17) Aortic dissection, thoracic Status: Chronic Comment: repaired at [facility] in june of 2017 (18) Dysphagia Status: Chronic (19) Hyperlipidemia Status: Chronic (20) Hypertension Status: Chronic History of Present Illness Date of Admission: 10/19/17 Chief Complaint: Here for rehabilitation, strengthening, speech therapy to advance diet, prior to discharge home with family. The patient is a 81 year old Male with below past medical history presented to [facility] 10/11/2017 from [facility] in [place]. Aortic dissection repair at [facility] 06/2017. Increasing weakness, confusion, fever 101, cough. UTI treated with Levaquin. EKG sinus rhythm, WBC 17, BUN 82, Cr 1.68. Lactic Acid normal, UA consistent with UTI. Chest X-ray chronic interstitial changes, right lung base infiltrate. IV Zosyn, Vancomycin, IV fluids given. 10/11/2017 Admit to Hospital. Continue Zosyn, Vancomycin, IV fluids, tube feeding. Urinary antigens sent. Pancultured. 10/12/2017 Renal ultrasound normal. 10/13/2017 CT of chest showed bilateral pneumonia. 10/14/2017 CT brain chronic ischemic, atrophic changes. 10/16/2017 Echo EF 65%. Stage 1 diastolic dysfunction. Legionella, S. Pneumo antigens negative. Urine, blood cultures negative. Stool positive for Clostridium difficile, treated with oral Vancomycin. IV Zosyn continued for HCAP. Respiratory distress, BNP 2404, requiring intubation. Transfused 2 units Packed Red Blood Cells. Dopamine for hypotension. Lopressor stopped due to bradycardia, Amiodarone continued for atrial fibrillation. 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 1 dose Tobramycin given, patient improved. Dr. Quiles recommended IV Zosyn, oral Vancomycin. 10/16/[address] Crawley diuresed with Lasix, excellent results. Seroquel added for insomnia. Zosyn stopped, done with antibiotic course. Oral Vancomycin thru 10/30/2017 for C. Diff, including Lactobacillus. Questran 1 packet BID. 10/19/2017 Admit to TCU for rehabilitation, strengthening, speech therapy to advance diet, prior to discharge home with family. 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) CABG x 1 vessel at [facility] with AV repair and repair of aortic dissection H/O aortic valve repair (Chronic) as a result of a thoracic aortic dissection Aortic dissection, thoracic (Chronic) repaired at [facility] main campus in june of 2017 Cerebrovascular disease (Chronic) Ventricular hypertrophy (Chronic) EF of 65% Diastolic dysfunction (Chronic) stage 1 Dysphagia (Chronic) Atrial fibrillation (Chronic) Urinary retention (Chronic) Chronic hepatitis B (Chronic) BPH (benign prostatic hyperplasia) (Chronic) GERD (gastroesophageal reflux disease) (Chronic) Insomnia (Chronic) Diabetes mellitus (Chronic) Paroxysmal atrial fibrillation (Chronic) Type 2 diabetes mellitus without complications (Chronic) Hyperlipidemia (Chronic) Hypertension (Chronic) Allergies No Known Allergies Allergy (Unverified 06/20/17 14:37) Home Medications: Ambulatory Orders Medication Instructions Recorded Metoprolol Tartrate 25 mg GT BID 10/11/17 Acetaminophen Liquid [Tylenol 650 mg GT Q4H PRN PRN udc 10/19/17 Liquid] Albuterol Aerosols [Ventolin 2.5 mg INHALATION Q2H PRN PRN 10/19/17 Aerosols] vial.neb. Amiodarone HCl [Cordarone] 200 mg GT DAILY 10/19/17 Aspirin [Aspirin, Baby] 81 mg GT DAILY@0800 10/19/17 Atorvastatin Calcium [Lipitor] 20 mg GT QHS 10/19/17 Bisacodyl [Dulcolax] 10 mg PO DAILY PRN PRN tablet 10/19/17 Cholestyramine (with Sugar) 4 gm PO BID 10/19/17 [Cholestyramine Packet] Famotidine [Pepcid] 20 mg GT DAILY 10/19/17 Furosemide 40 mg GT DAILY 10/19/17 Heparin Injection 5,000 units SC BID 10/19/17 Lactobacillus Acidophilus 1 tablet PO BID 10/19/17 [Acidophilus] Magnesium Hydroxide [Milk Of 30 ml GT DAILY PRN udc 10/19/17 Magnesia] Nepro Tube Feed [Nepro Carb Steady] 240 ml GT 5X/DAY 10/19/17 Potassium Chloride 20 meq GT DAILY #0 10/19/17 Quetiapine Fumarate [Seroquel] 25 mg GT QHS 10/19/17 Vancomcyin 125 MG/ 5 ML Susp 125 mg GT Q6 10/19/17 [Vancomycin 125mg/5mL Susp] Surgical History: coronary bypass surgery - x 1., TURP, - - Thoracic aortic dissection repair, PEG tube, Aortic valve repair. Psychiatric History: No pertinent psych hx Lives: With Family Smoking Status: Former smoker Tobacco Use: Non-smoker Alcohol: None Drugs: None - *Family History Maternal History Items: No pertinent history Paternal History Items: No pertinent history Sibling History Items: Cancer - liver in brother Review of Systems Constitutional: Denies: Chills, Fever, Weight Change HEENT: Denies: Head Aches, Sinus Congestion, Sinus Drainage Cardiovascular: Denies: Chest Pain, Palpitations Respiratory: Denies: Cough, Shortness of breath at rest, Sputum production Gastrointestinal: Denies: Abdominal Pain, Nausea, Vomiting Genitourinary: Denies: Dysuria Musculoskeletal: Denies: Joint Pain, Joint Tenderness Skin: Denies: Rash, Wounds Neurological: Denies: Numbness, Tingling, Focal weakness Psychiatric: Denies: Anxiety, Depression, Homicidal Ideations, Suicidal Ideations Hematologic/ Lymphatic: Denies: Easy Bruising, Easy Bleeding VTE Information - Inpt Only VTE Present on Admission: No VTE Mechan Device Prophylaxis: Knee High JEFF Hose VTE Pharm Prophylaxis ordered?: Yes Patient Problems: Active and Suspected Problems (Last Updated 06/20/17 @ 14:47 by Whit Wilson) Encephalopathy (Acute) Weakness (Acute) HCAP (healthcare-associated pneumonia) (Acute) Acute on chronic diastolic heart failure (Acute) Clostridium difficile diarrhea (Acute) Acute on chronic kidney failure (Acute) Burkholderia cepacia infection (Acute) - Physical Exam General: Alert, Oriented x3, Cooperative HEENT: Atraumatic, PERRLA, EOMI, Normocephalic Neck: Supple, No JVD, Negative Carotid Bruits Lungs: Clear to auscultation, Normal air movement Cardiovascular: Regular rate, No murmurs Abdomen: Bowel Sounds Present, Soft, Non Tender, - - PEG tube. Extremities: No edema, Capillary Refill Less than 3 Seconds Skin: No rashes, No breakdown Musculoskeletal: No Tenderness to Palpation of Joints or Extremities Neurological: Cranial nerves II-XII grossly intact Psych/Mental Status: Normal Affect, Appropriate Vital Signs Temp Pulse Resp BP Pulse Ox 98.3 F 63 20 H 119/75 95 10/19/17 18:01 10/19/17 18:01 10/19/17 18:01 10/19/17 18:01 10/19/17 18:01 Oxygen Delivery Method Room Air Weight: 68.5 kg Body Mass Index (BMI) 21.7 Assessment/Plan Active and Suspected Problems (Last Updated 06/20/17 @ 14:47 by Whit Wilson) Encephalopathy (Acute) Weakness (Acute) HCAP (healthcare-associated pneumonia) (Acute) Acute on chronic diastolic heart failure (Acute) Clostridium difficile diarrhea (Acute) Acute on chronic kidney failure (Acute) Burkholderia cepacia infection (Acute) 81 year old male with below past medical history significant for recent thoracic aortic dissection repair, hospitalized for change in mental status secondary to healthcare associated pneumonia, complicated by clostridium difficile colitis, acute on chronic diastolic heart failure requiring intubation, anemia requiring transfusion, admitted to TCU with debility, here for rehabilitation, strengthening, advancement of diet per speech therapy, prior to discharge home with family. Debility - PT/OT. Dysphagia - ST to advance diet, currently NPO, tubefed thru PEG. Pain - Tylenol 650MG Q4H PRN mild pain. Bowel - Dulcolax 10MG daily PRN, resident has chronic diarrhea. Pneumonia vaccination - Administer Prevnar 13 and/or Pneumovax 23 as necessary. DVT prophylaxis - Lovenox 30MG SC daily. Shortness of breath - Albuterol 2.5MG Q2H PRN. Atrial fibrillation - Amiodarone 200MG daily, anticoagulation held due to recent anemia requiring transfusion. Coronary Artery disease - Metoprolol 25MG BID, baby aspirin 81MG daily. Hyperlipidemia - Atorvastatin 20MG QHS. Chronic diarrhea - Questran 4G BID. GERD - Famotidine 20MG daily. Acute on chronic diastolic heart failure - Metoprolol 25MG BID, Lasix 40MG daily, monitor renal function. C. Difficile - Vancomycin 125MG QID thru 10/30/2017, Lactobacillus 1 tablet BID. Skin irritation - Calmoseptine TID buttocks. Nutrition - Currently NPO, Nepro 240MG 5x/day. Hypokalemia - KCL 25MEQ daily. Insomnia - Seroquel 25MG QHS x 7 days, then 12.5MG QHS x 7 days, then stop (Gradual Dose Reduction).
--- NOTE | 2017-10-19 22:43 | HP.PCM_ITS ---
Problem List (1) Encephalopathy Status: Acute (2) Weakness Status: Acute (3) HCAP (healthcare-associated pneumonia) Status: Acute (4) Acute on chronic diastolic heart failure Status: Acute (5) Atrial fibrillation Status: Chronic (6) Clostridium difficile diarrhea Status: Acute (7) Urinary retention Status: Chronic (8) Chronic hepatitis B Status: Chronic (9) BPH (benign prostatic hyperplasia) Status: Chronic (10) Acute on chronic kidney failure Status: Acute (11) GERD (gastroesophageal reflux disease) Status: Chronic (12) Insomnia Status: Chronic (13) Diabetes mellitus Status: Chronic (14) Burkholderia cepacia infection Status: Acute (15) UTI (urinary tract infection) Status: Acute (16) Coronary artery disease Status: Chronic (17) Aortic dissection, thoracic Status: Chronic Comment: repaired at [facility] in june of 2017 (18) Dysphagia Status: Chronic (19) Hyperlipidemia Status: Chronic (20) Hypertension Status: Chronic History of Present Illness Date of Admission: 10/19/17 Chief Complaint: Here for rehabilitation, strengthening, speech therapy to advance diet, prior to discharge home with family. The patient is a 81 year old Male with below past medical history presented to [facility] Emergency Department 10/11/2017 from [facility] in [place]. Aortic dissection repair at [facility] 06/2017. Increasing weakness, confusion, fever 101, cough. UTI treated with Levaquin. EKG sinus rhythm, WBC 17, BUN 82, Cr 1.68. Lactic Acid normal, UA consistent with UTI. Chest X-ray chronic interstitial changes, right lung base infiltrate. IV Zosyn, Vancomycin, IV fluids given. 10/11/2017 Admit to Hospital. Continue Zosyn, Vancomycin, IV fluids, tube feeding. Urinary antigens sent. Pancultured. 10/12/2017 Renal ultrasound normal. 10/13/2017 CT of chest showed bilateral pneumonia. 10/14/2017 CT brain chronic ischemic, atrophic changes. 10/16/2017 Echo EF 65%. Stage 1 diastolic dysfunction. Legionella, S. Pneumo antigens negative. Urine, blood cultures negative. Stool positive for Clostridium difficile, treated with oral Vancomycin. IV Zosyn continued for HCAP. Respiratory distress, BNP 2404, requiring intubation. Transfused 2 units Packed Red Blood Cells. Dopamine for hypotension. Lopressor stopped due to bradycardia, Amiodarone continued for atrial fibrillation. 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 1 dose Tobramycin given, patient improved. Dr. Quiles recommended IV Zosyn, oral Vancomycin. 10/16/[address] Crawley diuresed with Lasix, excellent results. Seroquel added for insomnia. Zosyn stopped, done with antibiotic course. Oral Vancomycin thru 10/30/2017 for C. Diff, including Lactobacillus. Questran 1 packet BID. 10/19/2017 Admit to TCU for rehabilitation, strengthening, speech therapy to advance diet, prior to discharge home with family. 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) CABG x 1 vessel at [facility] with AV repair and repair of aortic dissection H/O aortic valve repair (Chronic) as a result of a thoracic aortic dissection Aortic dissection, thoracic (Chronic) repaired at [facility] main campus in june of 2017 Cerebrovascular disease (Chronic) Ventricular hypertrophy (Chronic) EF of 65% Diastolic dysfunction (Chronic) stage 1 Dysphagia (Chronic) Atrial fibrillation (Chronic) Urinary retention (Chronic) Chronic hepatitis B (Chronic) BPH (benign prostatic hyperplasia) (Chronic) GERD (gastroesophageal reflux disease) (Chronic) Insomnia (Chronic) Diabetes mellitus (Chronic) Paroxysmal atrial fibrillation (Chronic) Type 2 diabetes mellitus without complications (Chronic) Hyperlipidemia (Chronic) Hypertension (Chronic) Allergies No Known Allergies Allergy (Unverified 06/20/17 14:37) Home Medications: Ambulatory Orders Medication Instructions Recorded Metoprolol Tartrate 25 mg GT BID 10/11/17 Acetaminophen Liquid [Tylenol 650 mg GT Q4H PRN PRN udc 10/19/17 Liquid] Albuterol Aerosols [Ventolin 2.5 mg INHALATION Q2H PRN PRN 10/19/17 Aerosols] vial.neb. Amiodarone HCl [Cordarone] 200 mg GT DAILY 10/19/17 Aspirin [Aspirin, Baby] 81 mg GT DAILY@0800 10/19/17 Atorvastatin Calcium [Lipitor] 20 mg GT QHS 10/19/17 Bisacodyl [Dulcolax] 10 mg PO DAILY PRN PRN tablet 10/19/17 Cholestyramine (with Sugar) 4 gm PO BID 10/19/17 [Cholestyramine Packet] Famotidine [Pepcid] 20 mg GT DAILY 10/19/17 Furosemide 40 mg GT DAILY 10/19/17 Heparin Injection 5,000 units SC BID 10/19/17 Lactobacillus Acidophilus 1 tablet PO BID 10/19/17 [Acidophilus] Magnesium Hydroxide [Milk Of 30 ml GT DAILY PRN udc 10/19/17 Magnesia] Nepro Tube Feed [Nepro Carb Steady] 240 ml GT 5X/DAY 10/19/17 Potassium Chloride 20 meq GT DAILY #0 10/19/17 Quetiapine Fumarate [Seroquel] 25 mg GT QHS 10/19/17 Vancomcyin 125 MG/ 5 ML Susp 125 mg GT Q6 10/19/17 [Vancomycin 125mg/5mL Susp] Surgical History: coronary bypass surgery - x 1., TURP, - - Thoracic aortic dissection repair, PEG tube, Aortic valve repair. Psychiatric History: No pertinent psych hx Lives: With Family Smoking Status: Former smoker Tobacco Use: Non-smoker Alcohol: None Drugs: None - *Family History Maternal History Items: No pertinent history Paternal History Items: No pertinent history Sibling History Items: Cancer - liver in brother Review of Systems Constitutional: Denies: Chills, Fever, Weight Change HEENT: Denies: Head Aches, Sinus Congestion, Sinus Drainage Cardiovascular: Denies: Chest Pain, Palpitations Respiratory: Denies: Cough, Shortness of breath at rest, Sputum production Gastrointestinal: Denies: Abdominal Pain, Nausea, Vomiting Genitourinary: Denies: Dysuria Musculoskeletal: Denies: Joint Pain, Joint Tenderness Skin: Denies: Rash, Wounds Neurological: Denies: Numbness, Tingling, Focal weakness Psychiatric: Denies: Anxiety, Depression, Homicidal Ideations, Suicidal Ideations Hematologic/ Lymphatic: Denies: Easy Bruising, Easy Bleeding VTE Information - Inpt Only VTE Present on Admission: No VTE Mechan Device Prophylaxis: Knee High JEFF Hose VTE Pharm Prophylaxis ordered?: Yes Patient Problems: Active and Suspected Problems (Last Updated 06/20/17 @ 14:47 by Whit Wilson) Encephalopathy (Acute) Weakness (Acute) HCAP (healthcare-associated pneumonia) (Acute) Acute on chronic diastolic heart failure (Acute) Clostridium difficile diarrhea (Acute) Acute on chronic kidney failure (Acute) Burkholderia cepacia infection (Acute) - Physical Exam General: Alert, Oriented x3, Cooperative HEENT: Atraumatic, PERRLA, EOMI, Normocephalic Neck: Supple, No JVD, Negative Carotid Bruits Lungs: Clear to auscultation, Normal air movement Cardiovascular: Regular rate, No murmurs Abdomen: Bowel Sounds Present, Soft, Non Tender, - - PEG tube. Extremities: No edema, Capillary Refill Less than 3 Seconds Skin: No rashes, No breakdown Musculoskeletal: No Tenderness to Palpation of Joints or Extremities Neurological: Cranial nerves II-XII grossly intact Psych/Mental Status: Normal Affect, Appropriate Vital Signs Temp Pulse Resp BP Pulse Ox 98.3 F 63 20 H 119/75 95 10/19/17 18:01 10/19/17 18:01 10/19/17 18:01 10/19/17 18:01 10/19/17 18:01 Oxygen Delivery Method Room Air Weight: 68.5 kg Body Mass Index (BMI) 21.7 Assessment/Plan Active and Suspected Problems (Last Updated 06/20/17 @ 14:47 by Whit Wilson) Encephalopathy (Acute) Weakness (Acute) HCAP (healthcare-associated pneumonia) (Acute) Acute on chronic diastolic heart failure (Acute) Clostridium difficile diarrhea (Acute) Acute on chronic kidney failure (Acute) Burkholderia cepacia infection (Acute) 81 year old male with below past medical history significant for recent thoracic aortic dissection repair, hospitalized for change in mental status secondary to healthcare associated pneumonia, complicated by clostridium difficile colitis, acute on chronic diastolic heart failure requiring intubation , anemia requiring transfusion, admitted to TCU with debility, here for rehabilitation, strengthening, advancement of diet per speech therapy, prior to discharge home with family. * Debility - PT/OT. * Dysphagia - ST to advance diet, currently NPO, tubefed thru PEG. * Pain - Tylenol 650MG Q4H PRN mild pain. * Bowel - Dulcolax 10MG daily PRN, resident has chronic diarrhea. * Pneumonia vaccination - Administer Prevnar 13 and/or Pneumovax 23 as necessary. * DVT prophylaxis - Lovenox 30MG SC daily. * Shortness of breath - Albuterol 2.5MG Q2H PRN. * Atrial fibrillation - Amiodarone 200MG daily, anticoagulation held due to recent anemia requiring transfusion. * Coronary Artery disease - Metoprolol 25MG BID, baby aspirin 81MG daily. * Hyperlipidemia - Atorvastatin 20MG QHS. * Chronic diarrhea - Questran 4G BID. * GERD - Famotidine 20MG daily. * Acute on chronic diastolic heart failure - Metoprolol 25MG BID, Lasix 40MG daily, monitor renal function. * C. Difficile - Vancomycin 125MG QID thru 10/30/2017, Lactobacillus 1 tablet BID. * Skin irritation - Calmoseptine TID buttocks. * Nutrition - Currently NPO, Nepro 240MG 5x/day. * Hypokalemia - KCL 25MEQ daily. * Insomnia - Seroquel 25MG QHS x 7 days, then 12.5MG QHS x 7 days, then stop ( Gradual Dose Reduction).
[2017-10-19] MEDS: NEPRO TUBE FEED 1,000 ML LIQUID 240 ML GT (22:45)
--- NOTE | 2017-10-19 23:21 | NURSING ---
One saline locked discontinued from Rt AC. ON saline lock removed from right FA. Both catheters intact. Pt tolerated well. Compression held for [address] Compress drsg remained in place.
--- NOTE | 2017-10-20 01:33 | NURSING ---
PATIENT REMAINS IN HIS ROOM THIS SHIFT. ON CONTACT ISOLATION PRECATIONS DUE TO CDIFF.
[2017-10-20] MEDS: Amiodarone 200 MG Tablet GT (05:48)
[2017-10-20] MEDS: Enoxaparin 30 MG/0.3 ML Syringe SC (05:48)
[2017-10-20] MEDS: Furosemide 40 MG Tablet GT (05:49)
[2017-10-20] MEDS: Famotidine 20 MG Tablet GT (05:49)
[2017-10-20] MEDS: Cholestyramine/Sucrose 4 GM/PACKET PO ×2 (05:49→18:33)
[2017-10-20 06:18] VITALS: BP 168/101; PULSE 78
[2017-10-20] MEDS: Metoprolol Tartrate 25 MG Tablet GT ×2 (06:18→18:33)
[2017-10-20] MEDS: Menthol/Lanolin/Calamine/Znox 113 GM Tube 1 APPLIC TOPICAL ×3 (06:20→22:40)
[2017-10-20] MEDS: NEPRO TUBE FEED 1,000 ML LIQUID 240 ML GT ×5 (06:21→23:53)
[2017-10-20] MEDS: Nystatin Powder 15gm Bottle 1 APPLIC TOPICAL ×2 (06:25→22:40)
[2017-10-20 06:50] VITALS: O2SAT 95
[2017-10-20 06:50] LABS: Bedside Glucose 101 mg/dL (70-110)
[2017-10-20 09:26] LABS: Absolute Lymphocyte Count 2.46 X10^3/ul (0.83-4.51); Absolute Neutrophil Count 7.6 X10^3/uL (2.0-7.7); Basophil# 0.06 X10^3/uL; Basophil% 0.5 % (0-1); Eosinophil# 0.82 X10^3/uL; Hematocrit 37.7 % (40-54); Hemoglobin 12.2 g/dl (13.0-16.5); Lymphocyte # 2.46 X10^3/ul (4.0); Lymphocyte % 21.1 % (19-41); Mean Corp Hgb Conc 32.4 g/gl (32-36); Mean Corpuscular Hgb 28.2 pg (27.0-32.0); Mean Corpuscular Volume 87.3 fL (80-94); Mean Platelet Vol. 9.1 fl (6.2-12.0); Monocyte# 0.54 X10^3/uL; Monocyte% 4.6 % (0-10); Neutrophil # 7.63 X10^3/uL (2.7-7.7); Neutrophil % 65.7 % (47-70); Platelet Count 331 K/mm3 (150-450); RBC Distribution Width CV 16.5 % (11.6-14.6); RBC Distribution Width SD 52.2 fl (35.1-43.9); Red Blood Count 4.32 M/mm3 (4.6-6.2); White Blood Count 11.6 K/mm3 (4.4-11.0)
[2017-10-20 09:27] LABS: POSITIVE COUNT NO; POSITIVE DIFFERENTIAL NO; POSITIVE MORPHOLOGY NO
[2017-10-20] MEDS: Aspirin 81 MG TAB.CHEW GT (09:47)
[2017-10-20 09:48] LABS: ALB/GLOB Ratio 0.4 RATIO (0.9-2.4); AST(SGOT) 34 U/L (15-37); Alanine Aminotransfer ALT/SGPT 36 U/L (16-61); Albumin, Serum 2.4 g/dL (3.2-5.0); Alkaline Phosphatase 164 U/L (45-117); Anion Gap 8 (5-15); BUN 43 mg/dL (7-18); BUN/Creat Ratio 31.2 RATIO (10-20); Calcium,Total 9.4 mg/dL (8.5-10.1); Chloride 110 mmol/L (98-107); Creatinine, Serum 1.38 mg/dL (0.70-1.30); EST Glomerular Filtration Rate 53 mL/min (>60); Est Glom Filt Rate - Afr Amer 64 mL/min (>60); Estimated Creatinine Clearance 41.36 ml/min; Globulin 5.8 g/dL (2.2-4.2); Glucose 118 mg/dL (74-106); Potassium 4.5 mmol/L (3.5-5.1); Protein, Total 8.2 g/dL (6.4-8.2); Sodium Level 140 mmol/L (136-145)
--- NOTE | 2017-10-20 09:50 | NURSING ---
Pt remains in contact/droplet precautions this shift d/t c-diff
[2017-10-20 10:00] VITALS: PULSE 63; RESP 20; O2SAT 92
[2017-10-20 11:55] LABS: Bedside Glucose 119 mg/dL (70-110)
[2017-10-20] MEDS: Tuberculin,Purif.prot.deriv. 50 TU/ML Vial 5 ML ID (12:26)
--- NOTE | 2017-10-20 15:37 | NURSING ---
Dr. Wong reviewed AM labs, NNO
[2017-10-20 16:00] VITALS: BP 134/76; PULSE 72; RESP 18; TEMP 36.1; O2SAT 98
[2017-10-20 17:10] LABS: Bedside Glucose 142 mg/dL (70-110)
[2017-10-20 18:33] VITALS: PULSE 72
[2017-10-20 21:36] LABS: Bedside Glucose 101 mg/dL (70-110)
[2017-10-20] MEDS: Atorvastatin Calcium 20 MG Tablet GT (22:40)
[2017-10-20] MEDS: QUEtiapine 25 MG Tablet GT (22:40)
[2017-10-21] VITALS (7 sets, daily range): BP systolic 128–142; BP diastolic 74–88; PULSE 68–88; RESP 20; TEMP 36.3; O2SAT 93–98
[2017-10-21] MEDS: Cholestyramine/Sucrose 4 GM/PACKET PO ×2 (04:32→18:26)
[2017-10-21] MEDS: Furosemide 40 MG Tablet GT (04:32)
[2017-10-21] MEDS: Famotidine 20 MG Tablet GT (04:32)
[2017-10-21] MEDS: Amiodarone 200 MG Tablet GT (04:33)
[2017-10-21] MEDS: Menthol/Lanolin/Calamine/Znox 113 GM Tube 1 APPLIC TOPICAL ×3 (04:33→21:18)
[2017-10-21] MEDS: Nystatin Powder 15gm Bottle 1 APPLIC TOPICAL ×2 (04:34→21:18)
[2017-10-21] MEDS: Metoprolol Tartrate 25 MG Tablet GT ×2 (04:43→18:26)
[2017-10-21] MEDS: NEPRO TUBE FEED 1,000 ML LIQUID 240 ML GT ×4 (04:44→18:25)
[2017-10-21 07:11] LABS: Bedside Glucose 124 mg/dL (70-110)
--- NOTE | 2017-10-21 07:28 | PCA ---
RESIDENT REFUSED ALL MOUTH CARE, RN NOTIFIED
[2017-10-21] MEDS: Aspirin 81 MG TAB.CHEW GT (09:42)
[2017-10-21] MEDS: Albuterol 2.5 MG/3 ML VIAL.NEB. INHALATION (10:25)
[2017-10-21 11:45] LABS: Bedside Glucose 117 mg/dL (70-110)
--- NOTE | 2017-10-21 11:57 | NURSING ---
Pt. refusing lovenox injection, family requesting lovenox be d/c'd d/t patient fear of needles. Dr. Wong made aware, okay to d/c lovenox after educating family on increased risk for blood clot formation d/t non-ambulatory status. Discussed risks with daughter, would like lovenox to be d/c'd at this time. Order entered for SCD's while in bed.
[2017-10-21] MEDS: Ipratropium/Albuterol Sulfate 3 ML AMPUL.NEB INHALATION (14:00)
--- NOTE | 2017-10-21 15:03 | NURSING ---
Addendum entered by Andra Wetezl 10/21/17 18:53: NO for cefdiner 300mg PO BID x7 days and zpack. Original Note: Addendum entered by Andra Wetzel 10/21/17 16:16: Dr. Wong made aware of course lung sounds, NO for portable CXR and medrol dose pack, family aware. Original Note: This nurse into Pt room to assess lung sounds after PRN breathing treatment. Lungs sounds harsh, rubbing and Rhonchi throughout upper lung hogan. Lung bases with diminished to No lungs sounds. Andra SOTO notified
--- NOTE | 2017-10-21 16:14 | RAD_ITS ---
STUDY: X-RAY CHEST REASON FOR EXAM: Male, 81 years old. SOB / SOA TECHNIQUE: Single frontal view of the chest. COMPARISON: October 18, 2017 FINDINGS: Chronic appearing increased interstitial lung markings. Multiple median sternotomy wires are noted consistent for cardiac surgery. Decrease in size in the left pleural effusion. Stable infiltrate in the right lung. Similar infiltrate of the left lung. Enlarged heart size. Normal mediastinum and matheus. Normal visualized pulmonary arteries. There is atherosclerotic calcification of the aortic arch with tortuosity. There are diffuse degenerative changes of the visualized thoracic spine. There is degenerative osteoarthritis of the bilateral shoulders. There is no demonstrated abnormality of the visualized soft tissue structures of the upper abdomen. RAD/Chest 1 View (Portable) IMPRESSION: Decrease in size in the left pleural effusion. Stable infiltrate in the right lung. Similar infiltrate of the left lung. Electronically Signed: Valeriy Alexandre MD at 16:46 EDT , Service support ,
[2017-10-21 16:41] LABS: Bedside Glucose 121 mg/dL (70-110)
--- NOTE | 2017-10-21 17:54 | PCM.PN.RX ---
<Bernabe Gonsales D - Last Filed: 10/21/17 17:54> Progress Note - Pharmacy Subjective: TCU Admission Objective: Allergies No Known Allergies Allergy (Unverified 06/20/17 14:37) Home Medications Medication Instructions Recorded Metoprolol Tartrate 25 mg GT BID 10/11/17 Acetaminophen Liquid [Tylenol 650 mg GT Q4H PRN PRN udc 10/19/17 Liquid] Albuterol Aerosols [Ventolin 2.5 mg INHALATION Q2H PRN PRN 10/19/17 Aerosols] vial.neb. Amiodarone HCl [Cordarone] 200 mg GT DAILY 10/19/17 Aspirin [Aspirin, Baby] 81 mg GT DAILY@0800 10/19/17 Atorvastatin Calcium [Lipitor] 20 mg GT QHS 10/19/17 Bisacodyl [Dulcolax] 10 mg PO DAILY PRN PRN tablet 10/19/17 Cholestyramine (with Sugar) 4 gm PO BID 10/19/17 [Cholestyramine Packet] Famotidine [Pepcid] 20 mg GT DAILY 10/19/17 Furosemide 40 mg GT DAILY 10/19/17 Heparin Injection 5,000 units SC BID 10/19/17 Lactobacillus Acidophilus 1 tablet PO BID 10/19/17 [Acidophilus] Magnesium Hydroxide [Milk Of 30 ml GT DAILY PRN udc 10/19/17 Magnesia] Nepro Tube Feed [Nepro Carb Steady] 240 ml GT 5X/DAY 10/19/17 Potassium Chloride 20 meq GT DAILY #0 10/19/17 Quetiapine Fumarate [Seroquel] 25 mg GT QHS 10/19/17 Vancomcyin 125 MG/ 5 ML Susp 125 mg GT Q6 10/19/17 [Vancomycin 125mg/5mL Susp] Current Medications Generic Name Dose Route Start Last Admin Trade Name Freq PRN Reason Stop Dose Admin Acetaminophen 650 mg 10/19/17 23:01 Tylenol Liquid GT Q4H PRN PRN MILD PAIN (1-3/10) Albuterol/Ipratropium 3 ml 10/21/17 12:16 10/21/17 14:00 Duoneb INHALATION 3 ml Q4H.RT PRN Administration sob/wheezing Amiodarone HCl 200 mg 10/20/17 06:00 10/21/17 04:33 Cordarone GT 200 mg DAILY JOSE ALFREDO Administration Aspirin 81 mg 10/20/17 08:00 10/21/17 09:42 Aspirin, Baby GT 81 mg DAILY@0800 JOSE ALFREDO Administration Atorvastatin Calcium 20 mg 10/19/17 22:00 10/20/17 22:40 Lipitor GT 20 mg QHS [facility] Administration Bisacodyl 10 mg 10/19/17 18:16 Dulcolax PO DAILY PRN PRN Constipation Calamine/Phenol 1 applic 10/19/17 22:00 10/21/17 13:55 Calmoseptine Ointment TOPICAL 1 applicatio TID [facility] Administration Protocol Cholestyramine Resin 4 gm 10/20/17 06:00 10/21/17 04:32 Questran 4gm Packet PO 4 gm BID [facility] Administration Enteral Nutritional Formula 240 ml 10/20/17 18:00 10/21/17 13:55 Nepro Carb Steady GT 240 ml 5X/DAY JOSE ALFREDO Administration Famotidine 20 mg 10/20/17 06:00 10/21/17 04:32 Pepcid GT 20 mg DAILY JOSE ALFREDO Administration Furosemide 40 mg 10/20/17 06:00 10/21/17 04:32 Lasix GT 40 mg DAILY JOSE ALFREDO Administration Lactobacillus Acidophilus 1 tablet 10/20/17 06:00 10/21/17 04:33 Acidophilus PO 1 tablet BID JOSE ALFREDO Administration Methylprednisolone 16 mg 10/21/17 17:00 Medrol Dosepak PO 10/26/17 08:59 1700 JOSE ALFREDO Taper Metoprolol Tartrate 25 mg 10/20/17 06:00 10/21/17 04:43 Lopressor (Beta Silver) GT 25 mg BID JOSE ALFREDO Administration Nystatin 1 applic 10/20/17 06:00 10/21/17 04:34 Mycostatin Powder TOPICAL 1 applicatio 0600,2200 [facility] Administration Protocol Potassium Bicarb/Potassium Chloride 25 meq 10/20/17 06:00 10/21/17 04:32 Potassium Chl 25 Meq Eff (For Liquid) GT 25 meq DAILY JOSE ALFREDO Administration Quetiapine Fumarate 25 mg 10/19/17 22:00 10/20/17 22:40 Seroquel GT 10/26/17 22:01 25 mg QHS JOSE ALFREDO Administration Quetiapine Fumarate 12.5 mg 10/27/17 22:00 Seroquel PO 11/03/17 22:01 QHS [facility] Tuberculin PPD 5 tu 10/27/17 10:00 Tubersol, Aplisol, Ppd ID 10/27/17 10:01 X1 ONE Vancomycin HCl 125 mg 10/20/17 00:00 10/21/17 11:33 Vancomycin 125mg/5ml Susp GT 10/30/17 18:00 125 mg Q6 JOSE ALFREDO Administration Problem List (Last Updated 06/20/17 @ 14:47 by Whit Wilson) Encephalopathy (Acute) Weakness (Acute) HCAP (healthcare-associated pneumonia) (Acute) Acute on chronic diastolic heart failure (Acute) Atrial fibrillation (Chronic) Clostridium difficile diarrhea (Acute) Urinary retention (Chronic) Chronic hepatitis B (Chronic) BPH (benign prostatic hyperplasia) (Chronic) Acute on chronic kidney failure (Acute) GERD (gastroesophageal reflux disease) (Chronic) Insomnia (Chronic) Diabetes mellitus (Chronic) Burkholderia cepacia infection (Acute) Vital Signs Temp Pulse Resp BP Pulse Ox 97.3 F L 68 20 H 128/74 H 97 10/21/17 15:33 10/21/17 15:33 10/21/17 15:33 10/21/17 15:33 10/21/17 15:33 Oxygen Delivery Method Room Air Weight: 68.5 kg Body Mass Index (BMI) 21.7 Sodium 140 mmol/L (136-145) 10/20/17 09:15 Potassium 4.5 mmol/L (3.5-5.1) 10/20/17 09:15 Chloride 110 mmol/L (98-107) H 10/20/17 09:15 Carbon Dioxide 22.0 mmol/L (21.0-32.0) 10/20/17 09:15 Anion Gap 8 (5-15) 10/20/17 09:15 BUN 43 mg/dL (7-18) H 10/20/17 09:15 Creatinine 1.38 mg/dL (0.70-1.30) H 10/20/17 09:15 Est GFR (MDRD) Af Amer 64 mL/min (>60) 10/20/17 09:15 Est GFR (MDRD) Non-Af 53 mL/min (>60) L 10/20/17 09:15 BUN/Creatinine Ratio 31.2 RATIO (10-20) H 10/20/17 09:15 Glucose 118 mg/dL (74-106) H 10/20/17 09:15 Assessment/Plan: 1) Pain APAP for mild pain. Continue to monitor prn medication use, daily pain scores. 2) AFib Amiodarone, ASA, atorvastatin, metoprolol, furosemide/KCl. BUN/SCr wnl, K wnl, BP/HR avg trending down to goal ranges, lipids within range except for elevated TG, hepatic enzymes wnl except for mildly elevated alk phos. Continue to monitor BP/HR, renal function, electrolytes, lipids, enzymes, for chest pain. 3) ID Vancomycin orally until 10/30. WBC wnl, afebrile. Continue to monitor s/s infection. 4) GI Famotidine, lactobacillus. Continue to monitor s/s GI distress. 5) Pulm Duoneb aerosols as needed, methylprednisolone pack. Continue to monitor prn medication use, for shortness of breath. 6) Derm Calmoseptine, nystatin powder topically. Continue to monitor clinically. Psychotropic Medications: 7) Insomnia Quetiapine at HS, gradually tapered off. Unnecessary Medications: None Bowel Regimen: 8) Cholestyramine, bisacodyl as needed. Continue to monitor prn medication use, for constipation/diarrhea. Date of Note:: 10/21/17 - Provider Comments Provider responsibility: Provider responsible to enter orders to implement recommendations <Mihir Wong Chi - Last Filed: 10/21/17 21:41> Progress Note - Pharmacy Subjective: [] Objective: Allergies No Known Allergies Allergy (Unverified 06/20/17 14:37) Home Medications Medication Instructions Recorded Metoprolol Tartrate 25 mg GT BID 10/11/17 Acetaminophen Liquid [Tylenol 650 mg GT Q4H PRN PRN udc 10/19/17 Liquid] Albuterol Aerosols [Ventolin 2.5 mg INHALATION Q2H PRN PRN 10/19/17 Aerosols] vial.neb. Amiodarone HCl [Cordarone] 200 mg GT DAILY 10/19/17 Aspirin [Aspirin, Baby] 81 mg GT DAILY@0800 10/19/17 Atorvastatin Calcium [Lipitor] 20 mg GT QHS 10/19/17 Bisacodyl [Dulcolax] 10 mg PO DAILY PRN PRN tablet 10/19/17 Cholestyramine (with Sugar) 4 gm PO BID 10/19/17 [Cholestyramine Packet] Famotidine [Pepcid] 20 mg GT DAILY 10/19/17 Furosemide 40 mg GT DAILY 10/19/17 Heparin Injection 5,000 units SC BID 10/19/17 Lactobacillus Acidophilus 1 tablet PO BID 10/19/17 [Acidophilus] Magnesium Hydroxide [Milk Of 30 ml GT DAILY PRN udc 10/19/17 Magnesia] Nepro Tube Feed [Nepro Carb Steady] 240 ml GT 5X/DAY 10/19/17 Potassium Chloride 20 meq GT DAILY #0 10/19/17 Quetiapine Fumarate [Seroquel] 25 mg GT QHS 10/19/17 Vancomcyin 125 MG/ 5 ML Susp 125 mg GT Q6 10/19/17 [Vancomycin 125mg/5mL Susp] Current Medications Generic Name Dose Route Start Last Admin Trade Name Freq PRN Reason Stop Dose Admin Acetaminophen 650 mg 10/19/17 23:01 Tylenol Liquid GT Q4H PRN PRN MILD PAIN (1-3/10) Albuterol/Ipratropium 3 ml 10/21/17 12:16 10/21/17 14:00 Duoneb INHALATION 3 ml Q4H.RT PRN Administration sob/wheezing Amiodarone HCl 200 mg 10/20/17 06:00 10/21/17 04:33 Cordarone GT 200 mg DAILY JOSE ALFREDO Administration Aspirin 81 mg 10/20/17 08:00 10/21/17 09:42 Aspirin, Baby GT 81 mg DAILY@0800 JOSE ALFREDO Administration Atorvastatin Calcium 20 mg 10/19/17 22:00 10/21/17 21:19 Lipitor GT 20 mg QHS JOSE ALFREDO Administration Azithromycin 500 mg 10/21/17 22:00 10/21/17 21:20 Zithromax PO 10/21/17 22:01 500 mg X1 ONE Administration Azithromycin 250 mg 10/22/17 22:00 Zithromax PO 10/26/17 22:01 Q24H [facility] Bisacodyl 10 mg 10/19/17 18:16 Dulcolax PO DAILY PRN PRN Constipation Calamine/Phenol 1 applic 10/19/17 22:00 10/21/17 21:18 Calmoseptine Ointment TOPICAL 1 applicatio TID JOSE ALFREDO Administration Protocol Cefdinir 300 mg 10/22/17 06:00 Omnicef [Equiv] PO 10/28/17 18:01 Q12 [facility] Cholestyramine Resin 4 gm 10/20/17 06:00 10/21/17 18:26 Questran 4gm Packet PO 4 gm BID JOSE ALFREDO Administration Enteral Nutritional Formula 240 ml 10/20/17 18:00 10/21/17 18:25 Nepro Carb Steady GT 240 ml 5X/DAY JOSE ALFREDO Administration Famotidine 20 mg 10/20/17 06:00 10/21/17 04:32 Pepcid GT 20 mg DAILY JOSE ALFREDO Administration Furosemide 40 mg 10/20/17 06:00 10/21/17 04:32 Lasix GT 40 mg DAILY JOSE ALFREDO Administration Lactobacillus Acidophilus 1 tablet 10/20/17 06:00 10/21/17 18:25 Acidophilus PO 1 tablet BID JOSE ALFREDO Administration Methylprednisolone 16 mg 10/21/17 17:00 10/21/17 21:19 Medrol Dosepak PO 10/26/17 08:59 8 mg 1700 JOSE ALFREDO Administration Taper Metoprolol Tartrate 25 mg 10/20/17 06:00 10/21/17 18:26 Lopressor (Beta Silver) GT 25 mg BID JOSE ALFREDO Administration Nystatin 1 applic 10/20/17 06:00 10/21/17 21:18 Mycostatin Powder TOPICAL 1 applicatio 0600,2200 JOSE ALFREDO Administration Protocol Potassium Bicarb/Potassium Chloride 25 meq 10/20/17 06:00 10/21/17 04:32 Potassium Chl 25 Meq Eff (For Liquid) GT 25 meq DAILY JOSE ALFREDO Administration Quetiapine Fumarate 25 mg 10/19/17 22:00 10/21/17 21:19 Seroquel GT 10/26/17 22:01 25 mg QHS JOSE ALFREDO Administration Quetiapine Fumarate 12.5 mg 10/27/17 22:00 Seroquel PO 11/03/17 22:01 QHS JOSE ALFREDO Tuberculin PPD 5 tu 10/27/17 10:00 Tubersol, Aplisol, Ppd ID 10/27/17 10:01 X1 ONE Vancomycin HCl 125 mg 10/20/17 00:00 10/21/17 18:25 Vancomycin 125mg/5ml Susp GT 10/30/17 18:00 125 mg Q6 JOSE ALFREDO Administration Problem List (Last Updated 06/20/17 @ 14:47 by Whit Wilson) Encephalopathy (Acute) Weakness (Acute) HCAP (healthcare-associated pneumonia) (Acute) Acute on chronic diastolic heart failure (Acute) Atrial fibrillation (Chronic) Clostridium difficile diarrhea (Acute) Urinary retention (Chronic) Chronic hepatitis B (Chronic) BPH (benign prostatic hyperplasia) (Chronic) Acute on chronic kidney failure (Acute) GERD (gastroesophageal reflux disease) (Chronic) Insomnia (Chronic) Diabetes mellitus (Chronic) Burkholderia cepacia infection (Acute) Vital Signs Temp Pulse Resp BP Pulse Ox 97.3 F L 68 20 H 128/74 H 97 10/21/17 15:33 10/21/17 18:26 10/21/17 15:33 10/21/17 15:33 10/21/17 15:33 Oxygen Delivery Method Room Air Weight: 68.5 kg Body Mass Index (BMI) 21.7 Sodium 140 mmol/L (136-145) 10/20/17 09:15 Potassium 4.5 mmol/L (3.5-5.1) 10/20/17 09:15 Chloride 110 mmol/L (98-107) H 10/20/17 09:15 Carbon Dioxide 22.0 mmol/L (21.0-32.0) 10/20/17 09:15 Anion Gap 8 (5-15) 10/20/17 09:15 BUN 43 mg/dL (7-18) H 10/20/17 09:15 Creatinine 1.38 mg/dL (0.70-1.30) H 10/20/17 09:15 Est GFR (MDRD) Af Amer 64 mL/min (>60) 10/20/17 09:15 Est GFR (MDRD) Non-Af 53 mL/min (>60) L 10/20/17 09:15 BUN/Creatinine Ratio 31.2 RATIO (10-20) H 10/20/17 09:15 Glucose 118 mg/dL (74-106) H 10/20/17 09:15 Assessment/Plan: Psychotropic Medications: Unnecessary Medications: Bowel Regimen: - Provider Comments Provider responsibility: Provider responsible to enter orders to implement recommendations Provider Comments to Recommendations by Pharmacy: Agree
--- NOTE | 2017-10-21 18:02 | PHA.CONS_ITS ---
<Bernabe Gonsales D - Last Filed: 10/21/17 17:54> Progress Note - Pharmacy Subjective: TCU Admission Objective: Allergies No Known Allergies Allergy (Unverified 06/20/17 14:37) Home Medications Medication Instructions Recorded Metoprolol Tartrate 25 mg GT BID 10/11/17 Acetaminophen Liquid [Tylenol 650 mg GT Q4H PRN PRN udc 10/19/17 Liquid] Albuterol Aerosols [Ventolin 2.5 mg INHALATION Q2H PRN PRN 10/19/17 Aerosols] vial.neb. Amiodarone HCl [Cordarone] 200 mg GT DAILY 10/19/17 Aspirin [Aspirin, Baby] 81 mg GT DAILY@0800 10/19/17 Atorvastatin Calcium [Lipitor] 20 mg GT QHS 10/19/17 Bisacodyl [Dulcolax] 10 mg PO DAILY PRN PRN tablet 10/19/17 Cholestyramine (with Sugar) 4 gm PO BID 10/19/17 [Cholestyramine Packet] Famotidine [Pepcid] 20 mg GT DAILY 10/19/17 Furosemide 40 mg GT DAILY 10/19/17 Heparin Injection 5,000 units SC BID 10/19/17 Lactobacillus Acidophilus 1 tablet PO BID 10/19/17 [Acidophilus] Magnesium Hydroxide [Milk Of 30 ml GT DAILY PRN udc 10/19/17 Magnesia] Nepro Tube Feed [Nepro Carb Steady] 240 ml GT 5X/DAY 10/19/17 Potassium Chloride 20 meq GT DAILY #0 10/19/17 Quetiapine Fumarate [Seroquel] 25 mg GT QHS 10/19/17 Vancomcyin 125 MG/ 5 ML Susp 125 mg GT Q6 10/19/17 [Vancomycin 125mg/5mL Susp] Current Medications Generic Name Dose Route Start Last Admin Trade Name Freq PRN Reason Stop Dose Admin Acetaminophen 650 mg 10/19/17 23:01 Tylenol Liquid GT Q4H PRN PRN MILD PAIN (1-3/10) Albuterol/Ipratropium 3 ml 10/21/17 12:16 10/21/17 14:00 Duoneb INHALATION 3 ml Q4H.RT PRN Administration sob/wheezing Amiodarone HCl 200 mg 10/20/17 06:00 10/21/17 04:33 Cordarone GT 200 mg DAILY JOSE ALFREDO Administration Aspirin 81 mg 10/20/17 08:00 10/21/17 09:42 Aspirin, Baby GT 81 mg DAILY@0800 JOSE ALFREDO Administration Atorvastatin Calcium 20 mg 10/19/17 22:00 10/20/17 22:40 Lipitor GT 20 mg QHS COUNT INCLUDES THE [facility] Administration Bisacodyl 10 mg 10/19/17 18:16 Dulcolax PO DAILY PRN PRN Constipation Calamine/Phenol 1 applic 10/19/17 22:00 10/21/17 13:55 Calmoseptine Ointment TOPICAL 1 applicatio TID COUNT INCLUDES THE [facility] Administration Protocol Cholestyramine Resin 4 gm 10/20/17 06:00 10/21/17 04:32 Questran 4gm Packet PO 4 gm BID COUNT INCLUDES THE [facility] Administration Enteral Nutritional Formula 240 ml 10/20/17 18:00 10/21/17 13:55 Nepro Carb Steady GT 240 ml 5X/DAY JOSE ALFREDO Administration Famotidine 20 mg 10/20/17 06:00 10/21/17 04:32 Pepcid GT 20 mg DAILY JOSE ALFREDO Administration Furosemide 40 mg 10/20/17 06:00 10/21/17 04:32 Lasix GT 40 mg DAILY JOSE ALFREDO Administration Lactobacillus Acidophilus 1 tablet 10/20/17 06:00 10/21/17 04:33 Acidophilus PO 1 tablet BID JOSE ALFREDO Administration Methylprednisolone 16 mg 10/21/17 17:00 Medrol Dosepak PO 10/26/17 08:59 1700 JOSE ALFREDO Taper Metoprolol Tartrate 25 mg 10/20/17 06:00 10/21/17 04:43 Lopressor (Beta Silver) GT 25 mg BID JOSE ALFREDO Administration Nystatin 1 applic 10/20/17 06:00 10/21/17 04:34 Mycostatin Powder TOPICAL 1 applicatio 0600,2200 COUNT INCLUDES THE [facility] Administration Protocol Potassium Bicarb/Potassium Chloride 25 meq 10/20/17 06:00 10/21/17 04:32 Potassium Chl 25 Meq Eff (For Liquid) GT 25 meq DAILY JOSE ALFREDO Administration Quetiapine Fumarate 25 mg 10/19/17 22:00 10/20/17 22:40 Seroquel GT 10/26/17 22:01 25 mg QHS JOSE ALFREDO Administration Quetiapine Fumarate 12.5 mg 10/27/17 22:00 Seroquel PO 11/03/17 22:01 QHS COUNT INCLUDES THE [facility] Tuberculin PPD 5 tu 10/27/17 10:00 Tubersol, Aplisol, Ppd ID 10/27/17 10:01 X1 ONE Vancomycin HCl 125 mg 10/20/17 00:00 10/21/17 11:33 Vancomycin 125mg/5ml Susp GT 10/30/17 18:00 125 mg Q6 JOSE ALFREDO Administration Problem List (Last Updated 06/20/17 @ 14:47 by Whit Wilson) Encephalopathy (Acute) Weakness (Acute) HCAP (healthcare-associated pneumonia) (Acute) Acute on chronic diastolic heart failure (Acute) Atrial fibrillation (Chronic) Clostridium difficile diarrhea (Acute) Urinary retention (Chronic) Chronic hepatitis B (Chronic) BPH (benign prostatic hyperplasia) (Chronic) Acute on chronic kidney failure (Acute) GERD (gastroesophageal reflux disease) (Chronic) Insomnia (Chronic) Diabetes mellitus (Chronic) Burkholderia cepacia infection (Acute) Vital Signs Temp Pulse Resp BP Pulse Ox 97.3 F L 68 20 H 128/74 H 97 10/21/17 15:33 10/21/17 15:33 10/21/17 15:33 10/21/17 15:33 10/21/17 15:33 Oxygen Delivery Method Room Air Weight: 68.5 kg Body Mass Index (BMI) 21.7 Sodium 140 mmol/L (136-145) 10/20/17 09:15 Potassium 4.5 mmol/L (3.5-5.1) 10/20/17 09:15 Chloride 110 mmol/L (98-107) H 10/20/17 09:15 Carbon Dioxide 22.0 mmol/L (21.0-32.0) 10/20/17 09:15 Anion Gap 8 (5-15) 10/20/17 09:15 BUN 43 mg/dL (7-18) H 10/20/17 09:15 Creatinine 1.38 mg/dL (0.70-1.30) H 10/20/17 09:15 Est GFR (MDRD) Af Amer 64 mL/min (>60) 10/20/17 09:15 Est GFR (MDRD) Non-Af 53 mL/min (>60) L 10/20/17 09:15 BUN/Creatinine Ratio 31.2 RATIO (10-20) H 10/20/17 09:15 Glucose 118 mg/dL (74-106) H 10/20/17 09:15 Assessment/Plan: 1) Pain APAP for mild pain. Continue to monitor prn medication use, daily pain scores. 2) AFib Amiodarone, ASA, atorvastatin, metoprolol, furosemide/KCl. BUN/SCr wnl, K wnl , BP/HR avg trending down to goal ranges, lipids within range except for elevated TG, hepatic enzymes wnl except for mildly elevated alk phos. Continue to monitor BP/HR, renal function, electrolytes, lipids, enzymes, for chest pain. 3) ID Vancomycin orally until 10/30. WBC wnl, afebrile. Continue to monitor s/s infection. 4) GI Famotidine, lactobacillus. Continue to monitor s/s GI distress. 5) Pulm Duoneb aerosols as needed, methylprednisolone pack. Continue to monitor prn medication use, for shortness of breath. 6) Derm Calmoseptine, nystatin powder topically. Continue to monitor clinically. Psychotropic Medications: 7) Insomnia Quetiapine at HS, gradually tapered off. Unnecessary Medications: None Bowel Regimen: 8) Cholestyramine, bisacodyl as needed. Continue to monitor prn medication use, for constipation/diarrhea. Date of Note:: 10/21/17 - Provider Comments Provider responsibility: Provider responsible to enter orders to implement recommendations <Mihir Wong Chi - Last Filed: 10/21/17 21:41> Progress Note - Pharmacy Subjective: [] Objective: Allergies No Known Allergies Allergy (Unverified 06/20/17 14:37) Home Medications Medication Instructions Recorded Metoprolol Tartrate 25 mg GT BID 10/11/17 Acetaminophen Liquid [Tylenol 650 mg GT Q4H PRN PRN udc 10/19/17 Liquid] Albuterol Aerosols [Ventolin 2.5 mg INHALATION Q2H PRN PRN 10/19/17 Aerosols] vial.neb. Amiodarone HCl [Cordarone] 200 mg GT DAILY 10/19/17 Aspirin [Aspirin, Baby] 81 mg GT DAILY@0800 10/19/17 Atorvastatin Calcium [Lipitor] 20 mg GT QHS 10/19/17 Bisacodyl [Dulcolax] 10 mg PO DAILY PRN PRN tablet 10/19/17 Cholestyramine (with Sugar) 4 gm PO BID 10/19/17 [Cholestyramine Packet] Famotidine [Pepcid] 20 mg GT DAILY 10/19/17 Furosemide 40 mg GT DAILY 10/19/17 Heparin Injection 5,000 units SC BID 10/19/17 Lactobacillus Acidophilus 1 tablet PO BID 10/19/17 [Acidophilus] Magnesium Hydroxide [Milk Of 30 ml GT DAILY PRN udc 10/19/17 Magnesia] Nepro Tube Feed [Nepro Carb Steady] 240 ml GT 5X/DAY 10/19/17 Potassium Chloride 20 meq GT DAILY #0 10/19/17 Quetiapine Fumarate [Seroquel] 25 mg GT QHS 10/19/17 Vancomcyin 125 MG/ 5 ML Susp 125 mg GT Q6 10/19/17 [Vancomycin 125mg/5mL Susp] Current Medications Generic Name Dose Route Start Last Admin Trade Name Freq PRN Reason Stop Dose Admin Acetaminophen 650 mg 10/19/17 23:01 Tylenol Liquid GT Q4H PRN PRN MILD PAIN (1-3/10) Albuterol/Ipratropium 3 ml 10/21/17 12:16 10/21/17 14:00 Duoneb INHALATION 3 ml Q4H.RT PRN Administration sob/wheezing Amiodarone HCl 200 mg 10/20/17 06:00 10/21/17 04:33 Cordarone GT 200 mg DAILY JOSE ALFREDO Administration Aspirin 81 mg 10/20/17 08:00 10/21/17 09:42 Aspirin, Baby GT 81 mg DAILY@0800 JOSE ALFREDO Administration Atorvastatin Calcium 20 mg 10/19/17 22:00 10/21/17 21:19 Lipitor GT 20 mg QHS JOSE ALFREDO Administration Azithromycin 500 mg 10/21/17 22:00 10/21/17 21:20 Zithromax PO 10/21/17 22:01 500 mg X1 ONE Administration Azithromycin 250 mg 10/22/17 22:00 Zithromax PO 10/26/17 22:01 Q24H COUNT INCLUDES THE [facility] Bisacodyl 10 mg 10/19/17 18:16 Dulcolax PO DAILY PRN PRN Constipation Calamine/Phenol 1 applic 10/19/17 22:00 10/21/17 21:18 Calmoseptine Ointment TOPICAL 1 applicatio TID JOSE ALFREDO Administration Protocol Cefdinir 300 mg 10/22/17 06:00 Omnicef [Equiv] PO 10/28/17 18:01 Q12 COUNT INCLUDES THE [facility] Cholestyramine Resin 4 gm 10/20/17 06:00 10/21/17 18:26 Questran 4gm Packet PO 4 gm BID JOSE ALFREDO Administration Enteral Nutritional Formula 240 ml 10/20/17 18:00 10/21/17 18:25 Nepro Carb Steady GT 240 ml 5X/DAY JOSE ALFREDO Administration Famotidine 20 mg 10/20/17 06:00 10/21/17 04:32 Pepcid GT 20 mg DAILY JOSE ALFREDO Administration Furosemide 40 mg 10/20/17 06:00 10/21/17 04:32 Lasix GT 40 mg DAILY JOSE ALFREDO Administration Lactobacillus Acidophilus 1 tablet 10/20/17 06:00 10/21/17 18:25 Acidophilus PO 1 tablet BID JOSE ALFREDO Administration Methylprednisolone 16 mg 10/21/17 17:00 10/21/17 21:19 Medrol Dosepak PO 10/26/17 08:59 8 mg 1700 JOSE ALFREDO Administration Taper Metoprolol Tartrate 25 mg 10/20/17 06:00 10/21/17 18:26 Lopressor (Beta Silver) GT 25 mg BID JOSE ALFREDO Administration Nystatin 1 applic 10/20/17 06:00 10/21/17 21:18 Mycostatin Powder TOPICAL 1 applicatio 0600,2200 JOSE ALFREDO Administration Protocol Potassium Bicarb/Potassium Chloride 25 meq 10/20/17 06:00 10/21/17 04:32 Potassium Chl 25 Meq Eff (For Liquid) GT 25 meq DAILY JOSE ALFREDO Administration Quetiapine Fumarate 25 mg 10/19/17 22:00 10/21/17 21:19 Seroquel GT 10/26/17 22:01 25 mg QHS JOSE ALFREDO Administration Quetiapine Fumarate 12.5 mg 10/27/17 22:00 Seroquel PO 11/03/17 22:01 QHS JOSE ALFREDO Tuberculin PPD 5 tu 10/27/17 10:00 Tubersol, Aplisol, Ppd ID 10/27/17 10:01 X1 ONE Vancomycin HCl 125 mg 10/20/17 00:00 10/21/17 18:25 Vancomycin 125mg/5ml Susp GT 10/30/17 18:00 125 mg Q6 JOSE ALFREDO Administration Problem List (Last Updated 06/20/17 @ 14:47 by Whit Wilson) Encephalopathy (Acute) Weakness (Acute) HCAP (healthcare-associated pneumonia) (Acute) Acute on chronic diastolic heart failure (Acute) Atrial fibrillation (Chronic) Clostridium difficile diarrhea (Acute) Urinary retention (Chronic) Chronic hepatitis B (Chronic) BPH (benign prostatic hyperplasia) (Chronic) Acute on chronic kidney failure (Acute) GERD (gastroesophageal reflux disease) (Chronic) Insomnia (Chronic) Diabetes mellitus (Chronic) Burkholderia cepacia infection (Acute) Vital Signs Temp Pulse Resp BP Pulse Ox 97.3 F L 68 20 H 128/74 H 97 10/21/17 15:33 10/21/17 18:26 10/21/17 15:33 10/21/17 15:33 10/21/17 15:33 Oxygen Delivery Method Room Air Weight: 68.5 kg Body Mass Index (BMI) 21.7 Sodium 140 mmol/L (136-145) 10/20/17 09:15 Potassium 4.5 mmol/L (3.5-5.1) 10/20/17 09:15 Chloride 110 mmol/L (98-107) H 10/20/17 09:15 Carbon Dioxide 22.0 mmol/L (21.0-32.0) 10/20/17 09:15 Anion Gap 8 (5-15) 10/20/17 09:15 BUN 43 mg/dL (7-18) H 10/20/17 09:15 Creatinine 1.38 mg/dL (0.70-1.30) H 10/20/17 09:15 Est GFR (MDRD) Af Amer 64 mL/min (>60) 10/20/17 09:15 Est GFR (MDRD) Non-Af 53 mL/min (>60) L 10/20/17 09:15 BUN/Creatinine Ratio 31.2 RATIO (10-20) H 10/20/17 09:15 Glucose 118 mg/dL (74-106) H 10/20/17 09:15 Assessment/Plan: Psychotropic Medications: Unnecessary Medications: Bowel Regimen: - Provider Comments Provider responsibility: Provider responsible to enter orders to implement recommendations Provider Comments to Recommendations by Pharmacy: Agree
[2017-10-21] MEDS: MethylPREDNISolone DosePak 4 MG BOX PO ×2 (18:26→21:19)
[2017-10-21 21:01] LABS: Bedside Glucose 128 mg/dL (70-110)
[2017-10-21] MEDS: Atorvastatin Calcium 20 MG Tablet GT (21:19)
[2017-10-21] MEDS: QUEtiapine 25 MG Tablet GT (21:19)
[2017-10-21] MEDS: Azithromycin 250 MG Tablet 500 MG PO (21:20)
--- NOTE | 2017-10-22 05:23 | NURSING ---
Pt remains in isolation/contact precautions for C-Diff.
[2017-10-22 07:02] VITALS: PULSE 72
[2017-10-22] MEDS: Metoprolol Tartrate 25 MG Tablet GT ×2 (07:02→18:36)
[2017-10-22] MEDS: NEPRO TUBE FEED 1,000 ML LIQUID 240 ML GT ×5 (07:02→22:09)
[2017-10-22] MEDS: Menthol/Lanolin/Calamine/Znox 113 GM Tube 1 APPLIC TOPICAL ×3 (07:02→21:53)
[2017-10-22] MEDS: Nystatin Powder 15gm Bottle 1 APPLIC TOPICAL ×2 (07:02→22:09)
[2017-10-22] MEDS: Furosemide 40 MG Tablet GT (07:02)
[2017-10-22] MEDS: Amiodarone 200 MG Tablet GT (07:02)
[2017-10-22] MEDS: Cholestyramine/Sucrose 4 GM/PACKET PO ×2 (07:03→18:37)
[2017-10-22] MEDS: Cefdinir 300 MG Capsule PO ×2 (07:03→18:37)
[2017-10-22] MEDS: Famotidine 20 MG Tablet GT (07:03)
[2017-10-22 07:10] LABS: Bedside Glucose 131 mg/dL (70-110)
--- NOTE | 2017-10-22 07:27 | NURSING ---
Addendum entered by Chen Perera 10/22/17 08:46: FAMILY HERE AT BEDSIDE, PT MORE RELAXED WITH SON, CONT TO MONITOR Original Note: Addendum entered by Tiesha Maynard 10/22/17 07:48: Dr Wong notified, N.O. ativan 0.5mg Q4hr/prn Original Note: Pt very anxious, attempting to crawl out of bed, grabbing peg tube, nearby suction tubing, items from table. Difficult to understand d/t language barrier, pt trying to make phone call with cell phone. Saying numbers as this nurse was writing on white board, but it was not a 10 digit number. Looking through cell phone with pt in attempt to find person he was trying to call, unable to. Pt made a few phone calls that did not go through. Stating I want to repeatedly, and I cannot walk appearing extremely anxious. Reaching and grabbing at nurse while giving am meds. Pt did not seem at all violent, but anxious and scared. This nurse and [employer] Skye able to calm pt down enough to accept meds and assure him we would call kellee Smith as requesting, that he was here for therapy, to get stronger, etc. This also helped to calm him down. Son Luis was called. Sit who left at [phone], stating he would be in immediately, and was in the building within ten minutes. Very appreciative of staff, very kind as is pt. Asked if it would be possible to get an order for a sleeping pill or something to help anxiety. Gil Perera RN nearby and notified [facility] that orders were just received from Dr. Wong for PRN ativan. Very pleased with this and again voiced his appreciation for staff. Continuing to monitor.
[2017-10-22 07:52] VITALS: O2SAT 96
[2017-10-22] MEDS: MethylPREDNISolone DosePak 4 MG BOX PO ×4 (09:30→21:54)
[2017-10-22] MEDS: Aspirin 81 MG TAB.CHEW GT (09:30)
[2017-10-22] MEDS: LORazepam 0.5 MG Tablet GT ×2 (09:31→22:07)
[2017-10-22 11:35] LABS: Bedside Glucose 134 mg/dL (70-110)
--- NOTE | 2017-10-22 13:12 | NURSING ---
Pt remains in contact precautions this shift d/t c-diff
[2017-10-22 16:00] VITALS: BP 125/66; PULSE 66; RESP 20; TEMP 36.6; O2SAT 98
[2017-10-22 17:00] LABS: Bedside Glucose 136 mg/dL (70-110)
[2017-10-22 18:36] VITALS: BP 125/66; PULSE 66
[2017-10-22 20:55] LABS: Bedside Glucose 139 mg/dL (70-110)
[2017-10-22] MEDS: QUEtiapine 25 MG Tablet GT (21:54)
[2017-10-22] MEDS: Azithromycin 250 MG Tablet PO (21:54)
[2017-10-22] MEDS: Atorvastatin Calcium 20 MG Tablet GT (21:54)
[2017-10-22 22:00] VITALS: PULSE 66; RESP 18; O2SAT 94
--- NOTE | 2017-10-22 23:23 | NURSING ---
Per report from Radha MORALEZ, Patient was given 0.5 mg of Ativan at 2200. Patient's family is upset because patient is continuing to throw his legs out of bed and they are requesting that patient be given something more to help with anxiety/agitation. Dr. Wong notified. New orders given.
[2017-10-22] MEDS: LORazepam 0.5 MG Tablet 1 MG GT (23:24)
[2017-10-23] MEDS: Menthol/Lanolin/Calamine/Znox 113 GM Tube 1 APPLIC TOPICAL ×3 (04:22→21:53)
[2017-10-23] MEDS: Cholestyramine/Sucrose 4 GM/PACKET PO ×2 (04:23→18:40)
[2017-10-23 04:24] VITALS: BP 142/82; PULSE 68
[2017-10-23] MEDS: Cefdinir 300 MG Capsule PO ×2 (04:24→18:41)
[2017-10-23] MEDS: Metoprolol Tartrate 25 MG Tablet GT ×2 (04:24→18:41)
[2017-10-23] MEDS: Famotidine 20 MG Tablet GT (04:24)
[2017-10-23] MEDS: Amiodarone 200 MG Tablet GT (04:24)
[2017-10-23] MEDS: Furosemide 40 MG Tablet GT (04:24)
[2017-10-23] MEDS: NEPRO TUBE FEED 1,000 ML LIQUID 240 ML GT ×5 (04:25→21:56)
[2017-10-23] MEDS: Nystatin Powder 15gm Bottle 1 APPLIC TOPICAL ×2 (04:25→21:56)
[2017-10-23 06:25] LABS: Magnesium 2.3 mg/dL (1.6-2.6); Phosphorus 3.4 mg/dL (2.5-4.9)
[2017-10-23 06:55] LABS: Bedside Glucose 126 mg/dL (70-110)
[2017-10-23] MEDS: MethylPREDNISolone DosePak 4 MG BOX PO ×4 (09:43→21:56)
[2017-10-23] MEDS: Aspirin 81 MG TAB.CHEW GT (09:43)
[2017-10-23 10:25] VITALS: PULSE 68; RESP 20
[2017-10-23] MEDS: Ipratropium/Albuterol Sulfate 3 ML AMPUL.NEB INHALATION (10:25)
[2017-10-23 11:21] LABS: Bedside Glucose 119 mg/dL (70-110)
--- NOTE | 2017-10-23 12:04 | NURSING ---
PT IS UNDER PRECAUTIONS FOR C-DIFF.
[2017-10-23 15:16] VITALS: BP 142/74; PULSE 68; RESP 18; TEMP 36.6; O2SAT 96
[2017-10-23 17:00] LABS: Bedside Glucose 106 mg/dL (70-110)
[2017-10-23 18:41] VITALS: BP 142/74; PULSE 68
[2017-10-23 21:10] LABS: Bedside Glucose 137 mg/dL (70-110)
[2017-10-23] MEDS: Atorvastatin Calcium 20 MG Tablet GT (21:56)
[2017-10-23] MEDS: QUEtiapine 25 MG Tablet GT (21:56)
[2017-10-23] MEDS: Azithromycin 250 MG Tablet PO (21:57)
[2017-10-23] MEDS: LORazepam 0.5 MG Tablet 1 MG GT (22:07)
[2017-10-24] MEDS: LORazepam 0.5 MG Tablet 1 MG GT ×3 (02:12→23:54)
--- NOTE | 2017-10-24 02:17 | NURSING ---
Pt restless, family has gone home for the evening and pt has been anxious, calling out. Given prn ativan per orders through peg tube. Placement verified via auscultation prior to administration. No residual noted. Repositioned for comfort, continuing to monitor. RN aware.
[2017-10-24 07:02] VITALS: PULSE 73
[2017-10-24] MEDS: Menthol/Lanolin/Calamine/Znox 113 GM Tube 1 APPLIC TOPICAL ×3 (07:02→21:51)
[2017-10-24] MEDS: Amiodarone 200 MG Tablet GT (07:02)
[2017-10-24] MEDS: Nystatin Powder 15gm Bottle 1 APPLIC TOPICAL ×2 (07:02→21:52)
[2017-10-24] MEDS: Metoprolol Tartrate 25 MG Tablet GT ×2 (07:02→18:05)
[2017-10-24] MEDS: Furosemide 40 MG Tablet GT (07:02)
[2017-10-24] MEDS: Cefdinir 300 MG Capsule PO ×2 (07:03→18:05)
[2017-10-24] MEDS: NEPRO TUBE FEED 1,000 ML LIQUID 240 ML GT ×5 (07:03→21:52)
[2017-10-24] MEDS: Cholestyramine/Sucrose 4 GM/PACKET PO ×2 (07:03→18:05)
[2017-10-24] MEDS: Famotidine 20 MG Tablet GT (07:03)
[2017-10-24] MEDS: Aspirin 81 MG TAB.CHEW GT (07:04)
[2017-10-24] MEDS: MethylPREDNISolone DosePak 4 MG BOX PO ×3 (07:04→21:52)
[2017-10-24 07:21] LABS: Bedside Glucose 96 mg/dL (70-110)
--- NOTE | 2017-10-24 08:26 | PCM.TCUNOT ---
Subjective: Resident had wheezing, shortness of breath, Chest X-ray showed persistent of bilateral infiltrates, improvement of left pleural effusion. Resident has been having anxiety, seems scared to nursing staff, Spoke with daughter Betsy, who states resident has been asking for a gun to shoot himself, and stuffed kleenex in his throat to suffocate himself. Betsy also notes resident does not sleep at night, and then he is tired during the day and unable to participate fully in therapy. I specifically asked resident if he wanted to live or he wanted to . He told me he wants to live, and he wants to go home. Vitals/I&O's: Vital Signs Temp Pulse Resp BP Pulse Ox 97.9 F 73 18 142/74 H 96 10/23/17 15:16 10/24/17 07:02 10/23/17 15:16 10/23/17 18:41 10/23/17 15:16 Oxygen Delivery Method Room Air Weight: 68.5 kg Body Mass Index (BMI) 21.7 Intake and Output for Last 24 Hours 10/22/17 10/23/17 10/24/17 23:59 23:59 23:59 Intake Total 1820 / 1820 2170 / 2170 Balance 1820 / 1820 2170 / 2170 Laboratory Results 10/23/17 11:15: POC Glucose 119 H 10/23/17 16:53: POC Glucose 106 10/23/17 21:06: POC Glucose 137 H 10/24/17 06:52: POC Glucose 96 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) CABG x 1 vessel at [facility] with AV repair and repair of aortic dissection H/O aortic valve repair (Chronic) as a result of a thoracic aortic dissection Aortic dissection, thoracic (Chronic) repaired at [facility] main campus in june of 2017 Cerebrovascular disease (Chronic) Ventricular hypertrophy (Chronic) EF of 65% Diastolic dysfunction (Chronic) stage 1 Dysphagia (Chronic) Atrial fibrillation (Chronic) Urinary retention (Chronic) Chronic hepatitis B (Chronic) BPH (benign prostatic hyperplasia) (Chronic) GERD (gastroesophageal reflux disease) (Chronic) Insomnia (Chronic) Diabetes mellitus (Chronic) Paroxysmal atrial fibrillation (Chronic) Type 2 diabetes mellitus without complications (Chronic) Hyperlipidemia (Chronic) Hypertension (Chronic) Allergies No Known Allergies Allergy (Unverified 06/20/17 14:37) Home Medications: Ambulatory Orders Medication Instructions Recorded Metoprolol Tartrate 25 mg GT BID 10/11/17 Acetaminophen Liquid [Tylenol 650 mg GT Q4H PRN PRN udc 10/19/17 Liquid] Albuterol Aerosols [Ventolin 2.5 mg INHALATION Q2H PRN PRN 10/19/17 Aerosols] vial.neb. Amiodarone HCl [Cordarone] 200 mg GT DAILY 10/19/17 Aspirin [Aspirin, Baby] 81 mg GT DAILY@0800 10/19/17 Atorvastatin Calcium [Lipitor] 20 mg GT QHS 10/19/17 Bisacodyl [Dulcolax] 10 mg PO DAILY PRN PRN tablet 10/19/17 Cholestyramine (with Sugar) 4 gm PO BID 10/19/17 [Cholestyramine Packet] Famotidine [Pepcid] 20 mg GT DAILY 10/19/17 Furosemide 40 mg GT DAILY 10/19/17 Heparin Injection 5,000 units SC BID 10/19/17 Lactobacillus Acidophilus 1 tablet PO BID 10/19/17 [Acidophilus] Magnesium Hydroxide [Milk Of 30 ml GT DAILY PRN udc 10/19/17 Magnesia] Nepro Tube Feed [Nepro Carb Steady] 240 ml GT 5X/DAY 10/19/17 Potassium Chloride 20 meq GT DAILY #0 10/19/17 Quetiapine Fumarate [Seroquel] 25 mg GT QHS 10/19/17 Vancomcyin 125 MG/ 5 ML Susp 125 mg GT Q6 10/19/17 [Vancomycin 125mg/5mL Susp] Surgical History: coronary bypass surgery - x 1., TURP, - - Thoracic aortic dissection repair, PEG tube, Aortic valve repair. Psychiatric History: No pertinent psych hx Lives: With Family Smoking Status: Former smoker Tobacco Use: Non-smoker Alcohol: None Drugs: None - *Family History Maternal History Items: No pertinent history Paternal History Items: No pertinent history Sibling History Items: Cancer - liver in brother Review of Systems Constitutional: Denies: Chills, Fever, Weight Change HEENT: Denies: Head Aches, Sinus Congestion, Sinus Drainage Cardiovascular: Denies: Chest Pain, Palpitations Respiratory: Denies: Cough, Shortness of breath at rest, Sputum production Gastrointestinal: Denies: Abdominal Pain, Nausea, Vomiting Genitourinary: Denies: Dysuria Musculoskeletal: Denies: Joint Pain, Joint Tenderness Skin: Denies: Rash, Wounds Neurological: Denies: Numbness, Tingling, Focal weakness Psychiatric: Denies: Anxiety, Depression, Homicidal Ideations, Suicidal Ideations Hematologic/ Lymphatic: Denies: Easy Bruising, Easy Bleeding Patient Problems: Active and Suspected Problems (Last Updated 06/20/17 @ 14:47 by Whit Wilson) Encephalopathy (Acute) Weakness (Acute) HCAP (healthcare-associated pneumonia) (Acute) Acute on chronic diastolic heart failure (Acute) Clostridium difficile diarrhea (Acute) Acute on chronic kidney failure (Acute) Burkholderia cepacia infection (Acute) - Physical Exam General: Alert, Oriented x3, Cooperative HEENT: Atraumatic, PERRLA, EOMI, Normocephalic Neck: Supple, No JVD, Negative Carotid Bruits Lungs: Clear to auscultation, Normal air movement Cardiovascular: Regular rate, No murmurs Abdomen: Bowel Sounds Present, Soft, Non Tender, - - PEG tube. Extremities: No edema, Capillary Refill Less than 3 Seconds Skin: No rashes, No breakdown Musculoskeletal: No Tenderness to Palpation of Joints or Extremities Neurological: Cranial nerves II-XII grossly intact Psych/Mental Status: Normal Affect, Appropriate Vital Signs Temp Pulse Resp BP Pulse Ox 97.9 F 73 18 142/74 H 96 10/23/17 15:16 10/24/17 07:02 10/23/17 15:16 10/23/17 18:41 10/23/17 15:16 Oxygen Delivery Method Room Air Weight: 68.5 kg Body Mass Index (BMI) 21.7 Intake and Output for Last 24 Hours 10/22/17 10/23/17 10/24/17 23:59 23:59 23:59 Intake Total 0 / 0 2170 / 217 Balance 1819 / 1822169 / 2169 POC Glucose 10/24/17 10/23/17 10/23/17 06:52 21:06 16:53 POC Glucose 96 137 H 106 10/23/17 11:15 POC Glucose 119 H Assessment/Plan Active and Suspected Problems (Last Updated 06/20/17 @ 14:47 by Whit Wilson) Encephalopathy (Acute) Weakness (Acute) HCAP (healthcare-associated pneumonia) (Acute) Acute on chronic diastolic heart failure (Acute) Clostridium difficile diarrhea (Acute) Acute on chronic kidney failure (Acute) Burkholderia cepacia infection (Acute) 81 year old male with below past medical history significant for recent thoracic aortic dissection repair, hospitalized for change in mental status secondary to healthcare associated pneumonia, complicated by clostridium difficile colitis, acute on chronic diastolic heart failure requiring intubation, anemia requiring transfusion, admitted to TCU with debility, here for rehabilitation, strengthening, advancement of diet per speech therapy, prior to discharge home with family. Pneumonia - Persistent infiltrates, resident has difficulty clearing secretions, Cefdinir 300MG BID x 7 days, Z-solomon x 5 days, Medrol dosepak. Anxiety - Lorazepam 1MG GT Q4H. Depression - Add Paroxetine 10MG QHS. Insomnia - Add Doxepin 25MG QHS. Chronic diarrhea - Questran 4G BID. C. Difficile - Vancomycin 125MG QID thru 10/30/2017, Lactobacillus 1 tablet BID. Sundowning - Seroquel 25MG QHS thru 10/26/2017, then 12.5MG QHS thru 11/03/2017, then stop (Gradual Dose Reduction).
--- NOTE | 2017-10-24 08:33 | PN_ITS ---
Subjective: Resident had wheezing, shortness of breath, Chest X-ray showed persistent of bilateral infiltrates, improvement of left pleural effusion. Resident has been having anxiety, seems scared to nursing staff, Spoke with daughter Betsy, who states resident has been asking for a gun to shoot himself, and stuffed kleenex in his throat to suffocate himself. Betsy also notes resident does not sleep at night, and then he is tired during the day and unable to participate fully in therapy. I specifically asked resident if he wanted to live or he wanted to . He told me he wants to live, and he wants to go home. Vitals/I&O's: Vital Signs Temp Pulse Resp BP Pulse Ox 97.9 F 73 18 142/74 H 96 10/23/17 15:16 10/24/17 07:02 10/23/17 15:16 10/23/17 18:41 10/23/17 15:16 Oxygen Delivery Method Room Air Weight: 68.5 kg Body Mass Index (BMI) 21.7 Intake and Output for Last 24 Hours 10/22/17 10/23/17 10/24/17 23:59 23:59 23:59 Intake Total 1820 / 1820 2170 / 2170 Balance 1820 / 1820 2170 / 2170 Laboratory Results 10/23/17 11:15: POC Glucose 119 H 10/23/17 16:53: POC Glucose 106 10/23/17 21:06: POC Glucose 137 H 10/24/17 06:52: POC Glucose 96 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) CABG x 1 vessel at [facility] with AV repair and repair of aortic dissection H/O aortic valve repair (Chronic) as a result of a thoracic aortic dissection Aortic dissection, thoracic (Chronic) repaired at [facility] main campus in june of 2017 Cerebrovascular disease (Chronic) Ventricular hypertrophy (Chronic) EF of 65% Diastolic dysfunction (Chronic) stage 1 Dysphagia (Chronic) Atrial fibrillation (Chronic) Urinary retention (Chronic) Chronic hepatitis B (Chronic) BPH (benign prostatic hyperplasia) (Chronic) GERD (gastroesophageal reflux disease) (Chronic) Insomnia (Chronic) Diabetes mellitus (Chronic) Paroxysmal atrial fibrillation (Chronic) Type 2 diabetes mellitus without complications (Chronic) Hyperlipidemia (Chronic) Hypertension (Chronic) Allergies No Known Allergies Allergy (Unverified 06/20/17 14:37) Home Medications: Ambulatory Orders Medication Instructions Recorded Metoprolol Tartrate 25 mg GT BID 10/11/17 Acetaminophen Liquid [Tylenol 650 mg GT Q4H PRN PRN udc 10/19/17 Liquid] Albuterol Aerosols [Ventolin 2.5 mg INHALATION Q2H PRN PRN 10/19/17 Aerosols] vial.neb. Amiodarone HCl [Cordarone] 200 mg GT DAILY 10/19/17 Aspirin [Aspirin, Baby] 81 mg GT DAILY@0800 10/19/17 Atorvastatin Calcium [Lipitor] 20 mg GT QHS 10/19/17 Bisacodyl [Dulcolax] 10 mg PO DAILY PRN PRN tablet 10/19/17 Cholestyramine (with Sugar) 4 gm PO BID 10/19/17 [Cholestyramine Packet] Famotidine [Pepcid] 20 mg GT DAILY 10/19/17 Furosemide 40 mg GT DAILY 10/19/17 Heparin Injection 5,000 units SC BID 10/19/17 Lactobacillus Acidophilus 1 tablet PO BID 10/19/17 [Acidophilus] Magnesium Hydroxide [Milk Of 30 ml GT DAILY PRN udc 10/19/17 Magnesia] Nepro Tube Feed [Nepro Carb Steady] 240 ml GT 5X/DAY 10/19/17 Potassium Chloride 20 meq GT DAILY #0 10/19/17 Quetiapine Fumarate [Seroquel] 25 mg GT QHS 10/19/17 Vancomcyin 125 MG/ 5 ML Susp 125 mg GT Q6 10/19/17 [Vancomycin 125mg/5mL Susp] Surgical History: coronary bypass surgery - x 1., TURP, - - Thoracic aortic dissection repair, PEG tube, Aortic valve repair. Psychiatric History: No pertinent psych hx Lives: With Family Smoking Status: Former smoker Tobacco Use: Non-smoker Alcohol: None Drugs: None - *Family History Maternal History Items: No pertinent history Paternal History Items: No pertinent history Sibling History Items: Cancer - liver in brother Review of Systems Constitutional: Denies: Chills, Fever, Weight Change HEENT: Denies: Head Aches, Sinus Congestion, Sinus Drainage Cardiovascular: Denies: Chest Pain, Palpitations Respiratory: Denies: Cough, Shortness of breath at rest, Sputum production Gastrointestinal: Denies: Abdominal Pain, Nausea, Vomiting Genitourinary: Denies: Dysuria Musculoskeletal: Denies: Joint Pain, Joint Tenderness Skin: Denies: Rash, Wounds Neurological: Denies: Numbness, Tingling, Focal weakness Psychiatric: Denies: Anxiety, Depression, Homicidal Ideations, Suicidal Ideations Hematologic/ Lymphatic: Denies: Easy Bruising, Easy Bleeding Patient Problems: Active and Suspected Problems (Last Updated 06/20/17 @ 14:47 by Whit Wilson) Encephalopathy (Acute) Weakness (Acute) HCAP (healthcare-associated pneumonia) (Acute) Acute on chronic diastolic heart failure (Acute) Clostridium difficile diarrhea (Acute) Acute on chronic kidney failure (Acute) Burkholderia cepacia infection (Acute) - Physical Exam General: Alert, Oriented x3, Cooperative HEENT: Atraumatic, PERRLA, EOMI, Normocephalic Neck: Supple, No JVD, Negative Carotid Bruits Lungs: Clear to auscultation, Normal air movement Cardiovascular: Regular rate, No murmurs Abdomen: Bowel Sounds Present, Soft, Non Tender, - - PEG tube. Extremities: No edema, Capillary Refill Less than 3 Seconds Skin: No rashes, No breakdown Musculoskeletal: No Tenderness to Palpation of Joints or Extremities Neurological: Cranial nerves II-XII grossly intact Psych/Mental Status: Normal Affect, Appropriate Vital Signs Temp Pulse Resp BP Pulse Ox 97.9 F 73 18 142/74 H 96 10/23/17 15:16 10/24/17 07:02 10/23/17 15:16 10/23/17 18:41 10/23/17 15:16 Oxygen Delivery Method Room Air Weight: 68.5 kg Body Mass Index (BMI) 21.7 Intake and Output for Last 24 Hours 10/22/17 10/23/17 10/24/17 23:59 23:59 23:59 Intake Total 0 / 0 2170 / 217 Balance 1819 / 1822169 / 2169 POC Glucose 10/24/17 10/23/17 10/23/17 06:52 21:06 16:53 POC Glucose 96 137 H 106 10/23/17 11:15 POC Glucose 119 H Assessment/Plan Active and Suspected Problems (Last Updated 06/20/17 @ 14:47 by Whit Wilson) Encephalopathy (Acute) Weakness (Acute) HCAP (healthcare-associated pneumonia) (Acute) Acute on chronic diastolic heart failure (Acute) Clostridium difficile diarrhea (Acute) Acute on chronic kidney failure (Acute) Burkholderia cepacia infection (Acute) 81 year old male with below past medical history significant for recent thoracic aortic dissection repair, hospitalized for change in mental status secondary to healthcare associated pneumonia, complicated by clostridium difficile colitis, acute on chronic diastolic heart failure requiring intubation , anemia requiring transfusion, admitted to TCU with debility, here for rehabilitation, strengthening, advancement of diet per speech therapy, prior to discharge home with family. * Pneumonia - Persistent infiltrates, resident has difficulty clearing secretions, Cefdinir 300MG BID x 7 days, Z-solomon x 5 days, Medrol dosepak. * Anxiety - Lorazepam 1MG GT Q4H. * Depression - Add Paroxetine 10MG QHS. * Insomnia - Add Doxepin 25MG QHS. * Chronic diarrhea - Questran 4G BID. * C. Difficile - Vancomycin 125MG QID thru 10/30/2017, Lactobacillus 1 tablet BID. * owning - Seroquel 25MG QHS thru 10/26/2017, then 12.5MG QHS thru 11/03/2017 , then stop (Gradual Dose Reduction).
[2017-10-24 11:41] LABS: Bedside Glucose 111 mg/dL (70-110)
--- NOTE | 2017-10-24 13:22 | NURSING ---
Addendum entered by Divine Kinney 10/24/17 17:03: DR HERNANDEZ NOTIFIED, NEW ORDER TO MONITOR FOR NOW, HGB STABLE. Original Note: AID CALL THIS NURSE TO PT ROOM TO SEE STOOL. PT STOOL WAS LOOSE WITH RUST/BLOODY COLORED. BRITTANY RHODES AWARE
[2017-10-24 14:48] VITALS: PULSE 53; RESP 18; O2SAT 94
--- NOTE | 2017-10-24 15:08 | NURSING ---
THIS NURSE DID PT ASSESSMENT AND PT FAMILY IN ROOM. ASKED FAMILY TO HELP ME TO COMMUNICATE WITH PT. FAMILY STATED YES. PT STATED NO PAIN AND ASKED PT IF WE COULD TURN HIM ON HIS SIDE TO GET OFF OF HIS BOTTOM AND EXPLAINED WHY. PT STATED NO. PT AND FAMILY VERY PLEASANT. O RESIDUALS AT 10AM AND 1400. REPORTED TO BRITTANY RHODSE
[2017-10-24 15:22] VITALS: BP 135/75; PULSE 61; RESP 20; TEMP 36.7; O2SAT 96
[2017-10-24 17:16] LABS: Bedside Glucose 105 mg/dL (70-110)
[2017-10-24 18:05] VITALS: BP 135/75; PULSE 61
--- NOTE | 2017-10-24 19:03 | NURSING ---
PT LET THE AID TURN HIM TO HIS LEFT SIDE TO GET OFF HIS BOTTOM. THIS NURSE APPLIED NEW MEPALEX TO BOTTOM.
[2017-10-24 21:16] LABS: Bedside Glucose 101 mg/dL (70-110)
[2017-10-24] MEDS: Atorvastatin Calcium 20 MG Tablet GT (21:53)
[2017-10-24] MEDS: Azithromycin 250 MG Tablet PO (21:54)
[2017-10-24] MEDS: PARoxetine 10 MG Tablet GT (21:54)
[2017-10-24] MEDS: QUEtiapine 25 MG Tablet GT (21:55)
[2017-10-24] MEDS: Doxepin Hcl 25 MG Capsule GT (21:55)
[2017-10-25] MEDS: Acetaminophen 650 MG/20 ML UDC GT (00:41)
[2017-10-25] MEDS: Cholestyramine/Sucrose 4 GM/PACKET PO ×2 (04:51→16:55)
[2017-10-25] MEDS: Menthol/Lanolin/Calamine/Znox 113 GM Tube 1 APPLIC TOPICAL ×3 (04:51→21:05)
[2017-10-25] MEDS: Cefdinir 300 MG Capsule PO ×2 (04:52→16:55)
[2017-10-25] MEDS: Furosemide 40 MG Tablet GT (04:52)
[2017-10-25] MEDS: Amiodarone 200 MG Tablet GT (04:52)
[2017-10-25] MEDS: NEPRO TUBE FEED 1,000 ML LIQUID 240 ML GT ×5 (04:52→21:06)
[2017-10-25] MEDS: Famotidine 20 MG Tablet GT (04:52)
[2017-10-25 04:53] VITALS: BP 122/69; PULSE 80
[2017-10-25] MEDS: Metoprolol Tartrate 25 MG Tablet GT ×2 (04:53→16:55)
[2017-10-25] MEDS: Nystatin Powder 15gm Bottle 1 APPLIC TOPICAL ×2 (04:54→21:06)
[2017-10-25 07:01] LABS: Bedside Glucose 95 mg/dL (70-110)
[2017-10-25] MEDS: Aspirin 81 MG TAB.CHEW GT (08:49)
[2017-10-25] MEDS: MethylPREDNISolone DosePak 4 MG BOX PO ×2 (08:49→21:06)
[2017-10-25 10:00] VITALS: PULSE 88; RESP 18; O2SAT 92
[2017-10-25 11:31] LABS: Bedside Glucose 107 mg/dL (70-110)
--- NOTE | 2017-10-25 13:30 | CASEMGMT ---
Plan of care meeting held. Resident declining to attend meeting. Resident family present. No discharge date set at this time. Resident to continue with further care and treatment on the Transitional Care Unit. Resident has an insurance update due on 10/26/17, resident and resident family aware that continued stay is not guaranteed at this time. Resident family planning for resident to discharge home with family at time of discharge. Resident family aware of level of assistance that resident currently requires. Support given. Will continue to follow. Ginny MARCIAL, BUTTER MAKER
[2017-10-25 15:49] VITALS: BP 123/74; PULSE 55; RESP 18; TEMP 36.3; O2SAT 99
--- NOTE | 2017-10-25 16:18 | NURSING ---
Pt stool rust colored no signs of hemorrhoids. Divine SOTO aware
[2017-10-25 16:50] LABS: Bedside Glucose 105 mg/dL (70-110)
[2017-10-25 16:55] VITALS: BP 123/74; PULSE 68
[2017-10-25 20:50] LABS: Bedside Glucose 94 mg/dL (70-110)
[2017-10-25] MEDS: LORazepam 0.5 MG Tablet 1 MG GT (21:05)
[2017-10-25] MEDS: Atorvastatin Calcium 20 MG Tablet GT (21:06)
[2017-10-25] MEDS: PARoxetine 10 MG Tablet GT (21:06)
[2017-10-25] MEDS: QUEtiapine 25 MG Tablet GT (21:06)
[2017-10-25] MEDS: Azithromycin 250 MG Tablet GT (21:07)
[2017-10-25] MEDS: Doxepin Hcl 25 MG Capsule GT (21:07)
[2017-10-26] MEDS: Menthol/Lanolin/Calamine/Znox 113 GM Tube 1 APPLIC TOPICAL ×3 (05:46→22:13)
[2017-10-26 05:47] VITALS: PULSE 70
[2017-10-26] MEDS: Furosemide 40 MG Tablet GT (05:47)
[2017-10-26] MEDS: Nystatin Powder 15gm Bottle 1 APPLIC TOPICAL ×2 (05:47→22:12)
[2017-10-26] MEDS: Amiodarone 200 MG Tablet GT (05:47)
[2017-10-26] MEDS: Metoprolol Tartrate 25 MG Tablet GT ×2 (05:47→17:51)
[2017-10-26] MEDS: Famotidine 20 MG Tablet GT (05:48)
[2017-10-26] MEDS: Cholestyramine/Sucrose 4 GM/PACKET PO ×2 (05:48→17:51)
[2017-10-26] MEDS: Cefdinir 300 MG Capsule PO ×2 (05:48→17:51)
[2017-10-26] MEDS: NEPRO TUBE FEED 1,000 ML LIQUID 240 ML GT ×5 (05:49→22:13)
[2017-10-26] MEDS: MethylPREDNISolone DosePak 4 MG BOX PO (05:49)
[2017-10-26] MEDS: Aspirin 81 MG TAB.CHEW GT (05:49)
[2017-10-26 06:51] LABS: Bedside Glucose 110 mg/dL (70-110)
[2017-10-26 10:00] VITALS: PULSE 49; RESP 18; O2SAT 96
[2017-10-26 11:00] LABS: Bedside Glucose 119 mg/dL (70-110)
--- NOTE | 2017-10-26 11:12 | NURSING ---
THIS NURSE AND AIDS CHANGED PT AND APPLYED NEW GOWN AND JAMES TO BOTTOM. TURNED PT TO LEFT SIDE,HEELS UP OFF OF BED. THIS NURSE AND DAUGHTER SUCTIONED PT A FEW TIMES. MOUTH CARE DOWN, LIP MOISTURE TO DRY LIPS. PT TOLERATED WELL. NO COMPLANTS AT THIS TIME.
[2017-10-26 11:30] VITALS: PULSE 75; RESP 18
[2017-10-26] MEDS: Ipratropium/Albuterol Sulfate 3 ML AMPUL.NEB INHALATION ×2 (11:30→22:58)
--- NOTE | 2017-10-26 11:57 | NURSING ---
PT UNDER PRECAUTIONS FOR C/DIFF.
--- NOTE | 2017-10-26 12:04 | CASEMGMT ---
Insurance Clinical information faxed. Pending continued stay approval at this time. Auth#[id number] Ginny MARCIAL, CHIEF INNOVATION OFFICER
[2017-10-26 15:51] VITALS: BP 120/74; PULSE 60; RESP 18; TEMP 36.2; O2SAT 98
[2017-10-26 17:10] LABS: Bedside Glucose 85 mg/dL (70-110)
--- NOTE | 2017-10-26 17:21 | CASEMGMT ---
Brief interview for mental status (BIMS) and resident mood interview (PHQ-9) completed on this day. BIMS score 11/21. PHQ-9 score 02/02
--- NOTE | 2017-10-26 17:24 | CASEMGMT ---
Insurance Continued stay approved with next update due on 10/31/17. Auth#[id number] Ginny MARCIAL, FACILITIES PROJECT MANAGER
[2017-10-26 17:51] VITALS: BP 120/74; PULSE 60
--- NOTE | 2017-10-26 18:17 | NURSING ---
PT RESTING COMFORTABLY,FAMILY IN ROOM. 0 RESIDUALS TODAY.
[2017-10-26 20:51] LABS: Bedside Glucose 93 mg/dL (70-110)
[2017-10-26] MEDS: Atorvastatin Calcium 20 MG Tablet GT (22:13)
[2017-10-26] MEDS: PARoxetine 10 MG Tablet GT (22:13)
[2017-10-26] MEDS: Doxepin Hcl 25 MG Capsule GT (22:14)
[2017-10-26] MEDS: Azithromycin 250 MG Tablet GT (22:14)
[2017-10-26] MEDS: QUEtiapine 25 MG Tablet GT (22:14)
[2017-10-26 22:58] VITALS: PULSE 60; RESP 18
[2017-10-26] MEDS: Acetaminophen 650 MG/20 ML UDC GT (23:32)
[2017-10-26] MEDS: LORazepam 0.5 MG Tablet 1 MG GT (23:34)
[2017-10-27] MEDS: Menthol/Lanolin/Calamine/Znox 113 GM Tube 1 APPLIC TOPICAL ×3 (04:30→22:49)
[2017-10-27] MEDS: Nystatin Powder 15gm Bottle 1 APPLIC TOPICAL ×2 (04:31→22:50)
[2017-10-27] MEDS: NEPRO TUBE FEED 1,000 ML LIQUID 240 ML GT ×4 (04:31→20:30)
[2017-10-27] MEDS: Cholestyramine/Sucrose 4 GM/PACKET PO ×2 (04:32→20:30)
[2017-10-27 04:33] VITALS: BP 111/67; PULSE 78
[2017-10-27] MEDS: Furosemide 40 MG Tablet GT (04:33)
[2017-10-27] MEDS: Cefdinir 300 MG Capsule PO ×2 (04:33→20:30)
[2017-10-27] MEDS: Metoprolol Tartrate 25 MG Tablet GT ×2 (04:33→20:30)
[2017-10-27] MEDS: Amiodarone 200 MG Tablet GT (04:33)
[2017-10-27] MEDS: Famotidine 20 MG Tablet GT (04:33)
[2017-10-27 06:05] LABS: Absolute Lymphocyte Count 2.43 X10^3/ul (0.83-4.51); Absolute Neutrophil Count 7.3 X10^3/uL (2.0-7.7); Basophil# 0.05 X10^3/uL; Basophil% 0.4 % (0-1); Eosinophil# 0.35 X10^3/uL; Hematocrit 35.3 % (40-54); Hemoglobin 11.6 g/dl (13.0-16.5); Lymphocyte # 2.43 X10^3/ul (4.0); Lymphocyte % 20.8 % (19-41); Mean Corp Hgb Conc 32.9 g/gl (32-36); Mean Corpuscular Hgb 28.5 pg (27.0-32.0); Mean Corpuscular Volume 86.7 fL (80-94); Mean Platelet Vol. 9.7 fl (6.2-12.0); Monocyte# 1.41 X10^3/uL; Monocyte% 12.1 % (0-10); Neutrophil # 7.33 X10^3/uL (2.7-7.7); Neutrophil % 62.7 % (47-70); Platelet Count 428 K/mm3 (150-450); RBC Distribution Width CV 15.6 % (11.6-14.6); RBC Distribution Width SD 49.4 fl (35.1-43.9); Red Blood Count 4.07 M/mm3 (4.6-6.2); White Blood Count 11.7 K/mm3 (4.4-11.0)
[2017-10-27 06:11] LABS: POSITIVE COUNT NO; POSITIVE DIFFERENTIAL NO; POSITIVE MORPHOLOGY NO
[2017-10-27 06:29] LABS: ALB/GLOB Ratio 0.5 RATIO (0.9-2.4); AST(SGOT) 31 U/L (15-37); Alanine Aminotransfer ALT/SGPT 40 U/L (16-61); Albumin, Serum 2.5 g/dL (3.2-5.0); Alkaline Phosphatase 121 U/L (45-117); Anion Gap 10 (5-15); BUN 86 mg/dL (7-18); BUN/Creat Ratio 62.8 RATIO (10-20); Calcium,Total 9.1 mg/dL (8.5-10.1); Chloride 103 mmol/L (98-107); Creatinine, Serum 1.37 mg/dL (0.70-1.30); EST Glomerular Filtration Rate 53 mL/min (>60); Est Glom Filt Rate - Afr Amer 64 mL/min (>60); Glucose 82 mg/dL (74-106); Potassium 4.7 mmol/L (3.5-5.1); Protein, Total 7.5 g/dL (6.4-8.2); Sodium Level 132 mmol/L (136-145)
[2017-10-27 07:01] LABS: Bedside Glucose 110 mg/dL (70-110)
[2017-10-27] MEDS: Aspirin 81 MG TAB.CHEW GT (08:52)
--- NOTE | 2017-10-27 09:08 | NURSING ---
Dr. Wong reviewed blood sugars, accuchecks changed to PRN
--- NOTE | 2017-10-27 10:57 | NURSING ---
Pt ped tube placement verified, 20ml residual noted. Pt tolerated fed without concern. not redness around site. Will continue to monitor
[2017-10-27 11:55] VITALS: PULSE 74; RESP 20
[2017-10-27] MEDS: Ipratropium/Albuterol Sulfate 3 ML AMPUL.NEB INHALATION (11:55)
[2017-10-27] MEDS: Tuberculin,Purif.prot.deriv. 50 TU/ML Vial 5 ML ID (14:17)
[2017-10-27 14:59] VITALS: PULSE 92; RESP 20; O2SAT 95
[2017-10-27 15:22] VITALS: BP 127/70; PULSE 58; RESP 20; TEMP 36.2; O2SAT 97
--- NOTE | 2017-10-27 15:35 | NURSING ---
Pt still in c-diff precautions. tube feeding tolerated with no residual since am tube fed.
[2017-10-27 20:30] VITALS: BP 111/56; PULSE 67
[2017-10-27] MEDS: Atorvastatin Calcium 20 MG Tablet GT (22:49)
[2017-10-27] MEDS: PARoxetine 10 MG Tablet GT (22:50)
[2017-10-27] MEDS: QUEtiapine 25 MG Tablet 12.5 MG GT (22:51)
[2017-10-27] MEDS: Doxepin Hcl 25 MG Capsule GT (22:51)
[2017-10-27] MEDS: LORazepam 0.5 MG Tablet 1 MG GT (22:51)
[2017-10-28] MEDS: NEPRO TUBE FEED 1,000 ML LIQUID 240 ML GT ×6 (00:27→21:50)
[2017-10-28] MEDS: Menthol/Lanolin/Calamine/Znox 113 GM Tube 1 APPLIC TOPICAL ×3 (06:54→21:49)
[2017-10-28] MEDS: Famotidine 20 MG Tablet GT (06:55)
[2017-10-28] MEDS: Furosemide 40 MG Tablet GT (06:55)
[2017-10-28] MEDS: Cefdinir 300 MG Capsule PO ×2 (06:55→17:52)
[2017-10-28] MEDS: Cholestyramine/Sucrose 4 GM/PACKET PO ×2 (06:56→17:51)
[2017-10-28 07:08] VITALS: BP 108/50; PULSE 59
[2017-10-28] MEDS: Amiodarone 200 MG Tablet GT (07:10)
[2017-10-28] MEDS: Nystatin Powder 15gm Bottle 1 APPLIC TOPICAL ×2 (07:10→21:50)
[2017-10-28] MEDS: Aspirin 81 MG TAB.CHEW GT (09:58)
[2017-10-28 10:00] VITALS: PULSE 98; RESP 20; O2SAT 94
[2017-10-28 12:10] VITALS: PULSE 54; RESP 16
[2017-10-28] MEDS: Ipratropium/Albuterol Sulfate 3 ML AMPUL.NEB INHALATION (12:10)
[2017-10-28 14:31] VITALS: BP 129/76; PULSE 60; RESP 18; TEMP 35.8; O2SAT 96
[2017-10-28 17:51] VITALS: BP 126/79; PULSE 60
[2017-10-28] MEDS: Metoprolol Tartrate 25 MG Tablet GT (17:51)
--- NOTE | 2017-10-28 18:46 | NURSING ---
DR HERNANDEZ NOTIFIED OF PT FAMILY REQUESTING MUCINEX FOR CONGESTION, NEW ORDER OBTAINED.
[2017-10-28] MEDS: Atorvastatin Calcium 20 MG Tablet GT (21:49)
[2017-10-28] MEDS: guaiFENesin 10 ML UDC (200MG/10ML) GT (21:50)
[2017-10-28] MEDS: QUEtiapine 25 MG Tablet 12.5 MG GT (21:50)
[2017-10-28] MEDS: PARoxetine 10 MG Tablet GT (21:50)
[2017-10-28] MEDS: LORazepam 0.5 MG Tablet 1 MG GT (21:51)
[2017-10-28] MEDS: Doxepin Hcl 25 MG Capsule GT (21:51)
[2017-10-29] VITALS (7 sets, daily range): BP systolic 98–118; BP diastolic 52–58; PULSE 55–98; RESP 14–22; TEMP 35.8; O2SAT 95–96
[2017-10-29] MEDS: guaiFENesin 10 ML UDC (200MG/10ML) GT ×6 (02:23→21:48)
[2017-10-29] MEDS: LORazepam 0.5 MG Tablet 1 MG GT ×2 (03:08→21:51)
--- NOTE | 2017-10-29 03:15 | NURSING ---
Given second dose ativan 1mg this shift after pt is calling out, trying to crawl out of bed, very anxious. Peg placement verified via auscultation, no residual noted. Son present and pt is unable to rest, staff repositioning every 1-2 hours. Continuing to monitor.
[2017-10-29] MEDS: Menthol/Lanolin/Calamine/Znox 113 GM Tube 1 APPLIC TOPICAL ×3 (05:39→19:41)
[2017-10-29] MEDS: Amiodarone 200 MG Tablet GT (05:41)
[2017-10-29] MEDS: Metoprolol Tartrate 25 MG Tablet GT ×2 (05:42→18:52)
[2017-10-29] MEDS: Famotidine 20 MG Tablet GT (05:42)
[2017-10-29] MEDS: NEPRO TUBE FEED 1,000 ML LIQUID 240 ML GT ×5 (05:42→21:48)
[2017-10-29] MEDS: Nystatin Powder 15gm Bottle 1 APPLIC TOPICAL ×2 (05:42→19:41)
[2017-10-29] MEDS: Furosemide 40 MG Tablet GT (05:43)
[2017-10-29] MEDS: Cholestyramine/Sucrose 4 GM/PACKET PO ×2 (05:44→18:21)
[2017-10-29] MEDS: Aspirin 81 MG TAB.CHEW GT (05:47)
[2017-10-29] MEDS: Ipratropium/Albuterol Sulfate 3 ML AMPUL.NEB INHALATION ×3 (11:25→19:00)
[2017-10-29] MEDS: PARoxetine 10 MG Tablet GT (21:48)
[2017-10-29] MEDS: Doxepin Hcl 25 MG Capsule GT (21:48)
[2017-10-29] MEDS: QUEtiapine 25 MG Tablet 12.5 MG GT (21:48)
[2017-10-29] MEDS: Atorvastatin Calcium 20 MG Tablet GT (21:48)
[2017-10-30] VITALS (8 sets, daily range): BP systolic 107–110; BP diastolic 53–60; PULSE 55–62; RESP 16–20; TEMP 37.4; O2SAT 95–96
[2017-10-30] MEDS: guaiFENesin 10 ML UDC (200MG/10ML) GT ×6 (01:54→21:42)
[2017-10-30] MEDS: LORazepam 0.5 MG Tablet 1 MG GT ×2 (01:55→21:42)
[2017-10-30] MEDS: Acetaminophen 650 MG/20 ML UDC GT (01:56)
[2017-10-30] MEDS: Menthol/Lanolin/Calamine/Znox 113 GM Tube 1 APPLIC TOPICAL ×3 (05:12→21:58)
[2017-10-30] MEDS: Nystatin Powder 15gm Bottle 1 APPLIC TOPICAL ×2 (05:13→22:01)
[2017-10-30] MEDS: Famotidine 20 MG Tablet GT (05:14)
[2017-10-30] MEDS: Furosemide 40 MG Tablet GT (05:14)
[2017-10-30] MEDS: Amiodarone 200 MG Tablet GT (05:14)
[2017-10-30] MEDS: Metoprolol Tartrate 25 MG Tablet GT ×2 (05:14→17:44)
[2017-10-30] MEDS: Cholestyramine/Sucrose 4 GM/PACKET PO ×2 (05:14→17:45)
[2017-10-30] MEDS: NEPRO TUBE FEED 1,000 ML LIQUID 240 ML GT ×5 (05:15→21:58)
[2017-10-30] MEDS: Ipratropium/Albuterol Sulfate 3 ML AMPUL.NEB INHALATION ×3 (07:45→19:30)
[2017-10-30] MEDS: Aspirin 81 MG TAB.CHEW GT (08:54)
--- NOTE | 2017-10-30 09:00 | NURSING ---
PT IN PRECAUTIONS FOR C/DIFF.
--- NOTE | 2017-10-30 09:13 | NURSING ---
PT RESTING COMFORTABLY. PLACEMENT OF PEG CHECKED,0 RESIDUAL. FAMILY IN ROOM.
--- NOTE | 2017-10-30 13:20 | NURSING ---
PT RESTING WITH EYES CLOSED,FAMILY IN ROOM. PEG PLACEMENT CHECKED,0 RESIDUAL.
--- NOTE | 2017-10-30 18:02 | NURSING ---
pt resting with eyes closed. did wake up to talk to this nurse a little. family in room. peg placement checked,0 residual. no concerns or complants at this time.
[2017-10-30] MEDS: Atorvastatin Calcium 20 MG Tablet GT (21:42)
[2017-10-30] MEDS: PARoxetine 10 MG Tablet GT (21:43)
[2017-10-30] MEDS: Doxepin Hcl 25 MG Capsule 50 MG GT (21:43)
[2017-10-30] MEDS: QUEtiapine 25 MG Tablet 12.5 MG GT (21:43)
[2017-10-31] VITALS (7 sets, daily range): BP systolic 112; BP diastolic 54–60; PULSE 59–92; RESP 16–20; TEMP 36.6; O2SAT 91
[2017-10-31] MEDS: LORazepam 0.5 MG Tablet 1 MG GT ×2 (01:52→20:59)
[2017-10-31] MEDS: guaiFENesin 10 ML UDC (200MG/10ML) GT ×6 (01:54→20:59)
[2017-10-31] MEDS: Amiodarone 200 MG Tablet GT (05:08)
[2017-10-31] MEDS: Metoprolol Tartrate 25 MG Tablet GT ×2 (05:08→18:10)
[2017-10-31] MEDS: Famotidine 20 MG Tablet GT (05:08)
[2017-10-31] MEDS: Furosemide 40 MG Tablet GT (05:08)
[2017-10-31] MEDS: Menthol/Lanolin/Calamine/Znox 113 GM Tube 1 APPLIC TOPICAL ×3 (05:09→21:00)
[2017-10-31] MEDS: Cholestyramine/Sucrose 4 GM/PACKET PO ×2 (05:09→18:29)
[2017-10-31] MEDS: Nystatin Powder 15gm Bottle 1 APPLIC TOPICAL ×2 (05:10→21:00)
[2017-10-31] MEDS: NEPRO TUBE FEED 1,000 ML LIQUID 240 ML GT ×5 (05:13→20:59)
[2017-10-31] MEDS: Ipratropium/Albuterol Sulfate 3 ML AMPUL.NEB INHALATION ×3 (06:32→15:18)
[2017-10-31] MEDS: Aspirin 81 MG TAB.CHEW GT (10:10)
--- NOTE | 2017-10-31 12:53 | MDS.RN ---
Information for the mds was obtained from review of the clinical record, interview of resident, staff, and direct observation of resident's care.
--- NOTE | 2017-10-31 15:00 | CASEMGMT ---
Insurance Clinical information faxed. Pending continued stay approval at this time. Auth#[id number] Ginny MARCIAL, SUSTAINABLE PRODUCTS MARKETING MANAGER
--- NOTE | 2017-10-31 16:43 | CASEMGMT ---
Insurance Continued stay denied with last cover day being 11/03/17 and resident to discharge or financial responsibility to begin on 11/04/17. Auth#[id number] Ginny MARCILA, SENIOR PHP WEB DEVELOPER
--- NOTE | 2017-10-31 16:44 | CASEMGMT ---
Social Work Spoke with resident and resident family. This social media director communicating that continued stay has been denied with a last cover day of 11/03/17 and resident to discharge or financial responsibility to begin on 11/04/17. Resident and resident family agreeable to discharge date and plan for resident to discharge home with family. Resident family agreeable to home health services for physical and occupational therapy as well as a home health aide and nursing. Resident family to begin teaching for PEG tube management and care. Support given. Proposed discharge date: 11/04/17 PLAN: Discharge home with family and home health services. Will continue to follow. Ginny MARCIAL, DIRECTOR OF ADMISSIONS
[2017-10-31] MEDS: PARoxetine 10 MG Tablet GT (21:00)
[2017-10-31] MEDS: Atorvastatin Calcium 20 MG Tablet GT (21:00)
[2017-10-31] MEDS: Doxepin Hcl 25 MG Capsule 50 MG GT (21:01)
[2017-10-31] MEDS: QUEtiapine 25 MG Tablet 12.5 MG GT (21:01)
--- NOTE | 2017-10-31 21:24 | NURSING ---
Peg placement verified via auscultation, no residual noted. Spoke with family present regarding home care upon discharge. Son stated he is still not sure where he is going to be staying, that no ones home is ready and the needed supplies are not ready. Assured him staff would answer all questions and concerns prior to discharge, and he was very understanding and appreciative of this. RN aware. Continuing to monitor.
--- NOTE | 2017-10-31 21:33 | PCM.DC ---
- Discharge Diagnoses Current Active Problems: Current Active and Chronic Problems (Last Updated 06/20/17 @ 14:47 by Whit Wilson) Encephalopathy (Acute) Weakness (Acute) HCAP (healthcare-associated pneumonia) (Acute) Acute on chronic diastolic heart failure (Acute) Atrial fibrillation (Chronic) Clostridium difficile diarrhea (Acute) Urinary retention (Chronic) Chronic hepatitis B (Chronic) BPH (benign prostatic hyperplasia) (Chronic) Acute on chronic kidney failure (Acute) GERD (gastroesophageal reflux disease) (Chronic) Insomnia (Chronic) Diabetes mellitus (Chronic) Burkholderia cepacia infection (Acute) You will use the following diet at home:: Other - Nothing by Mouth. Discharge Activity: Return to Normal Activity, May Shower, Use Walker Weight Bearing Status: Weight bearing as tolerated Call your doctor if you observe: Fever of 101 or Higher, Inability to urinate, Inability to have a bowel movement, Shortness of breath, Chest pain, Uncontrolled pain Allergies/Adverse Reactions: Allergies No Known Allergies Allergy (Unverified 06/20/17 14:37) Medications to take at Discharge Acetaminophen Liquid [Tylenol Liquid] 650 mg GT Q4H PRN PRN #1000 ml 10/31/17 Amiodarone HCl [Cordarone] 200 mg GT DAILY #30 tab 10/31/17 Aspirin [Aspirin, Baby] 81 mg GT DAILY@0800 #30 tab.chew 10/31/17 Atorvastatin Calcium [Lipitor] 20 mg GT QHS #30 tab 10/31/17 Bisacodyl [Dulcolax] 10 mg PO DAILY PRN PRN #30 tab 10/31/17 Cholestyramine (with Sugar) [Cholestyramine Packet] 4 gm PO BID #60 powd.pack 10/31/17 Doxepin HCl [Sinequan] 50 mg GT QHS #60 cap 10/31/17 Famotidine [Pepcid] 20 mg GT DAILY #30 tab 10/31/17 Furosemide 40 mg GT DAILY #30 tab 10/31/17 Guaifenesin [Robitussin] 10 ml GT Q4 #300 ml 10/31/17 Ipratropium/Albuterol Sulfate [Duoneb] 3 ml INHALATION Q4H.RT #120 ampul.neb 10/31/17 Lactobacillus Acidophilus [Acidophilus] 1 tab PO BID #60 tab 10/31/17 Lorazepam [Ativan] 1 mg GT Q4H PRN PRN #30 tab 10/31/17 Menthol/Lanolin/Calamine/Znox [Calmoseptine Ointment] 1 applic TOPICAL TID tube 10/31/17 Metoprolol Tartrate 25 mg GT BID #60 tab 10/31/17 Nepro Tube Feed [Nepro Carb Steady] 240 ml GT 5X/DAY #36 l 10/31/17 Nystatin Powder [Mycostatin Powder] 1 applic TOPICAL 0600,0 #1 bottle 10/31/17 Paroxetine [Paxil] 10 mg GT QHS #30 tab 10/31/17 Potassium Chloride 20 meq GT DAILY #450 ml 10/31/17 The following prescriptions were given: Acetaminophen Liquid [Tylenol Liquid] 650 mg GT Q4H PRN PRN #1000 ml PRN Reason: FEVER Ipratropium/Albuterol Sulfate [Duoneb] 3 ml INHALATION Q4H.RT #120 ampul.neb Lorazepam [Ativan] 1 mg GT Q4H PRN PRN #30 tab PRN Reason: ANXIETY/AGITATION Amiodarone HCl [Cordarone] 200 mg GT DAILY #30 tab Aspirin [Aspirin, Baby] 81 mg GT DAILY@0800 #30 tab.chew Atorvastatin Calcium [Lipitor] 20 mg GT QHS #30 tab Bisacodyl [Dulcolax] 10 mg PO DAILY PRN PRN #30 tab PRN Reason: Constipation Doxepin HCl [Sinequan] 50 mg GT QHS #60 cap Famotidine [Pepcid] 20 mg GT DAILY #30 tab Furosemide 40 mg GT DAILY #30 tab Guaifenesin [Robitussin] 10 ml GT Q4 #300 ml Nepro Tube Feed [Nepro Carb Steady] 240 ml GT 5X/DAY #36 l Nystatin Powder [Mycostatin Powder] 1 applic TOPICAL 0600,2200 #1 bottle Paroxetine [Paxil] 10 mg GT QHS #30 tab Potassium Chloride 20 meq GT DAILY #450 ml Cholestyramine (with Sugar) [Cholestyramine Packet] 4 gm PO BID #60 powd.pack Lactobacillus Acidophilus [Acidophilus] 1 tab PO BID #60 tab Metoprolol Tartrate 25 mg GT BID #60 tab Primary Care Physician: Thor Jefferson DO [Primary Care Provider] - Please follow up with your Primary Care Physician in: 1 week. Please Follow Up With: Thor Jefferson DO Proposed Discharge Date: 11/04/17
--- NOTE | 2017-10-31 21:36 | PCM.DC.SUM ---
Discharge Date and Diagnosis - Problem List Patient Problems: Active and Suspected Problems (Last Updated 06/20/17 @ 14:47 by Whit Wilson) Encephalopathy (Acute) Weakness (Acute) HCAP (healthcare-associated pneumonia) (Acute) Acute on chronic diastolic heart failure (Acute) Clostridium difficile diarrhea (Acute) Acute on chronic kidney failure (Acute) Burkholderia cepacia infection (Acute) Date of Admission: 10/19/17 Date of Discharge: 11/04/17 - Primary Discharge Diagnosis Active and Suspected Problems (Last Updated 06/20/17 @ 14:47 by Whit Wilson) Encephalopathy (Acute) Weakness (Acute) HCAP (healthcare-associated pneumonia) (Acute) Acute on chronic diastolic heart failure (Acute) Clostridium difficile diarrhea (Acute) Acute on chronic kidney failure (Acute) Burkholderia cepacia infection (Acute) - Secondary Discharge Diagnosis Chronic Problems (Last Updated 06/20/17 @ 14:47 by Whit Wilson) Anisocoria (Chronic) Coronary artery disease (Chronic) 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) CABG x 1 vessel at [facility] with AV repair and repair of aortic dissection H/O aortic valve repair (Chronic) as a result of a thoracic aortic dissection Aortic dissection, thoracic (Chronic) repaired at [facility] main campus in june of 2017 Cerebrovascular disease (Chronic) Ventricular hypertrophy (Chronic) EF of 65% Diastolic dysfunction (Chronic) stage 1 Dysphagia (Chronic) Atrial fibrillation (Chronic) Urinary retention (Chronic) Chronic hepatitis B (Chronic) BPH (benign prostatic hyperplasia) (Chronic) GERD (gastroesophageal reflux disease) (Chronic) Insomnia (Chronic) Diabetes mellitus (Chronic) Paroxysmal atrial fibrillation (Chronic) Type 2 diabetes mellitus without complications (Chronic) Hyperlipidemia (Chronic) Hypertension (Chronic) Hospital Course and Treatment Imaging Results: 10/19/17 18:24 Diet: Nothing Per Oral Is pt able to select menu?: No Clinical Impression(s) from Imaging Studies Chest X-Ray 10/21/17 16:14 IMPRESSION: Decrease in size in the left pleural effusion. Stable infiltrate in the right lung. Similar infiltrate of the left lung. Electronically Signed: Valeriy Alexandre MD at 16:46 EDT , Service support , Consultations 10/19/17 Consult: Onc/Wound/studio owner Routine Comment: Reason for Consult:: PRESSURE INJURY TO OCCIPITAL SCALP Operations: None Procedures: None Summary of Care Provided: The patient is a 81 year old Male with below past medical history significant for recent thoracic aortic dissection repair, hospitalized for change in mental status secondary to healthcare associated pneumonia, complicated by clostridium difficile colitis, acute on chronic diastolic heart failure requiring intubation, anemia requiring transfusion, admitted to TCU with debility, here for rehabilitation, strengthening, advancement of diet per speech therapy, prior to discharge home with family. Discharge home with family, and Home Health Services. Discharge Diet: - - NPO. Discharge Activity: Return to Normal Activity, May Shower, Use Walker Weight Bearing Status: Weight bearing as tolerated Call your doctor if you observe: Fever of 101 or Higher, Inability to urinate, Inability to have a bowel movement, Shortness of breath, Chest pain, Uncontrolled pain Home Medications: Medications to take at Discharge Acetaminophen Liquid [Tylenol Liquid] 650 mg GT Q4H PRN PRN #1000 ml 10/31/17 Amiodarone HCl [Cordarone] 200 mg GT DAILY #30 tab 10/31/17 Aspirin [Aspirin, Baby] 81 mg GT DAILY@0800 #30 tab.chew 10/31/17 Atorvastatin Calcium [Lipitor] 20 mg GT QHS #30 tab 10/31/17 Bisacodyl [Dulcolax] 10 mg PO DAILY PRN PRN #30 tab 10/31/17 Cholestyramine (with Sugar) [Cholestyramine Packet] 4 gm PO BID #60 powd.pack 10/31/17 Doxepin HCl [Sinequan] 50 mg GT QHS #60 cap 10/31/17 Famotidine [Pepcid] 20 mg GT DAILY #30 tab 10/31/17 Furosemide 40 mg GT DAILY #30 tab 10/31/17 Guaifenesin [Robitussin] 10 ml GT Q4 #300 ml 10/31/17 Ipratropium/Albuterol Sulfate [Duoneb] 3 ml INHALATION Q4H.RT #120 ampul.neb 10/31/17 Lactobacillus Acidophilus [Acidophilus] 1 tab PO BID #60 tab 10/31/17 Lorazepam [Ativan] 1 mg GT Q4H PRN PRN #30 tab 10/31/17 Menthol/Lanolin/Calamine/Znox [Calmoseptine Ointment] 1 applic TOPICAL TID tube 10/31/17 Metoprolol Tartrate 25 mg GT BID #60 tab 10/31/17 Nepro Tube Feed [Nepro Carb Steady] 240 ml GT 5X/DAY #36 l 10/31/17 Nystatin Powder [Mycostatin Powder] 1 applic TOPICAL 00,0 #1 bottle 10/31/17 Paroxetine [Paxil] 10 mg GT QHS #30 tab 10/31/17 Potassium Chloride 20 meq GT DAILY #450 ml 10/31/17 Following Prescrptions Were Given to Patient: Acetaminophen Liquid [Tylenol Liquid] 650 mg GT Q4H PRN PRN #1000 ml PRN Reason: FEVER Ipratropium/Albuterol Sulfate [Duoneb] 3 ml INHALATION Q4H.RT #120 ampul.neb Lorazepam [Ativan] 1 mg GT Q4H PRN PRN #30 tab PRN Reason: ANXIETY/AGITATION Amiodarone HCl [Cordarone] 200 mg GT DAILY #30 tab Aspirin [Aspirin, Baby] 81 mg GT DAILY@0800 #30 tab.chew Atorvastatin Calcium [Lipitor] 20 mg GT QHS #30 tab Bisacodyl [Dulcolax] 10 mg PO DAILY PRN PRN #30 tab PRN Reason: Constipation Doxepin HCl [Sinequan] 50 mg GT QHS #60 cap Famotidine [Pepcid] 20 mg GT DAILY #30 tab Furosemide 40 mg GT DAILY #30 tab Guaifenesin [Robitussin] 10 ml GT Q4 #300 ml Nepro Tube Feed [Nepro Carb Steady] 240 ml GT 5X/DAY #36 l Nystatin Powder [Mycostatin Powder] 1 applic TOPICAL 0600,0 #1 bottle Paroxetine [Paxil] 10 mg GT QHS #30 tab Potassium Chloride 20 meq GT DAILY #450 ml Cholestyramine (with Sugar) [Cholestyramine Packet] 4 gm PO BID #60 powd.pack Lactobacillus Acidophilus [Acidophilus] 1 tab PO BID #60 tab Metoprolol Tartrate 25 mg GT BID #60 tab Primary Care Physician: Thor Jefferson DO [Primary Care Provider] - Please follow up with your Primary Care Physician in: 1 week. Please Follow Up With: Thor Jefferson DO Disposition: Home with Home Health Minutes spent on discharge:: 35 Patient Condition:: Stable Medical Necessity - Tobacco Use Smoking Status: Former smoker Tobacco Use: Non-smoker Meaningful Use Info Meaningful Use Diagnoses (Choose all that apply): None applicable
--- NOTE | 2017-10-31 21:39 | HHNOTE_ITS ---
Home Health Note - Plan Overview of reason of hospitalization: The patient is a 81 year old Male with below past medical history significant for recent thoracic aortic dissection repair, hospitalized for change in mental status secondary to healthcare associated pneumonia, complicated by clostridium difficile colitis, acute on chronic diastolic heart failure requiring intubation , anemia requiring transfusion, admitted to TCU with debility, here for rehabilitation, strengthening, advancement of diet per speech therapy, prior to discharge home with family. Discharge home with family, and Home Health Services. Problems: Patient was seen for (Last Updated 06/20/17 @ 14:47 by Whit Wilson) Encephalopathy (Acute) Weakness (Acute) HCAP (healthcare-associated pneumonia) (Acute) Acute on chronic diastolic heart failure (Acute) Atrial fibrillation (Chronic) Clostridium difficile diarrhea (Acute) Urinary retention (Chronic) Chronic hepatitis B (Chronic) BPH (benign prostatic hyperplasia) (Chronic) Acute on chronic kidney failure (Acute) GERD (gastroesophageal reflux disease) (Chronic) Insomnia (Chronic) Diabetes mellitus (Chronic) Burkholderia cepacia infection (Acute) Complete List of Medical Problems (Last Updated 06/20/17 @ 14:47 by Whit Wilson) Pneumonia (Acute) UTI (urinary tract infection) (Acute) SIRS (systemic inflammatory response syndrome) (Acute) Acute respiratory failure with hypoxemia (Acute) Aspiration pneumonia (Acute) Acute renal failure superimposed on stage 3 chronic kidney disease (Acute) Anisocoria (Chronic) Severe anemia (Acute) Hypovolemic shock (Acute) Severe sepsis (Acute) Coronary artery disease (Chronic) 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) H/O aortic valve repair (Chronic) Aortic dissection, thoracic (Chronic) Cerebrovascular disease (Chronic) Hypophosphatemia (Acute) Clostridium difficile enterocolitis (Acute) Ventricular hypertrophy (Chronic) Diastolic dysfunction (Chronic) Dysphagia (Chronic) Encephalopathy (Acute) Weakness (Acute) HCAP (healthcare-associated pneumonia) (Acute) Acute on chronic diastolic heart failure (Acute) Atrial fibrillation (Chronic) Clostridium difficile diarrhea (Acute) Urinary retention (Chronic) Chronic hepatitis B (Chronic) BPH (benign prostatic hyperplasia) (Chronic) Acute on chronic kidney failure (Acute) GERD (gastroesophageal reflux disease) (Chronic) Insomnia (Chronic) Diabetes mellitus (Chronic) Burkholderia cepacia infection (Acute) Paroxysmal atrial fibrillation (Chronic) Type 2 diabetes mellitus without complications (Chronic) Hyperlipidemia (Chronic) Hypertension (Chronic) - Requirements and Reasons Disciplines Needed/Ordered: Senior Care, Physical Therapy Reason for Disciplines: Disease Specific Monitoring/education, Medication Management/Knowledge Deficit, Tube Feedings, Gait Training, Stair Training, Fall Prevention, Home Safety/Equipment Instruction, Balance and/or Posture Training, Transfer Training Related To: Limited/Poor Endurance, Shortness of Breath with Activity, Physical Impairments, Unsteady Gait/Balance, Fall Risk Patient is unable to leave the home: Without Aid of Supportive Devices (crutches , cane, wheelchair, walker), Without the assistance of another person - Additional Disciplines Additional Disciplines Needed/Ordered: Occupational Therapy, Home Health Aide
[2017-11-01] VITALS (8 sets, daily range): BP systolic 106; BP diastolic 61; PULSE 57–86; RESP 16–19; TEMP 36.6; O2SAT 99
[2017-11-01] MEDS: guaiFENesin 10 ML UDC (200MG/10ML) GT ×6 (01:43→21:45)
[2017-11-01] MEDS: LORazepam 0.5 MG Tablet 1 MG GT ×2 (01:45→21:42)
--- NOTE | 2017-11-01 01:51 | NURSING ---
Peg placement verified via auscultation, 30cc residual noted. Pt given prn ativan as he was visibly anxious, attempting to crawl out of bed, very restless. Brief changed, pt repositioned for comfort. Continuing to monitor.
[2017-11-01] MEDS: Menthol/Lanolin/Calamine/Znox 113 GM Tube 1 APPLIC TOPICAL ×3 (05:22→19:46)
[2017-11-01] MEDS: Nystatin Powder 15gm Bottle 1 APPLIC TOPICAL ×2 (05:22→19:47)
[2017-11-01] MEDS: Furosemide 40 MG Tablet GT (05:22)
[2017-11-01] MEDS: Amiodarone 200 MG Tablet GT (05:22)
[2017-11-01] MEDS: Metoprolol Tartrate 25 MG Tablet GT ×2 (05:23→18:40)
[2017-11-01] MEDS: Cholestyramine/Sucrose 4 GM/PACKET PO ×2 (05:23→18:42)
[2017-11-01] MEDS: Famotidine 20 MG Tablet GT (05:24)
[2017-11-01] MEDS: NEPRO TUBE FEED 1,000 ML LIQUID 240 ML GT ×5 (05:25→21:42)
[2017-11-01] MEDS: Ipratropium/Albuterol Sulfate 3 ML AMPUL.NEB INHALATION ×5 (07:25→22:51)
[2017-11-01] MEDS: Aspirin 81 MG TAB.CHEW GT (10:03)
--- NOTE | 2017-11-01 12:56 | CASEMGMT ---
Social Work Spoke with resident and resident family. Resident and resident family requesting for discharge date to be changed to 11/03/17, spoke with staff/therapy, 11/03/17 is an agreeable date at this time. Speech therapy now recommending for resident to continue with services within the home as well. Resident and resident family agreeable to recommendation and requesting for home health services to be set up through [facility] ([facility]). Resident family voicing to have a hospital bed and lift for resident within the home but to not have a wheelchair. Resident family agreeable to wheelchair being set up through [facility] as [facility] is in network with resident insurance. [facility] does not carry PEG tube supplies, [facility] will be contacted to obtain in network provider. Resident family planning to provide transportation home for resident around 11:00am on day of discharge. Support given. Telephone call to [facility], Order faxed for wheelchair along with needed supportive documentation. [facility] to set up delivery prior to resident discharge. Telephone call to [facility], Stefani. This social science manager making referral for physical, occupational, and speech therapy as well as a home health aide and fpc. Order completed. Telephone call to [facility]: [phone]. Clinical information faxed for PEG tube supplies. Shannon to facilitate finding a company that is in network with resident insurance that will be able to provide the PEG tube supplies. . Shannon to contact this social science manager when company is confirmed. Proposed discharge date: 11/03/17 PLAN: Discharge home with family. Resident to have 24hr care within the home. Ginny MARCIAL, FRAUD INVESTIGATOR
--- NOTE | 2017-11-01 14:39 | CASEMGMT ---
Brief interview for mental status (BIMS) and resident mood interview (PHQ-9) completed on this day. BIMS score 11/21. PHQ-9 score 02/02
--- NOTE | 2017-11-01 15:57 | CASEMGMT ---
Social Work Telephone call from Shannon at [facility]. Shannon reporting that [employer] will be supplying PEG tube formula and supplies for resident. Shannon to contact resident daughter, Betsy in regards to specifics on delivery. Shannon aware that start of care is 1400 on 11/03/17. Proposed discharge date: 11/03/17 @ 1100 PLAN: Discharge home with family and home health services. Start of care: 11/03/17 @ 1400. Home health nursing to meet resident and family at the home by 1400 for first bolus feeding. Ginny MARCIAL, MACHINE PRINTER HOSE
[2017-11-01] MEDS: PARoxetine 10 MG Tablet GT (21:44)
[2017-11-01] MEDS: QUEtiapine 25 MG Tablet 12.5 MG GT (21:44)
[2017-11-01] MEDS: Atorvastatin Calcium 20 MG Tablet GT (21:45)
[2017-11-01] MEDS: Doxepin Hcl 25 MG Capsule 50 MG GT (21:46)
[2017-11-02] VITALS (9 sets, daily range): BP systolic 101–106; BP diastolic 56–60; PULSE 58–73; RESP 16–20; TEMP 37.2; O2SAT 93–95
[2017-11-02] MEDS: guaiFENesin 10 ML UDC (200MG/10ML) GT ×6 (01:49→21:40)
[2017-11-02] MEDS: LORazepam 0.5 MG Tablet 1 MG GT (01:51)
[2017-11-02] MEDS: Ipratropium/Albuterol Sulfate 3 ML AMPUL.NEB INHALATION ×5 (03:10→19:30)
[2017-11-02] MEDS: Cholestyramine/Sucrose 4 GM/PACKET PO ×2 (04:46→18:47)
[2017-11-02] MEDS: Famotidine 20 MG Tablet GT (04:48)
[2017-11-02] MEDS: Menthol/Lanolin/Calamine/Znox 113 GM Tube 1 APPLIC TOPICAL ×3 (04:48→21:39)
[2017-11-02] MEDS: Furosemide 40 MG Tablet GT (04:49)
[2017-11-02] MEDS: Nystatin Powder 15gm Bottle 1 APPLIC TOPICAL ×2 (04:49→21:38)
[2017-11-02] MEDS: NEPRO TUBE FEED 1,000 ML LIQUID 240 ML GT ×5 (04:49→21:39)
[2017-11-02] MEDS: Metoprolol Tartrate 25 MG Tablet GT (04:49)
[2017-11-02] MEDS: Amiodarone 200 MG Tablet GT (04:50)
[2017-11-02] MEDS: Aspirin 81 MG TAB.CHEW GT (10:00)
--- NOTE | 2017-11-02 14:36 | CASEMGMT ---
Social Work Collaborating with resident and resident family on further community services. Resident and resident family requesting for a referral to be made to [facility]. Support given. [facility] referral faxed. Proposed discharge date: 11/03/17 PLAN: Discharge home with family and home health services. Ginny MARCIAL, COURT STENOGRAPHER
--- NOTE | 2017-11-02 18:08 | RAD_ITS ---
STUDY: X-RAY CHEST REASON FOR EXAM: Male, 81 years old. COUGH TECHNIQUE: Frontal and lateral views of the chest. COMPARISON: October 21 2017 FINDINGS: Chronic appearing increased interstitial lung markings. Stable left pleural effusion. Stable left pneumonia. Stable right lower lobe Multiple median sternotomy wires are noted consistent for cardiac surgery. Normal heart size. Normal mediastinum and matheus. Normal visualized pulmonary arteries. There is atherosclerotic calcification of the aortic arch with tortuosity. There are diffuse degenerative changes of the visualized thoracic spine. There is degenerative osteoarthritis of the bilateral shoulders. There is no demonstrated abnormality of the visualized soft tissue structures of the upper abdomen. RAD/Chest PA and Lateral IMPRESSION: Stable left pleural effusion. Stable left pneumonia. Stable right lower lobe Electronically Signed: Valeriy Alexandre MD at 19:04 EDT , Service support ,
--- NOTE | 2017-11-02 18:08 | RAD_ITS ---
STUDY: X-RAY - ABDOMEN/PELVIS REASON FOR EXAM: Male, 81 years old. Pain TECHNIQUE: Single AP view of the abdomen / pelvis. COMPARISON: None. FINDINGS: Normal visualized lung bases. There is a PEG tube in place. Multiple median sternotomy wires are noted consistent for cardiac surgery. There is an unremarkable bowel gas pattern. There is no demonstrated free abdominal air. The visualized liver, spleen and kidneys are grossly normal in size and morphology. Normal soft tissue structures. There are diffuse degenerative changes of the visualized lumbar spine. There is scoliosis of the lumbar spine. RAD/Abdomen Single View IMPRESSION: Normal x-ray examination of the abdomen and pelvis. Electronically Signed: Valeriy Alexandre MD at 18:50 EDT , Service support ,
[2017-11-02 19:17] LABS: Absolute Lymphocyte Count 2.01 X10^3/ul (0.83-4.51); Absolute Neutrophil Count 13.2 X10^3/uL (2.0-7.7); Basophil# 0.08 X10^3/uL; Basophil% 0.5 % (0-1); Eosinophil# 0.34 X10^3/uL; Hematocrit 33.6 % (40-54); Hemoglobin 10.9 g/dl (13.0-16.5); Lymphocyte # 2.01 X10^3/ul (4.0); Lymphocyte % 11.7 % (19-41); Mean Corp Hgb Conc 32.4 g/gl (32-36); Mean Corpuscular Volume 86.4 fL (80-94); Mean Platelet Vol. 9.2 fl (6.2-12.0); Monocyte# 1.46 X10^3/uL; Monocyte% 8.5 % (0-10); Neutrophil # 13.16 X10^3/uL (2.7-7.7); Neutrophil % 76.1 % (47-70); Platelet Count 332 K/mm3 (150-450); RBC Distribution Width CV 16.1 % (11.6-14.6); RBC Distribution Width SD 51.1 fl (35.1-43.9); Red Blood Count 3.89 M/mm3 (4.6-6.2); White Blood Count 17.3 K/mm3 (4.4-11.0)
[2017-11-02 19:19] LABS: POSITIVE COUNT NO; POSITIVE DIFFERENTIAL NO; POSITIVE MORPHOLOGY NO
[2017-11-02 19:49] LABS: Anion Gap 7 (5-15); BUN 76 mg/dL (7-18); BUN/Creat Ratio 60.3 RATIO (10-20); Calcium,Total 11.7 mg/dL (8.5-10.1); Chloride 107 mmol/L (98-107); Creatinine, Serum 1.26 mg/dL (0.70-1.30); EST Glomerular Filtration Rate 58 mL/min (>60); Est Glom Filt Rate - Afr Amer 71 mL/min (>60); Estimated Creatinine Clearance 45.45 ml/min; Glucose 109 mg/dL (74-106); Potassium 5.3 mmol/L (3.5-5.1); Sodium Level 132 mmol/L (136-145)
[2017-11-02] MEDS: Piperacil/Tazobactam 3.375 GM/50 ML ML IV (21:28)
[2017-11-02] MEDS: 0.9% NaCl Peripheral Flush Adult/Peds IV (21:29)
[2017-11-02] MEDS: 0.9% NaCl IVPB Med Flush (250 mL) 15 ML IV (21:38)
[2017-11-02] MEDS: Atorvastatin Calcium 20 MG Tablet GT (21:40)
--- NOTE | 2017-11-02 22:15 | PCM.TCUNOT ---
Subjective: Resident very sleepy today. His daughter is concerned that resident sleeps all day long. 9 days ago, nursing staff and daughter were concerned with anxiety, insomnia, restlessness but he seems to be the opposite now. Vitals/I&O's: Vital Signs Temp Pulse Resp BP Pulse Ox 98.9 F 58 L 18 101/56 L 93 11/02/17 16:00 11/02/17 18:46 11/02/17 16:00 11/02/17 18:46 11/02/17 16:00 Oxygen Delivery Method Room Air Weight: 68.719 kg Body Mass Index (BMI) 21.7 Intake and Output for Last 24 Hours 10/31/17 11/01/17 11/02/17 23:59 23:59 23:59 Intake Total 1020 / 1020 480 / 480 480 / 480 Balance 1020 / 1020 480 / 480 480 / 480 Laboratory Results 11/02/17 19:07: WBC 17.3 H, RBC 3.89 L, Hgb 10.9 L, Hct 33.6 L, MCV 86.4, MCH 28.0, MCHC 32.4, RDW 16.1 H, RDW Differential 51.1 H, Plt Count 332, MPV 9.2, Immature Gran % (Auto) 1.200 H, Neut % (Auto) 76.1 H, Lymph % (Auto) 11.7 L, Billings % (Auto) 8.5, Eos % (Auto) 2.0, Baso % (Auto) 0.5, Absolute Neuts (auto) 13.2 H, Absolute Lymphs (auto) 2.01, Total Counted Not Reportable 11/02/17 19:07: Sodium 132 L, Potassium 5.3 H, Chloride 107, Carbon Dioxide 18.0 L, Anion Gap 7, BUN 76 H, Creatinine 1.26, Estim Creat Clear Calc 45.45, Est GFR (MDRD) Af Amer 71, Est GFR (MDRD) Non-Af 58 L, BUN/Creatinine Ratio 60.3 H, Glucose 109 H, Calcium 11.7 H 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) CABG x 1 vessel at [facility] with AV repair and repair of aortic dissection H/O aortic valve repair (Chronic) as a result of a thoracic aortic dissection Aortic dissection, thoracic (Chronic) repaired at [facility] main campus in june of 2017 Cerebrovascular disease (Chronic) Ventricular hypertrophy (Chronic) EF of 65% Diastolic dysfunction (Chronic) stage 1 Dysphagia (Chronic) Atrial fibrillation (Chronic) Urinary retention (Chronic) Chronic hepatitis B (Chronic) BPH (benign prostatic hyperplasia) (Chronic) GERD (gastroesophageal reflux disease) (Chronic) Insomnia (Chronic) Diabetes mellitus (Chronic) Paroxysmal atrial fibrillation (Chronic) Type 2 diabetes mellitus without complications (Chronic) Hyperlipidemia (Chronic) Hypertension (Chronic) Allergies No Known Allergies Allergy (Unverified 06/20/17 14:37) Home Medications: Ambulatory Orders Medication Instructions Recorded Acetaminophen Liquid [Tylenol 650 mg GT Q4H PRN PRN #1000 ml 10/31/17 Liquid] Amiodarone HCl [Cordarone] 200 mg GT DAILY #30 tab 10/31/17 Aspirin [Aspirin, Baby] 81 mg GT DAILY@0800 #30 tab.chew 10/31/17 Atorvastatin Calcium [Lipitor] 20 mg GT QHS #30 tab 10/31/17 Bisacodyl [Dulcolax] 10 mg PO DAILY PRN PRN #30 tab 10/31/17 Cholestyramine (with Sugar) 4 gm PO BID #60 powd.pack 10/31/17 [Cholestyramine Packet] Doxepin HCl [Sinequan] 50 mg GT QHS #60 cap 10/31/17 Famotidine [Pepcid] 20 mg GT DAILY #30 tab 10/31/17 Furosemide 40 mg GT DAILY #30 tab 10/31/17 Guaifenesin [Robitussin] 10 ml GT Q4 #300 ml 10/31/17 Ipratropium/Albuterol Sulfate 3 ml INHALATION Q4H.RT #120 10/31/17 [Duoneb] ampul.neb Lactobacillus Acidophilus 1 tab PO BID #60 tab 10/31/17 [Acidophilus] Lorazepam [Ativan] 1 mg GT Q4H PRN PRN #30 tab 10/31/17 Menthol/Lanolin/Calamine/Znox 1 applic TOPICAL TID tube 10/31/17 [Calmoseptine Ointment] Metoprolol Tartrate 25 mg GT BID #60 tab 10/31/17 Nepro Tube Feed [Nepro Carb Steady] 240 ml GT 5X/DAY #36 l 10/31/17 Nystatin Powder [Mycostatin Powder] 1 applic TOPICAL 0600,2200 #1 10/31/17 bottle Paroxetine [Paxil] 10 mg GT QHS #30 tab 10/31/17 Potassium Chloride 20 meq GT DAILY #450 ml 10/31/17 Surgical History: coronary bypass surgery - x 1., TURP, - - Thoracic aortic dissection repair, PEG tube, Aortic valve repair. Psychiatric History: No pertinent psych hx Lives: With Family Smoking Status: Former smoker Tobacco Use: Non-smoker Alcohol: None Drugs: None - *Family History Maternal History Items: No pertinent history Paternal History Items: No pertinent history Sibling History Items: Cancer - liver in brother Review of Systems Constitutional: Denies: Chills, Fever, Weight Change HEENT: Denies: Head Aches, Sinus Congestion, Sinus Drainage Cardiovascular: Denies: Chest Pain, Palpitations Respiratory: Denies: Cough, Shortness of breath at rest, Sputum production Gastrointestinal: Denies: Abdominal Pain, Nausea, Vomiting Genitourinary: Denies: Dysuria Musculoskeletal: Denies: Joint Pain, Joint Tenderness Skin: Denies: Rash, Wounds Neurological: Denies: Numbness, Tingling, Focal weakness Psychiatric: Denies: Anxiety, Depression, Homicidal Ideations, Suicidal Ideations Hematologic/ Lymphatic: Denies: Easy Bruising, Easy Bleeding Patient Problems: Active and Suspected Problems (Last Updated 06/20/17 @ 14:47 by Whit Wilson) Encephalopathy (Acute) Weakness (Acute) HCAP (healthcare-associated pneumonia) (Acute) Acute on chronic diastolic heart failure (Acute) Clostridium difficile diarrhea (Acute) Acute on chronic kidney failure (Acute) Burkholderia cepacia infection (Acute) - Physical Exam General: Alert, Oriented x3, Cooperative HEENT: Atraumatic, PERRLA, EOMI, Normocephalic Neck: Supple, No JVD, Negative Carotid Bruits Lungs: Rales, Wheezes Cardiovascular: Regular rate, No murmurs Abdomen: Bowel Sounds Present, Soft, Non Tender, - - PEG tube. Extremities: No edema, Capillary Refill Less than 3 Seconds Skin: No rashes, No breakdown Musculoskeletal: No Tenderness to Palpation of Joints or Extremities Neurological: Cranial nerves II-XII grossly intact Psych/Mental Status: Normal Affect, Appropriate Vital Signs Temp Pulse Resp BP Pulse Ox 98.9 F 73 20 H 101/56 L 93 11/02/17 16:00 11/02/17 19:30 11/02/17 19:30 11/02/17 18:46 11/02/17 16:00 Oxygen Delivery Method Room Air Weight: 68.719 kg Body Mass Index (BMI) 21.7 Intake and Output for Last 24 Hours 10/31/17 11/01/17 11/02/17 23:59 23:59 23:59 Intake Total 1020 / 1020 480 / 480 480 / 480 Balance 1020 / 1020 480 / 480 480 / 480 Laboratory Tests Past 24 Hrs 11/02/17 11/02/17 19:07 19:07 WBC 17.3 H RBC 3.89 L Hgb 10.9 L Hct 33.6 L MCV 86.4 MCH 28.0 MCHC 32.4 RDW 16.1 H RDW Differential 51.1 H Plt Count 332 MPV 9.2 Immature Gran % (Auto) 1.200 H Neut % (Auto) 76.1 H Lymph % (Auto) 11.7 L Billings % (Auto) 8.5 Eos % (Auto) 2.0 Baso % (Auto) 0.5 Absolute Neuts (auto) 13.2 H Absolute Lymphs (auto) 2.01 Total Counted Not Reportable Sodium 132 L Potassium 5.3 H Chloride 107 Carbon Dioxide 18.0 L Anion Gap 7 BUN 76 H Creatinine 1.26 Estim Creat Clear Calc 45.45 Est GFR (MDRD) Af Amer 71 Est GFR (MDRD) Non-Af 58 L BUN/Creatinine Ratio 60.3 H Glucose 109 H Calcium 11.7 H Assessment/Plan Active and Suspected Problems (Last Updated 06/20/17 @ 14:47 by Whit Wilson) Encephalopathy (Acute) Weakness (Acute) HCAP (healthcare-associated pneumonia) (Acute) Acute on chronic diastolic heart failure (Acute) Clostridium difficile diarrhea (Acute) Acute on chronic kidney failure (Acute) Burkholderia cepacia infection (Acute) 81 year old male with below past medical history significant for recent thoracic aortic dissection repair, hospitalized for change in mental status secondary to healthcare associated pneumonia, complicated by clostridium difficile colitis, acute on chronic diastolic heart failure requiring intubation, anemia requiring transfusion, admitted to TCU with debility, here for rehabilitation, strengthening, advancement of diet per speech therapy, prior to discharge home with family. Somnolence - Stop Paroxetine, Stop Seroquel, Stop Lorazepam, Stop Doxepin. Delirium - CBCD, BMP, UA, Chest X-ray, KUB. Leukocytosis - WBC 17 with left shift, concerning, but resident had recent steroid taper course. Aspiration pneumonia - 9 days ago, he was treated again with Cefdinir, Z-solomon, Prednisone taper, His Chest X-ray appears unchanged, start Zosyn 3.375GM IV Q8H, his pneumonia maybe chronic and unable to clear. If he appears well tomorrow, will stop Zosyn, and allow him to go home. Dysphagia - TF thru PEG tube, but he may still aspirate secretions. End of Life care - If he does not improve, it is reasonable to approach the topic of end of life care, palliative care, hospice care.
--- NOTE | 2017-11-02 22:22 | PN_ITS ---
Subjective: Resident very sleepy today. His daughter is concerned that resident sleeps all day long. 9 days ago, nursing staff and daughter were concerned with anxiety, insomnia, restlessness but he seems to be the opposite now. Vitals/I&O's: Vital Signs Temp Pulse Resp BP Pulse Ox 98.9 F 58 L 18 101/56 L 93 11/02/17 16:00 11/02/17 18:46 11/02/17 16:00 11/02/17 18:46 11/02/17 16:00 Oxygen Delivery Method Room Air Weight: 68.719 kg Body Mass Index (BMI) 21.7 Intake and Output for Last 24 Hours 10/31/17 11/01/17 11/02/17 23:59 23:59 23:59 Intake Total 1020 / 1020 480 / 480 480 / 480 Balance 1020 / 1020 480 / 480 480 / 480 Laboratory Results 11/02/17 19:07: WBC 17.3 H, RBC 3.89 L, Hgb 10.9 L, Hct 33.6 L, MCV 86.4, MCH 28.0, MCHC 32.4, RDW 16.1 H, RDW Differential 51.1 H, Plt Count 332, MPV 9.2, Immature Gran % (Auto) 1.200 H, Neut % (Auto) 76.1 H, Lymph % (Auto) 11.7 L, [place] % (Auto) 8.5, Eos % (Auto) 2.0, Baso % (Auto) 0.5, Absolute Neuts (auto) 13.2 H, Absolute Lymphs (auto) 2.01, Total Counted Not Reportable 11/02/17 19:07: Sodium 132 L, Potassium 5.3 H, Chloride 107, Carbon Dioxide 18.0 L, Anion Gap 7, BUN 76 H, Creatinine 1.26, Estim Creat Clear Calc 45.45, Est GFR (MDRD) Af Amer 71, Est GFR (MDRD) Non-Af 58 L, BUN/Creatinine Ratio 60.3 H, Glucose 109 H, Calcium 11.7 H 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) CABG x 1 vessel at [facility] with AV repair and repair of aortic dissection H/O aortic valve repair (Chronic) as a result of a thoracic aortic dissection Aortic dissection, thoracic (Chronic) repaired at [facility] main campus in june of 2017 Cerebrovascular disease (Chronic) Ventricular hypertrophy (Chronic) EF of 65% Diastolic dysfunction (Chronic) stage 1 Dysphagia (Chronic) Atrial fibrillation (Chronic) Urinary retention (Chronic) Chronic hepatitis B (Chronic) BPH (benign prostatic hyperplasia) (Chronic) GERD (gastroesophageal reflux disease) (Chronic) Insomnia (Chronic) Diabetes mellitus (Chronic) Paroxysmal atrial fibrillation (Chronic) Type 2 diabetes mellitus without complications (Chronic) Hyperlipidemia (Chronic) Hypertension (Chronic) Allergies No Known Allergies Allergy (Unverified 06/20/17 14:37) Home Medications: Ambulatory Orders Medication Instructions Recorded Acetaminophen Liquid [Tylenol 650 mg GT Q4H PRN PRN #1000 ml 10/31/17 Liquid] Amiodarone HCl [Cordarone] 200 mg GT DAILY #30 tab 10/31/17 Aspirin [Aspirin, Baby] 81 mg GT DAILY@0800 #30 tab.chew 10/31/17 Atorvastatin Calcium [Lipitor] 20 mg GT QHS #30 tab 10/31/17 Bisacodyl [Dulcolax] 10 mg PO DAILY PRN PRN #30 tab 10/31/17 Cholestyramine (with Sugar) 4 gm PO BID #60 powd.pack 10/31/17 [Cholestyramine Packet] Doxepin HCl [Sinequan] 50 mg GT QHS #60 cap 10/31/17 Famotidine [Pepcid] 20 mg GT DAILY #30 tab 10/31/17 Furosemide 40 mg GT DAILY #30 tab 10/31/17 Guaifenesin [Robitussin] 10 ml GT Q4 #300 ml 10/31/17 Ipratropium/Albuterol Sulfate 3 ml INHALATION Q4H.RT #120 10/31/17 [Duoneb] ampul.neb Lactobacillus Acidophilus 1 tab PO BID #60 tab 10/31/17 [Acidophilus] Lorazepam [Ativan] 1 mg GT Q4H PRN PRN #30 tab 10/31/17 Menthol/Lanolin/Calamine/Znox 1 applic TOPICAL TID tube 10/31/17 [Calmoseptine Ointment] Metoprolol Tartrate 25 mg GT BID #60 tab 10/31/17 Nepro Tube Feed [Nepro Carb Steady] 240 ml GT 5X/DAY #36 l 10/31/17 Nystatin Powder [Mycostatin Powder] 1 applic TOPICAL 0600,2200 #1 10/31/17 bottle Paroxetine [Paxil] 10 mg GT QHS #30 tab 10/31/17 Potassium Chloride 20 meq GT DAILY #450 ml 10/31/17 Surgical History: coronary bypass surgery - x 1., TURP, - - Thoracic aortic dissection repair, PEG tube, Aortic valve repair. Psychiatric History: No pertinent psych hx Lives: With Family Smoking Status: Former smoker Tobacco Use: Non-smoker Alcohol: None Drugs: None - *Family History Maternal History Items: No pertinent history Paternal History Items: No pertinent history Sibling History Items: Cancer - liver in brother Review of Systems Constitutional: Denies: Chills, Fever, Weight Change HEENT: Denies: Head Aches, Sinus Congestion, Sinus Drainage Cardiovascular: Denies: Chest Pain, Palpitations Respiratory: Denies: Cough, Shortness of breath at rest, Sputum production Gastrointestinal: Denies: Abdominal Pain, Nausea, Vomiting Genitourinary: Denies: Dysuria Musculoskeletal: Denies: Joint Pain, Joint Tenderness Skin: Denies: Rash, Wounds Neurological: Denies: Numbness, Tingling, Focal weakness Psychiatric: Denies: Anxiety, Depression, Homicidal Ideations, Suicidal Ideations Hematologic/ Lymphatic: Denies: Easy Bruising, Easy Bleeding Patient Problems: Active and Suspected Problems (Last Updated 06/20/17 @ 14:47 by Whit Wilson) Encephalopathy (Acute) Weakness (Acute) HCAP (healthcare-associated pneumonia) (Acute) Acute on chronic diastolic heart failure (Acute) Clostridium difficile diarrhea (Acute) Acute on chronic kidney failure (Acute) Burkholderia cepacia infection (Acute) - Physical Exam General: Alert, Oriented x3, Cooperative HEENT: Atraumatic, PERRLA, EOMI, Normocephalic Neck: Supple, No JVD, Negative Carotid Bruits Lungs: Rales, Wheezes Cardiovascular: Regular rate, No murmurs Abdomen: Bowel Sounds Present, Soft, Non Tender, - - PEG tube. Extremities: No edema, Capillary Refill Less than 3 Seconds Skin: No rashes, No breakdown Musculoskeletal: No Tenderness to Palpation of Joints or Extremities Neurological: Cranial nerves II-XII grossly intact Psych/Mental Status: Normal Affect, Appropriate Vital Signs Temp Pulse Resp BP Pulse Ox 98.9 F 73 20 H 101/56 L 93 11/02/17 16:00 11/02/17 19:30 11/02/17 19:30 11/02/17 18:46 11/02/17 16:00 Oxygen Delivery Method Room Air Weight: 68.719 kg Body Mass Index (BMI) 21.7 Intake and Output for Last 24 Hours 10/31/17 11/01/17 11/02/17 23:59 23:59 23:59 Intake Total 1020 / 1020 480 / 480 480 / 480 Balance 1020 / 1020 480 / 480 480 / 480 Laboratory Tests Past 24 Hrs 11/02/17 11/02/17 19:07 19:07 WBC 17.3 H RBC 3.89 L Hgb 10.9 L Hct 33.6 L MCV 86.4 MCH 28.0 MCHC 32.4 RDW 16.1 H RDW Differential 51.1 H Plt Count 332 MPV 9.2 Immature Gran % (Auto) 1.200 H Neut % (Auto) 76.1 H Lymph % (Auto) 11.7 L [place] % (Auto) 8.5 Eos % (Auto) 2.0 Baso % (Auto) 0.5 Absolute Neuts (auto) 13.2 H Absolute Lymphs (auto) 2.01 Total Counted Not Reportable Sodium 132 L Potassium 5.3 H Chloride 107 Carbon Dioxide 18.0 L Anion Gap 7 BUN 76 H Creatinine 1.26 Estim Creat Clear Calc 45.45 Est GFR (MDRD) Af Amer 71 Est GFR (MDRD) Non-Af 58 L BUN/Creatinine Ratio 60.3 H Glucose 109 H Calcium 11.7 H Assessment/Plan Active and Suspected Problems (Last Updated 06/20/17 @ 14:47 by Whit Wilson) Encephalopathy (Acute) Weakness (Acute) HCAP (healthcare-associated pneumonia) (Acute) Acute on chronic diastolic heart failure (Acute) Clostridium difficile diarrhea (Acute) Acute on chronic kidney failure (Acute) Burkholderia cepacia infection (Acute) 81 year old male with below past medical history significant for recent thoracic aortic dissection repair, hospitalized for change in mental status secondary to healthcare associated pneumonia, complicated by clostridium difficile colitis, acute on chronic diastolic heart failure requiring intubation , anemia requiring transfusion, admitted to TCU with debility, here for rehabilitation, strengthening, advancement of diet per speech therapy, prior to discharge home with family. * Somnolence - Stop Paroxetine, Stop Seroquel, Stop Lorazepam, Stop Doxepin. * Delirium - CBCD, BMP, UA, Chest X-ray, KUB. * Leukocytosis - WBC 17 with left shift, concerning, but resident had recent steroid taper course. * Aspiration pneumonia - 9 days ago, he was treated again with Cefdinir, Z-solomon, Prednisone taper, His Chest X-ray appears unchanged, start Zosyn 3.375GM IV Q8H , his pneumonia maybe chronic and unable to clear. If he appears well tomorrow , will stop Zosyn, and allow him to go home. * Dysphagia - TF thru PEG tube, but he may still aspirate secretions. * End of Life care - If he does not improve, it is reasonable to approach the topic of end of life care, palliative care, hospice care.
[2017-11-02 22:49] LABS: Mucous, Urine 0 SEEN /hpf (<or=2+); Red Blood Cells-Urine 0 SEEN /hpf (0-5); Squamous Epithelial Cells - UA 0 SEEN /hpf (0-5)
[2017-11-02 22:50] LABS: Color, Urine Yellow (Yellow); Glucose, Dipstick Normal (Normal); Ketone-Dipstick Negative (Negative); Leukocyte Esterase-Dipstick 500 /ul (Negative); Nitrite-Dipstick Negative (Negative); Occult Blood-Urine 25 /ul (Negative); Protein-Dipstick 30 mg/dl (Negative); Urine Bilirubin Dipstick Negative (Negative); Urine Clarity Cloudy (Clear); Urine Urobilinogen Normal (Normal)
[2017-11-02 23:04] LABS: White Blood Cells >100 SEEN /hpf (0-5)
[2017-11-02 23:05] LABS: Bacteria RARE /hpf (None Seen); Yeast-Urine RARE /hpf (None Seen)
--- NOTE | 2017-11-02 23:46 | NURSING ---
Dr Wong updated on labs. No new orders given.
[2017-11-03] MEDS: guaiFENesin 10 ML UDC (200MG/10ML) GT ×3 (03:08→09:16)
[2017-11-03] MEDS: NEPRO TUBE FEED 1,000 ML LIQUID 240 ML GT ×2 (05:39→09:16)
[2017-11-03] MEDS: 0.9% NaCl Peripheral Flush Adult/Peds IV (05:40)
[2017-11-03] MEDS: Menthol/Lanolin/Calamine/Znox 113 GM Tube 1 APPLIC TOPICAL (05:40)
[2017-11-03] MEDS: Piperacil/Tazobactam 3.375 GM/50 ML ML IV (05:40)
[2017-11-03 05:45] VITALS: BP 135/74; PULSE 78
[2017-11-03] MEDS: Metoprolol Tartrate 25 MG Tablet GT (05:45)
[2017-11-03] MEDS: Famotidine 20 MG Tablet GT (05:45)
[2017-11-03] MEDS: Cholestyramine/Sucrose 4 GM/PACKET PO (05:45)
[2017-11-03] MEDS: Furosemide 40 MG Tablet GT (05:46)
[2017-11-03] MEDS: Amiodarone 200 MG Tablet GT (05:46)
[2017-11-03] MEDS: Nystatin Powder 15gm Bottle 1 APPLIC TOPICAL (06:03)
[2017-11-03 06:13] LABS: Absolute Lymphocyte Count 2.39 X10^3/ul (0.83-4.51); Absolute Neutrophil Count 12.4 X10^3/uL (2.0-7.7); Basophil% 0.6 % (0-1); Eosinophil# 0.35 X10^3/uL; Eosinophils% 2.1 % (0-5); Hematocrit 32.8 % (40-54); Hemoglobin 10.9 g/dl (13.0-16.5); Lymphocyte # 2.39 X10^3/ul (4.0); Lymphocyte % 14.2 % (19-41); Mean Corp Hgb Conc 33.2 g/gl (32-36); Mean Corpuscular Hgb 28.6 pg (27.0-32.0); Mean Corpuscular Volume 86.1 fL (80-94); Mean Platelet Vol. 9.6 fl (6.2-12.0); Monocyte# 1.39 X10^3/uL; Monocyte% 8.2 % (0-10); Neutrophil % 73.5 % (47-70); Platelet Count 405 K/mm3 (150-450); RBC Distribution Width CV 15.7 % (11.6-14.6); RBC Distribution Width SD 48.5 fl (35.1-43.9); Red Blood Count 3.81 M/mm3 (4.6-6.2); White Blood Count 16.9 K/mm3 (4.4-11.0)
[2017-11-03 06:20] LABS: POSITIVE COUNT NO; POSITIVE DIFFERENTIAL NO; POSITIVE MORPHOLOGY NO
[2017-11-03 06:34] LABS: ALB/GLOB Ratio 0.5 RATIO (0.9-2.4); AST(SGOT) 34 U/L (15-37); Alanine Aminotransfer ALT/SGPT 47 U/L (16-61); Albumin, Serum 2.8 g/dL (3.2-5.0); Alkaline Phosphatase 173 U/L (45-117); Anion Gap 9 (5-15); BUN 73 mg/dL (7-18); BUN/Creat Ratio 54.5 RATIO (10-20); Calcium,Total 12.2 mg/dL (8.5-10.1); Chloride 108 mmol/L (98-107); Creatinine, Serum 1.34 mg/dL (0.70-1.30); EST Glomerular Filtration Rate 54 mL/min (>60); Est Glom Filt Rate - Afr Amer 66 mL/min (>60); Estimated Creatinine Clearance 42.74 ml/min; Globulin 5.3 g/dL (2.2-4.2); Glucose 94 mg/dL (74-106); Potassium 4.8 mmol/L (3.5-5.1); Protein, Total 8.1 g/dL (6.4-8.2); Sodium Level 135 mmol/L (136-145)
[2017-11-03 06:49] VITALS: PULSE 64; RESP 20; O2SAT 98
[2017-11-03] MEDS: Ipratropium/Albuterol Sulfate 3 ML AMPUL.NEB INHALATION ×2 (06:49→11:00)
[2017-11-03] MEDS: Aspirin 81 MG TAB.CHEW GT (09:16)
[2017-11-03 09:41] VITALS: BP 127/67; PULSE 61; RESP 22; TEMP 37.1; O2SAT 97
[2017-11-03 10:00] VITALS: PULSE 89; O2SAT 97
[2017-11-03 11:00] VITALS: PULSE 66; RESP 21
--- NOTE | 2017-11-03 13:29 | CASEMGMT ---
Insurance Notified insurance of resident discharge on 11/03/17 to home with family and home health services. Auth#[id number] Ginny MARCIAL, CONTACT [employer]
--- NOTE | 2017-11-14 10:57 | MDS.RN ---
Information for the mds was obtained from review of the clinical record, interview of resident, staff, and direct observation of resident's care.
== END 2017-11-03 13:00 | disposition home health service (06) | DRG 947 ==
PROVIDERS: Admitting Provider Family Medicine Geriatric Medicine; Family Provider Family Medicine; PCP Family Medicine; Visit Provider Family Medicine Geriatric Medicine
DX: R53.81 Other malaise (principal); I50.33 Acute on chronic diastolic (congestive) heart failure; J18.9 Pneumonia, unspecified organism; G93.40 Encephalopathy, unspecified; I13.0 Hypertensive heart and chronic kidney disease with heart failure and stage 1 through stage 4 chronic kidney disease, or unspecified chronic kidney disease; B18.1 Chronic viral hepatitis B without delta-agent; A04.72 Enterocolitis due to Clostridium difficile, not specified as recurrent; E11.22 Type 2 diabetes mellitus with diabetic chronic kidney disease; I48.0 Paroxysmal atrial fibrillation; I25.10 Atherosclerotic heart disease of native coronary artery without angina pectoris; E78.5 Hyperlipidemia, unspecified; K21.9 Gastro-esophageal reflux disease without esophagitis; E87.6 Hypokalemia; N18.9 Chronic kidney disease, unspecified; N40.0 Benign prostatic hyperplasia without lower urinary tract symptoms; Z95.1 Presence of aortocoronary bypass graft; Z87.891 Personal history of nicotine dependence; Y95 Nosocomial condition; D64.9 Anemia, unspecified
CPT/HCPCS: 36415; 71045; 71046; 74018; 80048; 80053; 81001; 82962; 83735; 84100; 85025; 87086; 87088; 92507; 92526; 92610; 94640; 97110; 97112; 97140; 97162; 97166; 97530; 97535; 97802; 97803; J7050; A4216